=== PATIENT | female | born 1935 | race Caucasian/White ===

== ENCOUNTER 2016-10-18 17:33 | Inpatient (IN) | payer MEDICARE, BC ==
[~2016-10-18] VITALS: Ht 170.2 cm; Wt 80.5 kg
[~2016-10-18 17:33] MED LIST: ALEN70TA7 PO; AMLO5TAB2 PO; BUDE0.5A AEROSOL; CALC-747 PO; CARV25TA28 PO; DULO60CA25 PO; FURO40TA70 PO; GUAI-782 PO; IPRA3AMP AEROSOL; LEVO500T63 PO; LEVO75TA4 PO; LISI-126 PO; LORA-315 PO; MIRT30TA72 PO; OXYC5TAB84 PO; POTA20TA69 PO; TRAVATAN RIGHT EYE; WARF2TAB58 PO
--- OUTSIDE RECORDS SUMMARY | 2016-10-18 17:42 | XMS REPORT ---
Author Author Remigio Gautam Organization [employer] Address Unknown Phone Unavailable Care Team Providers Care Formulation Technician Name Role Phone Remigio Gautam CP Unavailable Allergies No Known Allergies Problems Problem Type Condition ICD-9 Code Onset Dates Condition Status Problem Hypothyroid 244.9 Active Problem Personal history of malignant neoplasm of skin V10.83 Active Problem Hypertension, essential 401.9 Active Problem Dyslipidemia 272.4 Active Problem Lumbar spondylosis 721.3 Active Problem Intertrigo 695.89 Active Problem Basal cell carcinoma of skin of nose 173.31 Active Problem Actinic keratosis 702.0 Active Problem Degenerative disc disease, lumbar 722.52 Active Problem Spondylolisthesis 756.12 Active Problem Long-term use of anticoagulants V58.61 Active Problem Osteoporosis 733.00 Active Assessment Chronic anticoagulation V58.61 Active Problem Osteoarthritis of right hip 715.95 Active Problem Heart valve replacement status V43.3 Active Problem Hip joint replacement status V43.64 Active Medications Medication Code System Code Instructions Start Date End Date Status Dosage Amlodipine Besylate [facility] [address]-96 5 MG Orally Once a day 1 tablet Lorazepam [facility] [address]-81 0.5 MG Orally Twice a day not defined Mirtazapine [facility] [address]-26 45 MG Orally Once a day 1 tablet Brovana [facility] [address]-85 15 MCG/2ML Inhalation Twice a day 2 ml Lasix [facility] [address]-92 40 MG Orally Twice a day 1 tablet Albuterol Sulfate [facility] [address]-75 (2.5 MG/3ML) 0.083% Inhalation as needed 3 ml Oxygen [facility] 0 3 LPM 07/03 Fosamax [facility] [address]-76 70 MG Orally Once a week 1 tablet Coumadin [facility] [address]-20 2 MG Orally Once a day 1 tablet Potassium Chloride ER [facility] [address]-67 10 MEQ Orally Twice a day 1 tablet Cymbalta [facility] 49593545724 60 MG Orally Once a day 1 capsule Coreg [facility] [address]-36 12.5 MG Orally Twice a day 1 tablet Lisinopril [facility] [address]-85 20 MG Orally twice a day 1 tablet Levothyroxine Sodium [facility] 04996614782 88 MCG Orally Once a day 1 tablet Procedures Procedure Coding System Code Date Prothrombin Time CPT-4 04661 February 03, 2015 Venipuncture CPT-4 44255 February 03, 2015 Results No Known Results Summary Purpose [employer]ClinicalWorks Submission
--- OUTSIDE RECORDS SUMMARY | 2016-10-18 17:42 | XMS REPORT ---
Author Author Mya Srinivasan Organization [employer] Address Unknown Phone Unavailable Care Team Providers Care School Plant Consultant Name Role Phone Mya Srinivasan CP Unavailable Allergies No Known Allergies Problems Problem Type Condition Code Onset Dates Condition Status Problem Hypertension, essential 401.9 Active Problem Actinic keratosis 702.0 Active Problem Personal history of malignant neoplasm of skin V10.83 Active Problem Intertrigo 695.89 Active Problem Dyslipidemia 272.4 Active Problem Epistaxis 784.7 Active Problem Spondylolisthesis 756.12 Active Problem Basal cell carcinoma of skin of nose 173.31 Active Problem Lumbar spondylosis 721.3 Active Problem Degenerative disc disease, lumbar 722.52 Active Problem Osteoporosis 733.00 Active Problem Osteoarthritis of right hip 715.95 Active Problem Heart valve replacement status V43.3 Active Problem Hip joint replacement status V43.64 Active Problem Long-term use of anticoagulants V58.61 Active Problem Hypothyroid 244.9 Active Medications No Known Medications Results No Known Results Summary Purpose [employer]ClinicalWorks Submission
--- OUTSIDE RECORDS SUMMARY | 2016-10-18 17:42 | XMS REPORT | Continuity of Care Document ---
Author Author [facility] Organization [facility] Address Unknown Phone Unavailable Support Name Relationship Address Phone ELVIADALIA ROLON Caregiver [address] [place] [address] OTHER Caregiver Unknown [phone] MANFRED LEON MD Caregiver [address] [place] [address] [address] Next Of Kin [address] [place] [address] Insurance Providers Payer Name Policy Number Subscriber Name Relationship Medicare [id number] Lulú Sterling 20 Self [facility] [id number] Lulú Sterling 20 Self Advance Directives Directive Response Recorded Date/Time Advanced Directives Type DPOA for Healthcare 11/23/14 11:29am Ordered Resuscitation Status Full Code 11/25/14 11:13am Resuscitation Documents on File No 11/23/14 12:48pm Chief Complaint and Reason for Visit Chief Complaint RT. PNEUMONIA Reason for Visit Pneumonia involving right lung Pneumonia involving right lung Pulmonary fibrosis Acute respiratory insufficiency Hypothyroidism CHF due to valvular disease Hyperosmolality and hypernatremia Anemia Problems Medical Problems Problem Onset Date Status Urinary tract infection Unknown Active Left flank pain Unknown Active Pneumonia involving right lung Unknown Active Pneumonia involving right lung Unknown Active Pulmonary fibrosis Unknown Active Acute respiratory insufficiency Unknown Active Hypothyroidism Unknown Active CHF due to valvular disease Unknown Active Hyperosmolality and hypernatremia Unknown Active Anemia Unknown Active Medications Medication Dose Route Sig Days/Qty Instructions Order Date Discontinued Date Status Carvedilol 1 Tab PO TWICE A DAY 06/01/13 Active Lisinopril 1 Tab PO TWICE A DAY 06/01/13 Active Alendronate Sodium 1 Tab PO WEEKLY 06/01/13 Active Levothyroxine Sodium 1 Tab PO DAILY 06/01/13 11/27/14 Discontinued Furosemide 1 Tab PO TWICE A DAY 06/01/13 Active Potassium Chloride 10 Meq PO TWICE A DAY 06/01/13 Active Warfarin Sodium 1 Tab PO DAILY DIRECTED BY PHYSICIAN 06/01/1311/27 Discontinued Duloxetine Hcl 1 Tab PO DAILY 06/01/13 Active Lorazepam 1 Tab PO TWICE A DAY 06/01/13 Active Mirtazapine 1 Tab PO BEDTIME 06/01/13 Active Amlodipine Besylate 1 Tab PO DAILY 11/18/14 Active Oxycodone HCl 5 Mg PO Every 6 Hours PRN PAIN 20 Qty 11/18/14 Active Ciprofloxacin HCl 500 Mg PO EVERY 12 HOURS 5 Days 11/18/14 11/27/14 Discontinued [Travatan] 1 Drop RIGHT EYE BEDTIME 11/23/14 Active Budesonide 0.5 Mg AEROSOL TWICE A DAY For pneumonia 14 Days 11/27/14 Active Guaifenesin/Dextromethorphan 1 Tab PO EVERY 12 HOURS For pneumonia 21 Days 11/27/14 Active Ipratropium/Albuterol Sulfate 3 Ml AEROSOL FOUR TIMES DAILY For pneumonia 14 Days 11/27/14 Active Warfarin Sodium 1.5 Mg PO GIVE AT NOON 30 Days 11/27/14 Active Levothyroxine Sodium 75 Mcg PO BEFORE BREAKFAST 30 Days 11/27/14 Active Levofloxacin 500 Mg PO DAILY For pneumonia 5 Days 11/27/14 Active Calcium Carbonate/Vitamin D3 1 Tab PO TWICE A DAY For osteoperosis 30 Days 11/27/14 Active Social History Social History Problem Response Recorded Date/Time Chewing Tobacco Status No 06/01/2013 1:02pm Hx Substance Use No 11/23/2014 10:38am Hx Alcohol Use No 11/23/2014 10:38am Has the pt used tobacco in the last 12 months No 11/23/2014 12:42pm Tobacco Usage none 11/23/2014 2:10pm Query Response Start Date Stop Date Smoking Status Former smoker Hospital Discharge Instructions Instructions: Care Instructions: Reason for Hospitalization: Pneumonia I was in the hospital because (patient own words): I think I have pneumonia Discharge Diet: No added salt Discharge Activity: Walker for assistance Follow Up Appointments: Dr Varner in 1 week Patient Instructions: Use Acapella 4-8 times a day Durable Medical Equipment: O2 at 2-3 L per NC Condition at time of discharge: Good 1. Call your surgeon if you are having problems relating to your surgery at [phone]. 2. Problems such as: Temp above 101.5 degrees You develop redness, excessive swelling of the incision, increasing pain or excessive foul smelling drainage. 3. If the office is closed, call [facility] at [phone] and have your Surgeon paged. Condition at time of discharge: Fair - You have pain and/or swelling in your feet, calves, or legs. - You have difficulty breathing, abnormal cough, or chest pain. During office hours, call [phone]. After hours, please call [facility] at [phone] and have the levers lace machine operator page Dr. Yang or the covering surgeon. *In the event of an emergency, seek medical care at the nearest emergency room.* Condition at time of discharge: Good Plan of Care Discharge Date 11/27/14 4:45pm Disposition 04 TO [facility] HOME/FACILITY Instructions/Education Provided NM Congestive Heart Failure DI for Pneumonia -- Adult Prescriptions See Medications Section Functional Status Query Response Date Recorded Physical Hygiene Assist November 27, 2014 1:28pm Disabilities None November 27, 2014 1:28pm Devices Used Glasses November 27, 2014 1:28pm Dressing Assist November 27, 2014 1:28pm Ambulation Assist November 27, 2014 1:28pm Diet Self November 27, 2014 1:28pm Mental Status Alert Oriented November 27, 2014 1:28pm Disabilities None November 27, 2014 1:28pm Devices Used Glasses November 27, 2014 1:28pm Physical Hygiene Assist November 27, 2014 1:28pm Dressing Assist November 27, 2014 1:28pm Ambulation Assist November 27, 2014 1:28pm Diet Self November 27, 2014 1:28pm Allergies, Adverse Reactions, Alerts Allergen Type Severity Reaction Status Last Updated Thiazides Allergy Unknown RASH Active 11/18/14 Nifedipine Allergy Unknown DROPPED BLOOD PRESSURE TOO FAST Active 11/18/14 Codeine Adverse Reaction Unknown NAUSEA Active 11/18/14 Tramadol Allergy Unknown Active 11/18/14 Amiodarone Allergy Unknown DYSPNEA, LUNG DAMAGE Active 11/18/14 Hydroxychloroquine Allergy Unknown Active 11/18/14 Immunizations Name Given Type Hx Influenza Vaccination Y 05/28 Historical Hx Pneumococcal Vaccination Y Fall 2009 Historical Hx Tetanus, Diptheria, Pertussis No Historical Hx Influenza Vaccination Y 05/28 Historical Hx Tetanus Diptheria No Historical Hx Tetanus, Diptheria, Pertussis No Historical Hx Tetanus Toxoid Vaccination No Historical Vital Signs Acute Vital Signs Vital Response Date/Time Temperature (Fahrenheit) 96.4 deg F (96.8 - 99.1) Temperature (Calculated Celsius) 35.24119 degrees C (36.0 - 37.3) Pulse Rate (adult) 62 bpm (60 - 100) Respiratory Rate 16 breaths/min (10 - 20) O2 Sat by Pulse Oximetry 94 % (90 - 100) Oxygen Delivery Method Nasal Cannula Oxygen Flow Rate 2.50 L/min Blood Pressure 152/71 mm Hg Blood Pressure Source Automatic Cuff Height 5 ft 7 in Weight 199 lb Body Mass Index 31.0 kg/m^2 Results Test Source Date Result Interp. Ref. Range Comments Activated Partial Thromboplast Time November 23, 2014 10:00am 49.5 SEC H 24 -36 Ordering r/o VTE Yes Alanine Aminotransferase (ALT/SGPT) November 23, 2014 10:00am 40 U/L N 9- 52 Albumin November 23, 2014 10:00am 3.7 G/DL N 3.5-5.0 Albumin/Globulin Ratio November 23, 2014 10:00am 1.2 RATIO N 1.1-2.2 Alkaline Phosphatase November 23, 2014 10:00am 66 U/L N 38-126 Anion Gap November 27, 2014 4:15am 11 MEQ/L N 5-15 Aspartate Amino Transf (AST/SGOT) November 23, 2014 10:00am 37 U/L H 14-36 BUN/Creatinine Ratio November 27, 2014 4:15am 26 RATIO N 6-26 Band Neutrophils # November 27, 2014 4:15am 0.1 T/MM3 - Band Neutrophils % November 27, 2014 4:15am 1.0 % N 0-6 Basophils # (Auto) November 23, 2014 10:00am 0.0 T/MM3 N 0-0.2 Basophils (%) (Auto) November 23, 2014 10:00am 0.5 % N 0-2 Blood Urea Nitrogen November 27, 2014 4:15am 28.0 MG/DL H 7-17 Calcium Level November 27, 2014 4:15am 8.6 MG/DL N 8.4-10.2 Calculated Osmolality November 27, 2014 4:15am 286 MOSM/KG H 261-280 Carbon Dioxide Level November 27, 2014 4:15am 30 MEQ/L N 22-30 Chemistry Specimen Hemolysis November 27, 2014 4:15am < 15 0-25 0-25: No Hemolysis.26-70: Slight Hemolysis - can falsely elevate K and Urine Protein. 71-285: Moderate Hemolysis - can falsely elevate K, Troponin I, CA 19-9, PTH, CSF GLucose, and Urine Protein, and can falsely decrease Phenytoin. 286-999: Gross Hemolysis - can falsely elevate K, Troponin I, CA 19-9, PTH, CSF Glucose, and Urine Protine, and can falsely decrease Phenytoin. Recommend specimen recollection. Chloride Level November 27, 2014 4:15am 103 MEQ/L N 98-107 Creatinine November 27, 2014 4:15am 1.1 MG/DL N 0.7-1.2 D-Dimer November 23, 2014 10:00am 218 NG/ML N 0-230 <230 NG/ML D-DU= PRESUMPTIVE NEGATIVE FOR PE OR DVT>230 NG/ML D-DU=ADDITIONAL EVAL FOR PE OR DVT RECOMMENDED Eosinophils # (Auto) November 23, 2014 10:00am 0.5 T/MM3 N 0-0.5 Eosinophils (%) (Auto) November 23, 2014 10:00am 7.0 % H 0-4 Globulin November 23, 2014 10:00am 3.2 G/DL N 2.4-3.6 Glomerular Filtration Rate Calc November 27, 2014 4:15am 48 - Glucose Level November 27, 2014 4:15am 157 MG/DL H 65-110 Hematocrit November 27, 2014 4:15am 35.0 % L 36-46 Hemoglobin November 27, 2014 4:15am 11.0 GM/DL L 12-16 Icterus Index November 27, 2014 4:15am < 2 0-7 Immature Granulocyte # (Auto) November 23, 2014 10:00am 0.02 T/MM3 N 0.00- 0.03 Immature Granulocyte % (Auto) November 23, 2014 10:00am 0.3 % N 0.0-0.5 Lab Scanned Report June 11, 2013 9:25am LAB TEST FORM REQUEST [id number] - Lipase November 18, 2014 9:03am 114 U/L N 23-300 Lymphocytes # (Auto) November 23, 2014 10:00am 0.8 T/MM3 L 1-4.8 Lymphocytes # (Manual) November 27, 2014 4:15am 0.8 T/MM3 L 1-4.8 Lymphocytes % (Manual) November 27, 2014 4:15am 10.0 % L 23-45 Lymphocytes (%) (Auto) November 23, 2014 10:00am 9.8 % L 23-45 MRSA Specimen Source May 15, 2013 2:28pm Nasal - Mean Corpuscular Hemoglobin November 27, 2014 4:15am 30.6 UUG N 26-34 Mean Corpuscular Hemoglobin Concent November 27, 2014 4:15am 31.4 GM/DL N 31-37 Mean Corpuscular Volume November 27, 2014 4:15am 97.2 UM3 N 80-100 Mean Platelet Volume November 27, 2014 4:15am 9.5 UM3 N 9.4-12.4 Methicillin-Resist S.aureus DNA PCR May 15, 2013 2:28pm Negative - Monocytes # (Auto) November 23, 2014 10:00am 0.5 T/MM3 N 0-0.8 Monocytes # (Manual) November 27, 2014 4:15am 0.1 T/MM3 N 0-0.8 Monocytes % (Manual) November 27, 2014 4:15am 1.0 % N 0-9.0 Monocytes (%) (Auto) November 23, 2014 10:00am 6.1 % N 0-9.0 LC-Rvf-Y-Type Natriuretic Peptide November 23, 2014 10:00am 2580 PG/ML H 0- 175 Rule in cut points: <50 years old=450; 50-75 years old=900; >75 years old=1800; When utilizing ProBNP rule-in cut points, adjustment for impaired renal function is typically not required. Neutrophils # (Auto) November 23, 2014 10:00am 5.9 T/MM3 N 1.8-7.7 Neutrophils # (Manual) November 27, 2014 4:15am 7.3 T/MM3 N 1.8-7.7 Neutrophils % (Manual) November 27, 2014 4:15am 88.0 % H 33-66 Neutrophils (%) (Auto) November 23, 2014 10:00am 76.3 % H 33-66 Platelet Count November 27, 2014 4:15am 267 T/MM3 N 130-400 Potassium Level November 27, 2014 4:15am 3.3 MEQ/L L 3.6-5 Prealbumin November 23, 2014 10:00am 15.7 MG/DL L 17.6-36.0 COMMENT mari Procalcitonin November 23, 2014 10:00am < 0.05 NG/ML - PCT </=0.5 ng/mL - sepsis not likely;PCT >0.5 and </=2 ng/mL - sepsis possible; PCT >2 ng/mL - sepsis likely; PCT >/=10 ng/mL - systemic inflammatory response - sepsis or septic shock highly indicated. Prothromb Time International Ratio November 27, 2014 4:15am 2.60 H 0.81- 1.09 THERAPUTIC RANGE=2.00-3.00 FOR ANTI-THROMBOSIS THERAPUTIC RANGE=2.50- 3.50 FOR IMPLANTED VALVE RDW Standard Deviation November 27, 2014 4:15am 46.5 FL N 36.9-50.2 Red Blood Count November 27, 2014 4:15am 3.60 M/MM3 L 4.00-5.20 Red Cell Morphology Comment November 27, 2014 4:15am Normal - Sodium Level November 27, 2014 4:15am 144 MEQ/L N 134-144 Thyroid Stimulating Hormone (TSH) November 23, 2014 10:00am 0.34 MIU/L L 0.47-4.68 COMMENT mari Total Bilirubin November 23, 2014 10:00am 0.90 MG/DL N 0.20-1.30 Total Protein November 23, 2014 10:00am 6.9 G/DL N 6.3-8.2 Troponin I November 23, 2014 10:00am < 0.012 ng/ml 0-0.12 Troponin values with a difference of 55% increase fromorginal troponin value represent a true biological DELTA value. (%increase Calc=Orginal Troponin value, divided by subsequent Troponin value, multiplied by 100) Turbidity November 27, 2014 4:15am < 20 0-20 Urine Bacteria November 18, 2014 9:35am 3+ H - Has specimen been collected /obtained? Y Urine Bilirubin November 18, 2014 9:35am Negative - Has specimen been collected/obtained? Y Urine Blood November 18, 2014 9:35am Trace-lysed H - Has specimen been collected/obtained? Y Urine Collection Type November 18, 2014 9:35am Voided-not cc-midstr - Has specimen been collected/obtained? Y Urine Color November 18, 2014 9:35am Yellow - Has specimen been collected/obtained? Y Urine Culture Indicated November 18, 2014 9:35am Cult reflexed &setup - Has specimen been collected/obtained? Y Urine Glucose (UA) November 18, 2014 9:35am Negative - Has specimen been collected/obtained? Y Urine Ketones November 18, 2014 9:35am Negative - Has specimen been collected/obtained? Y Urine Leukocyte Esterase November 18, 2014 9:35am Negative - Has specimen been collected/obtained? Y Urine Nitrite November 18, 2014 9:35am Positive H - Has specimen been collected/obtained? Y Urine Protein November 18, 2014 9:35am 1+ H - Has specimen been collected/ obtained? Y Urine RBC November 18, 2014 9:35am None seen /HPF - Has specimen been collected/obtained? Y Urine Specific Spencer November 18, 2014 9:35am 1.015 - Has specimen been collected/obtained? Y Urine Squamous Epithelial Cells November 18, 2014 9:35am 5-10 - Has specimen been collected/obtained? Y Urine Turbidity November 18, 2014 9:35am Clear - Has specimen been collected/obtained? Y Urine Urobilinogen November 18, 2014 9:35am 0.2 EU/DL - Has specimen been collected/obtained? Y Urine WBC November 18, 2014 9:35am 3-5 /HPF - Has specimen been collected/obtained? Y Urine WBC Clumps November 18, 2014 9:35am Few - Has specimen been collected/obtained? Y Urine pH November 18, 2014 9:35am 7.0 - Has specimen been collected/ obtained? Y White Blood Count November 27, 2014 4:15am 8.3 T/MM3 N 4.5-11.0 Blood Culture Peripheral Blood November 23, 2014 11:42am NO GROWTH AFTER 4 DAYS Urine Culture Urine, Voided-Not Cc-Midstream November 18, 2014 10:04am Kleb Pneumoniae Ssp Pneumoniae Name: LULÚ STERLING Unit #: [id number] : 1935 Sex: F Loc / Svc: MED DOS: 11/23/14 Signed Report #: [id number] DIAGNOSTIC IMAGING REPORT TYPE OF EXAM: CHEST, PA & LATERAL Dictated By: LEW VARNER MD INDICATION: ITS.REASON: f/u CHEST 2-VIEWS UPRIGHT (PA & LAT) COMPARISON: November 25, 2014 FINDINGS: Aeration of the lungs has improved with less dense consolidation of the right lung with diffuse patchy airspace disease remaining. Aeration of the left mid to lower lung field has also improved. No pneumothorax. No effusion. Heart size and mediastinal contours are stable. Support devices are unchanged. Impression: Improving aeration of the lungs probably which may represent improving pulmonary edema with or without improving pneumonia. . Procedures Procedure Status Date Provider(s) CT ABD & PELVIS W/O CONTRAST completed 11/18/14 COMPREHEN METABOLIC PANEL completed 11/18/14 URINALYSIS AUTO W/SCOPE completed 11/18/14 ASSAY OF LIPASE completed 11/18/14 ASSAY THYROID STIM HORMONE completed 11/18/14 ASSAY OF TROPONIN QUANT completed 11/18/14 COMPLETE CBC W/AUTO DIFF WBC completed 11/18/14 PROTHROMBIN TIME completed 11/18/14 THROMBOPLASTIN TIME PARTIAL completed 11/18/14 URINE CULTURE/COLONY COUNT completed 11/18/14 HYDRATE IV INFUSION ADD-ON completed 11/18/14 THER/PROPH/DIAG INJ IV PUSH completed 11/18/14 TX/PRO/DX INJ NEW DRUG ADDON completed 11/18/14 TX/PRO/DX INJ SAME DRUG SENIOR FINANCIAL completed 11/18/14 EMERGENCY DEPT VISIT completed 11/18/14 [id number]"INJECTION, ONDANSETRON HYDROCHLORIDE, PER 1 MG" completed 11/18/14 [id number]"INFUSION, NORMAL SALINE SOLUTION , 1000 CC" completed 11/18/14 Encounters Encounter Location Date/Time Admitted Inpatient [facility] 11/23/14 11:23am Departed Emergency Room [facility] 11/18/14 8:23am Recent Diagnosis Pneumonia involving right lung Pneumonia involving right lung Pulmonary fibrosis Acute respiratory insufficiency Hypothyroidism CHF due to valvular disease Hyperosmolality and hypernatremia Anemia
--- OUTSIDE RECORDS SUMMARY | 2016-10-18 17:42 | XMS REPORT ---
Author Author Remigio Gautam Organization [employer] Address Unknown Phone Unavailable Care Team Providers Care Shirt Finisher Name Role Phone Remigio Gautam CP Unavailable Allergies, Adverse Reactions, Alerts Substance Reaction Event Type Ultram Info Not Available Drug Allergy Procardia Info Not Available Drug Allergy Plaquenil Info Not Available Drug Allergy Pacerone Info Not Available Drug Allergy Dyazide Info Not Available Drug Allergy Codeine Sulfate Info Not Available Drug Allergy Problems Problem Type Condition ICD-9 Code Onset Dates Condition Status Problem Osteoporosis 733.00 Active Problem Hip joint replacement status V43.64 Active Problem Osteoarthritis of right hip 715.95 Active Problem Degenerative disc disease, lumbar 722.52 Active Assessment 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 Problem Spondylolisthesis 756.12 Active Assessment Depression 311 Active Assessment Osteoporosis 733.00 Active Problem Lumbar spondylosis 721.3 Active Problem Hypertension, essential 401.9 Active Problem Hypothyroid 244.9 Active Problem Personal history of malignant neoplasm of skin V10.83 Active Problem Actinic keratoses 702.0 Active Assessment Chronic anticoagulation V58.61 Active Assessment H/O aortic valve replacement V43.3 Active Assessment Status post right hip replacement V43.64 Active Assessment Hypothyroid 244.9 Active Assessment High blood pressure 401.9 Active Assessment Pedal edema 782.3 Active Assessment Sinoatrial node dysfunction 427.81 Active Problem Heart valve replacement status V43.3 Active Assessment Congestive heart disease 428.0 Active Problem Long-term use of anticoagulants V58.61 Active Medications Medication Code System Code Instructions Start Date End Date Status Dosage Zolpidem Tartrate [facility] [address]-60 5 MG Orally Once a day Active 1 tablet at bedtime Cymbalta [facility] [address]-36 60 MG Active TAKE ONE CAPSULE BY MOUTH EVERY DAY [facility] [address]-90 20 MG Orally bid Active 1 tablet Fosamax [facility] [address]-99 70 MG Orally Active 1 tablet Lorazepam [facility] [address]-89 0.5 MG Orally Twice a day Active Unknown Mirtazapine [facility] [address]-12 45 mg Active TAKE ONE TABLET BY MOUTH EVERY NIGHT BEFORE BEDTIME Coreg [facility] [address]-44 25 MG Orally Twice a day Active 1 tablet with food Coumadin [facility] [address]-30 Active Unknown Lasix [facility] [address]-99 40 MG Orally bid Active 1 tablet Potassium Chloride ER [facility] [address]-41 10 MEQ Orally Twice a day Active 1 tablet Amlodipine Besylate [facility] [address]-21 5 MG Orally Once a day Active 1 tablet Levothyroxine Sodium [facility] [address]-77 88 MCG Active TAKE ONE TABLET BY MOUTH EVERY DAY Procedures Procedure Coding System Code Date Est PT OVOP Service CPT-4 47804 Apr 17, 2014 Vital Signs Date/Time: Apr 17, 2014 Blood Pressure Diastolic 80 mm Hg Blood Pressure Systolic 124 mm Hg Cardiac Monitoring Heart Rate 72 /min Weight 188.7 lbs Height 65 in Results No Known Results Summary Purpose eClinicalWorks Submission
--- OUTSIDE RECORDS SUMMARY | 2016-10-18 17:42 | XMS REPORT ---
Author Author Stacy Khalil [facility] eClinicalWorks Address Unknown Phone Unavailable Care Team Providers Care Spa Experience Coordinator Name Role Phone Stacy Khalil CP Unavailable Allergies No Known Allergies Problems Problem Type Condition ICD-9 Code Onset Dates Condition Status Problem Osteoarthritis of right hip 715.95 Active Problem Hypothyroid 244.9 Active Problem Hip joint replacement status V43.64 Active Problem Degenerative disc disease, lumbar 722.52 Active Problem Spondylolisthesis 756.12 Active Problem Lumbar spondylosis 721.3 Active Problem Personal history of malignant neoplasm of skin V10.83 Active Problem Hypertension, essential 401.9 Active Problem Basal cell carcinoma of skin of nose 173.31 Active Problem Actinic keratosis 702.0 Active Assessment Shortness of breath 786.05 Active Problem Heart valve replacement status V43.3 Active Problem Long-term use of anticoagulants V58.61 Active Problem Osteoporosis 733.00 Active Medications Medication Code System Code Instructions Start Date End Date Status Dosage Potassium Chloride ER [facility] [address]-08 10 MEQ Orally Once a day Active 1 tablets Levothyroxine Sodium [facility] [address]-83 88 MCG Orally Once a day Active 1 tablet Lorazepam [facility] [address]-85 0.5 MG Orally Twice a day Active not defined Mirtazapine [facility] [address]-03 45 MG Orally Once a day Active 1 tablet before bedtime in the evening Coreg [facility] [address]-68 25 MG Orally Twice a day Active 1 tablet with food Amlodipine Besylate [facility] [address]-15 5 MG Orally Once a day Active 1 tablet Cymbalta [facility] 34736795520 60 MG Orally Once a day Active 1 capsule Coumadin [facility] [address]-35 Active not defined Fosamax [facility] [address]-70 70 MG Orally Active 1 tablet Lisinopril [facility] [address]-81 20 MG Orally bid Active 1 tablet Lasix [facility] [address]-95 40 MG Orally bid Active 1 tablet Procedures Procedure Coding System Code Date Diffusing Capacity CPT-4 03400 Jun 25, 2014 Plethysmography CPT-4 70101 Jun 25, 2014 Spirometry CPT-4 95930 Jun 25, 2014 Results No Known Results Summary Purpose eClinicalWorks Submission
--- OUTSIDE RECORDS SUMMARY | 2016-10-18 17:43 | XMS REPORT ---
Author Author Osmany Alba Organization e[employer]Works Address Unknown Phone Unavailable Care Team Providers Care Broadcast Traffic Coordinator Name Role Phone Osmany Alba CP Unavailable Allergies No Known Allergies Problems Problem Type Condition ICD-9 Code Onset Dates Condition Status Problem Hypertension, [...] Degenerative disc disease, lumbar 722.52 Active Assessment Degenerative disc disease, lumbar 722.52 Active Assessment Lumbar spondylosis 721.3 Active Problem Osteoporosis 733.00 Active Problem Osteoarthritis of right hip 715.95 Active Problem Heart valve replacement status V43.3 Active Problem Hip joint replacement status V43.64 Active Problem Long-term use of anticoagulants V58.61 Active Problem Hypothyroid 244.9 Active Medications Medication Code System Code Instructions Start Date End Date Status Dosage Levothyroxine Sodium [facility] 17404632679 88 MCG Orally Once a day 1 tablet Lisinopril [facility] [address]-09 20 MG Orally twice a day 1 tablet Coumadin [facility] [address]-22 2 MG Orally Once a day 1 tablet Lorazepam [facility] [address]-61 0.5 MG Orally Twice a day not defined Oxygen ND ____ 3 LPM 24/ Potassium Chloride ER [facility] [address]-59 10 MEQ Orally Twice a day 1 tablet Lasix [facility] [address]-83 40 MG Orally 2 tablets AM, 1 tablet PM Fosamax [facility] [address]-00 70 MG Orally Once a week 1 tablet Multivitamin NDC ____ not defined Cymbalta [facility] 05095114854 60 MG Orally Once a day 1 capsule Mirtazapine [facility] 41040746468 45 MG TAKE ONE TABLET BY MOUTH EVERY NIGHT AT BEDTIME Coreg [facility] [address]-69 25 MG Orally Twice a day 1 tablet Procedures Procedure Coding System Code Date Kenalog-40 per 10 mg (J3301) CPT-4 J330A Mar 26, 2015 CT Guidance Needle Placement CPT-4 84465 Mar 26, 2015 Facet joint lumbar CPT-4 85144 Mar 26, 2015 Results No Known Results Summary Purpose eClinicalWorks Submission
--- OUTSIDE RECORDS SUMMARY | 2016-10-18 17:43 | XMS REPORT ---
Author Author Remigio Gautam Organization eClinicalWorks Address Unknown Phone Unavailable Care Team Providers Care Manager Case Management Name Role Phone Remigio Gautam CP Unavailable Allergies, Adverse Reactions, Alerts Substance Reaction Event Type Ultram Info Not Available Drug Allergy Procardia Info Not Available Drug Allergy Plaquenil Info Not Available Drug Allergy Pacerone Info Not Available Drug Allergy Dyazide Info Not Available Drug Allergy Codeine Sulfate Info Not Available Drug Allergy Amlodipine Besylate leg swelling Drug Allergy Problems Problem Type Condition ICD-9 Code Onset Dates Condition Status Assessment Osteoporosis 733.00 Active Problem Osteoarthritis of right hip 715.95 Active Assessment Osteoarthritis 715.90 Active Problem Hip joint replacement status V43.64 Active Assessment Depression 311 Active Problem Hypothyroid 244.9 Active Problem Personal history of malignant neoplasm of skin V10.83 Active Problem Hypertension, essential 401.9 Active Problem Dyslipidemia 272.4 Active Problem Lumbar spondylosis 721.3 Active Assessment Chronic anticoagulation V58.61 Active Assessment 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 Problem Intertrigo 695.89 Active Assessment Dependence on supplemental oxygen V46.2 Active Problem Basal cell carcinoma of skin of nose 173.31 Active Problem Actinic keratosis 702.0 Active Problem Degenerative disc disease, lumbar 722.52 Active Problem Spondylolisthesis 756.12 Active Assessment Congestive heart failure 428.0 Active Assessment Hypertension 401.9 Active Assessment History of aortic valve replacement V43.3 Active Assessment Sinoatrial node dysfunction 427.81 Active Problem Long-term use of anticoagulants V58.61 Active Problem Osteoporosis 733.00 Active Assessment Pedal edema 782.3 Active Problem Heart valve replacement status V43.3 Active Medications Medication Code System Code Instructions Start Date End Date Status Dosage Coreg [facility] [address]-06 25 MG Orally Twice a day 1 tablet Fosamax [facility] [address]-30 70 MG Orally Once a week 1 tablet Levothyroxine Sodium [facility] 48285670910 88 MCG Orally Once a day 1 tablet Lorazepam [facility] [address]-72 0.5 MG Orally Twice a day not defined Lisinopril [facility] [address]-77 20 MG Orally twice a day 1 tablet Oxygen NDC 0 3 LPM 07/03 Coumadin [facility] [address]-93 2 MG Orally Once a day 1 tablet Mirtazapine [facility] [address]-22 45 MG Orally Once a day 1 tablet Cymbalta [facility] 24524499296 60 MG Orally Once a day 1 capsule Potassium Chloride ER [facility] [address]-22 10 MEQ Orally Twice a day 1 tablet Multivitamin [facility] 66552-43042 not defined Amlodipine Besylate [facility] [address]-49 5 MG Orally Once a day 1 tablet Lasix [facility] [address]-24 40 MG Orally Twice a day 1 tablet Procedures Procedure Coding System Code Date Est PT OVOP Service CPT-4 80880 February 13, 2015 Vital Signs Date/Time: February 13, 2015 Blood Pressure Diastolic 62 mm Hg Blood Pressure Systolic 125 mm Hg Cardiac Monitoring Heart Rate 81 /min Oximetry 89 % BMI 32.45 Index Weight 195 lbs Height 65 in Results No Known Results Summary Purpose eClinicalWorks Submission
--- OUTSIDE RECORDS SUMMARY | 2016-10-18 17:43 | XMS REPORT ---
Author Author Remigio Gautam Organization eClinicalWorks Address Unknown Phone Unavailable Care Team Providers Care River Transportation Worker Name Role Phone Remigio Gautam CP Unavailable [...] anticoagulants V58.61 Active Problem Osteoporosis 733.00 Active Problem Osteoarthritis of right hip 715.95 Active Problem Heart valve replacement status V43.3 Active Problem Hip joint replacement status V43.64 Active Medications No Known Medications Results No Known Results Summary Purpose eClinicalWorks Submission
--- OUTSIDE RECORDS SUMMARY | 2016-10-18 17:43 | XMS REPORT ---
Author Author Remigio Gautam Organization eClinicalWorks Address Unknown Phone Unavailable Care Team Providers Care Fire Controlman Name Role Phone Remigio Gautam CP Unavailable Allergies No Known Allergies Problems Problem Type Condition Code Onset Dates Condition Status Problem Osteoarthritis M19.90 Active Problem Oxygen dependent Z99.81 Active Problem Depression F32.9 Active Problem History of aortic valve replacement Z95.2 Active Problem Age related osteoporosis M81.0 Active Problem Congestive heart failure I50.9 Active Problem Sinoatrial node dysfunction I49.5 Active Problem Essential (primary) hypertension I10 Active Problem Hypothyroid E03.9 Active Problem 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 Problem [facility] current use of anticoagulant Z79.01 Active Problem Pedal edema R60.0 Active Medications No Known Medications Results No Known Results Summary Purpose eClinicalWorks Submission
--- OUTSIDE RECORDS SUMMARY | 2016-10-18 17:43 | XMS REPORT ---
Author Author [facility] Organization eClinicalWorks Address Unknown Phone Unavailable Care Team Providers Care Plumbing Technician Name Role Phone [facility] CP Unavailable Allergies No Known Allergies Problems Problem Type Condition Code Onset Dates Condition Status Problem Hypothyroid [...] V58.61 Active Problem Osteoporosis 733.00 Active Assessment Anticoagulant long-term use V58.61 Active Problem Osteoarthritis of right hip 715.95 Active Problem Heart valve replacement status V43.3 Active Problem Hip joint replacement status V43.64 Active Medications No Known Medications Procedures Procedure Coding System Code Date Prothrombin Time CPT-4 36301 December 24, 2014 Results No Known Results Summary Purpose eClinicalWorks Submission
--- OUTSIDE RECORDS SUMMARY | 2016-10-18 17:43 | XMS REPORT ---
Author Author Remigio Gautam Organization eClinicalWorks Address Unknown Phone Unavailable Care Team Providers Care Pressure Tester Operator Name Role Phone Remigio Gautam CP Unavailable [...]
--- OUTSIDE RECORDS SUMMARY | 2016-10-18 17:43 | XMS REPORT | Referral Summary ---
Author Author [facility] Organization [facility] Address Unknown Phone Unavailable Care Team Providers Care Campaign Specialist Name Role Phone Remigio Gautam Primary Care Physician [phone] Encounter VC Date(s): 07/14/15 - 07/14/15 [facility] [address] [place], [place] [address] Discharge Disposition: 01-Home or Self Care Attending Physician: Chapin Chaidez MD Admitting Physician: Chapin Chaidez MD Vital Signs Most recent to 1 oldest [Reference Range]: Peripheral Pulse 64 bpm Rate [60-100 bpm] (07/14/15 3:53 PM) Respiratory Rate 16 br/min [14-20 br/min] (07/14/15 3:53 PM) Blood Pressure 142/78 mmHg [90-140/60-90 mmHg] *HI* (07/14/15 3:53 PM) SpO2 96 % (07/14/15 3:53 PM) Problem List Condition Effective Dates Status Health Status Informant Allergic Active rhinitis/Hay fever(Confirmed) Depression(Confirmed Active ) Blood clots Active Lungs/Legs(Confirmed ) High Active cholesterol(Confirme d) Hypertension(Confirm Active ed) Irregular heart Active rhythm(Confirmed) Irritable bowel Active syndrome(Confirmed) Obesity(Confirmed) Active patient Tobacco Active patient user(Confirmed) Chicken Active pox(Confirmed) Allergies, Adverse Reactions, Alerts Substance Reaction Severity Status codeine Active NIFEdipine Active Medications carvedilol 6.25 mg oral tablet 6.25 mg 1 tabs, Oral, BID, 0 Refill(s) Start Date: 07/14/15 Status: Ordered cloNIDine Oral, BID, 0 Refill(s) Start Date: 07/14/15 Status: Ordered Coumadin 2 mg oral tablet 1 tabs, Oral, Daily, # 30 tabs, 0 Refill(s) Start Date: 10/14/14 Status: Ordered Cymbalta 60 mg oral delayed release capsule 1 caps, Oral, Daily, do not crush or chew, # 30 caps, 0 Refill(s) Start Date: 10/14/14 Status: Ordered Fosamax 70 mg oral tablet 70 mg 1 tabs, Oral, qWeek, 0 Refill(s) Start Date: 10/14/14 Status: Ordered Home Oxygen (DME) DME Item 3 LPM daily (apria), See Instructions, # 1 Each, 0 Refill(s), Supply Start Date: 07/14/15 Status: Ordered Klor-Con 10 See Instructions, (10 meq) 4 tabs a day, 0 Refill(s) Start Date: 07/14/15 Status: Ordered Lasix 40 mg oral tablet 40 mg 1 tabs, Oral, BID, # 30 tabs, 0 Refill(s) Start Date: 10/14/14 Status: Ordered levothyroxine 88 mcg (0.088 mg) oral tablet 1 tabs, Oral, Daily, # 30 tabs, 0 Refill(s) Start Date: 10/14/14 Status: Ordered lisinopril 20 mg oral tablet 20 mg 1 tabs, Oral, BID, # 30 tabs, 0 Refill(s) Start Date: 10/14/14 Status: Ordered LORazepam 0.5 mg oral tablet 1 tabs, Oral, BID, 0 Refill(s) Start Date: 10/14/14 Status: Ordered mirtazapine 45 mg oral tablet 1 tabs, Oral, Bedtime (once a day), # 30 tabs, 0 Refill(s) Start Date: 10/14/14 Status: Ordered Miscellaneous DME DME Item Overnight oximetry on room air. Fax full graphics to [phone] Dx: [phone], [phone] MIRACLE:[id number], See Instructions, # 1 Each, 0 Refill(s), Supply Start Date: 10/14/14 Status: Ordered [place] 5 mg-325 mg oral tablet 1 tabs, Oral, As Indicated, 0 Refill(s) Start Date: 07/14/15 Status: Ordered Tylenol Extra Strength 500 mg, Oral, As Indicated, 0 Refill(s) Start Date: 07/14/15 Status: Ordered Results No data available for this section Immunizations No data available for this section Procedures Procedure Date Related Diagnosis Body Site Appendectomy CABG - Coronary artery bypass graft Cholecystectomy Hysterectomy Left Knee replacement Right Knee replacement Social History Social History Type Response Smoking Status Former smoker1 1stopped 39 years ago. Assessment and Plan No data available for this section
--- OUTSIDE RECORDS SUMMARY | 2016-10-18 17:43 | XMS REPORT ---
Author Author Osmany Alba Organization eClinicalWorks Address Unknown Phone Unavailable Care Team Providers Care Check Pilot Name Role Phone Osmany Alba CP Unavailable Allergies, Adverse Reactions, Alerts Substance [...] 722.52 Active Problem Spondylolisthesis 756.12 Active Assessment Spondylolisthesis 756.12 Active Assessment Degenerative disc disease, lumbar 722.52 Active Assessment [facility] current use of anticoagulant therapy V58.61 Active Problem Long-term use of anticoagulants V58.61 Active Problem Osteoporosis 733.00 Active Assessment Lumbar spondylosis 721.3 Active Problem Osteoarthritis of right hip 715.95 Active Problem Heart valve replacement status V43.3 Active Problem Hip joint replacement status V43.64 Active Medications Medication Code System Code Instructions Start Date End Date Status Dosage Lisinopril [facility] [address]-22 20 MG Orally twice a day 1 tablet Albuterol Sulfate [facility] [address]-14 (2.5 MG/3ML) 0.083% Inhalation as needed 3 ml Coumadin [facility] [address]-96 2 MG Orally Once a day 1 tablet Cymbalta [facility] 74582069429 60 MG Orally Once a day 1 capsule Coreg [facility] [address]-07 12.5 MG Orally Twice a day 1 tablet Lorazepam [facility] [address]-88 0.5 MG Orally Twice a day not defined Oxygen NDC 0 3 LPM 24/7 Fosamax [facility] [address]-63 70 MG Orally Once a week 1 tablet Potassium Chloride ER [facility] [address]-38 10 MEQ Orally Twice a day 1 tablet Levothyroxine Sodium [facility] 66879100826 88 MCG Orally Once a day 1 tablet Brovana [facility] [address]-43 15 MCG/2ML Inhalation Twice a day 2 ml Lasix [facility] [address]-19 40 MG Orally Twice a day 1 tablet Amlodipine Besylate [facility] [address]-82 5 MG Orally Once a day 1 tablet Mirtazapine [facility] [address]-54 45 MG Orally Once a day 1 tablet Procedures Procedure Coding System Code Date Est PT OVOP Service CPT-4 35208 January 31, 2015 Vital Signs Date/Time: January 31, 2015 Weight 188 lbs Height 65 in Cardiac Monitoring Heart Rate 82 /min BMI 31.28 Index Results No Known Results Summary Purpose eClinicalWorks Submission
--- OUTSIDE RECORDS SUMMARY | 2016-10-18 17:43 | XMS REPORT ---
Author Author Remigio Gautam Organization eClinicalWorks Address Unknown Phone Unavailable Care Team Providers Care Rx Specialist Name Role Phone Remigio Gautam CP Unavailable [...] Active Problem Actinic keratosis 702.0 Active Problem Heart valve replacement status V43.3 Active Problem Long-term use of anticoagulants V58.61 Active Problem Osteoporosis 733.00 Active Medications No Known Medications Results No Known Results Summary Purpose eClinicalWorks Submission
--- OUTSIDE RECORDS SUMMARY | 2016-10-18 17:43 | XMS REPORT ---
Author Author Remigio Gautam Organization eClinicalWorks Address Unknown Phone Unavailable Care Team Providers Care Ground Water Technician Name Role Phone Remigio Gautam CP Unavailable Allergies, Adverse Reactions, Alerts Substance Reaction Event Type Ultram Info Not Available Drug Allergy Procardia Info Not Available Drug Allergy Plaquenil Info Not Available Drug Allergy Pacerone Info Not Available Drug Allergy Dyazide Info Not Available Drug Allergy Codeine Sulfate Info Not Available Drug Allergy Amlodipine Besylate leg swelling Drug Allergy Problems Problem Type Condition Code Onset Dates Condition Status Assessment Osteoporosis 733.00 Active Assessment Osteoarthritis 715.90 Active Assessment Depression 311 Active Assessment Dependence on supplemental oxygen V46.2 Active Problem Hip joint replacement status V43.64 Active Assessment 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 Problem Hypothyroid 244.9 Active Assessment Hypothyroid 244.9 Active Problem Hypertension, essential 401.9 Active Problem Actinic keratosis 702.0 Active Problem Personal history of malignant neoplasm of skin V10.83 Active Problem Intertrigo 695.89 Active Problem Dyslipidemia 272.4 Active Assessment History of aortic valve replacement V43.3 Active Assessment snf current use of 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.61 Active Problem Epistaxis 784.7 Active Assessment Pedal edema 782.3 Active Problem Spondylolisthesis 756.12 Active Problem Basal cell carcinoma of skin of nose 173.31 Active Problem Lumbar spondylosis 721.3 Active Problem Degenerative disc disease, lumbar 722.52 Active Assessment Hypertension 401.9 Active Assessment Toe pain, right M79.674 Active Assessment Sinoatrial node dysfunction 427.81 Active Assessment Congestive heart failure 428.0 Active Problem Osteoporosis 733.00 Active Problem Osteoarthritis of right hip 715.95 Active Problem Heart valve replacement status V43.3 Active Problem Long-term use of anticoagulants V58.61 Active Medications Medication Code System Code Instructions Start Date End Date Status Dosage Lasix [facility] [address]-97 40 MG Orally twice a day 1 tablet Lisinopril [facility] [address]-82 20 MG Orally twice a day 1 tablet Lorazepam [facility] [address]-71 0.5 MG Orally Twice a day not defined Indomethacin [facility] [address]-93 25 MG Orally Three times a day Jun 17, 2015 Jun 24, 2015 1 capsule with food Potassium Chloride ER [facility] [address]-49 10 MEQ Orally once a day 2 tablets Multivitamin [facility] [address] not defined Coreg [facility] [address]-88 25 MG Orally Twice a day 1 tablet Mirtazapine [facility] [address]-89 45 MG Orally Once a day 1 tablet before bedtime in the evening Coumadin [facility] [address]-23 2 MG Orally and 5 MG alternating Fosamax [facility] [address]-85 70 MG Orally Once a week 1 tablet Oxygen [facility] 0 3 LPM 24/7 Levothyroxine Sodium [facility] 06396531966 88 MCG Orally Once a day 1 tablet Cymbalta [facility] [address]-64 60 MG Orally Once a day 1 capsule Hydrocodone-Acetaminophen [facility] [address]-41 5-325 MG Orally Three times a day as needed 1 tablet Procedures Procedure Coding System Code Date Est PT OVOP Service CPT-4 60425 Jun 17, 2015 Xray Foot Complete CPT-4 55046 Jun 17, 2015 Vital Signs Date/Time: Jun 17, 2015 Blood Pressure Diastolic 79 mm Hg Blood Pressure Systolic 150 mm Hg Cardiac Monitoring Heart Rate 72 /min BMI 31.88 Index Weight 191.6 lbs Height 65 in Results Name Result Date Reference Range Unit Abnormality Flag X-Ray FOOT RIGHT 3 VIEW (11326) Summary Purpose eClinicalWorks Submission
--- OUTSIDE RECORDS SUMMARY | 2016-10-18 17:44 | XMS REPORT ---
Author Author Santos Rizzo [employer] Address Unknown Phone Unavailable Care Team Providers Care Industrial Engineer Name Role Phone Santos Rizzo CP Unavailable Allergies, Adverse Reactions, Alerts Substance [...] Active Problem Actinic keratosis 702.0 Active Assessment Basal cell carcinoma of skin of nose 173.31 Active Problem Heart valve replacement status V43.3 Active Problem Long-term use of anticoagulants V58.61 Active Problem Osteoporosis 733.00 Active Medications Medication Code System Code Instructions Start Date End Date Status Dosage Lasix [facility] [address]-59 40 MG Orally bid Active 1 tablet Potassium Chloride ER [facility] [address]-48 10 MEQ Orally Once a day Active 1 tablets Fosamax [facility] [address]-90 70 MG Orally Active 1 tablet Lorazepam [facility] [address]-98 0.5 MG Orally Twice a day Active not defined Coreg [facility] [address]-30 25 MG Orally Twice a day Active 1 tablet with food Amlodipine Besylate [facility] [address]-29 5 MG Orally Once a day Active 1 tablet Cymbalta [facility] 36535953774 60 MG Orally Once a day Active 1 capsule Mirtazapine [facility] [address]-39 45 MG Orally Once a day Active 1 tablet before bedtime in the evening Coumadin [facility] ____ Active not defined Lisinopril [facility] [address]-61 20 MG Orally bid Active 1 tablet Levothyroxine Sodium [facility] [address]-47 88 MCG Orally Once a day Active 1 tablet Procedures Procedure Coding System Code Date Excision Malignant Lesion CPT-4 67804 Jun 27, 2014 Vital Signs Date/Time: Jun 27, 2014 Blood Pressure Diastolic 58 mm Hg Blood Pressure Systolic 126 mm Hg Cardiac Monitoring Heart Rate 86 /min BMI 31.45 Index Weight 189 lbs Height 65 in Results No Known Results Summary Purpose eClinicalWorks Submission
--- OUTSIDE RECORDS SUMMARY | 2016-10-18 17:44 | XMS REPORT ---
Author Author Remigio Gautam Organization [employer] Address Unknown Phone Unavailable Care Team Providers Care Mine Laborer Name Role Phone Remigio Gautam CP Unavailable [...] Osteoporosis 733.00 Active Assessment Osteoarthritis 715.90 Active Problem Osteoporosis 733.00 Active Assessment Depression 311 Active Problem Osteoarthritis of right hip 715.95 Active Assessment Dependence on supplemental oxygen V46.2 Active Problem Hip joint replacement status V43.64 Active Problem Hypertension, essential 401.9 Active Problem Hypothyroid 244.9 Active Problem Lumbar spondylosis 721.3 Active Problem Degenerative disc disease, lumbar 722.52 Active Assessment Dyslipidemia 272.4 Active Assessment Pedal edema 782.3 Active Problem Intertrigo 695.89 Active Assessment 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 Problem Actinic keratosis 702.0 Active Problem Personal history of malignant neoplasm of skin V10.83 Active Problem Spondylolisthesis 756.12 Active Problem Basal cell carcinoma of skin of nose 173.31 Active Assessment Sinoatrial node dysfunction 427.81 Active Assessment Congestive heart failure 428.0 Active Assessment Chronic anticoagulation V58.61 Active Assessment History of aortic valve replacement V43.3 Active Problem Heart valve replacement status V43.3 Active Problem Long-term use of anticoagulants V58.61 Active Assessment Hypertension 401.9 Active Assessment Dysuria 788.1 Active Medications Medication Code System Code Instructions Start Date End Date Status Dosage Amlodipine Besylate [facility] [address]-96 5 MG Orally Once a day [address] [facility] ____ 3 LPM 24/ Fosamax [facility] [address]-52 70 MG Orally Once a week [address] [facility] [address]-41 (2.5 MG/3ML) 0.083% Inhalation as needed [address] [facility] [address]-26 40 MG Orally Twice a day [address] [facility] [address]-27 15 MCG/2ML Inhalation Twice a day [address] [facility] [address]-02 0.5 MG Orally Twice a day not defined Levothyroxine Sodium [facility] 05709596816 88 MCG Orally Once a day [address] [facility] [address]-47 10 MEQ Orally Twice a day [address] [facility] [address]-40 45 MG Orally Once a day [address] [facility] [address]-26 2 MG Orally Once a day [address] [facility] [address]-88 20 MG Orally twice a day [address] [facility] [address]-41 12.5 MG Orally Twice a day [address] [facility] 41761336545 60 MG Orally Once a day 1 capsule Procedures Procedure Coding System Code Date Lipid Profile CPT-4 39288 December 24, 2014 Basic Metabolic Panel CPT-4 61237 December 24, 2014 Venipuncture CPT-4 37514 December 24, 2014 Est PT OVOP Service CPT-4 86694 December 24, 2014 UA Automated W Microscopy CPT-4 81905 December 24, 2014 Vital Signs Date/Time: December 24, 2014 Blood Pressure Diastolic 75 mm Hg Blood Pressure Systolic 146 mm Hg Cardiac Monitoring Heart Rate 78 /min BMI 31.28 Index Weight 188 lbs Height 65 in Results No Known Results Summary Purpose eClinicalWorks Submission
--- OUTSIDE RECORDS SUMMARY | 2016-10-18 17:44 | XMS REPORT ---
Author Author [facility] Services Organization [employer] Address Unknown Phone Unavailable Care Team Providers Care Marketing Support Specialist Name Role Phone Laboratory, Services CP Unavailable [...] V58.61 Active Problem Osteoporosis 733.00 Active Assessment Heart valve replacement status V43.3 Active Problem Osteoarthritis of right hip 715.95 Active Problem Heart valve replacement status V43.3 Active Problem Hip joint replacement status V43.64 Active Medications No Known Medications Procedures Procedure Coding System Code Date Prothrombin Time CPT-4 12853 January 31, 2015 Venipuncture CPT-4 24096 January 31, 2015 Results Name Result Date Reference Range Unit Abnormality Flag Protime w/ INR Summary Purpose [employer]ClinicalWorks Submission
--- OUTSIDE RECORDS SUMMARY | 2016-10-18 17:44 | XMS REPORT ---
Author Author Remigio Gautam Organization [employer] Address Unknown Phone Unavailable Care Team Providers Care Crab Backer Name Role Phone Remigio Gautam CP Unavailable Allergies No Known Allergies Problems Problem Type Condition Code Onset Dates Condition Status Problem Osteoarthritis M19.90 Active Problem Oxygen dependent Z99.81 Active Problem Depression F32.9 Active Problem Congestive heart failure I50.9 Active Problem Sinoatrial node dysfunction I49.5 Active Problem Essential (primary) hypertension I10 Active Problem Hypothyroid E03.9 Active Problem 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 Problem half-way current use of anticoagulant Z79.01 Active Problem Pedal edema R60.0 Active Assessment Osteoporosis M81.0 Active Problem History of aortic valve replacement Z95.2 Active Problem Age related osteoporosis M81.0 Active Medications Medication Code System Code Instructions Start Date End Date Status Dosage Mirtazapine [facility] 47014336023 45 MG TAKE ONE TABLET BY MOUTH EVERY NIGHT AT BEDTIME Oxygen ND ____ 3 LPM 24/7 Potassium Chloride ER [facility] [address]-86 10 MEQ Orally Twice a day 2 tablets Lorazepam [facility] 59656745581 0.5 MG TAKE ONE TABLET BY MOUTH TWO TIMES A DAY NEEDED Levothyroxine Sodium [facility] 17698508380 88 MCG Orally Once a day 1 tablet Hydrocodone-Acetaminophen [facility] [address]-48 7.5-325 MG Orally Three times a day as needed 2 tablets Multivitamin NDC ____ not defined Lisinopril [facility] [address]-25 20 MG Orally twice a day 1 tablet Coreg [facility] [address]-86 25 MG Orally Twice a day 1 tablet Lasix [facility] [address]-86 40 MG Orally twice a day 1 tablet Fosamax [facility] [address]-99 70 MG Orally Once a week 1 tablet Cymbalta [facility] 75679427264 60 MG 1 capsule Once a day Orally 90 days Coumadin [facility] [address]-76 2 MG Orally Once a day 1 tablet Procedures Procedure Coding System Code Date Dexa Bone Density Study CPT-4 33150 Jun 02, 2016 Results Name Result Date Reference Range Unit Abnormality Flag Bone Density (79584) Summary Purpose eClinicalWorks Submission
--- OUTSIDE RECORDS SUMMARY | 2016-10-18 17:44 | XMS REPORT ---
Author Author Remigio Gautam Organization [employer] Address Unknown Phone Unavailable Care Team Providers Care Rough Carpenter Name Role Phone Remigio Gautam CP Unavailable Allergies No Known Allergies Problems Problem Type Condition ICD-9 Code Onset Dates Condition Status Problem Hip joint replacement status V43.64 Active Problem Hypertension, essential 401.9 Active Problem Hypothyroid 244.9 Active Problem Lumbar spondylosis 721.3 Active Problem Degenerative disc disease, lumbar 722.52 Active Problem Dyslipidemia 272.4 Active Problem Actinic keratosis 702.0 Active Problem Personal history of malignant neoplasm of skin V10.83 Active Problem Spondylolisthesis 756.12 Active Problem Basal cell carcinoma of skin of nose 173.31 Active Problem Heart valve replacement status V43.3 Active Problem Long-term use of anticoagulants V58.61 Active Problem Osteoporosis 733.00 Active Problem Osteoarthritis of right hip 715.95 Active Medications No Known Medications Results No Known Results Summary Purpose eClinicalWorks Submission
--- OUTSIDE RECORDS SUMMARY | 2016-10-18 17:44 | XMS REPORT ---
Author Author Remigio Gautam Organization [employer] Address Unknown Phone Unavailable Care Team Providers Care Naturopathic Doctor Name Role Phone Remigio Gautam CP Unavailable [...] Condition Code Onset Dates Condition Status Problem History of aortic valve replacement Z95.2 Active Assessment Age related osteoporosis M81.0 Active Problem Age related osteoporosis M81.0 Active Assessment Osteoarthritis M19.90 Active Problem Osteoarthritis M19.90 Active Problem Oxygen dependent Z99.81 Active Problem Depression F32.9 Active Problem Congestive heart failure I50.9 Active Problem Sinoatrial node dysfunction I49.5 Active Assessment 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 Assessment Oxygen dependent Z99.81 Active Problem Essential (primary) hypertension I10 Active Assessment Depression F32.9 Active Problem Hypothyroid E03.9 Active Problem 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 Problem care home current use of anticoagulant Z79.01 Active Problem Pedal edema R60.0 Active Assessment manager intermediate current use of anticoagulant Z79.01 Active Assessment History of aortic valve replacement Z95.2 Active Assessment Hypothyroid E03.9 Active Assessment Pedal edema R60.0 Active Assessment Essential (primary) hypertension I10 Active Assessment Low back pain M54.5 Active Assessment Sinoatrial node dysfunction I49.5 Active Assessment Congestive heart failure I50.9 Active Medications Medication Code System Code Instructions Start Date End Date Status Dosage Lisinopril [facility] [address]-40 20 MG Orally twice a day 1 tablet Oxygen NDC 0 3 LPM 07/[address] [facility] [address]-99 70 MG Orally Once a week [address] [facility] 19217798955 60 MG 1 capsule Once a day Orally [address] [facility] [address]-31 40 MG Orally twice a day [address] [facility] [address] not defined Mirtazapine [facility] 17476297694 45 MG TAKE ONE TABLET BY MOUTH EVERY NIGHT AT BEDTIME Potassium Chloride ER [facility] [address]-50 10 MEQ Orally Twice a day 2 tablets Hydrocodone-Acetaminophen [facility] [address]-53 7.5-325 MG Orally Three times a day as needed [address] [facility] [address]-36 2 MG Orally Once a day [address] [facility] 70800737675 88 MCG Orally Once a day [address] [facility] [address]-42 25 MG Orally Twice a day [address] [facility] [address]-99 0.5 MG Orally Two times a day as needed 1 tablet Procedures Procedure Coding System Code Date Est PT OVOP Service CPT-4 68935 March 08, 2016 Vital Signs Date/Time: March 08, 2016 Blood Pressure Diastolic 84 mm Hg Blood Pressure Systolic 133 mm Hg Cardiac Monitoring Heart Rate 85 /min BMI 31.08 Index Weight 186.8 lbs Height 65 in Results No Known Results Summary Purpose eClinicalWorks Submission
--- OUTSIDE RECORDS SUMMARY | 2016-10-18 17:44 | XMS REPORT ---
Author Author Remigio Gautam Organization [employer] Address Unknown Phone Unavailable Care Team Providers Care Blood Tester Name Role Phone Remigio Gautam CP Unavailable [...] Problem 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 Problem [facility] current use of anticoagulant Z79.01 Active Problem Pedal edema R60.0 Active Medications No Known Medications Results No Known Results Summary Purpose [employer]ClinicalWorks Submission
--- OUTSIDE RECORDS SUMMARY | 2016-10-18 17:44 | XMS REPORT ---
Author Author Remigio Gautam Organization [employer] Address Unknown Phone Unavailable Care Team Providers Care Director Export Name Role Phone Remigio Gautam CP Unavailable [...] Instructions Start Date End Date Status Dosage Cymbalta [facility] [address]-27 60 MG Orally Once a day Active 1 capsule Results No Known Results Summary Purpose eClinicalWorks Submission
--- OUTSIDE RECORDS SUMMARY | 2016-10-18 17:44 | XMS REPORT ---
Author Author Osmany Alba Organization [employer] Address Unknown Phone Unavailable Care Team Providers Care Field Service Engineer Name Role Phone Osmany Alba CP Unavailable [...] Start Date End Date Status Dosage Lasix [facility] [address]-23 40 MG Orally 2 tablets AM, 1 tablet PM Coumadin [facility] [address]-99 2 MG Orally Once a day 1 tablet Multivitamin ND ____ not defined Oxygen ND ____ 3 LPM 07/03 Lisinopril [facility] [address]-58 20 MG Orally twice a day 1 tablet Fosamax [facility] [address]-34 70 MG Orally Once a week 1 tablet Potassium Chloride ER [facility] [address]-09 10 MEQ Orally Twice a day 1 tablet Mirtazapine [facility] 68401908979 45 MG TAKE ONE TABLET BY MOUTH EVERY NIGHT AT BEDTIME Cymbalta [facility] 62403287559 60 MG Orally Once a day 1 capsule Coreg [facility] [address]-25 25 MG Orally Twice a day 1 tablet Levothyroxine Sodium [facility] 32201988592 88 MCG Orally Once a day 1 tablet Lorazepam [facility] [address]-09 0.5 MG Orally Twice a day not defined Results No Known Results Summary Purpose eClinicalWorks Submission
[2016-10-18 17:45] VITALS: BP 179/70; PULSE 67; RESP 20; TEMP 97.9; O2SAT 94
--- OUTSIDE RECORDS SUMMARY | 2016-10-18 17:45 | XMS REPORT | Continuity of Care Document ---
Author Author [facility] Organization [facility] Address Unknown Phone Unavailable Allergies Active Description Code Type Severity Reaction Onset Reported/Identified Relationship to Patient Clinical Status Yes Dyazide 6846 Unknown N/A 01/15/2009 Yes hydrochlorothiazide hydrochlorothiazide Drug Allergy Mild RED BUMPS ALL OVER 07/23 Yes hydroxychloroquine sulfate hydroxychloroquine sulfate Drug Allergy Mild RED BUMPS ALL OVER 07/23/2010 Yes triamterene triamterene Drug Allergy Mild RED BUMPS ALL OVER 07/23/2010 Yes codeine codeine Drug Allergy Unknown "SICK TO STOMACH" 07/23/2010 Yes nifedipine nifedipine Drug Allergy Unknown BLOOD PRESSURE GO DOWN TOO FAST 07/23/2010 Yes No Known Intolerances No Known Intolerances Drug Allergy Unknown N/A 07/23/2010 Yes Amiodarone 4484 Unknown N/A 08/21/2010 Yes Codeine 1550 Unknown N/A 08/21/2010 Yes Nifedipine 710 Unknown N/A 11/30/2010 Medications Problems Date Dx Coded Attending Type Code Diagnosis Diagnosed By 01/04/2013 Morteza Cueva MD 244.9 HYPOTHYROIDISM NOS 01/04/2013 Morteza Cueva MD 311 DEPRESSIVE DISORDER NEC 01/04/2013 Morteza Cueva MD 349.82 TOXIC ENCEPHALOPATHY 01/04/2013 Morteza Cueva MD 386.00 MENIERE'S DISEASE, UNSPECIFIED 01/04/2013 Morteza Cueva MD 401.9 HYPERTENSION NOS 01/04/2013 Morteza Cueva MD 416.8 CHR PULMON HEART DIS NEC 01/04/2013 Morteza Cueva MD 428.32 CHRONIC DIASTOLIC HRT FAILURE 01/04/2013 Morteza Cueva MD 443.9 PERIPH VASCULAR DIS NOS 01/04/2013 Morteza Cueva MD 496 CHR AIRWAY OBSTRUCT NEC 01/04/2013 Morteza Cueva MD 530.81 ESOPHAGEAL REFLUX 01/04/2013 Morteza Cueva MD 593.9 RENAL URETERAL DIS NOS 01/04/2013 Morteza Cueva MD 715.31 LOC OSTEOARTH NOS-SHLDER 01/04/2013 Morteza Cueva MD 726.10 BURSAE TENDONS DIS SHLDER NOS 01/04/2013 Morteza Cueva MD 733.00 OSTEOPOROSIS NOS 01/04/2013 Morteza Cueva MD V12.51 HX-VENOUS THROMBOSIS EMBOLISM 01/04/2013 Morteza Cueva MD V43.3 HEART VALVE REPLAC NEC 01/04/2013 Morteza Cueva MD V45.01 CARDIAC PACEMAKER IN SITU 01/19/2013 KELL MYERS MD V58.61 ANTICOAGULANT USE LONG T 03/03/2015 Brandon Hernandes W 784.7 EPISTAXIS 08/10/2016 ALICIA SPICER P Z79.01 EDUCATIONAL GUIDANCE COUNSELOR (CURRENT) USE OF ANTICOAGULANTS ALICIA SPICER Procedures Code Description Performed By Performed On 81.88 REVERSE TOTAL SHOULDER REPLACEMENT Morteza Cueva MD 01/04/2013 43172 PROTHROMBIN TIME KELL MYERS MD 01/19/2013 21.00 CONTROL OF EPISTAXIS NOS 03/03/2015 Encounters ACCT No. Visit Date/Time Discharge Status Pt. Type Provider Facility Loc./Unit Complaint [id number] 01/04/2013 05:11:00 2012 14:30:00 DIS Inpatient Hammad VELAZCO, Morteza Peterson [facility] W.9TS [id number] 10/11/2016 15:45:00 Document Registration
--- OUTSIDE RECORDS SUMMARY | 2016-10-18 17:45 | XMS REPORT ---
Author Author Remigio Gautam Organization [employer] Address Unknown Phone Unavailable Care Team Providers Care Gold Reclaimer Name Role Phone Remigio Gautam CP Unavailable [...] Degenerative disc disease, lumbar 722.52 Active Assessment Burning with urination R30.0 Active Problem Osteoporosis 733.00 Active Problem Osteoarthritis of right hip 715.95 Active Problem Heart valve replacement status V43.3 Active Problem Hip joint replacement status V43.64 Active Problem Long-term use of anticoagulants V58.61 Active Problem Hypothyroid 244.9 Active Medications Medication Code System Code Instructions Start Date End Date Status Dosage Mirtazapine [facility] [address]-92 45 MG Orally Once a day 1 tablet before bedtime in the evening Levothyroxine Sodium [facility] 58590900494 88 MCG Orally Once a day 1 tablet Hydrocodone-Acetaminophen [facility] [address]-26 5-325 MG Orally Three times a day as needed 1 tablet Potassium Chloride ER [facility] [address]-94 10 MEQ Orally once a day 2 tablets Lorazepam [facility] [address]-51 0.5 MG Orally Twice a day not defined Lasix [facility] [address]-97 40 MG Orally twice a day 1 tablet Coreg [facility] [address]-95 25 MG Orally Twice a day 1 tablet Fosamax [facility] [address]-74 70 MG Orally Once a week 1 tablet Bactrim DS [facility] [address]-39 800-160 MG Orally Twice a day Jul 07, 2015 Jul 12, 2015 1 tablet Oxygen ND 0 3 LPM 07/03 Lisinopril [facility] [address]-28 20 MG Orally twice a day 1 tablet Cymbalta [facility] [address]-81 60 MG Orally Once a day 1 capsule Coumadin [facility] [address]-03 2 MG Orally and 5 MG alternating Multivitamin [facility] [address]698-[address]189 not defined Procedures Procedure Coding System Code Date UA Automated W Microscopy CPT-4 55271 Jul 07, 2015 Results Name Result Date Reference Range Unit Abnormality Flag UA w/ Microscopic, Reflex Culture if Indicated Urine Culture, Reflex Testing when Indicated ----FINAL Microbiology results [id number] Summary Purpose eClinicalWorks Submission
--- OUTSIDE RECORDS SUMMARY | 2016-10-18 17:45 | XMS REPORT ---
Author Author Remigio Gautam Organization [employer] Address Unknown Phone Unavailable Care Team Providers Care Train Driver Name Role Phone Remigio Gautam CP Unavailable [...] Active Problem Actinic keratosis 702.0 Active Assessment Hypertension, essential 401.9 Active Problem Heart valve replacement status V43.3 Active Problem Long-term use of anticoagulants V58.61 Active Assessment Hypothyroid 244.9 Active Problem Osteoporosis 733.00 Active Medications Medication Code System Code Instructions Start Date End Date Status Dosage Fosamax [facility] [address]-12 70 MG Orally Active 1 tablet Levothyroxine Sodium [facility] 55154028319 88 MCG Active TAKE ONE TABLET BY MOUTH EVERY DAY Lorazepam [facility] [address]-32 0.5 MG Orally Twice a day Active not defined Potassium Chloride ER [facility] [address]-68 10 MEQ Orally Twice a day Active 1 tablet Amlodipine Besylate [facility] [address]-23 5 MG Orally Once a day Active 1 tablet Cymbalta [facility] 72767262461 60 MG Orally Once a day Active 1 capsule Coreg [facility] [address]-90 25 MG Orally Twice a day Active 1 tablet with food Coumadin [facility] [address]-64 Active not defined Lisinopril [facility] [address]-52 20 MG Orally bid Active 1 tablet Lasix [facility] [address]-71 40 MG Orally bid Active 1 tablet Zolpidem Tartrate [facility] [address]-88 5 MG Orally Once a day Active 1 tablet at bedtime Mirtazapine [facility] [address]-23 45 mg Active TAKE ONE TABLET BY MOUTH EVERY NIGHT BEFORE BEDTIME Procedures Procedure Coding System Code Date CBC Automated w Differential CPT-4 24305 Jun 24, 2014 Comp Metabolic Panel CPT-4 10767 Jun 24, 2014 Venipuncture CPT-4 03480 Jun 24, 2014 Thyroid Stimulating Horm CPT-4 88063 Jun 24, 2014 Results Name Result Date Reference Range Unit CMP Summary Purpose eClinicalWorks Submission
--- OUTSIDE RECORDS SUMMARY | 2016-10-18 17:45 | XMS REPORT ---
Author Author Remigio Gautam Organization [employer] Address Unknown Phone Unavailable Care Team Providers Care Cob Sawyer Name Role Phone Remigio Gautam CP Unavailable [...] Start Date End Date Status Dosage Mirtazapine [facility] [address]-10 45 MG Orally Once a day 1 tablet before bedtime in the evening Results No Known Results Summary Purpose eClinicalWorks Submission
--- OUTSIDE RECORDS SUMMARY | 2016-10-18 17:45 | XMS REPORT ---
Author Author Remigio Gautam Organization [employer] Address Unknown Phone Unavailable Care Team Providers Care Design Checker Name Role Phone Remigio Gautam CP Unavailable [...] Problem 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 Problem snf current use of anticoagulant Z79.01 Active Problem Pedal edema R60.0 Active Medications No Known Medications Results No Known Results Summary Purpose eClinicalWorks Submission
--- OUTSIDE RECORDS SUMMARY | 2016-10-18 17:45 | XMS REPORT ---
Author Author Osmany Alba Organization [employer] Address Unknown Phone Unavailable Care Team Providers Care Multimedia Production Assistant Name Role Phone Osmany Alba CP Unavailable [...] Start Date End Date Status Dosage Lasix [facility] [address]-03 40 MG Orally 2 tablets AM, 1 tablet PM Potassium Chloride ER [facility] [address]-66 10 MEQ Orally Twice a day 1 tablet Coumadin [facility] [address]-08 2 MG Orally Once a day 1 tablet Lorazepam [facility] [address]-61 0.5 MG Orally Twice a day not defined Mirtazapine [facility] 10054441586 45 MG TAKE ONE TABLET BY MOUTH EVERY NIGHT AT BEDTIME Lisinopril [facility] [address]-25 20 MG Orally twice a day 1 tablet Coreg [facility] [address]-08 25 MG Orally Twice a day 1 tablet Fosamax [facility] [address]-89 70 MG Orally Once a week 1 tablet Multivitamin ND ____ not defined Cymbalta [facility] 40326232185 60 MG Orally Once a day 1 capsule Oxygen ND ____ 3 LPM 07/03 Levothyroxine Sodium [facility] 10743925162 88 MCG Orally Once a day 1 tablet Procedures Procedure Coding System Code Date Kenalog-40 per 10 mg (J3301) CPT-4 J330A March 12, 2015 Facet joint lumbar CPT-4 55106 March 12, 2015 Results No Known Results Summary Purpose eClinicalWorks Submission
--- OUTSIDE RECORDS SUMMARY | 2016-10-18 17:45 | XMS REPORT ---
Author Author Remigio Gautam Organization [employer] Address Unknown Phone Unavailable Care Team Providers Care Rn Renal Name Role Phone Remigio Gautam CP Unavailable [...] Active Problem Actinic keratoses 702.0 Active Assessment Need for influenza vaccination V04.81 Active Problem Heart valve replacement status V43.3 Active Problem Long-term use of anticoagulants V58.61 Active Medications Medication Code System Code Instructions Start Date End Date Status Dosage Potassium Chloride ER [facility] [address]-37 10 MEQ Orally Twice a day Active 1 tablet Lasix [facility] [address]-49 40 MG Orally bid Active 1 tablet Cymbalta [facility] [address]-56 60 MG Active TAKE ONE CAPSULE BY MOUTH EVERY DAY Zolpidem Tartrate [facility] [address]-75 5 MG Orally Once a day Active 1 tablet at bedtime Coreg [facility] [address]-55 25 MG Orally Twice a day Active 1 tablet with food Lisinopril [facility] [address]-58 20 MG Orally bid Active 1 tablet Lorazepam [facility] [address]-47 0.5 MG Orally Twice a day Active not defined Levothyroxine Sodium [facility] 37927637747 88 MCG Active TAKE ONE TABLET BY MOUTH EVERY DAY Mirtazapine [facility] [address]-47 45 mg Active TAKE ONE TABLET BY MOUTH EVERY NIGHT BEFORE BEDTIME Amlodipine Besylate [facility] [address]-27 5 MG Orally Once a day Active 1 tablet Fosamax [facility] [address]-85 70 MG Orally Active 1 tablet Coumadin [facility] [address]-74 Active not defined Procedures Procedure Coding System Code Date Influenza virus vaccine, split virus, preservative free, enhanced immunogenicity via increased antigen content, for intramuscular use CPT-4 11583 Jun 06, 2014 Administration of influenza virus vaccine CPT-4 G0008 Jun 06, 2014 Results No Known Results Immunizations Vaccine Administration Date Influenza Administration MEDICARE Virus Vaccine Jun 06, 2014 Influenza high dose Jun 06, 2014 Summary Purpose [employer]ClinicalWorks Submission
--- OUTSIDE RECORDS SUMMARY | 2016-10-18 17:46 | XMS REPORT ---
Author Author Santos Rizzo [employer] Address Unknown Phone Unavailable Care Team Providers Care Mat Cutter Name Role Phone Santos Rizzo CP Unavailable [...] Long-term use of anticoagulants V58.61 Active Assessment Impetigo 684 Active Problem Osteoporosis 733.00 Active Assessment Basal cell carcinoma of skin of nose 173.31 Active Problem Osteoarthritis of right hip 715.95 Active Medications Medication Code System Code Instructions Start Date End Date Status Dosage Lorazepam [facility] [address]-49 0.5 MG Orally Twice a day Active not defined Mirtazapine [facility] NAMED [facility] [address]-60 45 MG Orally Once a day Active 1 tablet before bedtime in the evening Lasix [facility] [address]-74 40 MG Orally bid Active 1 tablet Potassium Chloride ER [facility] [address]-65 10 MEQ Orally Once a day Active 1 tablets Cymbalta [facility] [address]-91 60 MG Orally Once a day Active 1 capsule Fosamax [facility] [address]-93 70 MG Orally Active 1 tablet Coreg [facility] [address]-82 25 MG Orally Twice a day Active 1 tablet with food Coumadin [facility] ____ Active not defined Amlodipine Besylate [facility] [address]-51 5 MG Orally Once a day Active 1 tablet Mupirocin [facility] [address]-21 2 % Externally Three times a day Aug 01, 2014 Aug 29, 2014 Active 1 application to affected area Lisinopril [facility] [address]-32 20 MG Orally bid Active 1 tablet Levothyroxine Sodium [facility] [address]-56 88 MCG Orally Once a day Active 1 tablet Procedures Procedure Coding System Code Date Destruction Malignant Lesions CPT-4 40984 Aug 01, 2014 Est PT OVOP Service CPT-4 64208 Aug 01, 2014 Vital Signs Date/Time: Aug 01, 2014 Weight 196 lbs Height 65 in Cardiac Monitoring Heart Rate 69 /min BMIPercentile 0.00 % BMI 32.61 Index Results No Known Results Summary Purpose [employer]ClinicalWorks Submission
--- OUTSIDE RECORDS SUMMARY | 2016-10-18 17:46 | XMS REPORT ---
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
--- OUTSIDE RECORDS SUMMARY | 2016-10-18 17:46 | XMS REPORT ---
Author Author Remigio Gautam Organization [employer] Address Unknown Phone Unavailable Care Team Providers Care Resident Care Assistant Name Role Phone Remigio Gautam CP Unavailable [...] Assessment Dependence on supplemental oxygen V46.2 Active Assessment 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 Problem Hip joint replacement status V43.64 Active Assessment Hypothyroid 244.9 Active Problem Hypothyroid 244.9 Active Assessment Pedal edema 782.3 Active Problem Hypertension, essential 401.9 Active Problem Actinic keratosis 702.0 Active Problem Personal history of malignant neoplasm of skin V10.83 Active Problem Intertrigo 695.89 Active Problem Dyslipidemia 272.4 Active Assessment Sinoatrial node dysfunction 427.81 Active Assessment History of aortic valve replacement V43.3 Active Problem Epistaxis 784.7 Active Assessment 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 customer 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 advisor 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 of 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.61 Active Problem Spondylolisthesis 756.12 Active Problem Basal cell carcinoma of skin of nose 173.31 Active Problem Lumbar spondylosis 721.3 Active Problem Degenerative disc disease, lumbar 722.52 Active Assessment Pneumonia 486 Active Assessment SOB (shortness of breath) 786.05 Active Assessment Congestive heart failure 428.0 Active Assessment Hypertension 401.9 Active Problem Osteoporosis 733.00 Active Problem Osteoarthritis of right hip 715.95 Active Problem Heart valve replacement status V43.3 Active Problem Long-term use of anticoagulants V58.61 Active Medications Medication Code System Code Instructions Start Date End Date Status Dosage Potassium Chloride ER [facility] [address]-08 10 MEQ Orally once a day 2 tablets Oxygen NDC 0 3 LPM 24/ Lorazepam [facility] [address]-05 0.5 MG Orally Twice a day not defined Lasix [facility] [address]-89 40 MG Orally 1 tablet AM, 1 tablet PM Levofloxacin [facility] [address]-75 500 MG Orally Once a day Apr 08, 2015 Apr 15, 2015 1 tablet Multivitamin [facility] 27780-66620 not defined Levothyroxine Sodium [facility] 93360659953 88 MCG Orally Once a day 1 tablet Mirtazapine [facility] [address]-56 45 MG Orally Once a day 1 tablet before bedtime in the evening Cymbalta [facility] 11406124337 60 MG Orally Once a day 1 capsule Lovenox [facility] [address]-14 80 MG/0.8ML Subcutaneous twice a day not defined Lisinopril [facility] [address]-56 20 MG Orally twice a day 1 tablet Coreg [facility] [address]-40 25 MG Orally Twice a day 1 tablet Fosamax [facility] [address]-83 70 MG Orally Once a week 1 tablet Procedures Procedure Coding System Code Date Est PT OVOP Service CPT-4 30447 Apr 08, 2015 Xray Chest Frontal & Lateral CPT-4 39344 Apr 08, 2015 Vital Signs Date/Time: Apr 08, 2015 Blood Pressure Systolic 135 mm Hg Cardiac Monitoring Heart Rate 72 /min Temperature 97.5 F BMI 31.25 Index Weight 187.8 lbs Height 65 in Blood Pressure Diastolic 75 mm Hg Results No Known Results Summary Purpose [employer]ClinicalWorks Submission
--- NOTE | 2016-10-18 17:47 | NUR ---
Admit Pt was admitted to room [address] [facility] transported by her grand-daughter. She pivot transferred with the assist of 2 to the bed from the wheelchair. She is alert and oriented to person, place, and time. Denies any pain. Has a Fentanyl patch to her Rt upper back and a lidoderm patch to her lower back. She was oriented to the unit. Family was present at the time of admit. She has a scabbed area to the Lt forearm. Reports being continent and incontinent at times. Had her flu shot 05/2016 and her pneumonia 13 05/2016. Bed alarm is in use when in bed.
--- OUTSIDE RECORDS SUMMARY | 2016-10-18 17:47 | XMS REPORT ---
Author Author Remigio Gautam Organization [employer] Address Unknown Phone Unavailable Care Team Providers Care Sys Dir Name Role Phone Remigio Gautam CP Unavailable Allergies No Known Allergies Problems Problem Type Condition ICD-9 Code Onset Dates Condition Status Problem Osteoporosis 733.00 Active Problem Hip joint replacement status V43.64 Active Problem Osteoarthritis of right hip 715.95 Active Problem Heart valve replacement status V43.3 Active Problem Long-term use of anticoagulants V58.61 Active Problem Degenerative disc disease, lumbar 722.52 Active Problem Spondylolisthesis 756.12 Active Problem Lumbar spondylosis 721.3 Active Problem Hypertension, essential 401.9 Active Problem Hypothyroid 244.9 Active Problem Personal history of malignant neoplasm of skin V10.83 Active Problem Actinic keratoses 702.0 Active Medications No Known Medications Results No Known Results Summary Purpose [employer]ClinicalWorks Submission
--- OUTSIDE RECORDS SUMMARY | 2016-10-18 17:47 | XMS REPORT ---
Author Author Remigio Gautam Organization [employer] Address Unknown Phone Unavailable Care Team Providers Care Automated Process Operator Name Role Phone Remigio Gautam CP [...]
--- OUTSIDE RECORDS SUMMARY | 2016-10-18 17:47 | XMS REPORT ---
Author Author Remigio Gautam Organization [employer] Address Unknown Phone Unavailable Care Team Providers Care Clerical Coordinator Name Role Phone Remigio Gautam CP Unavailable [...] Date End Date Status Dosage Lisinopril [facility] [address]-32 20 MG Orally twice a day 1 tablet Cymbalta [facility] 68071807816 60 MG Orally Once a day 1 capsule Fosamax [facility] [address]-98 70 MG Orally Once a week 1 tablet Levofloxacin [facility] [address]-76 500 MG Orally Once a day Apr 17, 2015 Apr 27, 2015 1 tablet Coreg [facility] [address]-06 25 MG Orally Twice a day 1 tablet Oxygen ND ____ 3 LPM / Mirtazapine [facility] 83024062564 45 MG TAKE ONE TABLET BY MOUTH EVERY NIGHT AT BEDTIME Coumadin [facility] [address]-93 2 MG Orally Once a day 1 tablet Lorazepam [facility] [address]-51 0.5 MG Orally Twice a day not defined Lasix [facility] [address]-41 40 MG Orally 2 tablets AM, 1 tablet PM Multivitamin [place] ____ not defined Levothyroxine Sodium [facility] 59902197083 88 MCG Orally Once a day 1 tablet Potassium Chloride ER [facility] [address]-89 10 MEQ Orally Twice a day 1 tablet Results No Known Results Summary Purpose [employer]ClinicalWorks Submission
--- OUTSIDE RECORDS SUMMARY | 2016-10-18 17:47 | XMS REPORT ---
Author Author Osmany Alba Organization [employer] Address Unknown Phone Unavailable Care Team Providers Care Assistant Research Scientist Name Role Phone Osmany Alba CP Unavailable [...] Degenerative disc disease, lumbar 722.52 Active Assessment Long-term use of anticoagulants V58.61 Active Assessment Encounter for therapeutic drug monitoring V58.83 Active Problem Osteoporosis 733.00 Active Problem Osteoarthritis of right hip 715.95 Active Problem Heart valve replacement status V43.3 Active Problem Hip joint replacement status V43.64 Active Problem Long-term use of anticoagulants V58.61 Active Problem Hypothyroid 244.9 Active Medications Medication Code System Code Instructions Start Date End Date Status Dosage Potassium Chloride ER [facility] [address]-73 10 MEQ Orally Twice a day 1 tablet Cymbalta [facility] 73849745557 60 MG Orally Once a day 1 capsule Multivitamin [place] ____ not defined Oxygen [facility] ____ 3 LPM 07/03 Lisinopril [facility] [address]-64 20 MG Orally twice a day 1 tablet Coreg [facility] [address]-95 25 MG Orally Twice a day 1 tablet Lasix [facility] [address]-67 40 MG Orally 2 tablets AM, 1 tablet PM Fosamax [facility] [address]-11 70 MG Orally Once a week 1 tablet Coumadin [facility] [address]-09 2 MG Orally Once a day 1 tablet Mirtazapine [facility] 37587847612 45 MG TAKE ONE TABLET BY MOUTH EVERY NIGHT AT BEDTIME Levothyroxine Sodium [facility] 43816634076 88 MCG Orally Once a day 1 tablet Lorazepam [facility] [address]-91 0.5 MG Orally Twice a day not defined Procedures Procedure Coding System Code Date Prothrombin Time CPT-4 05766 Mar 25, 2015 Venipuncture CPT-4 37860 Mar 25, 2015 Results No Known Results Summary Purpose [employer]ClinicalWorks Submission
--- OUTSIDE RECORDS SUMMARY | 2016-10-18 17:47 | XMS REPORT ---
Author Author Remigio Gautam Organization [employer] Address Unknown Phone Unavailable Care Team Providers Care Assistant Professor Of Mathematics Name Role Phone Remigio Gautam CP Unavailable [...] Condition Code Onset Dates Condition Status Assessment Diabetes mellitus screening Z13.1 Active Assessment Age related osteoporosis M81.0 Active Problem History of aortic valve replacement Z95.2 Active Assessment Osteoarthritis M19.90 Active Problem Age related osteoporosis M81.0 Active Assessment Encounter for immunization Z23 Active Problem Osteoarthritis M19.90 Active Problem Oxygen dependent Z99.81 Active Problem Depression F32.9 Active Problem Congestive heart failure I50.9 Active Problem Sinoatrial node dysfunction I49.5 Active Assessment 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 Assessment Oxygen dependent Z99.81 Active Problem Essential (primary) hypertension I10 Active Assessment Depression F32.9 Active Problem Hypothyroid E03.9 Active Problem 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 Problem long-term current use of anticoagulant Z79.01 Active Problem Pedal edema R60.0 Active Assessment long-term current use of anticoagulant Z79.01 Active Assessment History of aortic valve replacement Z95.2 Active Assessment Hypothyroid E03.9 Active Assessment Pedal edema R60.0 Active Assessment Painful urination R30.9 Active Assessment Essential (primary) hypertension I10 Active Assessment Sinoatrial node dysfunction I49.5 Active Assessment Congestive heart failure I50.9 Active Medications Medication Code System Code Instructions Start Date End Date Status Dosage Multivitamin [facility] 516[address]-02733 not defined Levothyroxine Sodium [facility] 81847259105 88 MCG Orally Once a day 1 tablet Oxygen NDC 0 3 LPM 24/ Coumadin [facility] [address]-89 2 MG Orally Once a day 1 tablet Hydrocodone-Acetaminophen [facility] [address]-47 7.5-325 MG Orally Three times a day as needed 2 tablets Cymbalta [facility] 82842656012 60 MG 1 capsule Once a day Orally 90 days Lorazepam [facility] 72251589720 0.5 MG TAKE ONE TABLET BY MOUTH TWO TIMES A DAY NEEDED Potassium Chloride ER [facility] [address]-04 10 MEQ Orally Twice a day 2 tablets Lisinopril [facility] [address]-56 20 MG Orally twice a day 1 tablet Lasix [facility] [address]-59 40 MG Orally twice a day 1 tablet Mirtazapine [facility] 15837062290 45 MG TAKE ONE TABLET BY MOUTH EVERY NIGHT AT BEDTIME Fosamax [facility] [address]-80 70 MG Orally Once a week 1 tablet Coreg [facility] [address]-37 25 MG Orally Twice a day 1 tablet Procedures Procedure Coding System Code Date Venipuncture CPT-4 84515 May 31, 2016 CBC Automated w Differential CPT-4 58296 May 31, 2016 Est PT OVOP Service CPT-4 10536 May 31, 2016 Administration of pneumococcal vaccine CPT-4 G0009 May 31, 2016 Lipid Profile CPT-4 36835 May 31, 2016 Comp Metabolic Panel CPT-4 61892 May 31, 2016 Pneumococcal conjugate vaccine (13-valent) CPT-4 28877 May 31, 2016 UA Automated W Microscopy CPT-4 60836 May 31, 2016 Vital Signs Date/Time: May 31, 2016 Blood Pressure Diastolic 56 mm Hg Blood Pressure Systolic 122 mm Hg Cardiac Monitoring Heart Rate 80 /min BMI 30.45 Index Weight 183 lbs Height 65 in Results Name Result Date Reference Range Unit Abnormality Flag UA without Microscopic ----Blood 2+ [id number] Negative A ----Nitrite NEGATIVE 42925028 Negative ----Spec Grav >=1.030 41531472 1.001-1.035 ----pH 5.0 87676003 5.0-8.0 ----Glucose NEGATIVE 33388596 Negative ----Bilirubin 1+ 36332366 Negative A ----Ketones TRACE 75835932 Negative A ----Protein 1+ 73197586 Negative A ----Urobili 0.2 69282246 0.2-1.0 ----Color YELLOW 20160531 ----Leucocytes NEGATIVE 04871874 Negative ----Appearance CLEAR 29348809 Lipid Profile (91955) ----TRIG 272 43517069 <150 MG/DL H ----CHOL 200 78495789 <200 MG/DL H ----LDL-CHOL (Calc) 107.6 17569359 <130.0 MG/DL ----HDL-CHOL 38.0 89442566 40.0-60.0 MG/DL L CMP (62501) ----GLOBULIN 4.5 66149882 1.3-4.2 GM/DL H ----GLUCOSE 131 65724305 74-106 MG/DL H ----BUN/Creat 16.8 41524761 8.0-22.0 RATIO ----A/G RATIO 0.8 49780414 0.9-2.0 RATIO L ----CALCIUM 9.2 61907312 8.4-10.4 MG/DL ----T. BILI 0.50 47159714 0.20-1.00 MG/DL ----eGFR 56.2 71995437 >60.0 ml/min/1.73sq.m L ----ALK PHOS 83 51643559 46-116 U/L ----SGPT/ALTI 27 68385907 12-78 U/L ----SGOT/AST 32 94187137 12-37 U/L ----ALBUMIN 3.8 22491583 3.4-5.0 GM/DL ----T.PROTEIN 8.3 13367418 6.2-8.2 GM/DL H ----CREAT 1.0 09162297 0.6-1.0 MG/DL ----BUN 17.0 51870067 7.0-18.0 MG/DL ----SODIUM 142 28757280 135-145 MEQ/L ----POTASSIUM 4.4 20350715 3.5-5.1 MEQ/L ----CHLORIDE 102 85041096 97-107 MEQ/L ----CO2 29.6 38656089 21.0-32.0 mmol/L CBC w/ Auto Differential (41664) ----MCHC 31.1 10251782 32.0-36.0 g/dL L ----MCH 29.5 58833777 28.0-33.0 pg ----PLT 294 84783659 130-450 x10^3/uL ----RDW 14.2 18748291 11.0-15.0 % ----BASO# 0.06 22761291 0.00-0.20 x10^3/ul ----NEUT% 66.7 24630806 42.2-75.2 % ----LYMPHS% 19.3 16667051 20.5-51.1 % L ----MPV 9.4 43712542 8.0-12.0 fL ----BASO% 0.6 11373349 0.0-2.0 % ----HCT 48.5 06854153 36.0-48.0 % H ----NEUT# 6.23 42329367 1.40-6.50 x10^3/uL ----MCV 94.7 95195867 80.0-100.0 fL ----RBC 5.12 63003840 3.50-5.40 x10^6/uL ----MONOS% 6.3 88944951 0.0-10.0 % ----EOS% 7.1 60238402 0.0-5.0 % H ----HGB 15.1 03030377 12.0-16.0 g/dL ----EOS# 0.66 34959074 0.00-0.40 x10^3/ul H ----WBC 9.3 74555541 4.8-10.8 x10^3/uL ----LYMPHS# 1.80 22406423 1.20-3.40 x10^3/uL ----MONOS# 0.59 [id number] 0.00-1.00 x10^3/uL UA w/ Microscopic, Reflex Culture if Indicated (45138) Immunizations Vaccine Administration Date Pneumococcal conjugate vaccine (13-valent) May 31, 2016 Summary Purpose eClinicalWorks Submission
--- OUTSIDE RECORDS SUMMARY | 2016-10-18 17:47 | XMS REPORT ---
Author Author Justine Jara Organization [employer] Address Unknown Phone Unavailable Care Team Providers Care Solution Advisor Name Role Phone Justine Jara CP Unavailable Allergies No Known Allergies Problems Problem Type Condition Code Onset Dates Condition Status Problem Lung disease, interstitial J84.9 Active Problem Hypothyroidism E03.9 Active Problem Congestive heart failure I50.9 Active Problem Osteoporosis M81.0 Active Problem Gait instability R26.81 Active Problem Sick sinus syndrome I49.5 Active Problem History of artificial heart valve Z95.2 Active Medications No Known Medications Results No Known Results Summary Purpose eClinicalWorks Submission
--- OUTSIDE RECORDS SUMMARY | 2016-10-18 17:47 | XMS REPORT ---
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
--- OUTSIDE RECORDS SUMMARY | 2016-10-18 17:47 | XMS REPORT ---
Author Author Remigio Gautam Organization [employer] Address Unknown Phone Unavailable Care Team Providers Care [employer] Name Role Phone Remigio Gautam CP Unavailable Allergies, Adverse Reactions, Alerts Substance Reaction Event Type Ultram Info Not Available Drug Allergy Procardia Info Not Available Drug Allergy Plaquenil Info Not Available Drug Allergy Pacerone Info Not Available Drug Allergy Dyazide Info Not Available Drug Allergy Codeine Sulfate Info Not Available Drug Allergy Problems Problem Type Condition ICD-9 Code Onset Dates Condition Status Problem Long-term use of anticoagulants V58.61 Active Assessment Osteoporosis 733.00 Active Problem Osteoporosis 733.00 Active Assessment Osteoarthritis 715.90 Active Problem Osteoarthritis of right hip 715.95 Active Problem Hypothyroid 244.9 Active Problem Hip joint replacement status V43.64 Active Problem Degenerative disc disease, lumbar 722.52 Active Problem Spondylolisthesis 756.12 Active Assessment Hypothyroid 244.9 Active Assessment 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 Problem Lumbar spondylosis 721.3 Active Assessment Depression 311 Active Problem Personal history of malignant neoplasm of skin V10.83 Active Problem Hypertension, essential 401.9 Active Problem Basal cell carcinoma of skin of nose 173.31 Active Problem Actinic keratosis 702.0 Active Assessment H/O aortic valve replacement V43.3 Active Assessment Sinoatrial node dysfunction 427.81 Active Assessment Pedal edema 782.3 Active Assessment Chronic anticoagulation V58.61 Active Assessment High blood pressure 401.9 Active Problem Heart valve replacement status V43.3 Active Assessment Congestive heart disease 428.0 Active Assessment SOB (shortness of breath) 786.05 Active Medications Medication Code System Code Instructions Start Date End Date Status Dosage Potassium Chloride ER [facility] [address]-03 10 MEQ Orally Once a day Active 1 tablets Levothyroxine Sodium [facility] [address]-25 88 MCG Orally Once a day Active 1 tablet Cymbalta [facility] 64418396276 60 MG Orally Once a day Active 1 capsule Mirtazapine [facility] [address]-39 45 MG Orally Once a day Active 1 tablet before bedtime in the evening Amlodipine Besylate [facility] [address]-87 5 MG Orally Once a day Active 1 tablet Lasix [facility] [address]-09 40 MG Orally bid Active 1 tablet Lorazepam [facility] [address]-25 0.5 MG Orally Twice a day Active not defined Fosamax [facility] [address]-22 70 MG Orally Active 1 tablet Coumadin [facility] [address]-11 Active not defined Lisinopril [facility] [address]-87 20 MG Orally bid Active 1 tablet Coreg [facility] [address]-95 25 MG Orally Twice a day Active 1 tablet with food Procedures Procedure Coding System Code Date CHEST X-RAY CPT-4 08812 Jun 25, 2014 Est PT OVOP Service CPT-4 48093 Jun 25, 2014 Vital Signs Date/Time: Jun 25, 2014 Blood Pressure Diastolic 78 mm Hg Blood Pressure Systolic 130 mm Hg Cardiac Monitoring Heart Rate 81 /min Oximetry 87 room air at rest % BMI 31.45 Index Weight 189 lbs Height 65 in BMIPercentile 0.00 % Results Name Result Date Reference Range Unit X-Ray CHEST PA LATERAL (12336) Summary Purpose eClinicalWorks Submission
--- OUTSIDE RECORDS SUMMARY | 2016-10-18 17:48 | XMS REPORT ---
Author Author Remigio Gautam Organization [employer] Address Unknown Phone Unavailable Care Team Providers Care Bag Bundler Name Role Phone Remigio Gauatm CP Unavailable Allergies No Known Allergies Problems [...]
--- OUTSIDE RECORDS SUMMARY | 2016-10-18 17:48 | XMS REPORT ---
Author Author Santos Rizzo Organization [employer] Address Unknown Phone Unavailable Care Team Providers Care Dyer Assistant Name Role Phone Santos Rizzo CP Unavailable Allergies No Known Allergies Problems [...]
--- OUTSIDE RECORDS SUMMARY | 2016-10-18 17:48 | XMS REPORT ---
Author Author Nacho Harry Organization [employer] Address Unknown Phone Unavailable Care Team Providers Care Kelly Machine Operator Name Role Phone Nacho Harry CP Unavailable Allergies, Adverse Reactions, Alerts Substance [...] Degenerative disc disease, lumbar 722.52 Active Assessment Epistaxis 784.7 Active Problem Osteoporosis 733.00 Active Problem Osteoarthritis of right hip 715.95 Active Problem Heart valve replacement status V43.3 Active Problem Hip joint replacement status V43.64 Active Problem Long-term use of anticoagulants V58.61 Active Problem Hypothyroid 244.9 Active Medications Medication Code System Code Instructions Start Date End Date Status Dosage Amlodipine Besylate [facility] [address]-49 5 MG Orally Once a day 1 tablet Fosamax [facility] [address]-49 70 MG Orally Once a week 1 tablet Cymbalta [facility] 48468361446 60 MG Orally Once a day 1 capsule Oxygen [place] ____ 3 LPM 07/03 Lasix [facility] [address]-16 40 MG Orally Twice a day 1 tablet Lisinopril [facility] [address]-18 20 MG Orally twice a day 1 tablet Multivitamin [place] ____ not defined Levothyroxine Sodium [facility] 24524096566 88 MCG Orally Once a day 1 tablet Mirtazapine [facility] [address]-63 45 MG Orally Once a day 1 tablet Potassium Chloride ER [facility] [address]-02 10 MEQ Orally Twice a day 1 tablet Coumadin [facility] [address]-98 2 MG Orally Once a day 1 tablet Coreg [facility] [address]-97 25 MG Orally Twice a day 1 tablet Lorazepam [facility] [address]-27 0.5 MG Orally Twice a day not defined Procedures Procedure Coding System Code Date NasalSinus Endoscopy CPT-4 77256 February 20, 2015 New PT OVOP Service CPT-4 38816 February 20, 2015 Results No Known Results Summary Purpose eClinicalWorks Submission
--- OUTSIDE RECORDS SUMMARY | 2016-10-18 17:48 | XMS REPORT ---
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 Z79.01 Active Assessment History of aortic valve replacement Z95.2 Active Assessment Hypothyroid E03.9 Active Assessment Pedal edema R60.0 Active Assessment Hypertension I10 Active Assessment Bronchitis J40 Active Assessment Sinoatrial node dysfunction I49.5 Active Assessment Congestive heart failure I50.9 Active Medications Medication Code System Code Instructions Start Date End Date Status Dosage Multivitamin [facility] [address] not defined Lorazepam [facility] [address]-13 0.5 MG Orally Twice a day not defined Potassium Chloride ER [facility] [address]-54 10 MEQ Orally Twice a day 2 tablets Mirtazapine [facility] [address]-95 45 MG Orally Once a day 1 tablet before bedtime in the evening Oxygen NDC 0 3 LPM 24/7 Fosamax [facility] [address]-92 70 MG Orally Once a week 1 tablet Coumadin [facility] [address]-74 1.5 mg Orally Once a day not defined Lasix [facility] [address]-60 40 MG Orally twice a day 1 tablet Coreg [facility] [address]-04 25 MG Orally Twice a day 1 tablet Cymbalta [facility] [address]-85 60 MG Orally Once a day 1 capsule Hydrocodone-Acetaminophen [facility] [address]-30 5-325 MG Orally Three times a day as needed 1 tablet Azithromycin [facility] [address]-46 250 MG Orally Once a day December 01, 2015 December 06, 2015 2 tablets on the first day, then 1 tablet daily for 4 days Levothyroxine Sodium [facility] 50488570025 88 MCG Orally Once a day 1 tablet Lisinopril [facility] [address]-57 20 MG Orally twice a day 1 tablet Procedures Procedure Coding System Code Date Est PT OVOP Service CPT-4 94449 December 01, 2015 Vital Signs Date/Time: December 01, 2015 Blood Pressure Systolic 136 mm Hg Cardiac Monitoring Heart Rate 76 /min Temperature 99.1 F BMI 32.06 Index Weight 192.7 lbs Height 65 in Blood Pressure Diastolic 74 mm Hg Oximetry 94 % Results No Known Results Summary Purpose eClinicalWorks Submission
--- OUTSIDE RECORDS SUMMARY | 2016-10-18 17:48 | XMS REPORT | Referral Summary ---
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, severe Discharge Disposition: Home or Self Care Attending Physician: Chapin Chaidez MD Admitting Physician: Chapin Chaidez MD Referring Physician: Chapin Chaidez MD Vital Signs Most recent to 1 oldest [Reference Range]: Temperature Tympanic 36.0 degC [36.6-38.1 degC] *LOW* (10/14/14 9:01 AM) Peripheral Pulse 76 bpm Rate [60-100 bpm] (10/14/14 9:01 AM) Respiratory Rate 20 br/min [14-20 br/min] (10/14/14 9:01 AM) Blood Pressure 130/82 mmHg [90-140/60-90 mmHg] (10/14/14 9:01 AM) Most recent to 1 oldest [Reference Range]: SpO2 93 % (10/14/14 9:01 AM) Problem List Condition Effective Dates Status Health Status Informant Obesity(Confirmed) Active patient Tobacco Active patient user(Confirmed) Allergies, Adverse Reactions, Alerts Substance Reaction Severity Status codeine Active NIFEdipine Active Medications albuterol 2.5 mg/3 mL (0.083%) inhalation solution 3 mL, Inhalation, Daily, Dx:496, # 30 Each, 0 Refill(s) Special Instructions: Dx:496 Start Date: 10/14/14 Status: Ordered amLODIPine 5 mg oral tablet 1 tabs, Oral, Daily, # 30 tabs, 0 Refill(s) Start Date: 10/14/14 Status: Ordered Brovana 15 mcg/2 mL inhalation solution 2 mL, NEB, BID, dx: 496, # 120 mL, 0 Refill(s) Special Instructions: dx: 496 Start Date: 10/14/14 Status: Ordered Coreg 25 mg oral tablet 1 tabs, Oral, BID, # 180 tabs, 0 Refill(s) Start Date: 10/14/14 Status: Ordered Coumadin 2 mg oral tablet 1 tabs, Oral, Daily, # 30 tabs, 0 Refill(s) Start Date: 10/14/14 Status: Ordered Cymbalta 60 mg oral delayed release capsule 1 caps, Oral, Daily, do not crush or chew, # 30 caps, 0 Refill(s) Special Instructions: do not crush or chew Start Date: 10/14/14 Status: Ordered Fosamax 70 mg oral tablet 1 tabs, Oral, 0 Refill(s) Start Date: 10/14/14 Status: Ordered Lasix 40 mg oral tablet 1 tabs, Oral, Daily, # 30 tabs, 0 Refill(s) Start Date: 10/14/14 Status: Ordered levothyroxine 88 mcg (0.088 mg) oral tablet 1 tabs, Oral, Daily, # 30 tabs, 0 Refill(s) Start Date: 10/14/14 Status: Ordered lisinopril 20 mg oral tablet 1 tabs, Oral, Daily, [...] on room air. Fax full graphics to [phone] Dx: 790.02, 496 [place]IRACLE:99, See Instructions, # 1 Each, 0 Refill(s), Supply Special Instructions: Overnight oximetry on room air. Fax full graphics to [phone] Dx:793.02, 498 [place]:99 Start Date: 10/14/14 Status: Ordered potassium citrate Oral, 0 Refill(s) Start Date: 10/14/14 Status: Ordered zolpidem 5 mg oral tablet 1 tabs, Oral, Bedtime (once a day), as needed for sleep, 0 Refill(s) Start Date: 10/14/14 Status: Ordered Results No data available for this section Immunizations No data available for this section Procedures No data available for this section Social History Social History Type Response Smoking Status Former smoker1 1stopped 39 years ago. Assessment and Plan No data available for this section
--- OUTSIDE RECORDS SUMMARY | 2016-10-18 17:48 | XMS REPORT ---
Author Author Remigio Gautam Organization [employer] Address Unknown Phone Unavailable Care Team Providers Care Cell Attendant Name Role Phone Remigio Gautam CP Unavailable [...]
--- OUTSIDE RECORDS SUMMARY | 2016-10-18 17:48 | XMS REPORT | Continuity of Care Document ---
Author Author [facility] Organization [facility] Address Unknown Phone Unavailable Support Name Relationship Address Phone OTHER Caregiver Unknown [phone] MANFRED LEON MD Caregiver [address] [place] [address] [place] [address] [employer] Next Of Kin [address] [place] [address] Insurance Providers Payer Name Policy Number Subscriber Name Relationship Medicare [id number] Lulú Sterling 20 Self [facility] [id number] Lulú Sterling 20 Self Advance Directives Directive Response Recorded Date/Time Advanced Directives Type None 11/18/14 8:26am Problems Medical Problems Problem Onset Date Status Urinary tract infection Unknown Active Left flank pain Unknown Active Medications Medication Dose Route Sig Days/Qty Instructions Order Date Discontinued Date Status Carvedilol 25 Mg PO TWICE A DAY 06/01/13 Active Lisinopril 20 Mg PO TWICE A DAY 06/01/13 Active Alendronate Sodium 70 Mg PO WEEKLY 06/01/13 Active Levothyroxine Sodium 88 Mcg PO DAILY 06/01/13 Active Furosemide 40 Mg PO TWICE A DAY 06/01/13 Active Potassium Chloride 10 Meq PO TWICE A DAY 06/01/13 Active Warfarin Sodium 2-4 Mg PO DAILY DIRECTED BY PHYSICIAN 06/01/13 Active Duloxetine Hcl 60 Mg PO DAILY 06/01/13 Active Lorazepam 0.5 Mg PO TWICE A DAY 06/01/13 Active Mirtazapine 30 Mg PO BEDTIME 06/01/13 Active Amlodipine Besylate 5 Mg PO DAILY 11/18/14 Active Oxycodone HCl 5 Mg PO Every 6 Hours PRN PAIN 20 Qty 11/18/14 Active Ciprofloxacin HCl 500 Mg PO EVERY 12 HOURS 5 Days 11/18/14 Active Social History Social History Problem Response Recorded Date/Time Chewing Tobacco Status No 06/01/2013 1:02pm Hx Substance Use No 11/18/2014 8:26am Hx Alcohol Use No 11/18/2014 8:26am Has the pt used tobacco in the last 12 months No 06/01/2013 2:14pm Tobacco Usage none 11/18/2014 9:05am Query Response Start Date Stop Date Smoking Status Former smoker Hospital Discharge Instructions No hospital discharge instructions. Plan of Care No plan of care. Functional Status Query Response Date Recorded Physical Hygiene Self November 18, 2014 8:26am Disabilities Visual November 18, 2014 8:26am Devices Used Dentures Glasses November 18, 2014 8:26am Dressing Self November 18, 2014 8:26am Ambulation Self November 18, 2014 8:26am Diet Self November 18, 2014 8:26am Mental Status Alert Oriented November 18, 2014 8:26am Disabilities Visual November 18, 2014 8:26am Devices Used Dentures Glasses November 18, 2014 8:26am Physical Hygiene Self November 18, 2014 8:26am Dressing Self November 18, 2014 8:26am Ambulation Self November 18, 2014 8:26am Diet Self November 18, 2014 8:26am Allergies, Adverse Reactions, Alerts Allergen Type Severity [...] Y 05/28 Historical Hx Pneumococcal Vaccination Y 5-6 YRS AGO Historical Hx Influenza Vaccination Y 05/28 Historical Vital Signs Acute Vital Signs Vital Response Date/Time Temperature (Fahrenheit) 98.5 deg F (96.8 - 99.1) Temperature (Calculated Celsius) 36.37902 degrees C (36.0 - 37.3) Pulse Rate (adult) 64 bpm (60 - 100) Respiratory Rate 16 breaths/min (10 - 20) O2 Sat by Pulse Oximetry 60 % (90 - 100) Oxygen Flow Rate 3 L/min Blood Pressure 184/79 mm Hg Height 5 ft 6 in Weight 192 lb Body Mass Index 31.0 kg/m^2 Results Test Source Date Result Interp. Ref. Range Comments Activated Partial Thromboplast Time November 18, 2014 9:03am 46.6 SEC H 24- 36 Alanine Aminotransferase (ALT/SGPT) November 18, 2014 9:03am 28 U/L N 9-52 Albumin November 18, 2014 9:03am 3.8 G/DL N 3.5-5.0 Albumin/Globulin Ratio November 18, 2014 9:03am 1.2 RATIO N 1.1-2.2 Alkaline Phosphatase November 18, 2014 9:03am 67 U/L N 38-126 Anion Gap November 18, 2014 9:03am 12 MEQ/L N 5-15 Aspartate Amino Transf (AST/SGOT) November 18, 2014 9:03am 28 U/L N 14-36 BUN/Creatinine Ratio November 18, 2014 9:03am 19 RATIO N 6-26 Basophils # (Auto) November 18, 2014 9:03am 0-0.2 Basophils (%) (Auto) November 18, 2014 9:03am 0-2 Blood Urea Nitrogen November 18, 2014 9:03am 15.0 MG/DL N 7-17 Calcium Level November 18, 2014 9:03am 8.8 MG/DL N 8.4-10.2 Calculated Osmolality November 18, 2014 9:03am 285 MOSM/KG H 261-280 Carbon Dioxide Level November 18, 2014 9:03am 28 MEQ/L N 22-30 Chemistry Specimen Hemolysis November 18, 2014 9:03am < 15 0-25 0-25: No Hemolysis.26-70: Slight [...] Phenytoin. Recommend specimen recollection. Chloride Level November 18, 2014 9:03am 108 MEQ/L H 98-107 Creatinine November 18, 2014 9:03am 0.8 MG/DL N 0.7-1.2 Eosinophils # (Auto) November 18, 2014 9:03am 0-0.5 Eosinophils (%) (Auto) November 18, 2014 9:03am 0-4 Globulin November 18, 2014 9:03am 3.2 G/DL N 2.4-3.6 Glomerular Filtration Rate Calc November 18, 2014 9:03am 70 - Glucose Level November 18, 2014 9:03am 101 MG/DL N 65-110 Hematocrit November 18, 2014 9:03am 38.9 % N 36-46 Hemoglobin November 18, 2014 9:03am 12.6 GM/DL N 12-16 Icterus Index November 18, 2014 9:03am < 2 0-7 Immature Granulocyte # (Auto) November 18, 2014 9:03am 0.00-0.03 Immature Granulocyte % (Auto) November 18, 2014 9:03am 0.0-0.5 Lab Scanned Report June 11, 2013 9:25am LAB TEST FORM REQUEST [id number] - Lipase November 18, 2014 9:03am 114 U/L N 23-300 Lymphocytes # (Auto) November 18, 2014 9:03am 1.2 T/MM3 N 1-4.8 Lymphocytes (%) (Auto) November 18, 2014 9:03am 18.3 % L 23-45 MRSA Specimen Source May 15, 2013 2:28pm Nasal - Mean Corpuscular Hemoglobin November 18, 2014 9:03am 31.1 UUG N 26-34 Mean Corpuscular Hemoglobin Concent November 18, 2014 9:03am 32.4 GM/DL N 31-37 Mean Corpuscular Volume November 18, 2014 9:03am 96.0 UM3 N 80-100 Mean Platelet Volume November 18, 2014 9:03am 8.2 UM3 L 9.4-12.4 Methicillin-Resist S.aureus DNA PCR May 15, 2013 2:28pm Negative - Monocytes # (Auto) November 18, 2014 9:03am 0.4 T/MM3 N 0-0.8 Monocytes (%) (Auto) November 18, 2014 9:03am 6.6 % N 0-9.0 Neutrophils # (Auto) November 18, 2014 9:03am 5.1 T/MM3 N 1.8-7.7 Neutrophils (%) (Auto) November 18, 2014 9:03am 75.1 % H 33-66 Platelet Count November 18, 2014 9:03am 196 T/MM3 N 130-400 Potassium Level November 18, 2014 9:03am 4.0 MEQ/L N 3.6-5 Prothromb Time International Ratio November 18, 2014 9:03am 3.72 H 0.81- 1.09 THERAPUTIC RANGE=2.00-3.00 FOR ANTI-THROMBOSIS THERAPUTIC RANGE=2.50- 3.50 FOR IMPLANTED VALVE RDW Standard Deviation November 18, 2014 9:03am 49.1 FL N 36.9-50.2 Red Blood Count November 18, 2014 9:03am 4.05 M/MM3 N 4.00-5.20 Sodium Level November 18, 2014 9:03am 148 MEQ/L H 134-144 Thyroid Stimulating Hormone (TSH) November 18, 2014 9:03am 0.60 MIU/L N 0.47-4.68 Total Bilirubin November 18, 2014 9:03am 0.60 MG/DL N 0.20-1.30 Total Protein November 18, 2014 9:03am 7.0 G/DL N 6.3-8.2 Troponin I November 18, 2014 9:03am 0.016 ng/ml N 0-0.12 Turbidity November 18, 2014 9:03am < 20 0-20 Urine Bacteria November 18, [...] Has specimen been collected/obtained? Y Urine Specific [place] November 18, 2014 9:35am 1.015 - Has [...] collected/ obtained? Y White Blood Count November 18, 2014 9:03am 6.7 T/MM3 N 4.5-11.0 Name: LULÚ STERLING Unit #: [id number] : 1935 Sex: F Loc / Svc: ED DOS: 11/18/14 Signed Report #: [id number] DIAGNOSTIC IMAGING REPORT TYPE OF EXAM: CT RENAL W/O CONTRAST Dictated By: LEW VARNER MD Indication: ITS.REASON: right flank pain, no tenderness, labs normal CT RENAL W/O CONTRAST: Comparison: None Technique: Axial CT images were performed through the abdomen and pelvis without intravenous contrast. Coronal and sagittal two-dimensional reformats. Findings: Postoperative changes of prior CABG. Cardiac pacemaker. Right total hip prosthesis. Respiratory motion artifact. Scattered groundglass opacities in both lower lobes, could represent atelectasis or air trapping. The unenhanced liver is grossly normal. Gallbladder is absent. The spleen, pancreas and adrenal glands are normal. Left kidney appears normal without evidence of stone disease or hydronephrosis. Atherosclerotic plaque in the abdominal aorta and its major branches. Streak artifact in the pelvis from the hip replacement. Bladder is decompressed. Uterus is absent. Mild sigmoid diverticulosis without evidence of acute diverticulitis. No gross bowel obstruction. No free air. Probable ingested pill fragment in the right colon. The right kidney shows no stone disease or hydronephrosis. No right ureteral stone identified. Portions of the distal right ureter are obscured by streak artifact. Degenerative changes and scoliosis in the spine. Unilateral left L5 spondylolysis. Impression: No acute disease process seen in the abdomen or pelvis. No urolithiasis. . Procedures No known history of procedures. Encounters Encounter Location Date/Time Departed Emergency Room [facility] 11/18/14 8:23am Recent Diagnosis
--- OUTSIDE RECORDS SUMMARY | 2016-10-18 17:48 | XMS REPORT ---
Author Author Remigio Gautam Organization [employer] Address Unknown Phone Unavailable Care Team Providers Care Community Resource Officer Name Role Phone Remigio Gautam CP Unavailable [...] Date End Date Status Dosage Levothyroxine Sodium [facility] [address]-45 88 MCG Orally Once a day Active 1 tablet Results No Known Results Summary Purpose eClinicalWorks Submission
--- OUTSIDE RECORDS SUMMARY | 2016-10-18 17:49 | XMS REPORT ---
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
--- OUTSIDE RECORDS SUMMARY | 2016-10-18 17:49 | XMS REPORT ---
Author Author Nacho Harry Organization [employer] Address Unknown Phone Unavailable Care Team Providers Care City Planning Aide Name Role Phone Nacho Harry CP Unavailable [...] Start Date End Date Status Dosage Mirtazapine [facility] 18577886764 45 MG TAKE ONE TABLET BY MOUTH EVERY NIGHT AT BEDTIME Coumadin [facility] [address]-12 2 MG Orally Once a day 1 tablet Cymbalta [facility] 26585081785 60 MG Orally Once a day 1 capsule Oxygen [facility] ____ 3 LPM 07/03 Levothyroxine Sodium [facility] 93832701090 88 MCG Orally Once a day 1 tablet Lisinopril [facility] [address]-79 20 MG Orally twice a day 1 tablet Potassium Chloride ER [facility] [address]-53 10 MEQ Orally Twice a day 1 tablet Lasix [facility] [address]-60 40 MG Orally 2 tablets AM, 1 tablet PM Lorazepam [facility] [address]-40 0.5 MG Orally Twice a day not defined Multivitamin [facility] ____ not defined Fosamax [facility] [address]-75 70 MG Orally Once a week 1 tablet Coreg [facility] [address]-02 25 MG Orally Twice a day 1 tablet Procedures Procedure Coding System Code Date Nasal Endoscopy CPT-4 51334 March 05, 2015 Est PT OVOP Service CPT-4 25767 March 05, 2015 Results No Known Results Summary Purpose eClinicalWorks Submission
--- OUTSIDE RECORDS SUMMARY | 2016-10-18 17:49 | XMS REPORT ---
Author Author Santos Rizzo eClinicalWorks Address Unknown Phone Unavailable Care Team Providers Care Supervisor Looping Name Role Phone Santos Rizzo CP Unavailable [...] Heart valve replacement status V43.3 Active Assessment Actinic keratosis 702.0 Active Problem Long-term use of anticoagulants V58.61 Active Assessment Personal history of malignant neoplasm of skin V10.83 Active Problem Osteoporosis 733.00 Active Medications Medication Code System Code Instructions Start Date End Date Status Dosage Lisinopril [facility] [address]-93 20 MG Orally bid Active 1 tablet Potassium Chloride ER [facility] [address]-53 10 MEQ Orally Twice a day Active 1 tablet Levothyroxine Sodium [facility] 07128688634 88 MCG Active TAKE ONE TABLET BY MOUTH EVERY DAY Lorazepam [facility] [address]-45 0.5 MG Orally Twice a day Active not defined Coreg [facility] [address]-16 25 MG Orally Twice a day Active 1 tablet with food Fosamax [facility] [address]-94 70 MG Orally Active 1 tablet Lasix [facility] [address]-56 40 MG Orally bid Active 1 tablet Zolpidem Tartrate [facility] [address]-83 5 MG Orally Once a day Active 1 tablet at bedtime Mirtazapine [facility] ____ 45 mg Active TAKE ONE TABLET BY MOUTH EVERY NIGHT BEFORE BEDTIME Amlodipine Besylate [facility] [address]-43 5 MG Orally Once a day Active 1 tablet Cymbalta [facility] 34575105753 60 MG Orally Once a day Active 1 capsule Coumadin [facility] ____ Active not defined Procedures Procedure Coding System Code Date Destruction Premalignant Lesio CPT-4 53354 Jun 24, 2014 Destruction Premalignant Lesio CPT-4 90385 Jun 24, 2014 Est PT OVOP Service CPT-4 80266 Jun 24, 2014 Vital Signs Date/Time: Jun 24, 2014 Height 65 in Blood Pressure Diastolic 86 mm Hg Blood Pressure Systolic 152 mm Hg Weight 188.6 lbs Results No Known Results Summary Purpose eClinicalWorks Submission
--- OUTSIDE RECORDS SUMMARY | 2016-10-18 17:49 | XMS REPORT ---
Author Author Santos Rizzo e[employer] Address Unknown Phone Unavailable Care Team Providers Care Partnership Manager Name Role Phone Santos Rizzo CP Unavailable Allergies, Adverse Reactions, Alerts Substance Reaction Event Type Ultram Info Not Available Drug Allergy Procardia Info Not Available Drug Allergy Plaquenil Info Not Available Drug Allergy Pacerone Info Not Available Drug Allergy Dyazide Info Not Available Drug Allergy Codeine Sulfate Info Not Available Drug Allergy Problems Problem Type Condition Code [...] V58.61 Active Problem Osteoporosis 733.00 Active Assessment Intertrigo 695.89 Active Problem Osteoarthritis of right hip 715.95 Active Problem Heart valve replacement status V43.3 Active Problem Hip joint replacement status V43.64 Active Medications Medication Code System Code Instructions Start Date End Date Status Dosage Coumadin [facility] [address]-46 2 MG Orally Once a day 1 tablet Mirtazapine [facility] [address]-05 45 MG Orally Once a day 1 tablet Potassium Chloride ER [facility] [address]-70 10 MEQ Orally Once a day 2 tablets Econazole Nitrate [facility] [address]-67 1 % Externally Once a day in the morning November 13, 2014 January 12, 2015 1 application to affected area Lisinopril [facility] [address]-71 20 MG Orally twice a day 1 tablet Cymbalta [facility] 78047740083 60 MG Orally Once a day 1 capsule Amlodipine Besylate [facility] [address]-26 5 MG Orally Once a day 1 tablet Lasix [facility] [address]-39 40 MG Orally Twice a day 1 tablet Brovana [facility] [address]-30 15 MCG/2ML Inhalation Twice a day 2 ml Triamcinolone Acetonide [facility] [address]-75 0.025 % Externally Twice a day November 11, 2014 1 application to affected area Levothyroxine Sodium [facility] 59427981414 88 MCG Orally Once a day 1 tablet Fluticasone Propionate [facility] [address]-54 0.05 % Externally Once a day in the evening November 13, 2014 1 application to affected area Coreg [facility] [address]-39 25 MG Orally Twice a day 1 tablet with food Fosamax [facility] [address]-32 70 MG Orally Once a week 1 tablet Lorazepam [facility] [address]-49 0.5 MG Orally Twice a day not defined Albuterol Sulfate [facility] [address]-46 (2.5 MG/3ML) 0.083% Inhalation as needed 3 ml Procedures Procedure Coding System Code Date Est PT OVOP Service CPT-4 39480 November 13, 2014 Vital Signs Date/Time: November 13, 2014 BMI 32.11 Index Weight 193 lbs Height 65 in Results No Known Results Summary Purpose eClinicalWorks Submission
--- OUTSIDE RECORDS SUMMARY | 2016-10-18 17:49 | XMS REPORT | Referral Summary ---
Author Author [facility] Organization [facility] Address Unknown Phone Unavailable Care Team Providers Care Refinery Operator Helper Name Role Phone Remigio Gautam Primary Care Physician [phone] Encounter [facility] [id number] Date(s): 07/14/15 - 07/14/15 [facility] [address] [place], [place] [address] Discharge Diagnosis: SOB (shortness of breath) Discharge Disposition: 01-Home or Self Care Attending Physician: Chapin Chaidez MD Admitting Physician: Chapin Chaidez MD Vital Signs No data available for this section Problem List Condition Effective Dates Status Health [...] on room air. Fax full graphics to [phone] Dx: [phone], 496 MIRACLE:99, See Instructions, # 1 Each, 0 Refill(s), Supply Start Date: 10/14/14 Status: Ordered [place] 5 mg-325 mg oral tablet 1 tabs, [...]
--- OUTSIDE RECORDS SUMMARY | 2016-10-18 17:49 | XMS REPORT ---
Author Author Remigio Gautam Organization [employer]ClinicalWorks Address Unknown Phone Unavailable Care Team Providers Care Ring Making Machine Operator Name Role Phone Remigio Gautam CP [...] Degenerative disc disease, lumbar 722.52 Active Assessment Abnormal mammogram of left breast 793.80 Active Problem Osteoporosis 733.00 Active Problem Osteoarthritis of right hip 715.95 Active Problem Heart valve replacement status V43.3 Active Problem Hip joint replacement status V43.64 Active Problem Long-term use of anticoagulants V58.61 Active Problem Hypothyroid 244.9 Active Medications Medication Code System Code Instructions Start Date End Date Status Dosage Potassium Chloride ER [facility] [address]-79 10 MEQ Orally once a day 2 tablets Lasix [facility] [address]-84 40 MG Orally twice a day 1 tablet Coumadin [facility] [address]-26 2 MG Orally and 5 MG alternating Oxygen ND 0 3 LPM 07/03 Coreg [facility] [address]-84 25 MG Orally Twice a day 1 tablet Lorazepam [facility] [address]-38 0.5 MG Orally Twice a day not defined Mirtazapine [facility] [address]-07 45 MG Orally Once a day 1 tablet before bedtime in the evening Fosamax [facility] [address]-25 70 MG Orally Once a week 1 tablet Cymbalta [facility] [address]-94 60 MG Orally Once a day 1 capsule Multivitamin [facility] 00938-69522 not defined Lisinopril [facility] [address]-22 20 MG Orally twice a day 1 tablet Levothyroxine Sodium [facility] 04470725867 88 MCG Orally Once a day 1 tablet Procedures Procedure Coding System Code Date Computer aided detection...diagnostic mammography CPT-4 36086 May 07, 2015 US breast unilateral limited (75572) CPT-4 41119 May 07, 2015 Diagnostic mammography producing direct 2D digital image, UNI all views CPT-4 G0206 May 07, 2015 Results Name Result Date Reference Range Unit Abnormality Flag US BREAST LEFT LIMITED (50000) MAMMO, ADDS LT CAD (X1367, 53937) Summary Purpose eClinicalWorks Submission
--- OUTSIDE RECORDS SUMMARY | 2016-10-18 17:49 | XMS REPORT ---
Author Author Remigio Gautam Organization eClinicalWorks Address Unknown Phone Unavailable Care Team Providers Care Speech Therapy Teacher Name Role Phone Remigio Gautam CP Unavailable [...] Condition Status Assessment Osteoporosis 733.00 Active Problem Osteoporosis 733.00 Active Assessment Osteoarthritis 715.90 Active Problem Osteoarthritis of right hip 715.95 Active Assessment Depression 311 Active Problem Hip joint replacement status V43.64 Active Problem Hypertension, essential 401.9 Active Problem Hypothyroid 244.9 Active Problem Lumbar spondylosis 721.3 Active Problem Degenerative disc disease, lumbar 722.52 Active Assessment Pedal edema 782.3 Active Assessment 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 Problem Dyslipidemia 272.4 Active Assessment Dependence on supplemental oxygen V46.2 Active Problem Actinic keratosis 702.0 Active Problem [...] V58.61 Active Assessment Hypertension 401.9 Active Assessment Rash 782.1 Active Medications Medication Code System Code Instructions Start Date End Date Status Dosage Potassium Chloride ER [facility] [address]-32 10 MEQ Orally Once a day 2 tablets Brovana [facility] [address]-72 15 MCG/2ML Inhalation Twice a day 2 ml Coumadin [facility] [address]-45 2 MG Orally Once a day 1 tablet Coreg [facility] [address]-21 25 MG Orally Twice a day 1 tablet with food Lasix [facility] [address]-74 40 MG Orally Twice a day 1 tablet Lisinopril [facility] [address]-02 20 MG Orally twice a day 1 tablet Albuterol Sulfate [facility] [address]-68 (2.5 MG/3ML) 0.083% Inhalation as needed 3 ml Lorazepam [facility] [address]-63 0.5 MG Orally Twice a day not defined Triamcinolone Acetonide [facility] [address]-68 0.025 % Externally Twice a day November 11, 2014 1 application to affected area Fosamax [facility] [address]-58 70 MG Orally Once a week 1 tablet Amlodipine Besylate [facility] [address]-88 5 MG Orally Once a day 1 tablet Cymbalta [facility] 62406540121 60 MG Orally Once a day 1 capsule Levothyroxine Sodium [facility] 90375816230 88 MCG Orally Once a day 1 tablet Mirtazapine [facility] [address]-95 45 MG Orally Once a day 1 tablet Procedures Procedure Coding System Code Date Est PT OVOP Service CPT-4 95026 November 11, 2014 Vital Signs Date/Time: November 11, 2014 Blood Pressure Diastolic 81 mm Hg Blood Pressure Systolic 130 mm Hg Cardiac Monitoring Heart Rate 93 /min BMI 32.11 Index Weight 193 lbs Height 65 in Results No Known Results Summary Purpose eClinicalWorks Submission
--- OUTSIDE RECORDS SUMMARY | 2016-10-18 17:49 | XMS REPORT ---
Author Author Santos Rizzo eClinicalWorks Address Unknown Phone Unavailable Care Team Providers Care Decorating Machine Operator Name Role Phone Santos Rizzo CP Unavailable [...] Long-term use of anticoagulants V58.61 Active Assessment Actinic keratosis 702.0 Active Problem Osteoporosis 733.00 Active Assessment Personal history of malignant neoplasm of skin V10.83 Active Problem Osteoarthritis of right hip 715.95 Active Medications Medication Code System Code Instructions Start Date End Date Status Dosage Mirtazapine [facility] [address]-58 45 MG Orally Once a day 1 tablet before bedtime in the evening Coreg [facility] [address]-66 25 MG Orally Twice a day 1 tablet with food Coumadin [facility] ____ not defined Potassium Chloride ER [facility] [address]-61 10 MEQ Orally Once a day 1 tablets Levothyroxine Sodium [facility] 53423610261 88 MCG Orally Once a day 1 tablet Lorazepam [facility] [address]-55 0.5 MG Orally Twice a day not defined Fosamax [facility] [address]-66 70 MG Orally 1 tablet Amlodipine Besylate [facility] [address]-82 5 MG Orally Once a day 1 tablet albuterol [facility] ____ not defined Lasix [facility] [address]-45 40 MG Orally bid 1 tablet Cymbalta [facility] 14905677070 60 MG Orally Once a day 1 capsule Lisinopril [facility] [address]-12 20 MG Orally bid 1 tablet Procedures Procedure Coding System Code Date Destruction Premalignant Lesio CPT-4 85550 November 05, 2014 Est PT OVOP Service CPT-4 84107 November 05, 2014 Vital Signs Date/Time: November 05, 2014 Height 65 in Blood Pressure Diastolic 80 mm Hg Blood Pressure Systolic 140 mm Hg Weight 193 lbs Results No Known Results Summary Purpose eClinicalWorks Submission
--- OUTSIDE RECORDS SUMMARY | 2016-10-18 17:49 | XMS REPORT ---
Author Author Santos Rizzo Organization eClinicalWorks Address Unknown Phone Unavailable Care Team Providers Care Blood Bank Credit Clerk Name Role Phone Santos Rizzo CP Unavailable [...]
--- OUTSIDE RECORDS SUMMARY | 2016-10-18 17:50 | XMS REPORT ---
Author Author Remigio Gautam Organization eClinicalWorks Address Unknown Phone Unavailable Care Team Providers Care Agriculture Technician Name Role Phone Remigio Gautam CP [...] Problem 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 Problem [facility] current use of anticoagulant Z79.01 Active Problem Pedal edema R60.0 Active Medications No Known Medications Results No Known Results Summary Purpose eClinicalWorks Submission
--- OUTSIDE RECORDS SUMMARY | 2016-10-18 17:50 | XMS REPORT ---
Author Author Justine Jara Organization eClinicalWorks Address Unknown Phone Unavailable Care Team Providers Care Senior Power Plant Operator Name Role Phone Justine Jara CP Unavailable [...]
--- OUTSIDE RECORDS SUMMARY | 2016-10-18 17:50 | XMS REPORT | Referral Summary ---
Author Author [facility] Organization [facility] Address Unknown Phone Unavailable Care Team Providers Care Cardiology Associate Name Role Phone Remigio Gautam Primary Care Physician [phone] Encounter [facility] Date(s): 04/06/16 - 04/06/16 [facility] [address] [place], [place] [address] Discharge Diagnosis: Chronic hypoxemic respiratory failure Discharge Diagnosis: Amiodarone pulmonary toxicity Discharge Diagnosis: Valvular heart disease Discharge Diagnosis: Abnormal PFT Discharge Disposition: 01-Home or Self Care Attending Physician: Chapin Chaidez MD Admitting Physician: Chapin Chaidez MD Vital Signs Most recent to 1 oldest [Reference Range]: Peripheral Pulse 84 bpm Rate [60-100 bpm] (04/06/16 10:52 AM) Respiratory Rate 20 br/min [14-20 br/min] (04/06/16 10:52 AM) Blood Pressure 126/62 mmHg [90-140/60-90 mmHg] (04/06/16 10:52 AM) SpO2 92 % (04/06/16 10:52 AM) Problem List Condition Effective Dates Status [...] on room air. Fax full graphics to [phone] Dx: [phone], 496 MIRACLE:99, See Instructions, # 1 Each, 0 Refill(s), Supply Start Date: 10/14/14 Status: Ordered [place] 7.5 mg-325 mg oral tablet See Instructions, take 2 tabs bid, 0 Refill(s) Start Date: 04/06/16 Status: Ordered Tylenol Extra Strength 500 mg, [...] 1stopped 39 years ago. Assessment and Plan Extracted from: Title: Ambulatory Patient Education Author: Chapin Chaidez MD Date: 04/06/16 Allergy Pulmonary Function Tests Pulmonary function tests (PFTs) measure how well your lungs are working. The tests can help to identify the causes of lung problems. They can also help your health care provider select the best treatment for you. Your health care provider may order pulmonary function for any of the following reasons: When an illness involving the lungs is suspected. To follow changes in your lung function over time if you are known to have a chronic lung disease. For industrial plant workers to examine the effects of being exposed to chemicals over a long period of time. To assess lung function prior to surgery or other procedures. For people who are smokers. Your measured lung function will be compared to the expected lung function of someone with healthy lungs who is similar to you in age, gender, size, and other factors. This is used to determine your "percent predicted" lung function, which is how your health care provider knows if your lung function is normal or abnormal. If you have had prior pulmonary function testing performed, your health care provider will also compare your current results with past tests to see if your lung function is better, worse, or staying the same. This can sometimes be useful to see if treatments are working. LET YOUR HEALTH CARE PROVIDER KNOW ABOUT: Any allergies you have. All medicines you are taking, including inhaler or nebulizer medicines, vitamins, herbs, eye drops, creams, and hkjy-oxw-iqqvbzp medicines. Any blood disorders you have. Previous surgeries you have had, especially recent eye surgery, abdominal surgery, or chest surgery. These can make performing pulmonary function tests difficult or unsafe. Medical conditions you have. Chest pain or heart problems. Tuberculosis or respiratory infections, such as pneumonia, a cold, or the flu. If you think you will have difficulty performing any of the breathing maneuvers , ask your health care provider if you should reschedule the test. RISKS AND COMPLICATIONS: Generally, pulmonary function testing is a safe procedure. However, as with any procedure, complications can occur. Possible complications include: Lightheadedness due to overbreathing (hyperventilation). An asthmatic attack from deep breathing. BEFORE THE PROCEDURE Take medicine as directed by your health care provider. If you take inhaler or nebulizer medicines, ask your health care provider which medicines you should take on the day of your test. Some inhaler medicines may interfere with pulmonary function tests, such as bronchodilator testing, if taken shortly before the test. Avoid eating a large meal before your test. Do not smoke before your test. Wear comfortable clothing which will not interfere with breathing. PROCEDURE You will be given a soft nose clip to wear during the procedure. This is done so that all of your breaths will go through your mouth instead of your nose. You will be given a germ-free (sterile) mouthpiece. It will be attached to a spirometer. The spirometer is the machine that measures your breathing. You will be instructed to perform various breathing maneuvers. The maneuvers will be done by breathing in (inhaling) and breathing out (exhaling). Depending on what measurements are ordered, you may be asked to repeat the maneuvers several times before the test is completed. It is important to follow the instructions exactly to obtain accurate results. Make sure to blow as hard and as fast as you can when you are instructed to do so. You may be given a bronchodilator after testing has been performed. A bronchodilator is a medicine which makes the small air passages in your lungs larger. These medicines usually make it easier to breathe. The tests are then repeated several minutes later after the bronchodilator has taken effect. You will be monitored carefully during the procedure for faintness, dizziness, difficulty breathing, or any other problems. AFTER THE PROCEDURE You may resume your usual diet, medicines, and activities as directed by your health care provider. Your health care provider will go over your test results with you and determine what treatments may be helpful. This information is not intended to replace advice given to you by your health care provider. Make sure you discuss any questions you have with your health care provider. Document Released: 03/24/2005 Document Revised: 05/22/2014 Document Reviewed: [facility] Patient Information 2016 [employer] [facility]. No follow up information was provided. Extracted from: Title: Office Visit Note Author: Chapin Chaidez MD Date: 04/06/16 Assessment/Plan 1.Chronic hypoxemic respiratory failure 2.Amiodarone pulmonary toxicity 3.Abnormal PFT 4.Valvular heart disease PLAN: 1. Patient is up-to-date on her vaccinations. Flu vaccination was encouraged in the fall. 2. Continue with the oxygen. Have discussed with her the the utilization of oxygen and the need to keep her saturations in the 90 percent range. 3. Have wished her well with her cardiac appointment which is upcoming. This is with Dr. Rivas. 4. We'll see her back in 2 years with a spirometry and diffusion capacity. Be happy to see her when necessary should the need arise.
--- OUTSIDE RECORDS SUMMARY | 2016-10-18 17:50 | XMS REPORT ---
Author Author Remigio Gautam Organization eClinicalWorks Address Unknown Phone Unavailable Care Team Providers Care Early Childhood Education Specialist Name Role Phone Remigio Gautam CP [...]
--- OUTSIDE RECORDS SUMMARY | 2016-10-18 17:50 | XMS REPORT ---
Author Author Remigio Gautam Organization [employer]ClinicalWorks Address Unknown Phone Unavailable Care Team Providers Care Hard Hat Diver Name Role Phone Remigio Gautam CP Unavailable [...] Problem 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 Problem [facility] current use of anticoagulant Z79.01 Active Problem Pedal edema R60.0 Active Medications No Known Medications Results No Known Results Summary Purpose eClinicalWorks Submission
--- OUTSIDE RECORDS SUMMARY | 2016-10-18 17:50 | XMS REPORT ---
Author Author Osmany Alba Organization eClinicalWorks Address Unknown Phone Unavailable Care Team Providers Care Hand Sample Maker Name Role Phone Osmany Alba CP Unavailable [...] Start Date End Date Status Dosage Lorazepam [facility] [address]-51 0.5 MG Orally Twice a day not defined Fosamax [facility] [address]-27 70 MG Orally Once a week 1 tablet Cymbalta [facility] 14587940760 60 MG Orally Once a day 1 capsule Lasix [facility] [address]-71 40 MG Orally 2 tablets AM, 1 tablet PM Coumadin [facility] [address]-21 2 MG Orally Once a day 1 tablet Oxygen [facility] ____ 3 LPM 07/03 Lisinopril [facility] [address]-45 20 MG Orally twice a day 1 tablet Levothyroxine Sodium [facility] 36223706597 88 MCG Orally Once a day 1 tablet Mirtazapine [facility] 89546855198 45 MG TAKE ONE TABLET BY MOUTH EVERY NIGHT AT BEDTIME Potassium Chloride ER [facility] [address]-79 10 MEQ Orally Twice a day 1 tablet Coreg [facility] [address]-20 25 MG Orally Twice a day 1 tablet Multivitamin [facility] ____ not defined Procedures Procedure Coding System Code Date Prothrombin Time CPT-4 66807 Apr 08, 2015 Venipuncture CPT-4 82514 Apr 08, 2015 Results No Known Results Summary Purpose eClinicalWorks Submission
--- OUTSIDE RECORDS SUMMARY | 2016-10-18 17:50 | XMS REPORT ---
Author Author Osmany Alba Organization e[employer] Address Unknown Phone Unavailable Care Team Providers Care Custom Miller Name Role Phone Osmany Alba CP Unavailable [...] Start Date End Date Status Dosage Lasix [facility] [address]-48 40 MG Orally 2 tablets AM, 1 tablet PM Lorazepam [facility] [address]-52 0.5 MG Orally Twice a day not defined Potassium Chloride ER [facility] [address]-50 10 MEQ Orally Twice a day 1 tablet Oxygen [facility] ____ 3 LPM 07/03 Lisinopril [facility] [address]-52 20 MG Orally twice a day 1 tablet Coreg [facility] [address]-76 25 MG Orally Twice a day 1 tablet Cymbalta [facility] 19824819535 60 MG Orally Once a day 1 capsule Fosamax [facility] [address]-44 70 MG Orally Once a week 1 tablet Coumadin [facility] [address]-80 2 MG Orally Once a day 1 tablet Mirtazapine [facility] 12486595990 45 MG TAKE ONE TABLET BY MOUTH EVERY NIGHT AT BEDTIME Multivitamin [facility] ____ not defined Levothyroxine Sodium [facility] 92830245135 88 MCG Orally Once a day 1 tablet Procedures Procedure Coding System Code Date Prothrombin Time CPT-4 44225 March 11, 2015 Venipuncture CPT-4 18946 March 11, 2015 Results No Known Results Summary Purpose [employer]ClinicalWorks Submission
--- OUTSIDE RECORDS SUMMARY | 2016-10-18 17:50 | XMS REPORT ---
Author Author Remigio Gautam Organization [employer] Address Unknown Phone Unavailable Care Team Providers Care Trash Collector Name Role Phone Remigio Gautam CP Unavailable [...] Condition Code Onset Dates Condition Status Assessment Encounter for mammogram to establish baseline mammogram V76.12 Active Assessment Osteoporosis 733.00 Active Assessment Osteoarthritis 715.90 [...] of aortic valve replacement V43.3 Active Assessment adjunct faculty for medical terminology current use of 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.61 Active Problem Epistaxis 784.7 Active Assessment Pedal edema 782.3 Active Problem Spondylolisthesis 756.12 Active Problem Basal cell carcinoma of skin of nose 173.31 Active Problem Lumbar spondylosis 721.3 Active Problem Degenerative disc disease, lumbar 722.52 Active Assessment Hypertension 401.9 Active Assessment Pneumonia 486 Active Assessment Sinoatrial node dysfunction 427.81 Active Assessment Congestive heart failure 428.0 Active Problem Osteoporosis 733.00 Active Problem Osteoarthritis of right hip 715.95 Active Problem Heart valve replacement status V43.3 Active Problem Long-term use of anticoagulants V58.61 Active Medications Medication Code System Code Instructions Start Date End Date Status Dosage Lasix [facility] [address]-33 40 MG Orally twice a day 1 tablet Potassium Chloride ER [facility] [address]-45 10 MEQ Orally once a day 2 tablets Coumadin [facility] [address]-08 2 MG Orally and 5 MG alternating Cymbalta [facility] [address]-31 60 MG Orally Once a day 1 capsule Multivitamin [facility] [address]77[address] not defined Levothyroxine Sodium [facility] 83622840753 88 MCG Orally Once a day 1 tablet Lisinopril [facility] [address]-07 20 MG Orally twice a day 1 tablet Lorazepam [facility] [address]-46 0.5 MG Orally Twice a day not defined Mirtazapine [facility] [address]-19 45 MG Orally Once a day 1 tablet before bedtime in the evening Fosamax [facility] [address]-10 70 MG Orally Once a week 1 tablet Oxygen ND 0 3 LPM 24/7 Coreg [facility] [address]-07 25 MG Orally Twice a day 1 tablet Procedures Procedure Coding System Code Date Est PT OVOP Service CPT-4 04367 May 01, 2015 Vital Signs Date/Time: May 01, 2015 Blood Pressure Diastolic 77 mm Hg Blood Pressure Systolic 110 mm Hg Cardiac Monitoring Heart Rate 76 /min BMI 30.95 Index Weight 186 lbs Height 65 in Results Name Result Date Reference Range Unit Abnormality Flag MAMMO, SCR RDAHA W/CAD (G0266, 96515) Summary Purpose eClinicalWorks Submission
--- OUTSIDE RECORDS SUMMARY | 2016-10-18 17:50 | XMS REPORT ---
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 Problem Hypertension, essential 401.9 Active Problem Actinic keratosis 702.0 Active Problem Personal history of malignant neoplasm of skin V10.83 Active Problem Intertrigo 695.89 Active Problem Dyslipidemia 272.4 Active Assessment History of aortic valve replacement V43.3 Active Assessment Chronic anticoagulation V58.61 Active Problem Epistaxis 784.7 Active Assessment Hypothyroid 244.9 Active Problem Spondylolisthesis 756.12 Active Problem Basal cell carcinoma of skin of nose 173.31 Active Problem Lumbar spondylosis 721.3 Active Problem Degenerative disc disease, lumbar 722.52 Active Assessment Hypertension 401.9 Active Assessment Pedal edema 782.3 Active Assessment Sinoatrial node dysfunction 427.81 Active Assessment Congestive heart failure 428.0 Active Problem Osteoporosis 733.00 Active Problem Osteoarthritis of right hip 715.95 Active Problem Heart valve replacement status V43.3 Active Problem Long-term use of anticoagulants V58.61 Active Medications Medication Code System Code Instructions Start Date End Date Status Dosage Oxygen NDC 0 3 LPM 07/03 [place] [address]-08 70 MG Orally Once a week 1 [place] [address]-03 40 MG Orally 2 tablets AM, 1 tablet PM Levothyroxine Sodium ND 34647356964 88 MCG Orally Once a day 1 tablet Multivitamin [facility] 260[address]84 not defined Lorazepam [facility] [address]-50 0.5 MG Orally Twice a day not defined Coreg [facility] [address]-17 25 MG Orally Twice a day 1 tablet Lisinopril [facility] [address]-10 20 MG Orally twice a day 1 tablet Potassium Chloride ER [facility] [address]-31 10 MEQ Orally Twice a day 1 tablet Cymbalta [facility] 57327227373 60 MG Orally Once a day 1 capsule Mirtazapine [facility] [address]-48 45 MG Orally Once a day 1 tablet Coumadin [facility] [address]-47 2 MG Orally Once a day 1 tablet Procedures Procedure Coding System Code Date Est PT OVOP Service CPT-4 83481 February 27, 2015 Vital Signs Date/Time: February 27, 2015 Blood Pressure Diastolic 54 mm Hg Blood Pressure Systolic 124 mm Hg Cardiac Monitoring Heart Rate 76 /min BMI 32.11 Index Weight 193 lbs Height 65 in Results No Known Results Summary Purpose eClinicalWorks Submission
--- OUTSIDE RECORDS SUMMARY | 2016-10-18 17:51 | XMS REPORT ---
Author Author Santos Rizzo e[employer] Address Unknown Phone Unavailable Care Team Providers Care Automatic Trimming Sewer Name Role Phone Santos Rizzo CP Unavailable [...] Start Date End Date Status Dosage Coreg [facility] [address]-42 25 MG Orally Twice a day 1 tablet with food Mirtazapine [facility] [address]-03 45 MG Orally Once a day 1 tablet before bedtime in the evening Amlodipine Besylate [facility] [address]-88 5 MG Orally Once a day 1 tablet Lasix [facility] [address]-02 40 MG Orally bid 1 tablet Lisinopril [facility] [address]-03 20 MG Orally bid 1 tablet Fosamax [facility] [address]-07 70 MG Orally 1 tablet Coumadin [facility] ____ not defined Lorazepam [facility] [address]-49 0.5 MG Orally Twice a day not defined Potassium Chloride ER [facility] [address]-15 10 MEQ Orally Once a day 1 tablets Levothyroxine Sodium [facility] [address]-25 88 MCG Orally Once a day 1 tablet Cymbalta [facility] [address]-62 60 MG Orally Once a day 1 capsule Procedures Procedure Coding System Code Date Destruction Premalignant Lesio CPT-4 92637 Sep 18, 2014 Destruction Premalignant Lesio CPT-4 38231 Sep 18, 2014 Est PT OVOP Service CPT-4 90554 Sep 18, 2014 Vital Signs Date/Time: Sep 18, 2014 BMI 32.11 Index Weight 193 lbs Height 65 in Results No Known Results Summary Purpose eClinicalWorks Submission
--- OUTSIDE RECORDS SUMMARY | 2016-10-18 17:51 | XMS REPORT ---
Author Author Santos Rizzo Organization [employer] Address Unknown Phone Unavailable Care Team Providers Care Talk Show Host Name Role Phone Santos Rizzo CP Unavailable [...]
--- OUTSIDE RECORDS SUMMARY | 2016-10-18 17:52 | XMS REPORT ---
Author Author Remigio Gautam Organization [employer] Address Unknown Phone Unavailable Care Team Providers Care Drop Wire Aligner Name Role Phone Remigio Gautam CP Unavailable [...]
--- OUTSIDE RECORDS SUMMARY | 2016-10-18 17:52 | XMS REPORT | Referral Summary ---
Author Organization Unknown Address Unknown Phone Unavailable Care Team Providers Care Carry Out Clerk And Shelf Stocker Name Role Phone Remigio Gautam Primary Care Physician [phone] Encounter [facility] [id number] Date(s): 10/14/14 - 10/14/14 [address], [address], Pulmonary [address] [place], [place] [address] Discharge Diagnosis: SHORTNESS OF BREATH Discharge Disposition: Home or Self Care Attending [...] on room air. Fax full graphics to [phone] Dx: [phone], [phone] MIRACLE:99, See Instructions, # 1 Each, 0 Refill(s), Supply Special Instructions: Overnight oximetry on room air. Fax full graphics to [phone] Dx:[phone], [phone] MIRACLE:99 Start Date: 10/14/14 Status: Ordered potassium citrate Oral, 0 Refill(s) Start Date: 10/14/14 Status: Ordered zolpidem 5 mg oral tablet 1 tabs, Oral, Bedtime (once a day), as needed for sleep, 0 Refill(s) Start Date: 10/14/14 Status: Ordered Results Blood Gases Most recent to 1 oldest [Reference Range]: PCO2 Arterial POC 44 mmHg [31-42 mmHg] *HI* (10/14/14 9:50 AM) CO2 Totl Art [21-30 24 mmol/L mmol/L] (10/14/14 9:50 AM) Bicarbonate Arterial 27 mmol/L POC [20-29 mmol/L] (10/14/14 9:50 AM) Base Excess Arterial 2.0 mmol/L POC [-3.3-1.2 *HI* mmol/L] (10/14/14 9:50 AM) O2 Saturation 92 % Arterial POC [94-100 *LOW* %] (10/14/14 9:50 AM) pH Arterial POC 7.40 1 [7.37-7.44] (10/14/14 9:50 AM) PO2 Arterial POC 60 mmHg [78-85 mmHg] *LOW* (10/14/14 9:50 AM) 1Result Comment: Drawn by RT. Ambrose's test=positive. Patient on room air. Immunizations No data available for this section Procedures No data available for this section Social History Social History Type Response Smoking Status Former smoker1 1stopped 39 years ago. Assessment and Plan No data available for this section
[2016-10-18 18:00] VITALS: PULSE 67; RESP 20
[2016-10-18 18:26] VITALS: BP 153/76; PULSE 66
[2016-10-18] MEDS ORDERED: norco PO (18:27)
[2016-10-18] MEDS ORDERED: CLON0.1T13 PO (18:27)
[2016-10-18] MEDS ORDERED: CARV12.52 PO (18:27)
[2016-10-18] MEDS ORDERED: BUME1TAB17 PO (18:27)
[2016-10-18] MEDS ORDERED: MIRT45TA5 PO (18:27)
[2016-10-18] MEDS ORDERED: LEVO88TA7 PO (18:27)
[2016-10-18] MEDS ORDERED: FENT1PAT TOP (18:27)
[2016-10-18] MEDS ORDERED: WARF1TAB6 PO (18:27)
[2016-10-18] MEDS ORDERED: WARF2TAB6 PO (18:27)
[2016-10-18 18:32] VITALS: Ht 170.2 cm; Wt 80.5 kg
[2016-10-18] MEDS ORDERED: ALENDRONATE 70 MG TABLET PO SCH (18:45)
[2016-10-18] MEDS ORDERED: PRN ORDERS MC (18:45)
[2016-10-18] MEDS ORDERED: WARFARIN 2 MG TABLET PO SCH (20:00)
[2016-10-18] MEDS ORDERED: WARFARIN 1 MG TABLET PO SCH (20:00)
[2016-10-18] MEDS: LISINOPRIL 20 MG TABLET PO SCH (21:16)
[2016-10-18] MEDS: DOCUSATE SODIUM 100 MG CAPSULE PO SCH (21:16)
[2016-10-18] MEDS: CLONIDINE 0.1 MG TABLET PO SCH (21:16)
[2016-10-18] MEDS: MIRTAZAPINE 45 MG PO SCH (21:16)
[2016-10-18] MEDS: LORAZEPAM 0.5 MG TABLET PO SCH (21:28)
[2016-10-18 22:01] VITALS: PULSE 82; RESP 18; O2SAT 94
[2016-10-18] MEDS: ACETAMINOPHEN 325 MG TABLET PO PRN (23:06)
[2016-10-18 23:39] VITALS: RESP 16
[2016-10-18 23:45] VITALS: BP 144/79; PULSE 80; RESP 16; TEMP 98.8; O2SAT 93
[2016-10-19 05:10] LABS: BASOPHILS % (AUTO) 0.6 % (0-2); EOSINOPHILS # (AUTO) 0.4 T/MM3 (0-0.5); EOSINOPHILS % (AUTO) 5.9 % (0-4); HCT - HEMATOCRIT 38.6 % (36-46); HGB - HEMOGLOBIN 11.8 GM/DL (12-16); IMMATURE GRANULOCYTE # (AUTO) 0.01 T/MM3 (0.00-0.03); IMMATURE GRANULOCYTE % (AUTO) 0.1 % (0.0-0.5); LYMPHOCYTES # (AUTO) 2.3 T/MM3 (1-4.8); LYMPHOCYTES % (AUTO) 33.3 % (23-45); MEAN CORPUSCULAR HGB 29.9 UUG (26-34); MEAN CORPUSCULAR HGB CONC(MCHC 30.6 GM/DL (31-37); MEAN PLATELET VOLUME 9.7 UM3 (9.4-12.4); MONOCYTES # (AUTO) 0.6 T/MM3 (0-0.8); MONOCYTES % (AUTO) 8.8 % (0-9.0); NEUTROPHILS #(AUTO)-ABSOLUTE 3.6 T/MM3 (1.8-7.7); NEUTROPHILS % (AUTO) 51.3 % (33-66); RED BLOOD COUNT 3.94 M/MM3 (4.00-5.20); WBC - WHITE BLOOD COUNT 6.9 T/MM3 (4.5-11.0)
[2016-10-19 05:15] LABS: ANION GAP 8 MEQ/L (5-15); BUN/CREATININE RATIO 24 RATIO (6-26); CALCIUM 8.7 MG/DL (8.4-10.2); CHLORIDE 105 MEQ/L (98-107); CO2 - CARBON DIOXIDE 34 MEQ/L (22-30); CREATININE 0.7 MG/DL (0.7-1.2); GLOMERULAR FILTRATION RATE 81; GLUCOSE 101 MG/DL (65-110); SODIUM 147 MEQ/L (134-144)
[2016-10-19] MEDS: LEVOTHYROXINE 88 MCG TABLET PO SCH (06:28)
--- NOTE | 2016-10-19 06:39 | NUR ---
Summary Pt has been oriented to the unit, and demonstrated proper use of the call light. Pt has set off the bed alarm twice trying to get up out of bed without assistance. Safety education provided. Pt rates pain 8/10 to her lower back. Pt states pain 8-9/10 is her normal range. Pt complaint of headache rated 5/10 controlled with PRN Tylenol. Pt managed her own clothing with setup assistance. Ambulated with steady gait with fww and gb. Pt has scabbed over scratch on her L cheek from "scratching myself while asleep" Fentanyl and Lidoderm patches removed. O2 on through the night at 3L. Pt states she slept well. resting in bed at this time alarm on water in reach
[2016-10-19 08:00] VITALS: BP 160/86; PULSE 81; RESP 18; TEMP 98.3; O2SAT 95
[2016-10-19] MEDS: LORAZEPAM 0.5 MG TABLET PO SCH ×2 (08:43→21:09)
[2016-10-19] MEDS: CARVEDILOL 12.5 MG TABLET PO SCH ×2 (08:43→17:34)
[2016-10-19] MEDS: BUMETANIDE 1 MG TABLET PO SCH (08:43)
[2016-10-19] MEDS: LISINOPRIL 20 MG TABLET PO SCH ×2 (08:44→21:11)
[2016-10-19] MEDS: DOCUSATE SODIUM 100 MG CAPSULE PO SCH ×2 (08:44→21:10)
[2016-10-19] MEDS: DULOXETINE 60 MG CAPSULE PO SCH (08:44)
--- NOTE | 2016-10-19 09:34 | CONSPD ---
JESSE MONTES APRN 10/19/16 0759: Consultation Info Date DATE: 10/19/16 TIME: 07:55 Date of Consultation: Oct 19, 2016 Attending Physician: Dr. Chanel Reason for Consultation: CHF HPI - Adult Date DATE: 10/19/16 TIME: 07:55 General Chief Complaint: back pain, weakness History of Present Illness Lulú May is a 81 y/o woman seen in consultation from Dr. Chanel for management of CHF with severe valvular disease. She was admitted to [facility] for CHF exacerbation and excruciating back pain on 10/11/16, discharged on 10/18/16. She also has a hx of COPD and is oxygen dependent. She received gentle IV diuresis d/t hx of right heart failure and pain control. She had severe generalized weakness. She is waiting on a nerve stimulator as an outpatient, and underwent psychiatric consultation which is a requirement for nerve stimulator. Dr. Lemus saw her at [place], and dx her with early, mild vascular dementia but no contraindication to placing a nerve stimulator. Prior to this admission she lived at home in [place] and used a walker but has frequent falls. During hospitalization, she had some problems with confusion and word finding as well as following some verbal instructions, and received PT/OT services. Labs were reviewed - no abonrmalities were noted ( Cr 0.9, WBC 7.9, hgb 12.4, plt 263, INR 2.0). Pat was A&O and conversed well, NAD. ROS positive for severe back pain, weakness , constipation. Dyspnea has markedly improved. Back pain can be debilitating and she's looking forward to nerve stimulator. Past Medical History Past Medical History Patient's Medical History: (1) Atrial fibrillation (2) Complete heart block (3) HTN (hypertension) (4) Dyslipidemia (5) Lupus (6) CHF due to valvular disease Permanent Comment: possibly rheumatic heart disease Last Edited By: Jesse Montes on Oct 19, 2016 08:07 (7) COPD (chronic obstructive pulmonary disease) (8) Oxygen dependent (9) Amiodarone pulmonary toxicity (10) Overweight (BMI 25.0-29.9) (11) Arthritis (12) Chronic low back pain (13) Vascular dementia Surgical History Patient's Surgical History: Appendectomy Cholecystectomy Colonoscopy pacemaker initially underwent 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) cardiac cath hysterectomy kypphoplasty multiple back surgeries RCR hip (rt) knee shoulder Current Medications Home Meds Reported Medications Levothyroxine Sodium (Levothyroxine Sodium) 88 Mcg Tablet, 88 MCG PO ACB, TAB Once daily before breakfast. 10/18/16 Bumetanide (Bumetanide) 1 Mg Tablet, 1 TAB PO DAILY, TAB 10/18/16 Fentanyl (Fentanyl 12 mcg/hr) 1 Each Patch.td72, 1 PATCH TOP Q72H, PATCH 10/18/16 Mirtazapine (Mirtazapine) 45 Mg Tab.rapdis, 45 MG PO HS, TAB Take 1 tablet, by mouth, one time a day (at bedtime). 10/18/16 [norco] No Conflict Check, 7.5 MG PO Q4HPRN 10/18/16 Carvedilol (Carvedilol) 12.5 Mg Tablet, 1 TAB PO BIDWM, TAB BEST WITH FOOD. 10/18/16 Clonidine HCl (Catapres) 0.1 Mg Tablet, 1 TAB PO HS, TAB 10/18/16 Warfarin Sodium (Warfarin Sodium) 2 Mg Tablet, 1.5 MG PO PM, TAB Take 1 tablet, by mouth, 1 time a day (at NOON). 10/18/16 Warfarin Sodium (Warfarin Sodium) 1 Mg Tablet, 0.5 MG PO PM, TAB Take 1 tablet, by mouth, 1 time a day (at NOON). 10/18/16 Lorazepam (Lorazepam) 0.5 Mg Tablet, 1 TAB PO BID 06/01/13 Duloxetine Hcl (Cymbalta) 60 Mg Capsule.dr, 1 TAB PO DAILY 06/01/13 Alendronate Sodium (Fosamax) 70 Mg Tablet, 1 TAB PO WEEKLY 06/01/13 Lisinopril (Lisinopril) 20 Mg Tablet, 1 TAB PO BID 06/01/13 Allergies: Coded Allergies: Thiazides (Verified Allergy, Unknown, RASH, 11/18/14) amiodarone (Verified Allergy, Unknown, DYSPNEA, LUNG DAMAGE, 11/18/14) hydroxychloroquine (Verified Allergy, Unknown, 11/18/14) nifedipine (Verified Allergy, Unknown, DROPPED BLOOD PRESSURE TOO FAST, 11/18/14) tramadol (Verified Allergy, Unknown, 11/18/14) codeine (Verified Adverse Reaction, Unknown, NAUSEA, 11/18/14) Family History Family History: Both parents of [place]. Heart disease on both sides of the family. 1 son had diabetes () 1 son with HTN Social History Smoking Status: Former smoker (quit over 10 years ago) Substance Use Type: does not use Alcohol Intake: none Marital Status: Advance Directives: No DPOA for Healthcare Only Review of Systems Constitutional: REPORTS: weakness, DENIES: appetite decrease, chills, fever Eyes Vision: DENIES: vision changes ENMT Sinuses: NOT FOUND: congestion, rhinorrhea Mouth/Throat: DENIES: sore throat Cardiovascular dyspnea on exertion (resolved), DENIES: chest pain Vascular: DENIES: unilateral swelling Pulmonary Respiratory: dyspnea (improved; though wears chronic oxygen), DENIES: cough GI Upper Abdomen: DENIES: nausea, pain, vomiting Lower Abdomen: constipation General: DENIES: dysuria Musculoskeletal Lumbar: pain (severe; radiates down both legs) Integumentary Skin: DENIES: rash Neurological General: numbness (both feet - chronic), weakness, DENIES: syncope Psychiatric Psychiatric: depression (on an antidepressant) Allergic/Immunological DENIES: frequent infections All Other Systems All Other Systems: Reviewed (remainder of 10-point ROS Neg.) Physical Exam General General Nourishment: well nourished, well developed General Body Habitus: well groomed Vital Signs Vital Signs Date Time Temp Pulse Resp B/P Pulse Ox O2 Delivery O2 Flow Rate FiO2 10/18/16 23:45 98.8 80 16 144/79 93 Nasal Cannula 3.00 Height (Feet): 5 Height (Inches): 7.00 Eyes Brief: FOUND: PERRL, other (glasses), NOT FOUND: scleral icterus ENMT Brief: FOUND: mucosa moist, NOT FOUND: pharnyx erythema Neck Brief: NOT FOUND: adenopathy, nuchal rigidity Respiratory Auscultation: FOUND: decreased, rales (b/l), NOT FOUND: rhonchi, wheezes Cardiovascular Auscultation: FOUND: S1, S2, other (loud metallic click), regular Peripheral Pulses: 2+: Dorasalis Pedis (L), Dorsalis Pedis (R), Posterior Tibial (L), Posterior Tibial (R), Radial (L), Radial (R) Edema: 0: Anasarca, Arm (L), Arm (R), Face, Leg (L), Leg (R) Abdomen Inspection: NOT FOUND: distention Palpation: FOUND: soft, NOT FOUND: McBurney's point tender, Lemus's sign, involuntary guarding, rebound, tender, voluntary guarding Auscultation: FOUND: normo active Lymphatic (brief) Lymphatic Brief: NOT FOUND: adenopathy Musculoskeletal (brief) Musculoskeletal Brief: FOUND: deformity (b/l 1st MCP joints), NOT FOUND: tenderness (calves soft nttp) Integumentary (brief) Integumentary Brief: FOUND: dry, pink, warm Integumentary General: FOUND: dry, warm Color: FOUND: pink Neurologic (brief) Neurological Brief: FOUND: cranial 2-12 intact (grossly) Neurologic GCS Eye Opening: (4)Spontaneous GCS Verbal: (5)Oriented GCS Motor: (6)Obeys Commands RN Documented GCS Total: 15 Psychiatric (brief) FOUND: alert, attentive, normal affect, oriented Laboratory Laboratory Tests Test 10/19/16 04:33 White Blood Count 6.9T/MM3 Red Blood Count 3.94M/MM3 Hemoglobin 11.8GM/DL Hematocrit 38.6% Mean Corpuscular Volume 98.0UM3 Mean Corpuscular Hemoglobin 29.9UUG Mean Corpuscular Hemoglobin Concent 30.6GM/DL RDW Standard Deviation 47.2FL Platelet Count 213T/MM3 Mean Platelet Volume 9.7UM3 Immature Granulocyte % (Auto) 0.1% Neutrophils (%) (Auto) 51.3% Lymphocytes (%) (Auto) 33.3% Monocytes (%) (Auto) 8.8% Eosinophils (%) (Auto) 5.9% Basophils (%) (Auto) 0.6% Absolute Immature Granulocyte (auto 0.01T/MM3 Absolute Neutrophils (auto) 3.6T/MM3 Absolute Lymphocytes (auto) 2.3T/MM3 Absolute Monocytes (auto) 0.6T/MM3 Absolute Eosinophils (auto) 0.4T/MM3 Absolute Basophils (auto) 0.0T/MM3 Turbidity < 20 Sodium Level 147MEQ/L Potassium Level 4.0MEQ/L Chloride Level 105MEQ/L Carbon Dioxide Level 34MEQ/L Anion Gap 8MEQ/L Blood Urea Nitrogen 17.0MG/DL Creatinine 0.7MG/DL Glomerular Filtration Rate Calc 81 BUN/Creatinine Ratio 24RATIO Glucose Level 101MG/DL Calculated Osmolality 284MOSM/KG Calcium Level 8.7MG/DL Icterus Index < 2 Chemistry Specimen Hemolysis < 15 Impression/Recommendation Problems: (1) Weakness Status: Acute (2) Chronic low back pain Status: Chronic (3) Atrial fibrillation Status: Chronic (4) HTN (hypertension) Status: Chronic (5) CHF due to valvular disease Status: Chronic (6) Amiodarone pulmonary toxicity Status: Chronic (7) COPD (chronic obstructive pulmonary disease) Status: Chronic (8) Oxygen dependent Status: Chronic (9) Lupus Status: Chronic (10) Dyslipidemia Status: Chronic (11) Complete heart block Status: Chronic Assessment & Plan: pacemaker (12) Hypothyroidism Status: Chronic (13) Vascular dementia Status: Chronic (14) Overweight (BMI 25.0-29.9) Status: Chronic Recommendation A-fib/mechanical valves - cont Coumadin per pharm protocol CHF & HTN - Coreg, Clonidine. Monitor for fluid overload. COPD, pulm toxicity (amiodarone) - chronic oxygen Hypernatremia - recheck in am; not clinically dehydrated but does take Bumex Chronic severe back pain - PT/OT per attending; fentanyl patch; [place] PRN. She was evaluated by psychiatry (Dr. Lemus) at [facility] who stated there were no contraindications to placement of nerve stimulator in outpatient setting. She has mild vascular dementia. Thank you for this consultation - we will follow Shahla May along with you during her stay in IRU. TE MAHER MD 10/20/161919: Past Medical History Current Medications Home Meds Reported Medications Levothyroxine Sodium (Levothyroxine Sodium) 88 Mcg Tablet, 88 MCG PO ACB, TAB Once daily before breakfast. 10/18/16 Bumetanide (Bumetanide) 1 Mg Tablet, 1 TAB PO DAILY, TAB 10/18/16 Fentanyl (Fentanyl 12 mcg/hr) 1 Each Patch.td72, 1 PATCH TOP Q72H, PATCH 10/18/16 Mirtazapine (Mirtazapine) 45 Mg Tab.rapdis, 45 MG PO HS, TAB Take 1 tablet, by mouth, one time a day (at bedtime). 10/18/16 [norco] No Conflict Check, 7.5 MG PO Q4HPRN 10/18/16 Carvedilol (Carvedilol) 12.5 Mg Tablet, 1 TAB PO BIDWM, TAB BEST WITH FOOD. 10/18/16 Clonidine HCl (Catapres) 0.1 Mg Tablet, 1 TAB PO HS, TAB 10/18/16 Warfarin Sodium (Warfarin Sodium) 2 Mg Tablet, 1.5 MG PO PM, TAB Take 1 tablet, by mouth, 1 time a day (at NOON). 10/18/16 Warfarin Sodium (Warfarin Sodium) 1 Mg Tablet, 0.5 MG PO PM, TAB Take 1 tablet, by mouth, 1 time a day (at NOON). 10/18/16 Lorazepam (Lorazepam) 0.5 Mg Tablet, 1 TAB PO BID 06/01/13 Duloxetine Hcl (Cymbalta) 60 Mg Capsule.dr, 1 TAB PO DAILY 06/01/13 Alendronate Sodium (Fosamax) 70 Mg Tablet, 1 TAB PO WEEKLY 06/01/13 Lisinopril (Lisinopril) 20 Mg Tablet, 1 TAB PO BID 06/01/13 Allergies: Coded Allergies: Thiazides (Verified Allergy, Unknown, RASH, 11/18/14) amiodarone (Verified Allergy, Unknown, DYSPNEA, LUNG DAMAGE, 11/18/14) hydroxychloroquine (Verified Allergy, Unknown, 11/18/14) nifedipine (Verified Allergy, Unknown, DROPPED BLOOD PRESSURE TOO FAST, 11/18/14) tramadol (Verified Allergy, Unknown, 11/18/14) codeine (Verified Adverse Reaction, Unknown, NAUSEA, 11/18/14) Impression/Recommendation Impression 10/20/2016-I reviewed this chart, the patient history, and the LASER BEAM CUTTER's/PA's documented findings as above. We discussed and formulated the assessment and plan as above with the additions below.-Dr. Maher The patient states she's feeling pretty good. She sitting up in a chair curling her hair with a curling iron. She denies any shortness of breath. She denies any pain except chronic pain in her back. She is eating and drinking well. She is doing okay with physical therapy although it is painful for her back. She denies any swelling in her legs. On exam she is alert and oriented 3. HEENT reveals sclerae to be anicteric and oropharynx is moist. Neck is supple. No JVD. Chest is clear to auscultation bilaterally. Cardiovascular reveals a regular rate and rhythm with a prosthetic click. Abdomen is soft and nontender. Extremities reveal no edema. She does have RAMBO hose on up to the knees. Overall, the patient appears to be doing well. Continue with current treatment plan. Add bubbler to her oxygen today. Weights on Wednesdays and Fridays. JESSE MONTES APRN Oct 19, 2016 07:59 TE MAHER MD Oct 20, 2016 19:20
[2016-10-19 09:52] LABS: INR 2.17 (0.76-1.04); PROTHROMBIN TIME 23.7 SEC (9.31-12.49)
--- NOTE | 2016-10-19 10:31 | NUR ---
JONATHAN HAMM SCORE IS 10 Addendum: 10/19/16 at 1031 by CLARIBEL HERNANDEZ Amended: Links added.
--- NOTE | 2016-10-19 10:33 | NUR ---
COUMADIN CONSULT (Initial): Dx: AFIB, MECHANICAL AORTIC VALVE Baseline INR = 2.17. Will give Warfarin 1mg today. Will continue to monitor and make adjustments accordingly. Thank you.
--- NOTE | 2016-10-19 11:20 | NUR ---
CM SPOKE WITH PT, INTRODUCED SELF, EXPLAINED ROLE, PROVIDED CONTACT INFO. PT SAID SHE LIVES IN [place], BUT HER IMMEDIATE DC PLAN IS TO DC HOME WITH HER DAUGHTER (ROX) HERE IN [place]. SHE SAID SHE IS WANTING TO RELOCATE HERE IN [place], TO [facility]OBAB[facility] THE [facility] APARTMENTS. SHE SAID SHE HAS HER 4 WHEELED WALKER AT [facility], AND A CANE. SHE HAS HOME OXYGEN, DOES NOT REMEMBER THE O2 COMPANY. SHE GAVE PERMISSION TO CONTACT HER DAUGHTER FOR FURTHER DC PLANNING. REVIEWED CHF EDUCATION FORM WITH PT, AND PROVIDED THIS FORM TO HER. EXPLAINED SHE IS AT RISK FOR READMISSION AND ENCOURAGED HER TO FOLLOW THE CHART. SHE SAID OK, HAD NO QUESTIONS ABOUT IT. PT HAD NO QUESTIONS/NEEDS FOR THIS WORKER. CALLED DAUGHTER ROX. CONFIRMED THAT DC PLAN IS FOR PT TO DC WITH HER, AND SHE SAID PT WILL PROBABLY RELOCATE HERE. SHE SAID SHE IS DOING THE PAPERWORK FOR THAT. SHE SAID SHE IS GOING TO BE OUT OF TOWN FROM [facility]. DISCUSSED OXYGEN; SHE SAID [employer] IS THE COMPANY THAT SERVICED PT IN [place]. DISCUSSED THAT THIS WORKER WILL FOLLOW UP WITH ARRANGING HOME O2 FOR THIS AREA. PROVIDED HER WITH THIS WORKER'S CONTACT NUMBER, SHE HAD NO CURRENT QUESTIONS/NEEDS. Addendum: 10/19/16 at 1124 by CLARIBEL HERNANDEZ Amended: Links added.
--- NOTE | 2016-10-19 11:49 | NUR ---
CM CALLED EPIFANIO AT [facility], DISCUSSED HOW TO ARRANGE HOME OXYGEN HERE IN [place]. SHE SAID TO FAX THE ORDERS, CLINICAL INFO, DEMOGRAPHICS, ETC, TO FAX #[phone], ID#[id number] AST [id number].
[2016-10-19] MEDS ORDERED: WARFARIN 1 MG TABLET PO SCH (12:00)
--- NOTE | 2016-10-19 14:18 | HPPDOC ---
HPI Date DATE: 10/19/16 TIME: 13:57 General Chief Complaint: back pain, weakness History of Present Illness 81 yo female admitted 10/11 for CHF exacerbation and pain management for chronic low back pain. She has difficulty managing adl's due to both the pain from lumbar spinal compression as well as fatigue and soa with CHF exacerbation. Pt unable to go home and provide self care and is interested in working with PT and OT to increase strength and independence. Past Medical History Past Medical History Patient's Medical History: (1) Atrial fibrillation (2) Complete heart block (3) HTN (hypertension) (4) Dyslipidemia (5) Lupus (6) CHF due to valvular disease Permanent Comment: possibly rheumatic heart disease Last Edited By: Viv Hilton on Oct 19, 2016 08:07 (7) COPD (chronic obstructive pulmonary disease) (8) Oxygen dependent (9) Amiodarone pulmonary toxicity (10) Overweight (BMI 25.0-29.9) (11) Arthritis (12) Chronic low back pain (13) Vascular dementia Surgical History Patient's Surgical History: Appendectomy Cholecystectomy Colonoscopy pacemaker initially underwent 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) cardiac cath hysterectomy kypphoplasty multiple back surgeries RCR hip (rt) knee shoulder Current Medications Home Meds Reported Medications Levothyroxine Sodium (Levothyroxine Sodium) 88 Mcg Tablet, 88 MCG PO ACB, TAB Once daily before breakfast. 10/18/16 Bumetanide (Bumetanide) 1 Mg Tablet, 1 TAB PO DAILY, TAB 10/18/16 Fentanyl (Fentanyl 12 mcg/hr) 1 Each Patch.td72, 1 PATCH TOP Q72H, PATCH 10/18/16 Mirtazapine (Mirtazapine) 45 Mg Tab.rapdis, 45 MG PO HS, TAB Take 1 tablet, by mouth, one time a day (at bedtime). 10/18/16 [norco] No Conflict Check, 7.5 MG PO Q4HPRN 10/18/16 Carvedilol (Carvedilol) 12.5 Mg Tablet, 1 TAB PO BIDWM, TAB BEST WITH FOOD. 10/18/16 Clonidine HCl (Catapres) 0.1 Mg Tablet, 1 TAB PO HS, TAB 10/18/16 Warfarin Sodium (Warfarin Sodium) 2 Mg Tablet, 1.5 MG PO PM, TAB Take 1 tablet, by mouth, 1 time a day (at NOON). 10/18/16 Warfarin Sodium (Warfarin Sodium) 1 Mg Tablet, 0.5 MG PO PM, TAB Take 1 tablet, by mouth, 1 time a day (at NOON). 10/18/16 Lorazepam (Lorazepam) 0.5 Mg Tablet, 1 TAB PO BID 06/01/13 Duloxetine Hcl (Cymbalta) 60 Mg Capsule.dr, 1 TAB PO DAILY 06/01/13 Alendronate Sodium (Fosamax) 70 Mg Tablet, 1 TAB PO WEEKLY 06/01/13 Lisinopril (Lisinopril) 20 Mg Tablet, 1 TAB PO BID 06/01/13 Allergies: Coded Allergies: Thiazides (Verified Allergy, Unknown, RASH, 11/18/14) amiodarone (Verified Allergy, Unknown, DYSPNEA, LUNG DAMAGE, 11/18/14) hydroxychloroquine (Verified Allergy, Unknown, 11/18/14) nifedipine (Verified Allergy, Unknown, DROPPED BLOOD PRESSURE TOO FAST, 11/18/14) tramadol (Verified Allergy, Unknown, 11/18/14) codeine (Verified Adverse Reaction, Unknown, NAUSEA, 11/18/14) Family History Family History: Both parents of [place]. Heart disease on both sides of the family. 1 son had diabetes () 1 son with HTN Social History Smoking Status: Former smoker (quit over 10 years ago) Substance Use Type: does not use Alcohol Intake: none Marital Status: Advance Directives: No DPOA for Healthcare Only Review of Systems Pulmonary Respiratory: see HPI Musculoskeletal General: see HPI All Other Systems All Other Systems: Reviewed Physical Exam General General Nourishment: well nourished, well developed, adult General Body Habitus: well groomed Vital Signs Vital Signs Date Time Temp Pulse Resp B/P Pulse Ox O2 Delivery O2 Flow Rate FiO2 10/19/16 08:00 98.3 81 18 160/86 95 Nasal Cannula 3.00 Height (Feet): 5 Height (Inches): 7.00 Telemetry Rhythm: Sinus Rhythm Eyes Brief: FOUND: EOMI, PERRL Comments mild rales bilat Cardiovascular (brief) Cardiac Brief: FOUND: pedal edema (1+ bilat), regular rate, regular rhythm Abdomen (brief) Abdominal Brief: FOUND: BS normo active x4, soft, tender Neurologic (brief) Neurological Brief: FOUND: cranial 2-12 intact, motor, sensory Neurologic RN Documented GCS Eye Opening: (4)Spontaneous Verbal: (5)Oriented Motor: (6)Obeys Commands Total: Laboratory Laboratory Tests Test 10/19/16 04:33 White Blood Count 6.9T/MM3 Red Blood Count 3.94M/MM3 Hemoglobin 11.8GM/DL Hematocrit 38.6% Mean Corpuscular Volume 98.0UM3 Mean Corpuscular Hemoglobin 29.9UUG Mean Corpuscular Hemoglobin Concent 30.6GM/DL RDW Standard Deviation 47.2FL Platelet Count 213T/MM3 Mean Platelet Volume 9.7UM3 Immature Granulocyte % (Auto) 0.1% Neutrophils (%) (Auto) 51.3% Lymphocytes (%) (Auto) 33.3% Monocytes (%) (Auto) 8.8% Eosinophils (%) (Auto) 5.9% Basophils (%) (Auto) 0.6% Absolute Immature Granulocyte (auto 0.01T/MM3 Absolute Neutrophils (auto) 3.6T/MM3 Absolute Lymphocytes (auto) 2.3T/MM3 Absolute Monocytes (auto) 0.6T/MM3 Absolute Eosinophils (auto) 0.4T/MM3 Absolute Basophils (auto) 0.0T/MM3 Prothromb Time International Ratio 2.17 Turbidity < 20 Sodium Level 147MEQ/L Potassium Level 4.0MEQ/L Chloride Level 105MEQ/L Carbon Dioxide Level 34MEQ/L Anion Gap 8MEQ/L Blood Urea Nitrogen 17.0MG/DL Creatinine 0.7MG/DL Glomerular Filtration Rate Calc 81 BUN/Creatinine Ratio 24RATIO Glucose Level 101MG/DL Calculated Osmolality 284MOSM/KG Calcium Level 8.7MG/DL Icterus Index < 2 Chemistry Specimen Hemolysis < 15 Concerns For Adverse Events CHF and weakness require pt to be medically supervised during initial PT and OT . Assessment & Plan Problems: (1) CHF due to valvular disease Status: Chronic Assessment & Plan: medical management (2) Weakness Status: Acute Assessment & Plan: Consult PT and OT to create plan of care. 3 hours daily of combined therapy. Code Status Full Code Interventions to Obtain Goals PT Treatment Plan: Therapeutic Exercise, Gait Training, Functional Activities , Patient/Family Education OT Treatment Plan: ADL's (basic care), Ther. Exercise for ADL's, UE Functional Training, Balance Training, Pt./Family Education, IADL's Hospital Course Summary Disclaimer The hospital course summary below is not to be considered part of the above Progress Note. MEG SETH MD Oct 19, 2016 14:06
--- NOTE | 2016-10-19 14:20 | IRU24PDOC ---
24 Hour Post Admission Eval Relevant Changes Relevant Changes: No I have reviewed the patient's information and concur with the finding and results of the pre-admission screen. Certification I certify the patient for rehabilitation. Patient Condition Prior Medical Conditions: (1) CHF due to valvular disease Status: Chronic Additional Information: medical management (2) Weakness Status: Acute Additional Information: Consult PT and OT to create plan of care. 3 hours daily of combined therapy. Current Medical Conditions: (1) CHF due to valvular disease Status: Chronic Additional Information: medical management (2) Weakness Status: Acute Additional Information: Consult PT and OT to create plan of care. 3 hours daily of combined therapy. Prior Functional Condition Lives With: Alone Residence Type: Private home/apartment Assistive Devices: Front Wheeled Walker, 4-Wheeled Walker Prior Functional Status: Indep. at home or school Current Functional Status Failed Alternative Therapy Tri: No Patient Requirements * Patient has been determined to have significant functional limitations requiring at least two therapy disciplines. * Rehabilitation medical practitioner will provide admission approval, assessment and oversight and program coordination at least daily. * Intensive rehabilitative nursing services on site and available 24 hours a day. * The treatment plan will be developed within 24 hours of admission. * Interdisciplinary and goal oriented treatment by professional nursing, school social worker, and rehabilitation therapist. * Interdisciplinary team meeting weekly inclusive of ongoing comprehensive discharge planning. First team meeting by day seven. Weekly meetings to follow. * Rehab Physician is the team meeting leader. * Pharmacy and diagnostic services will be available. * Ongoing comprehensive rehab program with at least 2 disciplines and greater than or equal to 3 hours a day, 5 days a week. Limitations require: limited mobility, ADL impairment Physical Therapy Minutes: 90 Occupational Therapy Minutes: 90 Therapy The patient is to receive therapy at least 5 days a week. Current Functional Status: Using assistive device PT Treatment Plan: Therapeutic Exercise, Gait Training, Functional Activities , Patient/Family Education Treatment Plan Frequency: five times per week Treatment Plan Duration: three weeks Plan of Care Comment: 6x/wk for 1st wk; 5x/wk for 2nd and 3rd wks. OT Treatment Plan: ADL's (basic care), Ther. Exercise for ADL's, UE Functional Training, Balance Training, Pt./Family Education, IADL's OT Treatment Plan Frequency: five times per week OT Treatment Plan Duration: three weeks ROM Comment: R shoulder decrease range.See OT LE WFL Muscle Weakness Location: Left Lower Extremity, Right Lower Extremity Complication/Comorbidities Patient Complication Risk: (1) CHF due to valvular disease Status: Chronic Comments: medical management (2) Weakness Status: Acute Comments: Consult PT and OT to create plan of care. 3 hours daily of combined therapy. Impact on Functional Outcomes Decreased stamina and weakness. Barriers to Discharge: weakness, endurance, medical stability Plan to Avoid Complications Plan to Avoid Complications The patient cannot receive this care in a lesser intensive setting such as Long-Term or Outpatient Therapy due to the patient requiring the following Medical supervision of CHF exacerbation. The patient requires oversight by a rehabilitation physician to manage their rehabilitation treatment plan and the multidisciplinary approach to care that can only be provided in an IRF and requires a multidisciplinary approach to care , provided by professional PTs, OTs, STs, dieticians, RTs, rehabilitation nurses and is not available in lesser levels of care. The frequency and duration for therapy, as recommended by the professional Rehabilitation therapists, meet the patient's initial rehabilitation treatment plan needs and will be further evaluated on a weekly basis for progress and/or changes needed. MEG SETH MD Oct 19, 2016 14:19
[2016-10-19 16:33] VITALS: BP 122/53; PULSE 62; RESP 18; TEMP 98.3; O2SAT 97
--- NOTE | 2016-10-19 19:27 | NUR ---
Shift Summary Patient ambulating with FWW, gait belt, 3 liters O2, min to stand by assist to and from meals. Transfers with gait belt, stand by assist fo bed. Feeds self diet, takes medications whole. Wears glasses. Worked well with PT and OT today. Gave NOrco this evening after supper for 8/10 pain to lumbar back. Daughter visiting.
[2016-10-19 20:50] VITALS: BP 117/54; PULSE 80; RESP 16; TEMP 98.5; O2SAT 96
[2016-10-19 20:55] VITALS: BP 117/54; PULSE 80; RESP 16; TEMP 98.5; O2SAT 96
[2016-10-19] MEDS: MIRTAZAPINE 45 MG PO SCH (21:10)
[2016-10-19] MEDS: CLONIDINE 0.1 MG TABLET PO SCH (21:11)
--- NOTE | 2016-10-20 01:13 | NUR ---
Chart Check 24 hour chart check completed
[2016-10-20 05:34] LABS: ANION GAP 9 MEQ/L (5-15); BUN/CREATININE RATIO 19 RATIO (6-26); CALCIUM 8.6 MG/DL (8.4-10.2); CHLORIDE 103 MEQ/L (98-107); CO2 - CARBON DIOXIDE 34 MEQ/L (22-30); CREATININE 0.8 MG/DL (0.7-1.2); GLOMERULAR FILTRATION RATE 69; GLUCOSE 94 MG/DL (65-110); INR 1.87 (0.76-1.04); POTASSIUM 3.9 MEQ/L (3.6-5); PROTHROMBIN TIME 20.4 SEC (9.31-12.49); SODIUM 146 MEQ/L (134-144)
[2016-10-20] MEDS: LEVOTHYROXINE 88 MCG TABLET PO SCH (06:27)
--- NOTE | 2016-10-20 07:22 | NUR ---
Summary Pt states she didn't sleep well last night due to back pain. When asked why she didn't call the nurse, pt said she didn't want to bother. Pt rated pain 10/10. [place] given at 0630. Pt educated to pain medications and pain management. Pt in bed resting. lights low, call light and water in reach.
[2016-10-20 08:00] VITALS: BP 151/71; PULSE 82; RESP 16; TEMP 98; O2SAT 92
[2016-10-20] MEDS ORDERED: FENTANYL 12MCG/HR PATCH TD SCH (08:30)
[2016-10-20] MEDS: DOCUSATE SODIUM 100 MG CAPSULE PO SCH ×2 (08:59→20:20)
[2016-10-20] MEDS: LISINOPRIL 20 MG TABLET PO SCH ×2 (08:59→20:20)
[2016-10-20] MEDS: BUMETANIDE 1 MG TABLET PO SCH (08:59)
[2016-10-20] MEDS: CARVEDILOL 12.5 MG TABLET PO SCH ×2 (08:59→17:39)
[2016-10-20] MEDS: DULOXETINE 60 MG CAPSULE PO SCH (08:59)
[2016-10-20] MEDS: FENTANYL 12MCG/HR PATCH TD SCH (08:59)
[2016-10-20] MEDS: LORAZEPAM 0.5 MG TABLET PO SCH ×2 (09:03→20:19)
[2016-10-20 09:43] VITALS: PULSE 82; RESP 16
[2016-10-20] MEDS ORDERED: ENOXAPARIN 40 MG/0.4 ML INJECTION SQ ONE (09:45)
--- NOTE | 2016-10-20 09:52 | NUR ---
COUMADIN CONSULT (Recurring): Today's INR = 1.87. Patient is receiving a one-time enoxaparin dose today) Will give Warfarin 1.5mg today. Will continue to monitor & make adjustments accordingly. Thank you.
[2016-10-20] MEDS ORDERED: WARFARIN 1 MG TABLET PO SCH (12:00)
--- NOTE | 2016-10-20 13:02 | PDIRUTEAM ---
Multidisciplinary Team Meeting Nursing Hx Incontinence: Yes Bladder Goal: 6 Modified [place] Jaramillo Y/N: No Bladder Continent or Incontine: Continent Incontinent Product Used: Pull-up, Pads Number of Times Incontinent of: 0 Cleaning Ability-Bladder: 7+ Complete [place] Bladder Incontinence Managemen: 7+ Complete [place] Bowel Goal: 7+ Complete [place] Colostomy Y/N: No Bowel Incontinent/Continent: Continent Bowel Number of Accidents: 0 Number of times Incontinent of: 0 Toileting Ability: 5 Supervision/Setup Vital Signs Vital Signs Date Time Temp Pulse Resp B/P Pulse Ox O2 Delivery O2 Flow Rate FiO2 10/20/16 09:43 82 16 10/20/16 08:00 98.0 151/71 92 Nasal Cannula 3.00 Current Medications Current Medications Medications (Trade) Dose Ordered Sig/Stephanie Route PRN Reason Start Time Stop Time Status Last Admin Dose Admin Docusate Sodium (Colace) 100 mg BID PO 10/18/16 21:00 10/20/16 08:59 Bumetanide (BUMEX 1 mg TAB) 1 mg DAILY PO 10/19/16 09:00 10/20/16 08:59 Carvedilol (Coreg) 12.5 mg BIDWM PO 10/19/16 08:00 10/20/16 08:59 Clonidine HCl (Catapres) 0.1 mg HS PO 10/18/16 22:00 10/19/16 21:11 Duloxetine HCl (Cymbalta) 60 mg DAILY PO 10/19/16 09:00 10/20/16 08:59 Levothyroxine Sodium (Synthroid) 88 mcg ACB PO 10/19/16 06:30 10/20/16 06:27 Lisinopril (Prinivil) 20 mg BID PO 10/18/16 21:00 10/20/16 08:59 Lorazepam (Ativan) 0.5 mg BID PO 10/18/16 21:00 10/20/16 09:03 Mirtazapine (Remeron Solu-Tab) 45 mg HS PO 10/18/16 22:00 10/19/16 21:10 Fentanyl (Duragesic 12 Mcg) 1 patch Q72H TD 10/20/16 09:00 10/20/16 08:59 Acetaminophen/ Hydrocodone Bitart ([place] 7.5/325) 1 tab Q4H PRN PO PAIN 10/18/16 18:45 10/20/16 10:47 Acetaminophen (Tylenol Regular Strength) 650 mg Q4HR PRN PO DISCOMFORT 10/18/16 21:15 10/18/16 23:06 Warfarin Sodium (COUMADIN 1 mg) 1 mg NOON PO 10/19/16 12:00 10/19/16 12:30 DC 10/19/16 12:31 Warfarin Sodium (COUMADIN 1 mg) 1.5 mg NOON PO 10/20/16 12:00 10/20/16 12:30 DC 10/20/16 12:12 Comments CHF myopathy. chronic oxygen 3 liter. From [place], but in process of planning move here. Coumadin protocol for mechanical valve. Fentanyl 12.5 mcg patch and norco for breakthrough pain. Physical Therapy Bed Transfer Ability: 5 Supervision/Setup Bed Transfer Assistance Needed: 1 Person Chair Transfer Ability: 4 Minimal Assistance Chair Transfer Assistance Need: 1 Person Overall Toilet / Commode Trans: 5 Supervision/Setup Ambulation Ability: 5 Supervision/Setup Ambulation Assistance Needed: 1 Person Ambulation Distance: 160 Comments Improving endurance, still needs safety reminders. Has 4 wheel walker , but may need switch to 2 wheeled. Occupational Therapy Grooming Ability: 5 Supervision/Setup Bathing Ability: 5 Supervision/Setup Upper Body Dressing Ability: 5 Supervision/Setup Lower Body Dressing Ability: 4 Minimal Assistance Lower Body Dressing Assistance: 1 Person Toileting Assistance Needed: 1 Person Comments FIMS mainly 6's. Improved balance. Planning nerve stimulator insertion on next week. Care Plan Condition at time of discharge: Fair Interventions/Goals On day 2. Will need oxygen orders on d/c due to move from [place]. Reeval next Tuesday. MEG SETH MD Oct 20, 2016 12:57
--- NOTE | 2016-10-20 14:22 | NUR ---
CM ANTICIPATED DC DATE IS 10-15-12. UPDATED PT ABOUT THIS. SHE WAS AGREEABLE TO THIS, AND SHE TRIED TO CALL HER DAUGHTER ABOUT THIS, BUT THERE WAS NO ANSWER. SHE SAID SHE WILL KEEP TRYING. SHE SAID EITHER HER DAUGHTER OR GRANDDAUGHTERS WILL PICK HER UP.
[2016-10-20 16:00] VITALS: BP 136/63; PULSE 62; RESP 16; TEMP 98.2; O2SAT 91
--- NOTE | 2016-10-20 17:50 | NUR ---
SHIFT SUMMARY PT HAS BEEN PLEASANT AND COOPERATIVE. HAS BEEN OUT TO DINING ROOM FOR ALL MEALS. PT AMBULATES WITH FOUR WHEEL WALKER AND GAIT BELT. PT REPORTED HAVING AN INCONTINENT BLADDER ACCIDENT WHILE WITH THERAPY THIS MORNING. RESULTING IN A CHANGE OF PANTS. PT HAS WORKED WITH THERAPY. CURRENTLY IN DINING ROOM.
[2016-10-20] MEDS: CLONIDINE 0.1 MG TABLET PO SCH (20:20)
[2016-10-20] MEDS: MIRTAZAPINE 45 MG PO SCH (20:20)
[2016-10-20 21:12] VITALS: BP 123/60; PULSE 65; RESP 18; TEMP 98.7; O2SAT 93
[2016-10-20 22:06] VITALS: PULSE 65; RESP 18
--- NOTE | 2016-10-20 22:17 | NUR ---
STATUS. PT IS PLEASANT, ALERT AND OX3. HAS FAMILY VISITORS THIS EVENING. TAKES MEDS WHOLE WITH SIPS WATER. GIVEN NORCO 7.5 1 TAB FOR C/O LOW BACK PAIN 02/21. PT REFUSED COLACE AT HS. REPORTS HAD LOOSE BM TODAY. TEDS OFF AT HS.
--- NOTE | 2016-10-20 22:19 | NUR ---
Chart Check 24 hour chart check completed
[2016-10-21] MEDS: LEVOTHYROXINE 88 MCG TABLET PO SCH ×3 (01:52→04:46)
[2016-10-21 05:42] LABS: INR 1.86 (0.76-1.04); PROTHROMBIN TIME 20.3 SEC (9.31-12.49)
--- NOTE | 2016-10-21 05:58 | NUR ---
SUMMARY. PT HAS BEEN ALERT AND OX3. CALLS FOR BR ASSIST. USING 4WW AND GAITBLET WITH 1 MIN ASSIST. PT HAS BEEN CONT B AND B. WEIGHT TONIGHT 80.3 KG.
[2016-10-21 07:47] VITALS: BP 151/65; PULSE 62; RESP 16; TEMP 98.3; O2SAT 94
[2016-10-21 08:20] VITALS: PULSE 62; RESP 16
[2016-10-21] MEDS: DULOXETINE 60 MG CAPSULE PO SCH (08:26)
[2016-10-21] MEDS: LISINOPRIL 20 MG TABLET PO SCH ×2 (08:26→20:40)
[2016-10-21] MEDS: DOCUSATE SODIUM 100 MG CAPSULE PO SCH ×2 (08:26→20:44)
[2016-10-21] MEDS: LORAZEPAM 0.5 MG TABLET PO SCH ×2 (08:26→20:39)
[2016-10-21] MEDS: BUMETANIDE 1 MG TABLET PO SCH (08:26)
[2016-10-21] MEDS: CARVEDILOL 12.5 MG TABLET PO SCH ×2 (08:26→17:05)
[2016-10-21] MEDS ORDERED: WARF2.5T73 PO (09:56)
[2016-10-21] MEDS ORDERED: HYDR-4072 PO (09:57)
--- NOTE | 2016-10-21 10:18 | PNPDOC ---
SABA STEVEN V CONSUMER RECRUITER 10/21/16 1001: Subjective Date DATE: 10/21/16 TIME: 09:51 Subjective Lulú is seen this morning while eating breakfast. She is feeling "horrible" this morning as she is having generalized back pain and has not yet received her pain pill. She continues on chronic oxygen by nasal cannula. She otherwise has no complaints, and denies feeling short of breath. Blood pressure this morning 151/65. Urinating without difficulty. Bowels have not yet moved since admission. Objective Vital Signs Vital signs Vital Signs Date Time Temp Pulse Resp B/P Pulse Ox O2 Delivery O2 Flow Rate FiO2 10/21/16 07:47 98.3 62 16 151/65 94 Nasal Cannula 3.00 Telemetry Rhythm: Sinus Rhythm Height (Feet): 5 Height (Inches): 7.00 Weight (Kilograms): 80.300 General General Appearance: Alert, Orientated x 3, Cooperative, No Acute Distress Eyes (Brief) Eyes: FOUND: EOMI ENMT (Brief) ENMT: FOUND: mucosa moist, normal dentition, NOT FOUND: pharnyx erythema Neck (Brief) Neck: FOUND: midline, NOT FOUND: adenopathy, carotid bruits, tracheal deviation Respiratory (Brief) Respiratory: FOUND: clear all neely (upper), equal bilaterally, NOT FOUND: wheezes Comments Diminished bases Cardiovascular (Brief) Cardiac: FOUND: regular rate, regular rhythm, NOT FOUND: murmur, pedal edema Capillary Refill: <2 sec Abdomen (Brief) Abdominal: FOUND: BS normo active x4, soft, NOT FOUND: distended, tender Lymphatic (Brief) Lymphatic: NOT FOUND: adenopathy Musculoskeletal (Brief) Musculoskeletal: FOUND: tenderness (Back pain) Integumentary (Brief) Integumentary: FOUND: dry, pink, warm Neurologic (Brief) Neurological: FOUND: cranial 2-12 intact Psychiatric (Brief) Psychiatric: FOUND: alert, attentive, normal affect, oriented Laboratory Laboratory Laboratory Tests 10/20/16 04:47 Assessment & Plan Problems: (1) Weakness Status: Acute (2) Chronic low back pain Status: Chronic (3) Atrial fibrillation Status: Chronic (4) HTN (hypertension) Status: Chronic (5) CHF due to valvular disease Status: Chronic (6) Amiodarone pulmonary toxicity Status: Chronic (7) COPD (chronic obstructive pulmonary disease) Status: Chronic (8) Oxygen dependent Status: Chronic (9) Lupus Status: Chronic (10) Dyslipidemia Status: Chronic (11) Complete heart block Status: Chronic Assessment & Plan: pacemaker (12) Hypothyroidism Status: Chronic (13) Vascular dementia Status: Chronic (14) Overweight (BMI 25.0-29.9) Status: Chronic Plan/Intensity of Service 10/21/16 Continue with Coumadin per pharmacy protocol with goal INR 2/3. Given mechanical valve will given Lovenox 40 mg SQ daily until her INR is therapeutic Continue to work on pain control with Fentanyl patch as well as PO [place]. Continue with oxygen therapy baseline 3 liters Coreg, clonidine for HTN and CHF. Bumex daily for fluid motivation, monitor for dehydration Encourage PT/OT for ongoing strengthening and improved strength Recheck CBC and BMP tomorrow morning Code Status Full Code Hospital Course Summary Disclaimer The hospital course summary below is not to be considered part of the above Progress Note. Hospital Course Summary 10/21/16 Continue with Coumadin per pharmacy protocol with goal INR 2/3. Given mechanical valve will given Lovenox 40 mg SQ daily until her INR is therapeutic Continue to work on pain control with Fentanyl patch as well as PO [place]. Continue with oxygen therapy baseline 3 liters Coreg, clonidine for HTN and CHF. Bumex daily for fluid motivation, monitor for dehydration Encourage PT/OT for ongoing strengthening and improved strength Recheck CBC and BMP tomorrow morning TE CLARK MD 10/21/16 1925: SABA STEVEN APRN Oct 21, 2016 10:01 TE CLARK MD Oct 21, 2016 19:25
--- NOTE | 2016-10-21 10:23 | NUR ---
WARFARIN CONSULT S: 81 y/o F on warfarin d/t a mechanical aortic valve replacement. Per 2012 CHEST Antithrombotic and Thrombolytic Therapy for Valvular Disease Guidelines, a target INR of 2.5 is recommended for aortic valve replacement (recommendation 9.3). Goal INR 2-3. Warfarin dose at [place], prior to admission here, was 1.75 mg PO daily in the evening. O: Date INR Warfarin Dose 10/19 2.17 1 mg 10/20 1.87 1.5 mg 10/21 1.86 PLAN: 2 mg A/P: INR subtherapeutic; on enoxaparin 40 mg subQ daily until INR is >/=2. No significant drug-drug interactions with warfarin. Will continue to monitor & make adjustments accordingly. Thank you for the consult. Giovana Hernandes, PharmD, BCPS
[2016-10-21] MEDS: ENOXAPARIN 40 MG/0.4 ML INJECTION SQ SCH (11:07)
[2016-10-21] MEDS ORDERED: WARFARIN 2 MG TABLET PO ONE (12:00)
--- NOTE | 2016-10-21 15:19 | NUR ---
SHIFT SUMMARY PT HAS BEEN PLEASANT AND COOPERATIVE. HAS BEEN OUT TO DINING ROOM FOR MEALS. HAS WORKED WITH THERAPY. PT AMBULATES WITH FOUR WHEEL WALKER, ASSIST X1. PT HAS COMPLAINED OF BACK PAIN AND SOME TOE PAIN AT AN 8/10. PRN PAIN MEDS HAVE BEEN GIVEN. PT CURRENTLY RESTING IN ROOM.
--- NOTE | 2016-10-21 15:20 | NUR ---
report taken pt alert and oriented x3 resting in bed without any discomfort.
[2016-10-21 16:00] VITALS: BP 132/77; PULSE 64; RESP 16; TEMP 98.2; O2SAT 95
[2016-10-21] MEDS: ACETAMINOPHEN 325 MG TABLET PO PRN (17:06)
--- NOTE | 2016-10-21 18:03 | NUR ---
summary patient back in the room watching television in pleasant mood and voices no concern up for all meals in the dining room took part in therapy and tolerated well no distress at this time pt states shes tired and ready to rest. bed alarm activated will continue to monitor.
[2016-10-21 19:55] VITALS: BP 137/67; PULSE 66; RESP 18; TEMP 97.7; O2SAT 94
[2016-10-21] MEDS: CLONIDINE 0.1 MG TABLET PO SCH (20:39)
[2016-10-21] MEDS: MIRTAZAPINE 45 MG PO SCH (20:40)
[2016-10-21 21:18] VITALS: PULSE 65; RESP 18
--- NOTE | 2016-10-21 22:27 | NUR ---
Chart Check 24 hour chart check completed
--- NOTE | 2016-10-21 22:28 | NUR ---
STATUS. PT HAS BEEN PLEASANT, ALERT AND OX3. CALLS APPROPRIATELY AND MAKES NEEDS KNOWN. C/O RT FOOT PAIN. TOP OF RT FOOT WITH EDEMA AND WARM TO TOUCH. PT REPORTS HAS HAD GOUT IN THE PAST. LAB: URIC ACID SCHEDULED IN THE AM. NORCO 7.5 1 TAB GIVEN AT HS. RAMBO HOSE OFF AT HS.
[2016-10-22 05:22] LABS: INR 1.86 (0.76-1.04); PROTHROMBIN TIME 20.3 SEC (9.31-12.49)
[2016-10-22 05:34] LABS: ANION GAP 9 MEQ/L (5-15); BUN/CREATININE RATIO 21 RATIO (6-26); CALCIUM 8.7 MG/DL (8.4-10.2); CHLORIDE 102 MEQ/L (98-107); CO2 - CARBON DIOXIDE 33 MEQ/L (22-30); CREATININE 0.8 MG/DL (0.7-1.2); GLOMERULAR FILTRATION RATE 69; GLUCOSE 99 MG/DL (65-110); POTASSIUM 3.8 MEQ/L (3.6-5); SODIUM 144 MEQ/L (134-144); URIC ACID 9.2 MG/DL (2.5-7.5)
--- NOTE | 2016-10-22 05:49 | NUR ---
SUMMARY. PT HAS BEEN PLEASANT, ALERT AND OX3. MAKES NEEDS KNOWN. TAKES MEDS WHOLE WITH SIPS OF WATER. NORCO 7.5 1 TAB GIVEN AT HS AND AT 0600 FOR BACK PAIN AND RT TOP OF FOOT PAIN 03/24. PT HAS HAD STRESS INCONT X2 TONIGHT.
[2016-10-22] MEDS: LEVOTHYROXINE 88 MCG TABLET PO SCH (05:56)
[2016-10-22 08:18] VITALS: BP 155/69; PULSE 67; RESP 18; TEMP 98.8; O2SAT 91
[2016-10-22] MEDS: ALLOPURINOL 100 MG TABLET PO SCH (08:52)
[2016-10-22] MEDS: LISINOPRIL 20 MG TABLET PO SCH ×2 (08:53→22:07)
[2016-10-22] MEDS: LORAZEPAM 0.5 MG TABLET PO SCH ×2 (08:53→21:00)
[2016-10-22] MEDS: DULOXETINE 60 MG CAPSULE PO SCH (08:53)
[2016-10-22] MEDS: DOCUSATE SODIUM 100 MG CAPSULE PO SCH ×2 (08:53→22:06)
[2016-10-22] MEDS: BUMETANIDE 1 MG TABLET PO SCH (08:53)
[2016-10-22] MEDS: CARVEDILOL 12.5 MG TABLET PO SCH ×2 (08:53→17:35)
[2016-10-22] MEDS: ENOXAPARIN 40 MG/0.4 ML INJECTION SQ SCH (09:42)
--- NOTE | 2016-10-22 09:52 | NUR ---
WARFARIN CONSULT S: 81 y/o F on warfarin d/t a mechanical aortic valve replacement. Per 2012 CHEST Antithrombotic and Thrombolytic Therapy for Valvular Disease Guidelines, a target INR of 2.5 is recommended for aortic valve replacement (recommendation 9.3). Goal INR 2-3. Warfarin dose at [place], prior to admission here, was 1.75 mg PO daily in the evening. O: Date INR Warfarin Dose 10/19 2.17 1 mg 10/20 1.87 1.5 mg 10/21 1.86 2 mg 10/22 1.85 PLAN 3MG A/P: INR subtherapeutic; on enoxaparin 40 mg subQ daily until INR is >/=2. No significant drug-drug interactions with warfarin. Will continue to monitor & make adjustments accordingly. Thank you for the consult.
--- NOTE | 2016-10-22 09:56 | PNPDOC ---
Subjective Date DATE: 10/22/16 TIME: 09:40 Teresa Chino is seen today in follow up while eating breakfast. She is currently on her baseline oxygen of 3 liters. She states that overall she is feeling well, however, complains of pain to the right 1st metatarsophalangeal joint. Reports it started hurting last evening. It is red, swollen and painful on examination. Objective Vital Signs Vital signs Vital Signs Date Time Temp Pulse Resp B/P Pulse Ox O2 Delivery O2 Flow Rate FiO2 10/22/16 08:18 98.8 67 18 155/69 91 Nasal Cannula 3.00 Telemetry Rhythm: Sinus Rhythm Height (Feet): 5 Height (Inches): 7.00 Weight (Kilograms): 80.500 General General Appearance: Alert, Orientated x 3, Cooperative, No Acute Distress Eyes (Brief) Eyes: FOUND: EOMI ENMT (Brief) ENMT: FOUND: mucosa moist, normal dentition, NOT FOUND: pharnyx erythema Neck (Brief) Neck: FOUND: midline, NOT FOUND: adenopathy, carotid bruits, tracheal deviation Respiratory (Brief) Respiratory: FOUND: clear all neely, equal bilaterally, NOT FOUND: wheezes Cardiovascular (Brief) Cardiac: FOUND: regular rate, regular rhythm, NOT FOUND: murmur, pedal edema Capillary Refill: <2 sec Abdomen (Brief) Abdominal: FOUND: BS normo active x4, soft, NOT FOUND: distended, tender Lymphatic (Brief) Lymphatic: NOT FOUND: adenopathy Musculoskeletal (Brief) Musculoskeletal: FOUND: tenderness (Right 1st metatarsophalengeal joint pain, redness) Integumentary (Brief) Integumentary: FOUND: dry, pink, warm Neurologic (Brief) Neurological: FOUND: cranial 2-12 intact Psychiatric (Brief) Psychiatric: FOUND: alert, attentive, normal affect, oriented Laboratory Laboratory Laboratory Tests 10/22/16 04:04 Assessment & Plan Problems: (1) Weakness Status: Acute (2) Chronic low back pain Status: Chronic (3) Atrial fibrillation Status: Chronic (4) HTN (hypertension) Status: Chronic (5) CHF due to valvular disease Status: Chronic (6) Amiodarone pulmonary toxicity Status: Chronic (7) COPD (chronic obstructive pulmonary disease) Status: Chronic (8) Oxygen dependent Status: Chronic (9) Lupus Status: Chronic (10) Dyslipidemia Status: Chronic (11) Complete heart block Status: Chronic Assessment & Plan: pacemaker (12) Hypothyroidism Status: Chronic (13) Vascular dementia Status: Chronic (14) Overweight (BMI 25.0-29.9) Status: Chronic (15) Acute gout involving toe of right foot Plan/Intensity of Service 10/22/16 Obtain uric acid level this morning that was elevated at 9.2. Given patient's clinical examination of pain, erythema and swelling of the right 1st metatarsal phalangeal joint appears to nielson acute gout attack. Will start patient on allopurinol 100 milligrams daily. Can increase, titrate up next week on 10/29- 200 milligrams daily. Did review this with pharmacist. Continue with Coumadin per pharmacy protocol with goal INR 2-3. Given mechanical valve will given Lovenox 40 mg SQ daily until her INR is therapeutic Pain control with fentanyl and [place]. Continue to work on pain control with Fentanyl patch as well as PO [place]. Continue with oxygen therapy baseline 3 liters Coreg, clonidine for HTN and CHF. Bumex daily for fluid motivation, monitor for dehydration Encourage PT/OT for ongoing strengthening and improved strength Code Status Full Code Hospital Course Summary Disclaimer The hospital course summary below is not to be considered part of the above Progress Note. Hospital Course Summary 10/21/16 Continue with Coumadin per pharmacy protocol with goal INR 2/3. Given mechanical valve will given Lovenox 40 mg SQ daily until her INR is therapeutic Continue to work on pain control with Fentanyl patch as well as PO [place]. Continue with oxygen therapy baseline 3 liters Coreg, clonidine for HTN and CHF. Bumex daily for fluid motivation, monitor for dehydration Encourage PT/OT for ongoing strengthening and improved strength Recheck CBC and BMP tomorrow morning 10/22/16 Obtain uric acid level this morning that was elevated at 9.2. Given patient's clinical examination of pain, erythema and swelling of the right 1st metatarsal phalangeal joint appears to nielson acute gout attack. Will start patient on allopurinol 100 milligrams daily. Can increase, titrate up next week on 10/29- 200 milligrams daily. Did review this with pharmacist. Continue with Coumadin per pharmacy protocol with goal INR 2-3. Given mechanical valve will given Lovenox 40 mg SQ daily until her INR is therapeutic Pain control with fentanyl and [place]. Continue to work on pain control with Fentanyl patch as well as PO [place]. Continue with oxygen therapy baseline 3 liters Coreg, clonidine for HTN and CHF. Bumex daily for fluid motivation, monitor for dehydration Encourage PT/OT for ongoing strengthening and improved strength SABA STEVEN APRN Oct 22, 2016 09:51
[2016-10-22] MEDS ORDERED: WARFARIN 3 MG TABLET PO SCH (12:00)
[2016-10-22 16:07] VITALS: BP 137/61; PULSE 64; RESP 18; TEMP 98.3; O2SAT 95
--- NOTE | 2016-10-22 18:41 | NUR ---
SHIFT SUMMARY PATIENT ALERT AND ORIENTED AND COOPERATIVE TODAY. C/O PAIN IN BACK AND R FOOT. R FOOT REDNESS AND SWELLING NOTED. NEW MED FOR GOUT STARTED TODAY, SEE MAR. PATIENT GIVEN PRN PAIN MEDS, WILL CONTINUE TO MONITOR PAIN,CONTINENT OF URINE, NO BM TODAY. UP WITH 1 WITH WALKER AND GAIT BELT.
[2016-10-22] MEDS: CLONIDINE 0.1 MG TABLET PO SCH (22:06)
[2016-10-22] MEDS: MIRTAZAPINE 45 MG PO SCH (22:07)
[2016-10-22 22:12] VITALS: BP 115/53
[2016-10-22 22:28] VITALS: PULSE 67; RESP 18; TEMP 98.1; O2SAT 94
[2016-10-23] MEDS: LEVOTHYROXINE 88 MCG TABLET PO SCH (04:39)
[2016-10-23 05:31] LABS: INR 2.02 (0.76-1.04)
--- NOTE | 2016-10-23 06:04 | NUR ---
Summary Pt has had complaint of pain in low back and R foot. Pt states it was the foot bothering her most. Prescribed [place] given twice which the pt states has helped. Pt states she has slept well off and on through the night. Pt in bed sleeping call light and water in reach.
--- NOTE | 2016-10-23 07:36 | NUR ---
WARFARIN CONSULT S: 81 y/o F on warfarin d/t a mechanical aortic valve replacement. Per 2012 CHEST Antithrombotic and Thrombolytic Therapy for Valvular Disease Guidelines, a target INR of 2.5 is recommended for aortic valve replacement (recommendation 9.3). Goal INR 2-3. Warfarin dose at [place], prior to admission here, was 1.75 mg PO daily in the evening. O: Date INR Warfarin Dose 10/19 2.17 1 mg 10/20 1.87 1.5 mg 10/21 1.86 2 mg 10/22 1.86 3 mg 10/23 2.02 PLAN: 2.5 mg A/P: INR therapeutic; on enoxaparin 40 mg subQ daily (if INR stays >/=2 tomorrow, will DC enoxaparin). No significant drug-drug interactions with warfarin. Will order warfarin 2.5 mg PO today. Will continue to monitor & make adjustments accordingly. Thank you for the consult. Giovana Hernandes, PharmD, BCPS
[2016-10-23] MEDS: CARVEDILOL 12.5 MG TABLET PO SCH ×2 (08:44→17:30)
[2016-10-23 08:49] VITALS: BP 128/63; PULSE 64; RESP 20; TEMP 98.3; O2SAT 95
[2016-10-23] MEDS ORDERED: FENTANYL PATCH REMOVAL TD SCH (09:00)
[2016-10-23] MEDS: LORAZEPAM 0.5 MG TABLET PO SCH ×2 (09:27→21:19)
[2016-10-23] MEDS: DOCUSATE SODIUM 100 MG CAPSULE PO SCH ×2 (09:28→21:16)
[2016-10-23] MEDS: LISINOPRIL 20 MG TABLET PO SCH ×2 (09:28→21:16)
[2016-10-23] MEDS: BUMETANIDE 1 MG TABLET PO SCH (09:28)
[2016-10-23] MEDS: ENOXAPARIN 40 MG/0.4 ML INJECTION SQ SCH (09:29)
[2016-10-23] MEDS: DULOXETINE 60 MG CAPSULE PO SCH (09:29)
[2016-10-23] MEDS: ALLOPURINOL 100 MG TABLET PO SCH (09:29)
[2016-10-23] MEDS: FENTANYL 12MCG/HR PATCH TD SCH (09:30)
[2016-10-23] MEDS ORDERED: WARFARIN 2.5 MG TABLET PO ONE (12:00)
--- NOTE | 2016-10-23 12:20 | PDIRUOPC ---
Overall Plan of Care Date DATE: 10/22/16 TIME: 20:40 Evaluation performed 10/22 after 8pm, but note not entered until this am. Relevant Changes Relevant Changes: No I have reviewed the patient's information and concur with the finding and results of the pre-admission screen. Certification I certify the patient for rehabilitation. Patient Impairments Prior Medical Conditions: (1) CHF due to valvular disease Status: Chronic Additional Information: medical management (2) Weakness Status: Acute Additional Information: Consult PT and OT to create plan of care. 3 hours daily of combined therapy. Current Medical Conditions: (1) CHF due to valvular disease Status: Chronic Additional Information: medical management (2) Weakness Status: Acute Additional Information: Consult PT and OT to create plan of care. 3 hours daily of combined therapy. Medical Prognosis Fair IRF Tx That Should Address Dx: Dx Requiring Medical FU: Vital Signs Vital Signs Date Time Temp Pulse Resp B/P Pulse Ox O2 Delivery O2 Flow Rate FiO2 10/23/16 08:49 98.3 64 20 128/63 95 Room Air 10/22/16 22:28 3.00 Laboratory Laboratory Tests Test 10/22/16 04:04 10/23/16 04:37 Prothromb Time International Ratio 1.86 2.02 Turbidity < 20 Sodium Level 144MEQ/L Potassium Level 3.8MEQ/L Chloride Level 102MEQ/L Carbon Dioxide Level 33MEQ/L Anion Gap 9MEQ/L Blood Urea Nitrogen 17.0MG/DL Creatinine 0.8MG/DL Glomerular Filtration Rate Calc 69 BUN/Creatinine Ratio 21RATIO Glucose Level 99MG/DL Calculated Osmolality 279MOSM/KG Uric Acid 9.2MG/DL Calcium Level 8.7MG/DL Icterus Index < 2 Chemistry Specimen Hemolysis < 15 Anticipated Interventions The patient requires inpatient IRF care for PT, OT, and/or ST for residuals remaining from [] resulting in muscular weakness and strength deficits. Strength Deficits: Left Lower Extremity, Right Lower Extremity FIM Scores Ambulation Distance: 300 Ambulation Ability: 5 Supervision/Setup Ambulation Assistance Needed: 1 Person Stair Assistance Needed: 1 Person Number of Stairs: 12 Eating Ability-FIM: 6 Modified [place] Grooming Ability: 6 Modified [place] Bathing Ability: 6 Modified [place] Upper Body Dressing Ability: 6 Modified [place] Lower Body Dressing Ability: 6 Modified [place] Lower Body Dressing Assistance: 1 Person Toileting Ability: 6 Modified [place] Toileting Assistance Needed: 1 Person Bed Transfer Ability: 6 Modified [place] Bed Transfer Assistance Needed: 1 Person Bed FIM Score Reason: poor safety Chair Transfer Ability: 6 Modified [place] Chair Transfer Assistance Need: 1 Person Chair FIM Score Reason: poor safety Overall Toilet / Commode Trans: 6 Modified [place] Toilet / Commode Transfer Assi: 1 Person Toilet FIM Score Reason: poor safety Tub / Shower Transfer Ability: 6 Modified [place] Tub / Shower Transfer [place]: 1 Person Comprehension Ability: 6 Modified [place] Comprehension FIM Score Reason: glasses Social Interaction: 6 Modified [place] Social Interaction FIM Score R: anti deppressant Problem Solvin Modified [place] Expression Ability: 7+ Complete [place] Memory: 5 Supervision/Setup Current Functional Status Failed Alternative Therapy: No Patient Requires * Patient has been determined to have significant functional limitations requiring at least two therapy disciplines. * Rehabilitation medical practitioner will provide admission approval, assessment and oversight and program coordination at least daily. * Intensive rehabilitative nursing services on site and available 24 hours a day. * The treatment plan will be developed within 24 hours of admission. * Interdisciplinary and goal oriented treatment by professional nursing, social services, and rehabilitation therapist. * Interdisciplinary team meeting weekly inclusive of ongoing comprehensive discharge planning. First team meeting by seven. Weekly meetings to follow. * Rehab Physician is the team meeting leader. * Pharmacy and diagnostic services will be available. * Ongoing comprehensive rehab program with at least 2 disciplines and greater than or equal to 3 hours a day, 5 days a week. Limitations require: limited mobility, ADL impairment Physical Therapy Minutes: 90 Occupational Therapy Minutes: 90 Therapy The patient is to receive therapy at least 5 days a week. PT Treatment Plan: Therapeutic Exercise, Gait Training, Functional Activities , Patient/Family Education Treatment Plan Frequency: five times per week Treatment Plan Duration: three weeks Plan of Care Comment: 6x/wk for 1st wk; 5x/wk for 2nd and 3rd wks. OT Treatment Plan: ADL's (basic care), Ther. Exercise for ADL's, UE Functional Training, Balance Training, Pt./Family Education, IADL's OT Treatment Plan Frequency: five times per week OT Treatment Plan Duration: three weeks Anticapted LOS/Outcomes Anticipated Functional Outcome Improvement in strength and stamina Anticipated DC Destination: Home Health Service Home Safety Plan The patient will be provided with the development of a Home Safety Plan for return to a home or home-like environment and to ensure safety post discharge. Complicating Conditions Complications since IRF admit: (1) CHF due to valvular disease Status: Chronic Comments: medical management (2) Weakness Status: Acute Comments: Consult PT and OT to create plan of care. 3 hours daily of combined therapy. Other Contributing Factors: Plan to Avoid Complications Barriers to Attaining Goals: weakness, balance, pain control Plan to Avoid Complications The patient cannot receive this care in a lesser intensive setting such as Nursing Home or Outpatient Therapy due to the patient requiring the following CHF myopathy. The patient requires oversight by a rehabilitation physician to manage their rehabilitation treatment plan and the multidisciplinary approach to care that can only be provided in an IRF and requires a multidisciplinary approach to care , provided by professional PTs, OTs, STs, dieticians, RTs, rehabilitation nurses and is not available in lesser levels of care. The frequency and duration for therapy, as recommended by the professional Rehabilitation therapists, meet the patient's initial rehabilitation treatment plan needs and will be further evaluated on a weekly basis for progress and/or changes needed. MEG SETH MD Oct 23, 2016 12:20
[2016-10-23 16:02] VITALS: BP 134/67; PULSE 84; RESP 20; TEMP 98.2; O2SAT 92
--- NOTE | 2016-10-23 19:00 | NUR ---
SHIFT SUMMARY PATIENT ALERT AND ORIENTED X 3. PATIENT C/O BACK AND R FOOT PAIN. PRN PAIN MEDICATION GIVEN, WILL CONTINUE TO MONITOR. PATIENT UP WITH 1 FWW. WORKED WITH PT AND OT. PATIENT FEED SELF MEALS ATE 75-100%. ON 2 L O2 NC. WILL CONTINUE TO MONITOR.
[2016-10-23] MEDS: CLONIDINE 0.1 MG TABLET PO SCH (21:16)
[2016-10-23] MEDS: MIRTAZAPINE 45 MG PO SCH (21:16)
--- NOTE | 2016-10-24 04:26 | NUR ---
Chart Check 24 hour chart check completed
[2016-10-24 05:40] LABS: INR 2.39 (0.76-1.04); PROTHROMBIN TIME 26.1 SEC (9.31-12.49)
--- NOTE | 2016-10-24 05:58 | NUR ---
Summary Pt has been pleasant and cooperative. Complaint of pain managed with [place]. Pt in bed sleeping at this time, water and call light in reach
[2016-10-24] MEDS: LEVOTHYROXINE 88 MCG TABLET PO SCH (06:18)
--- NOTE | 2016-10-24 07:05 | NUR ---
WARFARIN CONSULT S: 81 y/o F on warfarin d/t a mechanical aortic valve replacement. Per 2012 CHEST Antithrombotic and Thrombolytic Therapy for Valvular Disease Guidelines, a target INR of 2.5 is recommended for aortic valve replacement (recommendation 9.3). Goal INR 2-3. Warfarin dose at [place], prior to admission here, was 1.75 mg PO daily in the evening. O: Date INR Warfarin Dose 10/19 2.17 1 mg 10/20 1.87 1.5 mg 10/21 1.86 2 mg 10/22 1.86 3 mg 10/23 2.02 2.5 mg 10/24 2.39 PLAN: 2 mg A/P: INR therapeutic. No significant drug-drug interactions with warfarin. Will order warfarin 2 mg PO today. Will continue to monitor & make adjustments accordingly. Thank you for the consult. Giovana Hernandes, PharmD, BCPS
[2016-10-24] MEDS: DULOXETINE 60 MG CAPSULE PO SCH (08:42)
[2016-10-24] MEDS: LISINOPRIL 20 MG TABLET PO SCH ×2 (08:42→22:01)
[2016-10-24] MEDS: ALLOPURINOL 100 MG TABLET PO SCH (08:42)
[2016-10-24] MEDS: BUMETANIDE 1 MG TABLET PO SCH (08:42)
[2016-10-24] MEDS: LORAZEPAM 0.5 MG TABLET PO SCH ×2 (08:42→22:10)
[2016-10-24] MEDS: DOCUSATE SODIUM 100 MG CAPSULE PO SCH (08:42)
[2016-10-24] MEDS: CARVEDILOL 12.5 MG TABLET PO SCH ×2 (08:42→17:47)
[2016-10-24 08:51] VITALS: BP 136/61; PULSE 61; O2SAT 95
[2016-10-24 09:04] LABS: BLOOD, URINE NEGATIVE (NEGATIVE); COLOR,URINE YELLOW (YELLOW); LEUKOCYTE ESTERASE ,URINE NEGATIVE (NEGATIVE); NITRITE,URINE NEGATIVE (NEGATIVE); UROBILINOGEN,URINE 0.2 EU/DL (NORMAL)
[2016-10-24] MEDS ORDERED: WARFARIN 2 MG TABLET PO ONE (12:00)
[2016-10-24 16:53] VITALS: BP 153/71; PULSE 84; RESP 18; TEMP 98.3; O2SAT 96
[2016-10-24] MEDS ORDERED: COLCHICINE 0.6 MG TABLET PO ONE (18:00)
--- NOTE | 2016-10-24 18:05 | PNPDOC ---
Subjective Date DATE: 10/24/16 TIME: 17:55 Subjective Mrs. England was seen for follow-up of recent gout attack. She reports that she continues to have pain in her right great toe with minimal improvement although erythema has decreased somewhat. She denied dyspnea, fever, nausea, or lightheadedness. Constipation is an ongoing problem in conjunction with chronic narcotic use. Objective Vital Signs Vital signs Vital Signs Date Time Temp Pulse Resp B/P Pulse Ox O2 Delivery O2 Flow Rate FiO2 10/24/16 16:53 98.3 84 18 153/71 96 Nasal Cannula 3.00 EXAM General-NAD, alert, fluent speech HEENT-conjugate gaze, conjunctiva clear Lungs-respirations nonlabored, decreased airflow throughout. Breath sounds clear Cardiac-regular rhythm, S1 S2 with click Abdomen-soft, nontender, bowel sounds present Extremities-without edema Musculoskeletal-mild erythema over right third toe hammertoe; right great toe with moderate tenderness and mild erythema medially a 1stt MTP Psych-calm, cooperative, pleasant Telemetry Rhythm: Sinus Rhythm Height (Feet): 5 Height (Inches): 7.00 Weight (Kilograms): 80.500 Laboratory Laboratory INR 2.39 Assessment & Plan Problems: (1) Weakness Status: Acute (2) Acute gout involving toe of right foot (3) Constipation due to opioid therapy (4) Chronic low back pain Status: Chronic (5) Atrial fibrillation Status: Chronic (6) HTN (hypertension) Status: Chronic (7) CHF due to valvular disease Status: Chronic (8) Amiodarone pulmonary toxicity Status: Chronic (9) COPD (chronic obstructive pulmonary disease) Status: Chronic (10) Oxygen dependent Status: Chronic (11) Lupus Status: Chronic (12) Dyslipidemia Status: Chronic (13) Complete heart block Status: Chronic Assessment & Plan: pacemaker (14) Hypothyroidism Status: Chronic (15) Vascular dementia Status: Chronic (16) Overweight (BMI 25.0-29.9) Status: Chronic Assessment Persistent symptoms at the right great toe although slightly improved. Colchicine will be added with initial dose tonight. Senokot S twice daily and MiraLAX once daily initiated for chronic constipation. Therapeutic INR for atrial fibrillation, borderline for mechanical aortic valve. Warfarin at 2 mg today. Respiratory status stable. Patient advises me that discharge is anticipated tomorrow. Plan/Intensity of Service Laboratory data reviewed, recent records reviewed; high-risk medications in use. Code Status Full Code Hospital Course Summary Disclaimer The hospital course summary below is not to be considered part of the above Progress Note. Hospital Course Summary 10/21/16 Continue with Coumadin per pharmacy protocol with goal INR 2/3. Given mechanical valve will given Lovenox 40 mg SQ daily until her INR is therapeutic Continue to work on pain control with Fentanyl patch as well as PO [place]. Continue with oxygen therapy baseline 3 liters Coreg, clonidine for HTN and CHF. Bumex daily for fluid motivation, monitor for dehydration Encourage PT/OT for ongoing strengthening and improved strength Recheck CBC and BMP tomorrow morning 10/22/16 Obtain uric acid level this morning that was elevated at 9.2. Given patient's clinical examination of pain, erythema and swelling of the right 1st metatarsal phalangeal joint appears to nielson acute gout attack. Will start patient on allopurinol 100 milligrams daily. Can increase, titrate up next week on 10/29- 200 milligrams daily. Did review this with pharmacist. Continue with Coumadin per pharmacy protocol with goal INR 2-3. Given mechanical valve will given Lovenox 40 mg SQ daily until her INR is therapeutic Pain control with fentanyl and [place]. Continue to work on pain control with Fentanyl patch as well as PO [place]. Continue with oxygen therapy baseline 3 liters Coreg, clonidine for HTN and CHF. Bumex daily for fluid motivation, monitor for dehydration Encourage PT/OT for ongoing strengthening and improved strength 10/24- Persistent symptoms at the right great toe although slightly improved. Colchicine will be added with initial dose tonight. Senokot S twice daily and MiraLAX once daily initiated for chronic constipation. Therapeutic INR for atrial fibrillation, borderline for mechanical aortic valve. Warfarin at 2 mg today. Respiratory status stable. Patient advises me that discharge is anticipated tomorrow. ENRIQUETA NICOLE MD Oct 24, 2016 18:00
--- NOTE | 2016-10-24 18:42 | NUR ---
SHIFT SUMMARY PT HAS BEEN PLEASANT AND COOPERATIVE. PT AMBULATES WITH A FOUR WHEEL WALKER. PT HAS BEEN OUT TO DINING ROOM FOR ALL MEALS. PT HAS BEEN CONTINENT OF OF BOTH BOWEL AND BLADDER. PAIN REMAINS AT AN 8/10 WITH PRN PAIN MEDS. PT DID NOT WANT TO GET DRESSED TODAY. PT CURRENTLY RESTING IN BED.
[2016-10-24 20:15] VITALS: PULSE 82; RESP 14
[2016-10-24] MEDS: MIRTAZAPINE 45 MG PO SCH (22:02)
[2016-10-24] MEDS: CLONIDINE 0.1 MG TABLET PO SCH (22:02)
[2016-10-24] MEDS: SENNA + DOCUSATE TAB PO SCH (22:48)
--- NOTE | 2016-10-24 22:48 | PNPDOC ---
IRU Subjective Date DATE: 10/24/16 TIME: 22:44 Subjective Continued fatigue and SOA. ALso now being treated for gout in right foot. She is having pain with ambulation, rested most of today. IRU Objective Vital Signs Vital signs Vital Signs Date Time Temp Pulse Resp B/P Pulse Ox O2 Delivery O2 Flow Rate FiO2 10/24/16 20:15 Nasal Cannula 3.00 10/24/16 16:53 98.3 84 18 153/71 96 Telemetry Rhythm: Sinus Rhythm Height (Feet): 5 Height (Inches): 7.00 Weight (Kilograms): 80.500 General General Appearance: Alert, Orientated x 3 Respiratory (Brief) Comments Very mild crackles bilat. Cardiovascular (Brief) Cardiac: FOUND: pedal edema, regular rate, regular rhythm Capillary Refill: <2 sec Laboratory Laboratory Laboratory Tests Test 10/23/16 04:37 10/24/16 04:35 10/24/16 08:57 Prothromb Time International Ratio 2.02 2.39 Urine Collection Type Voided-not cc-midstr Urine Color Yellow Urine Turbidity Clear Urine pH 5.0 Urine Specific [place] 1.025 Urine Protein Negative Urine Glucose (UA) Negative Urine Ketones Negative Urine Blood Negative Urine Nitrite Negative Urine Bilirubin Negative Urine Urobilinogen 0.2EU/DL Urine Leukocyte Esterase Negative Urinalysis Comment Microscopic not ind. Assessment & Plan Problems: (1) CHF due to valvular disease Status: Chronic Assessment & Plan: Medical management. (2) Weakness Status: Acute Assessment & Plan: PT and OT to continue working with pt to increase strength and mobility.Re-eval in am. Assessment Persistent symptoms at the right great toe although slightly improved. Colchicine will be added with initial dose tonight. Senokot S twice daily and MiraLAX once daily initiated for chronic constipation. Therapeutic INR for atrial fibrillation, borderline for mechanical aortic valve. Warfarin at 2 mg today. Respiratory status stable. Patient advises me that discharge is anticipated tomorrow. Code Status Full Code Interventions to Obtain Goals PT Treatment Plan: Therapeutic Exercise, Gait Training, Functional Activities , Patient/Family Education OT Treatment Plan: ADL's (basic care), Ther. Exercise for ADL's, UE Functional Training, Balance Training, Pt./Family Education, IADL's Hospital Course Summary Disclaimer The hospital course summary below is not to be considered part of the above Progress Note. Hospital Course Summary 10/21/16 Continue with Coumadin per pharmacy protocol with goal INR 2/3. Given mechanical valve will given Lovenox 40 mg SQ daily until her INR is therapeutic Continue to work on pain control with Fentanyl patch as well as PO [place]. Continue with oxygen therapy baseline 3 liters Coreg, clonidine for HTN and CHF. Bumex daily for fluid motivation, monitor for dehydration Encourage PT/OT for ongoing strengthening and improved strength Recheck CBC and BMP tomorrow morning 10/22/16 Obtain uric acid level this morning that was elevated at 9.2. Given patient's clinical examination of pain, erythema and swelling of the right 1st metatarsal phalangeal joint appears to nielson acute gout attack. Will start patient on allopurinol 100 milligrams daily. Can increase, titrate up next week on 10/29- 200 milligrams daily. Did review this with pharmacist. Continue with Coumadin per pharmacy protocol with goal INR 2-3. Given mechanical valve will given Lovenox 40 mg SQ daily until her INR is therapeutic Pain control with fentanyl and [place]. Continue to work on pain control with Fentanyl patch as well as PO [place]. Continue with oxygen therapy baseline 3 liters Coreg, clonidine for HTN and CHF. Bumex daily for fluid motivation, monitor for dehydration Encourage PT/OT for ongoing strengthening and improved strength 10/24-Veness[place] Persistent symptoms at the right great toe although slightly improved. Colchicine will be added with initial dose tonight. Senokot S twice daily and MiraLAX once daily initiated for chronic constipation. Therapeutic INR for atrial fibrillation, borderline for mechanical aortic valve. Warfarin at 2 mg today. Respiratory status stable. Patient advises me that discharge is anticipated tomorrow. MEG SETH MD Oct 24, 2016 22:48
[2016-10-24 23:17] VITALS: BP 122/62; PULSE 82; RESP 14; TEMP 97.4; O2SAT 92
--- NOTE | 2016-10-25 01:35 | NUR ---
Chart Check 24 hour chart check completed
[2016-10-25] MEDS: LEVOTHYROXINE 88 MCG TABLET PO SCH (05:14)
[2016-10-25 05:44] LABS: INR 2.61 (0.76-1.04); PROTHROMBIN TIME 28.5 SEC (9.31-12.49)
[2016-10-25 05:58] LABS: ANION GAP 9 MEQ/L (5-15); BUN/CREATININE RATIO 29 RATIO (6-26); CALCIUM 8.8 MG/DL (8.4-10.2); CHLORIDE 101 MEQ/L (98-107); CO2 - CARBON DIOXIDE 34 MEQ/L (22-30); CREATININE 0.8 MG/DL (0.7-1.2); GLOMERULAR FILTRATION RATE 69; GLUCOSE 100 MG/DL (65-110); POTASSIUM 4.2 MEQ/L (3.6-5); SODIUM 144 MEQ/L (134-144)
--- NOTE | 2016-10-25 06:32 | NUR ---
Shift Summary: Alert and orientedx4, rested well throughout noc. PRN pain meds given per order, see MAR. Continuous O2 on at 3L/NC, VSS. Side rails x2, bed alarm and scd's while in bed. Up with 1 assist, gait belt and walker, tolerates activity well. Continent of b&b, Uses call system appropriately for assistance and needs.
[2016-10-25 07:34] VITALS: BP_SYST 124; BP_SYST 51; BP_DIAS 51; PULSE 62; RESP 16; TEMP 98.3; O2SAT 93
[2016-10-25] MEDS ORDERED: POLYETHYL.GLYCOL 3350 PACKET 17gm PO SCH (09:00)
[2016-10-25] MEDS ORDERED: PredniSONE 20 MG TABLET PO SCH (09:00)
[2016-10-25] MEDS ORDERED: COLCHICINE 0.6 MG TABLET PO SCH (09:00)
[2016-10-25] MEDS ORDERED: PRED20TA PO (09:07)
[2016-10-25] MEDS ORDERED: COLC0.6T69 PO (09:07)
[2016-10-25] MEDS ORDERED: FENT1PAT65 TD (09:07)
[2016-10-25] MEDS ORDERED: POLY17PO18 PO (09:07)
[2016-10-25] MEDS ORDERED: HYDR-4072 PO (09:07)
[2016-10-25] MEDS ORDERED: WARF1TAB47 PO (09:07)
[2016-10-25] MEDS: CARVEDILOL 12.5 MG TABLET PO SCH (09:20)
[2016-10-25] MEDS: BUMETANIDE 1 MG TABLET PO SCH (09:20)
[2016-10-25] MEDS: DULOXETINE 60 MG CAPSULE PO SCH (09:20)
[2016-10-25] MEDS: LISINOPRIL 20 MG TABLET PO SCH (09:22)
[2016-10-25] MEDS: SENNA + DOCUSATE TAB PO SCH (09:22)
[2016-10-25] MEDS: LORAZEPAM 0.5 MG TABLET PO SCH (09:36)
--- NOTE | 2016-10-25 10:11 | NUR ---
COUMADIN CONSULT (Recurring): Today's INR = 2.61. Will give Warfarin 2 mg today. Will continue to monitor & make adjustments accordingly. Thank you.
--- NOTE | 2016-10-25 10:43 | PNPDOC ---
Subjective Date DATE: 10/25/16 TIME: 10:22 Subjective Lulú is seen today in follow up this morning. She is excited that she is going to be discharged today. She is planning to stay with her daughters until follow up. She continues on her baseline oxygen at 3 liters. She continues to pain in the right great toe. She has some mild improvement however is unable to wear a shoe due to the discomfort. INR 2.61. Objective Vital Signs Vital signs Vital Signs Date Time Temp Pulse Resp B/P Pulse Ox O2 Delivery O2 Flow Rate FiO2 10/25/16 07:34 98.3 62 16 51/ 93 Nasal Cannula 3.00 Telemetry Rhythm: Sinus Rhythm Height (Feet): 5 Height (Inches): 7.00 Weight (Kilograms): 80.500 General General Appearance: Alert, Orientated x 3, Cooperative, No Acute Distress Eyes (Brief) Eyes: FOUND: EOMI ENMT (Brief) ENMT: FOUND: mucosa moist, normal dentition, NOT FOUND: pharnyx erythema Neck (Brief) Neck: FOUND: midline, NOT FOUND: adenopathy, carotid bruits, tracheal deviation Respiratory (Brief) Respiratory: FOUND: clear all neely, equal bilaterally, NOT FOUND: wheezes Cardiovascular (Brief) Cardiac: FOUND: regular rate, regular rhythm, NOT FOUND: murmur, pedal edema Capillary Refill: <2 sec Abdomen (Brief) Abdominal: FOUND: BS normo active x4, soft, NOT FOUND: distended, tender Lymphatic (Brief) Lymphatic: NOT FOUND: adenopathy Musculoskeletal (Brief) Musculoskeletal: FOUND: tenderness (right great toe) Integumentary (Brief) Integumentary: FOUND: dry, pink, warm Neurologic (Brief) Neurological: FOUND: cranial 2-12 intact Psychiatric (Brief) Psychiatric: FOUND: alert, attentive, normal affect, oriented Laboratory Laboratory Laboratory Tests 10/25/16 05:07 Assessment & Plan Problems: (1) Weakness Status: Acute (2) Acute gout involving toe of right foot Status: Acute (3) Constipation due to opioid therapy Status: Acute (4) Chronic low back pain Status: Chronic (5) Atrial fibrillation Status: Chronic (6) HTN (hypertension) Status: Chronic (7) CHF due to valvular disease Status: Chronic (8) Amiodarone pulmonary toxicity Status: Chronic (9) COPD (chronic obstructive pulmonary disease) Status: Chronic (10) Oxygen dependent Status: Chronic (11) Lupus Status: Chronic (12) Dyslipidemia Status: Chronic (13) Complete heart block Status: Chronic Assessment & Plan: pacemaker (14) Hypothyroidism Status: Chronic (15) Vascular dementia Status: Chronic (16) Overweight (BMI 25.0-29.9) Status: Chronic Plan/Intensity of Service 10/25/16 Planning for discharge today with daughter Will add Prednisone 40 mg daily for 5 days for additional treatment of gouty pain of right great toe Continue with colchicine daily Spoke with pharmacy regarding Coumadin dosing. They recommend 2 mg daily and recheck INR sunday 10/29 Given that follow up apt is pending with Dr Vásquez, INR will will be called to Dr Chanel for further Coumadin dosing. Code Status Full Code Hospital Course Summary Disclaimer The hospital course summary below is not to be considered part of the above Progress Note. Hospital Course Summary 10/21/16 Continue with Coumadin per pharmacy protocol with goal INR 2/3. Given mechanical valve will given Lovenox 40 mg SQ daily until her INR is therapeutic Continue to work on pain control with Fentanyl patch as well as PO [place]. Continue with oxygen therapy baseline 3 liters Coreg, clonidine for HTN and CHF. Bumex daily for fluid motivation, monitor for dehydration Encourage PT/OT for ongoing strengthening and improved strength Recheck CBC and BMP tomorrow morning 10/22/16 Obtain uric acid level this morning that was elevated at 9.2. Given patient's clinical examination of pain, erythema and swelling of the right 1st metatarsal phalangeal joint appears to nielson acute gout attack. Will start patient on allopurinol 100 milligrams daily. Can increase, titrate up next week on 10/29- 200 milligrams daily. Did review this with pharmacist. Continue with Coumadin per pharmacy protocol with goal INR 2-3. Given mechanical valve will given Lovenox 40 mg SQ daily until her INR is therapeutic Pain control with fentanyl and [place]. Continue to work on pain control with Fentanyl patch as well as PO [place]. Continue with oxygen therapy baseline 3 liters Coreg, clonidine for HTN and CHF. Bumex daily for fluid motivation, monitor for dehydration Encourage PT/OT for ongoing strengthening and improved strength 10/24-Venessa Persistent symptoms at the right great toe although slightly improved. Colchicine will be added with initial dose tonight. Senokot S twice daily and MiraLAX once daily initiated for chronic constipation. Therapeutic INR for atrial fibrillation, borderline for mechanical aortic valve. Warfarin at 2 mg today. Respiratory status stable. Patient advises me that discharge is anticipated tomorrow. SABA STEVEN APRN Oct 25, 2016 10:36
[2016-10-25 11:43] VITALS: PULSE 100
[2016-10-25] MEDS ORDERED: WARFARIN 2 MG TABLET PO SCH (12:00)
--- NOTE | 2016-10-25 12:05 | NUR ---
CM ANTICIPATED DC HOME TODAY. SPOKE WITH PT ABOUT THIS. REVIEWED IM LETTER WITH PT, SHE SIGNED THIS, HAD NO QUESTIONS ABOUT THIS. SHE SAID SHE FEELS READY TO GO HOME. REVIEWED HOME HEALTH: SHE HAD NO PREFERENCE. EXPLAINED [facility] AND THE FINANCIAL RELATIONSHIP; SHE STILL WANTED TO USE [facility]. [facility] WILL ALSO DO THE INR DRAW ON 10-29-16. EXPLAINED THE PORTABLE O2 NEEDS TO BE DELIVERED HERE BEFORE SHE LEAVES, AND SHE WAS AGREEABLE TO THIS. SHE CALLED DAUGHTER WHILE THIS WORKER WAS IN THE ROOM; DAUGHTER WILL BE PICKING PT UP THIS AFTERNOON. PHYS THERAPY RECOMMENDS A 4 WHEELED WALKER; PT HAS THIS AT HOME. NO NEEDS/CONCERNS ABOUT DC AT THIS TIME. Addendum: 10/25/16 at 1208 by CLARIBEL HERNANDEZ Amended: Links added.
[2016-10-25] MEDS ORDERED: FENT1PAT TOP (15:27)
--- NOTE | 2016-10-25 16:30 | NUR ---
SHIFT SUMMARY PATIENT ALERT AND ORIENTED X 3. PATIENT UP WITH ONE ASSIST WITH WALKER, PATIENT C/O PAIN IN R FOOT AND BACK, PRN NORCO GIVEN AND FENTANYL IN PLACE. PATIENT ATE 100% OF MEALS PER SELF. ON CONT O2 3L. PATIENT VITALS STABLE.
--- NOTE | 2016-10-25 16:37 | NUR ---
DISCHARGE NOTE PATIENT DISCHARGE MEDICATIONS, ACTIVITY, O2 USE, FOLLOW-UP APPT, INR FOLLOW UP LAB AT [facility] 10/29/16 REVIEWED WITH PATIENT AND DAUGHTER. CALLED IN SCRIPTS FOR COUMADIN, COLCRYS, AND PREDNISONE TO [facility] ON . SCRIPTS FOR FENTANYL PATCH AND NORCO GIVEN TO PATIENT AND DAUGHTER IN PACKET. D/C INFORMATION ABOUT CHF AND GOUT DIET GIVEN TO PATIENT AND DAUGHTER.PATIENT AND DAUGHTER VERBALIZED UNDERSTANDING. PATIENT ESCORTED WITH RN TO FRONT DOOR. PATIENT BELONGINGS WITH PATIENT.
--- NOTE | 2016-10-25 17:23 | NUR ---
JONATHAN FAXED ORDERS TO [facility]. CALLED AND SPOKE WITH STEPHEN WITH [facility]. REVIEWED THE INR DRAW AND REQUESTED THAT THIS BE DONE IN THE MORNING PRIOR TO PT'S OTHER DOCTOR APPOINTMENT. SPOKE WITH PT AND DAUGHTER, WHO WAS PRESENT IN THE ROOM. REVIEWED HOME HEALTH THROUGH [facility]. PT'S DAUGHTER SAID SHE HAS THE PORTABLE OXYGEN WITH HER, HERE IN THE ROOM, AND THE CONCENTRATOR IS AT HOME. PT AND DAUGHTER HAD NO QUESTIONS/NEEDS ABOUT DC. Addendum: 10/25/16 at 1726 by CLARIBEL HERNANDEZ ADDITION: SPOKE WITH PT AND DAUGHTER ABOUT THE INR DRAW. 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
--- NOTE | 2016-11-01 12:10 | DSPDOC ---
General Date Date DATE: 11/01/16 TIME: 12:07 Attending Physician Meg Seth MD Admitting Physician Meg Seth MD Consulting Physician Poli Moulton MD Admitting Diagnosis chf, CHF exacerbation, chronic back pain, myopathy. Discharge Diagnosis chf, CHF exacerbation, chronic back pain, myopathy. Acute gout History of Present Illness 81 yo female admitted 10/11 for CHF exacerbation and pain management for chronic low back pain. She has difficulty managing adl's due to both the pain from lumbar spinal compression as well as fatigue and soa with CHF exacerbation. Pt unable to go home and provide self care and is interested in working with PT and OT to increase strength and independence. Hospital Course 10/21/16 Continue with Coumadin per pharmacy protocol with goal INR 2/3. Given mechanical valve will given Lovenox 40 mg SQ daily until her INR is therapeutic Continue to work on pain control with Fentanyl patch as well as PO [place]. Continue with oxygen therapy baseline 3 liters Coreg, clonidine for HTN and CHF. Bumex daily for fluid motivation, monitor for dehydration Encourage PT/OT for ongoing strengthening and improved strength Recheck CBC and BMP tomorrow morning 10/22/16 Obtain uric acid level this morning that was elevated at 9.2. Given patient's clinical examination of pain, erythema and swelling of the right 1st metatarsal phalangeal joint appears to nielson acute gout attack. Will start patient on allopurinol 100 milligrams daily. Can increase, titrate up next week on 10/29- 200 milligrams daily. Did review this with pharmacist. Continue with Coumadin per pharmacy protocol with goal INR 2-3. Given mechanical valve will given Lovenox 40 mg SQ daily until her INR is therapeutic Pain control with fentanyl and [place]. Continue to work on pain control with Fentanyl patch as well as PO [place]. Continue with oxygen therapy baseline 3 liters Coreg, clonidine for HTN and CHF. Bumex daily for fluid motivation, monitor for dehydration Encourage PT/OT for ongoing strengthening and improved strength 10/24-Venessa Persistent symptoms at the right great toe although slightly improved. Colchicine will be added with initial dose tonight. Senokot S twice daily and MiraLAX once daily initiated for chronic constipation. Therapeutic INR for atrial fibrillation, borderline for mechanical aortic valve. Warfarin at 2 mg today. Respiratory status stable. Patient advises me that discharge is anticipated tomorrow. Problems: (1) Pulmonary fibrosis Status: Acute Assessment & Plan: Managed by medical, patient had severe CHF exacerbation with pneumonia during admission. Stable and improved on discharge (2) Pneumonia involving right lung Status: Acute Assessment & Plan: Stable and improved on discharge (3) CHF due to valvular disease Status: Chronic Assessment & Plan: Stable and improved on discharge (4) Acute gout involving toe of right foot Status: Acute Assessment & Plan: Treated by hospitalist. (5) Weakness Status: Acute Assessment & Plan: Patient had significant improvement with use of PT and OT assistance. FIM scores increased, please see FIM scores. Patient will be discharged home with family to help. DVT Prophylaxis: SCD'S Code Status Full Code Home Meds Active Scripts Fentanyl (Fentanyl 12 mcg/hr) 1 Each Patch.td72, 1 PATCH TOP Q72H for 30 Days, PATCH Prov:SABA STEVEN APRN 10/25/16 Colchicine (Colcrys) 0.6 Mg Tablet, 0.6 MG PO DAILY for 30 Days, #30 TAB Prov:SABA STEVEN APRN 10/25/16 Prednisone (Prednisone) 20 Mg Tablet, 40 MG PO WB for 5 Days, #10 TAB Prov:SABA STEVEN APRN 10/25/16 Polyethylene Glycol 3350 (Healthylax) 17 Gm Powd.pack, 17 G PO DAILY for 30 Days Prov:SABA STEVEN APRN 10/25/16 Warfarin Sodium (Coumadin) 1 Mg Tablet, 2 TAB PO DAILY, #30 TAB 5 Refills Prov:SABA STEVEN APRN 10/25/16 Hydrocodone/Acetaminophen (Hydrocodon-Acetaminoph 7.5-325) 7.5-325 Tablet, 1 TAB PO Q4HR Y for PAIN for 30 Days Prov:SABA STEVEN APRN 10/25/16 Reported Medications Levothyroxine Sodium (Levothyroxine Sodium) 88 Mcg Tablet, 88 MCG PO ACB, TAB Once daily before breakfast. 10/18/16 Bumetanide (Bumetanide) 1 Mg Tablet, 1 TAB PO DAILY, TAB 10/18/16 Fentanyl (Fentanyl 12 mcg/hr) 1 Each Patch.td72, 1 PATCH TOP Q72H, PATCH 10/18/16 Mirtazapine (Mirtazapine) 45 Mg Tab.rapdis, 45 MG PO HS, TAB Take 1 tablet, by mouth, one time a day (at bedtime). 10/18/16 Carvedilol (Carvedilol) 12.5 Mg Tablet, 1 TAB PO BIDWM, TAB BEST WITH FOOD. 10/18/16 Clonidine HCl (Catapres) 0.1 Mg Tablet, 1 TAB PO HS, TAB 10/18/16 Lorazepam (Lorazepam) 0.5 Mg Tablet, 1 TAB PO BID 06/01/13 Duloxetine Hcl (Cymbalta) 60 Mg Capsule.dr, 1 TAB PO DAILY 06/01/13 Alendronate Sodium (Fosamax) 70 Mg Tablet, 1 TAB PO WEEKLY 06/01/13 Lisinopril (Lisinopril) 20 Mg Tablet, 1 TAB PO BID 06/01/13 Discontinued Reported Medications Warfarin Sodium (Warfarin Sodium) 2.5 Mg Tablet, 1.25 MG PO PM TOTAL DOSE=1.75 MG 10/21/16 Warfarin Sodium (Warfarin Sodium) 1 Mg Tablet, 0.5 MG PO PM TOTAL DOSE=1.75 MG 10/18/16 Face to Face Encounter I met with patient on the day of dismissal and discussed follow up appointments , medications, and safety plan. Discharge Disposition Discharged to home with family help MEG SETH MD Nov 01, 2016 12:10
== END 2016-10-25 16:37 | disposition home health service (06) | DRG 945 ==
PROVIDERS: ADMIT Family Medicine; ATTEND Family Medicine
PROC: F07Z9FZ Gait Training/Functional Ambulation Treatment using Assistive, Adaptive, Supportive or Protective Equipment (ICD-10-PCS; principal; 2016-10-18)
PROC: F07M6ZZ Therapeutic Exercise Treatment of Musculoskeletal System - Whole Body (ICD-10-PCS; 2016-10-18)
PROC: F08Z4ZZ Home Management Treatment (ICD-10-PCS; 2016-10-18)
DX: R53.1 Weakness (principal); I44.2 Atrioventricular block, complete; M54.5 Low back pain; G89.29 Other chronic pain; G72.9 Myopathy, unspecified; Z91.81 History of falling; I48.91 Unspecified atrial fibrillation; I11.0 Hypertensive heart disease with heart failure; I50.9 Heart failure, unspecified; T46.2X5D Adverse effect of other antidysrhythmic drugs, subsequent encounter; J44.9 Chronic obstructive pulmonary disease, unspecified; M32.9 Systemic lupus erythematosus, unspecified; E78.5 Hyperlipidemia, unspecified; E03.9 Hypothyroidism, unspecified; F01.50 Vascular dementia, unspecified severity, without behavioral disturbance, psychotic disturbance, mood disturbance, and anxiety; E66.3 Overweight; M10.9 Gout, unspecified; K59.03 Drug induced constipation; T40.2X5A Adverse effect of other opioids, initial encounter; Z79.01 Long term (current) use of anticoagulants; Z99.81 Dependence on supplemental oxygen; Z95.0 Presence of cardiac pacemaker; Z68.27 Body mass index [BMI] 27.0-27.9, adult
CPT/HCPCS: 36415; 80048; 81003; 84550; 85025; 85610; 94761

== ENCOUNTER 2016-11-24 01:47 | Observation (INO) | payer MEDICARE, BC ==
[~2016-11-24] VITALS: Ht 167.6 cm; Wt 77.3 kg
[~2016-11-24 01:47] MED LIST changes: -AMLO5TAB2 PO; -BUDE0.5A AEROSOL; +BUME1TAB17 PO; -CALC-747 PO; +CARV12.52 PO; -CARV25TA28 PO; +CLON0.1T13 PO; +COLC0.6T69 PO; +FENT1PAT TOP; -FURO40TA70 PO; -GUAI-782 PO; +HYDR-4072 PO; -IPRA3AMP AEROSOL; -LEVO500T63 PO; -LEVO75TA4 PO; +LEVO88TA7 PO; -MIRT30TA72 PO; +MIRT45TA5 PO; -OXYC5TAB84 PO; +POLY17PO18 PO; -POTA20TA69 PO; +PRED20TA PO; -TRAVATAN RIGHT EYE; +WARF1TAB47 PO; -WARF2TAB58 PO
--- OUTSIDE RECORDS SUMMARY | 2016-11-24 01:52 | XMS REPORT | Continuity of Care Document ---
Author Author [facility] Organization [facility] Address Unknown Phone Unavailable Support Name Relationship Address Phone ELVIADALIA ROLON Caregiver [address] [place] [address] OTHER Caregiver Unknown [phone] MANFRED LEON MD Caregiver [address] [place] [address] [place] Next Of Kin [address] [place] [address] Insurance Providers Payer Name Policy Number Subscriber Name Relationship Medicare [id number] Lulú Sterling 20 Self [facility] [id number] Lulú Sterling 20 Self Advance Directives Directive [...] having problems relating to your surgery at [phone]. 2. Problems such as: Temp above 101.5 degrees You develop redness, excessive swelling of the incision, increasing pain or excessive foul smelling drainage. 3. If the office is closed, call [facility] at [phone] and have your Surgeon paged. Condition at time of discharge: Fair - You have pain and/or swelling in your feet, calves, or legs. - You have difficulty breathing, abnormal cough, or chest pain. During office hours, call [phone]. After hours, please call [facility] at [phone] and have the booth operator page Dr. Yang or the covering surgeon. *In the event of an emergency, seek medical care at the nearest emergency room.* Condition at time of discharge: Good Plan of Care Discharge Date 11/27/14 4:45pm Disposition 04 TO [facility] HOME/FACILITY Instructions/Education Provided NM Congestive Heart [...] F (96.8 - 99.1) Temperature (Calculated Celsius) 35.86631 degrees C (36.0 - 37.3) Pulse Rate [...] 11, 2013 9:25am LAB TEST FORM REQUEST [id number] - Lipase November 18, 2014 9:03am 114 [...] 23, 2014 10:00am 6.1 % N 0-9.0 LJ-Dxq-X-Type Natriuretic Peptide November 23, 2014 10:00am 2580 [...] Has specimen been collected/obtained? Y Urine Specific [place] November 18, 2014 9:35am 1.015 - Has [...] Ssp Pneumoniae Name: LULÚ STERLING Unit #: [id number] : 1935 Sex: F Loc / Svc: MED DOS: 11/23/14 Signed Report #: [id number] DIAGNOSTIC IMAGING REPORT TYPE OF EXAM: CHEST, [...] ADDON completed 11/18/14 TX/PRO/DX INJ SAME DRUG CASH CONTROL SPECIALIST completed 11/18/14 EMERGENCY DEPT VISIT completed 11/18/14 343135"INJECTION, ONDANSETRON HYDROCHLORIDE, PER 1 MG" completed 11/18/14 371222"INFUSION, NORMAL SALINE SOLUTION , 1000 CC" completed 11/18/14 Encounters Encounter Location Date/Time Admitted Inpatient [facility] 11/23/14 11:23am Departed Emergency Room [facility] 11/18/14 8:23am Recent Diagnosis Pneumonia involving right lung Pneumonia involving right lung Pulmonary fibrosis Acute respiratory insufficiency Hypothyroidism CHF due to valvular disease Hyperosmolality and hypernatremia Anemia
--- OUTSIDE RECORDS SUMMARY | 2016-11-24 01:53 | XMS REPORT ---
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0 Active 09894318 Problem DDD (degenerative disc disease), thoracolumbar M51.35 Active 57432667 Problem Osteoarthritis M19.90 Active 937284950 Problem Spondylosis without myelopathy or radiculopathy, thoracolumbar region M47.815 Active 715808232 Problem Depression F32.9 Active 936220584 ALLERGIES Substance Reaction Event Type Date Status Ultram Unknown Drug Allergy Jun, Active Procardia Unknown Drug Allergy Jun, Active Plaquenil Unknown Drug Allergy Jun, Active Pacerone Unknown Drug Allergy Jun, Active Dyazide Unknown Drug Allergy Jun, Active Codeine Sulfate Unknown Drug Allergy Jun, Active Amlodipine Besylate leg swelling Drug Allergy Jun, Active SOCIAL HISTORY No smoking Hx information available PLAN OF CARE Activity Details Pending Test CT LUMBAR SPINE W/0 CONTRAST (21142) Pending Test X-Ray LUMBAR SPINE 2 VIEW (05834) following CT,Reason: VITAL SIGNS Heart Rate 83 /min 2016-07-14 Height 65 in 2016-07-14 Weight 178 lbs 2016-07-14 BMI 29.62 kg/m2 2016-07-14 Blood pressure systolic 153 mm Hg 2016-07-14 Blood pressure diastolic 91 mm Hg 2016-07-14 MEDICATIONS Medication Instructions Dosage Frequency Start Date End Date Duration Status Lorazepam 0.5 MG TAKE ONE TABLET BY MOUTH TWO TIMES A DAY NEEDED 30 Active Mirtazapine 45 MG TAKE ONE TABLET BY MOUTH EVERY NIGHT AT BEDTIME 90 Active Multivitamin Active Oxygen 3 LPM 07/03 Active Lisinopril 20 MG Orally twice a day 1 tablet 12h Active Potassium Chloride ER 10 MEQ Orally Twice a day 2 tablets 12h Active Lasix 40 MG Orally twice a day 1 tablet 12h Active Alendronate Sodium 70 MG TAKE ONE TABLET WEEKLY WITH 6-8OZ. OF WATER ON AN EMPTY STOMACH. DO NOT LIE DOWN, TAKE OTHER MEDICAITONS, EAT OR DRINK FOR 30 MINUTES. 28 Active Cymbalta 60 MG 1 capsule Once a day Orally 90 days 90 Active Levothyroxine Sodium 88 MCG Orally Once a day 1 tablet 24h 30 Active Fosamax 70 MG Orally Once a week 1 tablet Active Hydrocodone-Acetaminophen 7.5-325 MG Orally Three times a day as needed 2 tablets Active Coumadin 2 MG Orally Once a day 1 tablet 24h Active Coreg 25 MG Orally Twice a day 1 tablet 12h Active RESULTS Name Result Date Reference Range CT LUMBAR SPINE W/0 CONTRAST (08032) 2016-07-19 X-Ray LUMBAR SPINE 2 VIEW (44258) 2016-07-28 PROCEDURES Procedure Date Ordered Related Diagnosis Body Site Est PT OVOP Service Jul 14, 2016 Xray lumbosacral Jul 14, 2016 CT Lumbar Spine WO Contrast Jul 14, 2016 IMMUNIZATIONS No Known Immunizations
--- OUTSIDE RECORDS SUMMARY | 2016-11-24 01:54 | XMS REPORT | Continuity of Care Document ---
Author Author [facility]. Organization [facility] Address Unknown Phone Unavailable Allergies Active Description [...] 08/21/2010 Yes Nifedipine 710 Unknown N/A 11/30/2010 Yes amiodarone amiodarone Drug Allergy Severe LUNGS 01/04/2013 Yes hydrochlorothiazide hydrochlorothiazide Drug Allergy Moderate RASH 01/04/2013 Yes nifedipine nifedipine Drug Allergy Moderate HYPOTENSION 01/04/2013 Yes triamterene triamterene Drug Allergy Moderate RASH 01/04/2013 Yes codeine codeine Drug Allergy Mild NAUSEA 01/04/2013 Medications Problems Date Dx Coded Attending Type [...] MD V45.01 CARDIAC PACEMAKER IN SITU 01/19/2013 LOUIS VELAZCO, KELL Oliver V58.61 ANTICOAGULANT USE LONG T 03/03/2015 Brandon Hernandes W 784.7 EPISTAXIS 08/10/2016 ALICIA SPICER P Z79.01 USP (CURRENT) USE OF ANTICOAGULANTS ALICIA SPICER 10/11/2016 Cosmo VELAZCO, Je K F E03.9 HYPOTHYROIDISM, UNSPECIFIED 10/11/2016 Je Wilburn MD K F E78.5 HYPERLIPIDEMIA, UNSPECIFIED 10/11/2016 Je Wilburn MD K F G89.29 OTHER CHRONIC PAIN 10/11/2016 Je Wilburn MD K F I11.0 HYPERTENSIVE HEART DISEASE WITH HEART FAILURE 10/11/2016 Cosmo VELAZCO, Abid K F I24.8 OTHER FORMS OF ACUTE ISCHEMIC HEART DISEASE 10/11/2016 Je Wilburn MD K F 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) 10/11/2016 Je Wilburn MD K F I48.2 CHRONIC ATRIAL FIBRILLATION 10/11/2016 Je Wilburn MD K F I50.33 ACUTE ON CHRONIC DIASTOLIC (CONGESTIVE) HEART FAIL 10/11/2016 Je Wilburn MD K F J44.9 CHRONIC OBSTRUCTIVE PULMONARY DISEASE, UNSPECIFIED 10/11/2016 Cosmo VELAZCO Abishannan K F M19.90 UNSPECIFIED OSTEOARTHRITIS, UNSPECIFIED SITE 10/11/2016 Je Wilburn MD Z79.01 USP (CURRENT) USE OF ANTICOAGULANTS 10/11/2016 Je Wilburn MD Z87.891 PERSONAL HISTORY OF NICOTINE DEPENDENCE 10/11/2016 Je Wilburn MD Z90.710 ACQUIRED ABSENCE OF BOTH CERVIX AND UTERUS 10/11/2016 Je Wilburn MD Z95.2 PRESENCE OF PROSTHETIC HEART VALVE 10/11/2016 Je Wilburn MD Z96.89 PRESENCE OF OTHER SPECIFIED FUNCTIONAL IMPLANTS Procedures Code Description Performed By Performed On 81.88 REVERSE TOTAL SHOULDER REPLACEMENT Morteza Cueva MD 01/04/2013 86233 PROTHROMBIN TIME KELL MYERS MD 01/19/2013 21.00 CONTROL OF EPISTAXIS NOS 03/03/2015 Encounters ACCT No. Visit Date/Time Discharge Status Pt. Type Provider Facility Loc./Unit Complaint [id number] 01/19/2013 14:46:00 01/19/2013 14:46:00 DIS Outpatient KELL MYERS MD [facility]
--- OUTSIDE RECORDS SUMMARY | 2016-11-24 01:55 | XMS REPORT | Continuity of Care Document ---
Author Author [facility] Organization [facility] Address Unknown Phone Unavailable Support Name Relationship Address Phone OTHER Caregiver Unknown [phone] MANFRED LEON MD Caregiver [address] [place] [address] [place] [address] [employer] Next Of Kin [address] [place] [address] Insurance Providers Payer Name Policy Number Subscriber Name Relationship Medicare [id number] Lulú Sterling 20 Self [facility] [id number] Lulú Sterling 20 Self Advance Directives Directive [...] F (96.8 - 99.1) Temperature (Calculated Celsius) 36.15868 degrees C (36.0 - 37.3) Pulse Rate [...] 11, 2013 9:25am LAB TEST FORM REQUEST [id number] - Lipase November 18, 2014 9:03am 114 [...] Has specimen been collected/obtained? Y Urine Specific [place] November 18, 2014 9:35am 1.015 - Has [...] N 4.5-11.0 Name: LULÚ STERLING Unit #: [id number] : 1935 Sex: F Loc / Svc: ED DOS: 11/18/14 Signed Report #: [id number] DIAGNOSTIC IMAGING REPORT TYPE OF EXAM: CT [...] Encounters Encounter Location Date/Time Departed Emergency Room [facility] 11/18/14 8:23am Recent Diagnosis
--- OUTSIDE RECORDS SUMMARY | 2016-11-24 01:56 | XMS REPORT | Continuity of Care Document ---
Author Author [facility] Address Unknown Phone Unavailable Support Name Relationship Address Phone PAUL RIOS Caregiver [address] [place] [address] Unavailable MEG SETH MD Caregiver [address] [place] [address] Unavailable MEG SETH MD Caregiver [address] [place] [address] Unavailable ROX MOROCHO Next Of Kin [address] [place], [place] [id number] Insurance Providers Guarantor Lulú Sterling Address [address] [address] C Email DENIED 16 Payer Medicare Policy Number [id number] Subscriber's Name JessicaLulú hayes E Relationship 18 Self Effective Date 02 Payer [facility] Policy Number [id number] Subscriber's Name Lulú Sterling E Relationship 18 Self Group Number [id number] Advance Directives Directive Response Recorded Date/Time Ordered Resuscitation Status Full Code 10/18/16 6:39pm Resuscitation Documents on File No 10/18/16 6:33pm DPOA for Healthcare Only No 10/19/16 2:17pm Living Will No 10/18/16 6:33pm Problems Active Problems Medical Problem Onset Date Status Acute gout involving toe of right foot Unknown Acute Acute respiratory insufficiency Unknown Acute Amiodarone pulmonary toxicity Unknown Chronic Anemia Unknown Acute Arthritis Unknown Chronic Atrial fibrillation Unknown Chronic CHF due to valvular disease Unknown Chronic COPD (chronic obstructive pulmonary disease) Unknown Chronic Chronic low back pain Unknown Chronic Complete heart block Unknown Chronic Constipation due to opioid therapy Unknown Acute Dyslipidemia Unknown Chronic HTN (hypertension) Unknown Chronic Hyperosmolality and hypernatremia Unknown Acute Hypothyroidism Unknown Chronic Left flank pain Unknown Acute Lupus Unknown Chronic Overweight (BMI 25.0-29.9) Unknown Chronic Oxygen dependent Unknown Chronic Pneumonia involving right lung Unknown Acute Pneumonia involving right lung Unknown Acute Pulmonary fibrosis Unknown Acute Urinary tract infection Unknown Acute Vascular dementia Unknown Chronic Weakness Unknown Acute Medications Current Home Medications Medication Dose Units Route Directions Days Qty Instructions Start Date Alendronate Sodium (Fosamax) 70 Mg Tablet 1 Tab Oral Weekly 06/01 Bumetanide 1 Mg Tablet 1 Tab Oral Daily 10/18/16 Carvedilol 12.5 Mg Tablet 1 Tab Oral Twice Daily With Meals BEST WITH FOOD. 10/18/16 Clonidine Hcl (Catapres) 0.1 Mg Tablet 1 Tab Oral Bedtime Colchicine (Colcrys) 0.6 Mg Tablet 0.6 Mg Oral Daily 30 Days 30 Tablet 10/25/16 Duloxetine Hcl (Cymbalta) 60 Mg Capsule.dr 1 Tab Oral Daily 06/01 Fentanyl (Fentanyl 12 Mcg/Hr) 1 Each Patch.td72 1 Patch Topically Every 72 Hours 10/18/16 Fentanyl (Fentanyl 12 Mcg/Hr) 1 Each Patch.td72 1 Patch Topically Every 72 Hours 30 Days 10/25/16 Hydrocodone/Acetaminophen (Hydrocodon-Acetaminoph 7.5-325) 7.5-325 Tablet 1 Tab Oral Every 4 Hours as needed for Pain 30 Days 10/25/16 Levothyroxine Sodium 88 Mcg Tablet 88 Mcg Oral Before Breakfast Once daily before breakfast. 10/18/16 Lisinopril 20 Mg Tablet 1 Tab Oral Twice A Day 06/01/13 Lorazepam 0.5 Mg Tablet 1 Tab Oral Twice A Day 06/01/13 Mirtazapine 45 Mg Tab.rapdis 45 Mg Oral Bedtime Take 1 tablet, by mouth, one time a day (at bedtime). 10/18/16 Polyethylene Glycol 3350 (Healthylax) 17 Gm Powd.pack 17 G Oral Daily 30 Days 10/25/16 Prednisone 20 Mg Tablet 40 Mg Oral Give With Breakfast 5 Days 10 Tablet 10/25/16 Warfarin Sodium (Coumadin) 1 Mg Tablet 2 Tab Oral Daily 30 Tablet 10/25/16 Past Home Medications Medication Directions Ordered Status Ciprofloxacin Hcl (Cipro) 500 Mg Tablet, 500 Mg Oral Every 12 Hours 11/18/14 Discontinued Hydrocodone/Acetaminophen (Hydrocodon-Acetaminoph 7.5-325) 7.5-325 Tablet, 1 Tab Oral Every 4 Hours as needed for Pain 10/21/16 Discontinued Levothyroxine Sodium 88 Mcg Tablet, 1 Tab Oral Daily 06/01/13 Discontinued Warfarin Sodium 1 Mg Tablet, 0.5 Mg Oral Every Evening 10/18/16 Discontinued Warfarin Sodium 2.5 Mg Tablet, 1.25 Mg Oral Every Evening 10/21/16 Discontinued Warfarin Sodium (Coumadin) 2 Mg Tablet, 1 Tab Oral Daily 06/01/13 Discontinued Social History Social History Problem Response Recorded Date/Time Onset Date Status Reason for Hospitalization CHF Myopathy 10/25/2016 3:29pm Not Applicable Not Applicable Chewing Tobacco Status No 06/01/2013 1:02pm Not Applicable Not Applicable Hx Substance Use No 11/23/2014 10:38am Not Applicable Not Applicable Hx Alcohol Use No 11/23/2014 10:38am Not Applicable Not Applicable Has the pt used tobacco in the last 12 months No 10/18/2016 6:36pm Not Applicable Not Applicable Tobacco Usage none 11/23/2014 2:10pm Not Applicable Not Applicable Query Response Start Date Stop Date Smoking Status Former smoker Hospital Discharge Instructions Instructions: Care Instructions: Reason for Hospitalization: CHF Myopathy I was in the hospital because (patient own words): pain management Discharge Diet: Reg Discharge Activity: Home oxygen, needs overnight pulseox. Follow Up Appointments: Dr. Alethea Vásquez is reviewing patient's information in order to establish care. 's office will notify patient about the date and time of her appointment, if accepted. [address] [place] [address]. . Pending Lab / Results: No Pending Lab Patient Instructions: [place] [facility] [place] Coumadin 2 mg daily until INR check Prednisone 40 mg daily for 5 days Continue with Colcrys daily Wound/Incision Care: na Durable Medical Equipment: Walker, oxygen Pain Management/Treatment: Fentanyl pathch,change q 3 days. Expected Signs/Symptoms: weakness, fatigue Notify Physician If: fever, worsening pain During Business Hours:: Please call the physician's office at Number listed above. After Business Hours:: Please call [phone] and have the specialties operator page the physician. Condition at time of discharge: Fair Plan of Care Discharge Date 10/25/16 4:37pm Disposition 01 DISCHARGED HOME, SELF-CARE Instructions/Education Provided [facility] [place] Congestive Heart Failure Prescriptions See Medication Section Additional Instructions/Education Follow up with Dr Vásquez Care Plan and Goals See Discharge Instructions Section Functional Status Query Response Date Recorded Mobility Status Transfer w/assist October 25, 2016 3:29pm Assistive Devices Front Wheeled Walker October 25, 2016 3:29pm Activity Limitations Weakness October 25, 2016 3:29pm Feeding Ability Independent October 25, 2016 3:29pm Toileting Ability Independent October 25, 2016 3:29pm Grooming Ability Independent October 25, 2016 3:29pm Dressing Ability Independent October 25, 2016 3:29pm Driving Ability Dependent October 25, 2016 3:29pm Housework Ability Dependent October 25, 2016 3:29pm Meal Preparation Ability Dependent October 25, 2016 3:29pm Stair Climbing Ability Dependent October 25, 2016 3:29pm Ability to complete ADL's impeded by Impaired Mobility October 25, 2016 3:29pm Cognitive/Perceptual Impairments Impaired vision October 25, 2016 3:29pm Visual Assistive Devices Glasses October 24, 2016 6:27pm Allergies, Adverse Reactions, Alerts Allergen Type Severity Reaction Status Last Updated Thiazides Allergy Unknown RASH Active 11/18/14 Nifedipine Allergy Unknown DROPPED BLOOD PRESSURE TOO FAST Active 11/18/14 Codeine Adverse Reaction Unknown NAUSEA Active 11/18/14 Tramadol Allergy Unknown Active 11/18/14 Amiodarone Allergy Unknown DYSPNEA, LUNG DAMAGE Active 11/18/14 Hydroxychloroquine Allergy Unknown Active 11/18/14 Immunizations Query Response on File Recorded Date/Time Hx Influenza Vaccination Y 05/3010/18/16 6:36pm Hx Pneumococcal Vaccination Y May 2016 10/18/16 6:36pm Hx Tetanus, Diptheria, Pertussis No 11/23/14 12:52pm Hx Influenza Vaccination Y 05/3010/18/16 6:36pm Hx Tetanus Diptheria No 11/23/14 12:52pm Hx Tetanus, Diptheria, Pertussis No 11/23/14 12:52pm Hx Tetanus Toxoid Vaccination No 11/23/14 12:52pm Influenza Vaccine Hx May 2016 10/18/16 6:36pm Vital Signs Acute Vital Signs Vital Response Date/Time Temperature (Fahrenheit) 98.3 deg F (96.8 - 99.1) 10/25/2016 7:34am Temperature (Calculated Celsius) 36.72706 degrees C (36.0 - 37.3) 10/25/2016 7:34am Pulse Rate (adult) 100 bpm (60 - 100) 10/25/2016 11:43am Respiratory Rate 16 breaths/min (10 - 20) 10/25/2016 7:34am O2 Sat by Pulse Oximetry 93 % (90 - 100) 10/25/2016 7:34am Oxygen Delivery Method Nasal Cannula 10/24/2016 8:15pm Oxygen Delivery Method Nasal Cannula 10/25/2016 7:34am Oxygen Flow Rate 3.00 L/min 10/25/2016 11:43am Blood Pressure 124/51 mm Hg 10/25/2016 7:34am Blood Pressure Source Automatic Cuff 10/25/2016 7:34am Height (Feet) 5 feet 10/25/2016 10:43am Height (Inches) 7.00 inches 10/25/2016 10:43am Weight (Kilograms) 80.500 kg 10/22/2016 6:08am Body Mass Index (BMI) 28.0 10/18/2016 6:32pm Results Laboratory Results Test Name Result Units Flags Reference Collection Date/Time Result Date/ Time Comments White Blood Count 6.9 T/MM3 4.5-11.0 10/19/2016 4:33am 10/19/2016 5: 10am Red Blood Count 3.94 M/MM3 L 4.00-5.20 10/19/2016 4:33am 10/19/2016 5: 10am Hemoglobin 11.8 GM/DL L 12-16 10/19/2016 4:33am 10/19/2016 5:10am Hematocrit 38.6 % 36-46 10/19/2016 4:33am 10/19/2016 5:10am Mean Corpuscular Volume 98.0 UM3 80-100 10/19/2016 4:33am 10/19/2016 5: 10am Mean Corpuscular Hemoglobin 29.9 UUG 26-34 10/19/2016 4:33am 2016 5:10am Mean Corpuscular Hemoglobin Concent 30.6 GM/DL L 31-37 10/19/2016 4:33am 10/19/2016 5:10am RDW Standard Deviation 47.2 FL 36.9-50.2 10/19/2016 4:33am 10/19/2016 5 :10am Platelet Count 213 T/MM3 130-400 10/19/2016 4:33am 10/19/2016 5:10am Mean Platelet Volume 9.7 UM3 9.4-12.4 10/19/2016 4:10/19/2016 5: 10am Neutrophils (%) (Auto) 51.3 % 33-66 10/19/2016 4:10/19/2016 5: 10am Lymphocytes (%) (Auto) 33.3 % 23-45 10/19/2016 4:10/19/2016 5: 10am Monocytes (%) (Auto) 8.8 % 0-9.0 10/19/2016 4:10/19/2016 5:10am Eosinophils (%) (Auto) 5.9 % H 0-4 10/19/2016 4:10/19/2016 5:10am Basophils (%) (Auto) 0.6 % 0-2 10/19/2016 4:10/19/2016 5:10am Immature Granulocyte % (Auto) 0.1 % 0.0-0.5 10/19/2016 4:2016 5:10am Absolute Neutrophils (auto) 3.6 T/MM3 1.8-7.7 10/19/2016 4:2016 5:10am Absolute Lymphocytes (auto) 2.3 T/MM3 1-4.8 10/19/2016 4:2016 5:10am Absolute Monocytes (auto) 0.6 T/MM3 0-0.8 10/19/2016 4:10/19/2016 5:10am Absolute Eosinophils (auto) 0.4 T/MM3 0-0.5 10/19/2016 4:2016 5:10am Absolute Basophils (auto) 0.0 T/MM3 0-0.2 10/19/2016 4:10/19/2016 5:10am Absolute Immature Granulocyte (auto 0.01 T/MM3 0.00-0.03 10/19/2016 4: 10/19/2016 5:10am Prothromb Time International Ratio 2.61 H 0.76-1.04 10/25/2016 5:10/25/2016 5:44am THERAPUTIC RANGE=2.00-3.00 FOR ANTI-THROMBOSIS THERAPUTIC RANGE=2.50-3.50 FOR IMPLANTED VALVE Icterus Index < 2 0-7 10/25/2016 5:07am 10/25/2016 5:58am Chemistry Specimen Hemolysis < 15 0-25 10/25/2016 5:07am 10/25/2016 5 :58am 0-25: Specimen Exhibited No Hemolysis. Turbidity < 20 0-20 10/25/2016 5:07am 10/25/2016 5:58am Sodium Level 144 MEQ/L 134-144 10/25/2016 5:07am 10/25/2016 5:58am Potassium Level 4.2 MEQ/L 3.6-5 10/25/2016 5:07am 10/25/2016 5:58am Chloride Level 101 MEQ/L 98-107 10/25/2016 5:07am 10/25/2016 5:58am Carbon Dioxide Level 34 MEQ/L H 22-30 10/25/2016 5:07am 10/25/2016 5: 58am Anion Gap 9 MEQ/L 5-15 10/25/2016 5:07am 10/25/2016 5:58am Blood Urea Nitrogen 23.0 MG/DL H 7-17 10/25/2016 5:07am 10/25/2016 5: 58am Creatinine 0.8 MG/DL 0.7-1.2 10/25/2016 5:07am 10/25/2016 5:58am BUN/Creatinine Ratio 29 RATIO H 6-26 10/25/2016 5:07am 10/25/2016 5: 58am Glomerular Filtration Rate Calc 69 10/25/2016 5:07am 10/25/2016 5: 58am Glucose Level 100 MG/DL 65-110 10/25/2016 5:07am 10/25/2016 5:58am Calculated Osmolality 281 MOSM/KG H 261-280 10/25/2016 5:07am 2016 5:58am Calcium Level 8.8 MG/DL 8.4-10.2 10/25/2016 5:07am 10/25/2016 5:58am Uric Acid 9.2 MG/DL H 2.5-7.5 10/22/2016 4:04am 10/22/2016 5:34am Urine Collection Type VOIDED-NOT CC-MIDSTR 10/24/2016 8:57am 2016 9:04am Urine Color YELLOW YELLOW 10/24/2016 8:57am 10/24/2016 9:04am Urine Turbidity CLEAR CLEAR 10/24/2016 8:57am 10/24/2016 9:04am Urine Specific [place] 1.025 1.015-1.025 10/24/2016 8:57am 2016 9:04am Urine pH 5.0 5.0-8.0 10/24/2016 8:57am 10/24/2016 9:04am Urine Leukocyte Esterase NEGATIVE NEGATIVE 10/24/2016 8:57am 2016 9:04am Urine Nitrite NEGATIVE NEGATIVE 10/24/2016 8:57am 10/24/2016 9:04am Urine Protein NEGATIVE NEGATIVE 10/24/2016 8:57am 10/24/2016 9:04am Urine Glucose (UA) NEGATIVE NEGATIVE 10/24/2016 8:57am 10/24/2016 9: 04am Urine Ketones NEGATIVE NEGATIVE 10/24/2016 8:57am 10/24/2016 9:04am Urine Urobilinogen 0.2 EU/DL NORMAL 10/24/2016 8:57am 10/24/2016 9: 04am Urine Bilirubin NEGATIVE NEGATIVE 10/24/2016 8:57am 10/24/2016 9: 04am Urine Blood NEGATIVE NEGATIVE 10/24/2016 8:57am 10/24/2016 9:04am Urinalysis Comment MICROSCOPIC NOT IND. 10/24/2016 8:57am 2016 9:04am Procedures No known history of procedures. Encounters Encounter Location Arrival/Admit Date Discharge/Depart Date Attending Provider Discharged Inpatient [facility] 10/18/16 5:33pm 10/25/16 4:37pm MEG SETH MD
--- OUTSIDE RECORDS SUMMARY | 2016-11-24 01:57 | XMS REPORT | Continuity of Care Document ---
Author Author [facility] Organization [facility] Address Unknown Phone Unavailable Support Name Relationship Address Phone ELVIADALIA ROLON Caregiver [address] [place] [address] OTHER Caregiver Unknown [phone] MANFRED LEON MD Caregiver [address] [place] [address] ROX MOROCHO Next Of Kin [address] [place] [address] Insurance Providers Payer Name Policy Number Subscriber Name Relationship Medicare [id number] Lulú Sterling 18 Self [facility] [id number] Lulú Sterling 18 Self Advance Directives Directive [...] having problems relating to your surgery at [phone]. 2. Problems such as: Temp above 101.5 degrees You develop redness, excessive swelling of the incision, increasing pain or excessive foul smelling drainage. 3. If the office is closed, call [facility] at [phone] and have your Surgeon paged. Condition at time of discharge: Fair - You have pain and/or swelling in your feet, calves, or legs. - You have difficulty breathing, abnormal cough, or chest pain. During office hours, call [phone]. After hours, please call [facility] at [phone] and have the automatic die cutting machine operator page Dr. Yang or the covering surgeon. *In the event of an emergency, seek medical care at the nearest emergency room.* Condition at time of discharge: Good Plan of Care Discharge Date 11/27/14 4:45pm Disposition 04 TO [facility]AC[facility] Instructions/Education Provided [place] Congestive Heart Failure [...] F (96.8 - 99.1) Temperature (Calculated Celsius) 35.59639 degrees C (36.0 - 37.3) Pulse Rate [...] 11, 2013 9:25am LAB TEST FORM REQUEST [id number] - Lipase November 18, 2014 9:03am 114 [...] 23, 2014 10:00am 6.1 % N 0-9.0 GU-Dms-Z-Type Natriuretic Peptide November 23, 2014 10:00am 2580 [...] Has specimen been collected/obtained? Y Urine Specific [place] November 18, 2014 9:35am 1.015 - Has [...] Ssp Pneumoniae Name: LULÚ STERLING Unit #: [id number] : 1935 Sex: F Loc / Svc: MED DOS: 11/23/14 Signed Report #: [id number] DIAGNOSTIC IMAGING REPORT TYPE OF EXAM: CHEST, [...] ADDON completed 11/18/14 TX/PRO/DX INJ SAME DRUG FIELD SUPERVISOR completed 11/18/14 EMERGENCY DEPT VISIT completed 11/18/14 794684"INJECTION, ONDANSETRON HYDROCHLORIDE, PER 1 MG" completed 11/18/14 478717"INFUSION, NORMAL SALINE SOLUTION , 1000 CC" completed 11/18/14 Encounters Encounter Location Date/Time Admitted Inpatient [facility] 11/23/14 11:23am Departed Emergency Room [facility] 11/18/14 8:23am Recent Diagnosis Pneumonia involving right lung Pneumonia involving right lung Pulmonary fibrosis Acute respiratory insufficiency Hypothyroidism CHF due to valvular disease Hyperosmolality and hypernatremia Anemia
--- OUTSIDE RECORDS SUMMARY | 2016-11-24 01:59 | XMS REPORT | Continuity of Care Document ---
Author Author [facility] [employer]. Organization [facility] Address Unknown Phone Unavailable Allergies [...] 784.7 EPISTAXIS 08/10/2016 ALICIA SPICER P Z79.01 PENITENTIARY (CURRENT) USE OF ANTICOAGULANTS ALICIA SPICER 10/11/2016 [...] UNSPECIFIED SITE 10/11/2016 Je Wilburn MD Z79.01 PENITENTIARY (CURRENT) USE OF ANTICOAGULANTS 10/11/2016 Je Wilburn MD Z87.891 PERSONAL HISTORY OF NICOTINE DEPENDENCE 10/11/2016 Je Wilburn MD Z90.710 ACQUIRED ABSENCE OF BOTH CERVIX AND UTERUS 10/11/2016 Je Wilburn MD Z95.2 PRESENCE OF PROSTHETIC HEART VALVE 10/11/2016 Je Wilburn MD Z96.89 PRESENCE OF OTHER SPECIFIED FUNCTIONAL IMPLANTS Procedures Code Description Performed By Performed On 81.88 REVERSE TOTAL SHOULDER REPLACEMENT Morteza Cueva MD 01/04/2013 38552 PROTHROMBIN TIME KELL MYERS MD 01/19/2013 21.00 CONTROL OF EPISTAXIS NOS 03/03/2015 Encounters ACCT No. Visit Date/Time Discharge Status Pt. Type Provider Facility Loc./Unit Complaint [id number] 01/19/2013 14:46:00 01/19/2013 14:46:00 DIS Outpatient KELL MYERS MD [facility]
--- OUTSIDE RECORDS SUMMARY | 2016-11-24 02:00 | XMS REPORT | Continuity of Care Document ---
Author Author [facility] Organization [facility] Address Unknown Phone Unavailable Support Name Relationship Address Phone OTHER Caregiver Unknown [phone] MANFRED LEON MD Caregiver [address] [place] [address] [place] [address] ROX MOROCHO Next Of Kin [address] [place] [address] Insurance Providers Payer Name Policy Number Subscriber Name Relationship Medicare [id number] Lulú Sterling 18 Self [facility] [id number] Lulú Sterling 20 Self Advance Directives Directive [...] F (96.8 - 99.1) Temperature (Calculated Celsius) 36.36645 degrees C (36.0 - 37.3) Pulse Rate [...] 11, 2013 9:25am LAB TEST FORM REQUEST [id number] - Lipase November 18, 2014 9:03am 114 [...] Has specimen been collected/obtained? Y Urine Specific [place] November 18, 2014 9:35am 1.015 - Has [...] N 4.5-11.0 Name: LULÚ STERLING Unit #: [id number] : 1935 Sex: F Loc / Svc: ED DOS: 11/18/14 Signed Report #: [id number] DIAGNOSTIC IMAGING REPORT TYPE OF EXAM: CT [...] Encounters Encounter Location Date/Time Departed Emergency Room [facility] 11/18/14 8:23am Recent Diagnosis
--- NOTE | 2016-11-24 02:02 | ERPDOC ---
Departure Disposition Decision Date: Nov 24, 2016 Disposition Decision Time: 04:01 Disposition: 01 DISCHARGED HOME, SELF-CARE Impression Impression Impression: Primary Impression: Viral gastroenteritis Additional Impression: Exacerbation of chronic back pain Severity: Severe Condition: Improved Seen By: Physician only Referrals: (Family) Patient Instructions: Back Pain (ED), Gastroenteritis (ED) Problems/Meds/Labs Reviewed?: Yes Medications reviewed and manag: Yes Additional Instructions: Replace your fentanyl patch this morning Zofran 4 mg up to 4 times daily as needed for nausea or vomiting Call your physician later today if back pain is not controlled Follow up care ordered?: Yes Mental Status: Alert Scripts Ondansetron (Zofran Odt) 4 Mg Tab.rapdis 4 MG PO Q6HR, #10 TAB Oral disintegrating tablet Prov: JEAN CARLOS MEDINA MD 11/24/16 HPI - Abdominal Pain General Stated Complaint: ABD PAIN,BACK PAIN Time Seen by Provider: 01:48 Source: patient History/Exam Limitations: no limitations, clinical condition HPI - Abdominal Pain Initial Comments At 0030 this morning patient awakened with severe crampy sharp abdominal pain radiating from the bilateral flank up under the ribs into the epigastric region. At that time the patient had severe exacerbation of her chronic back pain as well. Patient multiple episodes of vomiting, and EMS was notified. EMS found the patient diaphoretic, actively vomiting, and administered one oral dose of Zofran, then giving fentanyl and Zofran IV to help settle the patient's symptoms. Patient has severe chronic back pain, and was recently switched from hydrocodone to fentanyl patches, as well as having an electrical stimulator placed only on the back with post subdermal placement later. Occurred At: home Onset: Rapid Duration: 1-3 hrs Quality: aching, cramping, sharpness Location: RUQ, LUQ, epigastric Radiation: back Associated Symptoms: nausea/vomiting, DENIES: back pain, chest pain, diaphoresis, fatigue, fever/chills, headache, heartburn, rash, shortness of breath, swelling/mass in abdomen, syncope, weakness Hx of Similar Symptoms: No Allergies: Coded Allergies: Thiazides (Verified Allergy, Unknown, RASH, 11/24/16) amiodarone (Verified Allergy, Unknown, DYSPNEA, LUNG DAMAGE, 11/24/16) hydroxychloroquine (Verified Allergy, Unknown, 11/24/16) nifedipine (Verified Allergy, Unknown, DROPPED BLOOD PRESSURE TOO FAST, 07/31) tramadol (Verified Allergy, Unknown, 11/24/16) codeine (Verified Adverse Reaction, Unknown, NAUSEA, 11/24/16) Past History Patient Surgical History Appendectomy Cholecystectomy Colonoscopy pacemaker initially underwent 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) cardiac cath hysterectomy kypphoplasty multiple back surgeries RCR hip (rt) knee shoulder Past Medical History Metabolic: hypercholesterolemia, hypertension, hypothyroidism Cardiac: A-fib, CHF, MT Respiratory: COPD, other Musculoskeletal: back pain, lupus, osteoarthritis Psychological: dementia, depression Surgical History General: appendix, colonoscopy, gallbladder Cardiac: cardiac cath, pacemaker, valve replacement Reproductive/: hysterectomy Joint: hip, knee, shoulder Vaccines Hx Influenza Vaccination: Yes (05/30) Hx Pneumococcal Vaccination: Yes (May 2016) Hx Tetanus Diptheria: No Hx Tetanus, Diptheria, Pertuss: No Social History Smoking Status: Never smoker Does patient use chewing tobac: No Second Hand Exposure: No Substance Use Type: does not use Alcohol Intake: none Marital Status: Review of Systems Constitutional Constitutional: DENIES: appetite decrease, appetite increase, chills, dizziness , fever, weakness ENMT Ears: DENIES: pain Hearing: DENIES: hearing loss, tinnitus Balance: DENIES: vertigo Mouth/Throat: DENIES: change in swallowing, change in voice, hoarsness, painful swallowing, sore throat Cardiovascular Cardiac: DENIES: chest pain, dyspnea on exertion Rhythm/Rate: DENIES: irregular beat, palpitations, tachycardia Vascular: DENIES: pedal edema Pulmonary Respiratory: DENIES: cough, dyspnea, pleuritic chest pain GI Upper Abdomen: nausea, pain, vomiting, DENIES: dysphagia, food intolerances, heartburn/indigestion, hematemesis Lower Abdomen: DENIES: blood in stool, brendon-colored stools, constipation, diarrhea, melena, pain, painful BM General: DENIES: burning, dysuria, frequency, pain, urgency Musculoskeletal General: DENIES: cramps, joint pain, joint swelling, pain, weakness Integumentary Skin: DENIES: rash, sores Neurological General: DENIES: headache, numbness, tingling, vertigo, weakness Psychiatric Psychiatric: DENIES: anxiety, depression, nervousness Physical Exam General General Nourishment: well nourished, well developed, appears stated age General Body Habitus: disheveled Vitals and Pain First Documented Vital Signs Date Time Temp Pulse Resp B/P Pulse Ox O2 Delivery O2 Flow Rate FiO2 11/24/16 01:47 98.2 73 20 193/88 92 Nasal Cannula 3.00 Weight: Kilograms: Height (feet): 5 Height (inches): 7.00 Triage Pain Scale: RN VS reviewed by Provider: Yes Normal Exams: Head: Normocephalic w/o trauma Eyes: Pupils are PERRLA w/ EOMI, No scleral icterus, irritation, or foreign bodies noted ENMT: No facial trauma, nasal exudates, pharyngeal erythema, or exudates are noted Neck: Full range of motion, without adenopathy, JVD, bruits or thyromegaly Chest/Resp: Clear all neely, with good airflow, and symmetry bilaterally CV: Regular rate and rhythm, without murmur or gallop, Pulses 2+ all extremities, capillary refill, <2 seconds all ext., no pedal edema noted Lymphatic: No lymphadenopathy, or lymphedema noted Musculoskeletal: No tenderness, or deformity noted, good range of motion, all extremities Integumentary: No rashes, hives, or bruising noted, hair and nails, without abnormality Neurologic: Patient is alert, and oriented, cranial nerves, motor/sensory/ cerebellar, exams w/o gross deficits, to observation Psychiatric: Patient exhibits, appropriate attention, emotion and affect Abdomen (brief) Abdominal Brief: FOUND: soft, tender (moderate diffuse upper abdominal tenderness, epigastric primarily with radiation into the right upper and left l upper quadrants), NOT FOUND: bowel normo active x4 (severely diminished), distended, hepatosplenomegaly, pulsatile mass Progress Results/Orders Orders Procedure Category Date Status Time Hydromorphone PHA 11/24/16 Complete (Dilaudid) 02:15 Prochlorperazine PHA 11/24/16 Complete (Compazine) 02:45 Cbc W/Auto LAB 11/24/16 Complete Diff-Reflex Manual Cmp - Comprehensive LAB 11/24/16 Complete Metabolic Lipase LAB 11/24/[address] Abd/Pelvis CT 11/24/16 Logged W/Contrast Only Iohexol (Omnipaque) PHA 11/24/16 Complete 03:15 Normal Saline (Ns) PHA 11/24/16 Complete 03:15 Saline Flush (Iv PHA 11/24/16 Complete Flush) 03:15 Lab Results Laboratory Tests Test 11/24/16 02:51 White Blood Count 9.2T/MM3 Red Blood Count 4.43M/MM3 Hemoglobin 12.8GM/DL Hematocrit 41.4% Mean Corpuscular Volume 93.5UM3 Mean Corpuscular Hemoglobin 28.9UUG Mean Corpuscular Hemoglobin Concent 30.9GM/DL RDW Standard Deviation 46.1FL Platelet Count 479T/MM3 Mean Platelet Volume 8.6UM3 Immature Granulocyte % (Auto) 0.3% Neutrophils (%) (Auto) 72.6% Lymphocytes (%) (Auto) 16.3% Monocytes (%) (Auto) 4.5% Eosinophils (%) (Auto) 5.6% Basophils (%) (Auto) 0.7% Absolute Immature Granulocyte (auto 0.03T/MM3 Absolute Neutrophils (auto) 6.7T/MM3 Absolute Lymphocytes (auto) 1.5T/MM3 Absolute Monocytes (auto) 0.4T/MM3 Absolute Eosinophils (auto) 0.5T/MM3 Absolute Basophils (auto) 0.1T/MM3 Turbidity < 20 Sodium Level 149MEQ/L Potassium Level 3.6MEQ/L Chloride Level 105MEQ/L Carbon Dioxide Level 28MEQ/L Anion Gap 16MEQ/L Blood Urea Nitrogen 12.0MG/DL Creatinine 0.9MG/DL Glomerular Filtration Rate Calc 60 BUN/Creatinine Ratio 13RATIO Glucose Level 173MG/DL Calculated Osmolality 290MOSM/KG Calcium Level 9.7MG/DL Total Bilirubin 0.60MG/DL Icterus Index < 2 Aspartate Amino Transf (AST/SGOT) 37U/L Alanine Aminotransferase (ALT/SGPT) 32U/L Alkaline Phosphatase 97U/L Total Protein 8.2G/DL Albumin 4.1G/DL Globulin 4.1G/DL Albumin/Globulin Ratio 1.0RATIO Lipase 255U/L Chemistry Specimen Hemolysis < 15 Medications Current ED Medications Hydromorphone HCl (Dilaudid) 1 mg O ONCE IV Last administered on 11/24/16t 02: 46; Start 11/24/16 at 02:15; Stop 11/24/16 at 02:16; Status DC Prochlorperazine Edisylate (Compazine) 10 mg O ONCE IV Last administered on t 02:46; Start 11/24/16 at 02:45; Stop 11/24/16 at 02:46; Status DC Iohexol 1 bottle 1 bottle STK-MED ONCE .ROUTE ; Start 11/24/16 at 03:15; Stop at 03:16; Status DC Sodium Chloride (NS) 100 ml @ As Directed STK-MED ONCE .ROUTE ; Start 11/24/16 at 03:15; Stop 11/24/16 at 03:16; Status DC Sodium Chloride (Iv Flush) 10 ml STK-MED ONCE .ROUTE ; Start 11/24/16 at 03:15; Stop 11/24/16 at 03:16; Status DC Progress Progress Patient given Dilaudid 1 mg IV for pain CBC - n CMP/L -n CT abdomen - normal, mild diverticulosis without diverticulitis. Nausea resolved, pain still present. Patient given additional 1 mg Dilaudid IV, and dismissed with Zofran pack and prescription as needed for nausea, and patient is to follow-up with her outpatient physician for ongoing back issues JEAN CARLOS MEDINA MD Nov 24, 2016 02:02
[2016-11-24] MEDS ORDERED: HYDROMORPHONE 2mg/ml INJECTION IV ONE ×2 (02:15→04:00)
[2016-11-24] MEDS ORDERED: PROCHLORPERAZINE 10mg/2ml INJECTION IV ONE (02:45)
[2016-11-24 02:59] LABS: BASOPHILS # (AUTO) 0.1 T/MM3 (0-0.2); BASOPHILS % (AUTO) 0.7 % (0-2); EOSINOPHILS # (AUTO) 0.5 T/MM3 (0-0.5); EOSINOPHILS % (AUTO) 5.6 % (0-4); HCT - HEMATOCRIT 41.4 % (36-46); HGB - HEMOGLOBIN 12.8 GM/DL (12-16); IMMATURE GRANULOCYTE # (AUTO) 0.03 T/MM3 (0.00-0.03); IMMATURE GRANULOCYTE % (AUTO) 0.3 % (0.0-0.5); LYMPHOCYTES # (AUTO) 1.5 T/MM3 (1-4.8); LYMPHOCYTES % (AUTO) 16.3 % (23-45); MEAN CORPUSCULAR HGB 28.9 UUG (26-34); MEAN CORPUSCULAR HGB CONC(MCHC 30.9 GM/DL (31-37); MEAN CORPUSCULAR VOLUME 93.5 UM3 (80-100); MEAN PLATELET VOLUME 8.6 UM3 (9.4-12.4); MONOCYTES # (AUTO) 0.4 T/MM3 (0-0.8); MONOCYTES % (AUTO) 4.5 % (0-9.0); NEUTROPHILS #(AUTO)-ABSOLUTE 6.7 T/MM3 (1.8-7.7); NEUTROPHILS % (AUTO) 72.6 % (33-66); RED BLOOD COUNT 4.43 M/MM3 (4.00-5.20); WBC - WHITE BLOOD COUNT 9.2 T/MM3 (4.5-11.0)
[2016-11-24 03:07] LABS: ALBUMIN 4.1 G/DL (3.5-5.0); ALKALINE PHOSPHATASE 97 U/L (38-126); ALT (SGPT) 32 U/L (9-52); ANION GAP 16 MEQ/L (5-15); AST (SGOT) 37 U/L (14-36); BUN/CREATININE RATIO 13 RATIO (6-26); CALCIUM 9.7 MG/DL (8.4-10.2); CHLORIDE 105 MEQ/L (98-107); CO2 - CARBON DIOXIDE 28 MEQ/L (22-30); CREATININE 0.9 MG/DL (0.7-1.2); GLOMERULAR FILTRATION RATE 60; GLUCOSE 173 MG/DL (65-110); LIPASE 255 U/L (23-300); POTASSIUM 3.6 MEQ/L (3.6-5); SODIUM 149 MEQ/L (134-144); TOTAL PROTEIN 8.2 G/DL (6.3-8.2)
[2016-11-24] MEDS ORDERED: DRON400T2 PO (03:09)
[2016-11-24] MEDS ORDERED: MIRT30TA PO (03:09)
[2016-11-24] MEDS ORDERED: PRED5TAB PO (03:09)
[2016-11-24] MEDS ORDERED: ESOM40CA PO (03:09)
[2016-11-24] MEDS ORDERED: FURO-153 PO (03:09)
[2016-11-24] MEDS ORDERED: DILT240C95 PO (03:09)
[2016-11-24] MEDS ORDERED: POTA-81 PO (03:09)
[2016-11-24] MEDS ORDERED: SALINE FLUSH 10ml SYRINGE ONE (03:15)
[2016-11-24] MEDS ORDERED: NORMAL SALINE 100 ML ONE (03:15)
[2016-11-24] MEDS ORDERED: IOHEXOL 300 MG/ML 100ml INJECTION ONE (03:15)
--- NOTE | 2016-11-24 03:17 | NUR ---
CT PT LEAVES VIA CART WITH IMAGING STAFF AT THIS TIME.
--- NOTE | 2016-11-24 03:39 | NUR ---
RETURN PT RETURNS TO ROOM.
[2016-11-24] MEDS ORDERED: ONDA4TAB7 PO (04:03)
[2016-11-24] MEDS ORDERED: ORPHENADRINE 60mg/2ml INJECTION IV ONE (04:30)
--- NOTE | 2016-11-24 04:45 | NUR ---
O2 FOLLOWING ADMINISTRATION OF DIALUDID AND NORFLEX IV, PT O2 SATS DROP TO 55%, PT REMAINS RESPONSIVE AND IS PLACED ON 15L NRB MASK AT THIS TIME.
--- NOTE | 2016-11-24 04:50 | NUR ---
PROVIDER DR MEDINA AT BEDSIDE TO ASSESS PT AT THIS TIME.
--- NOTE | 2016-11-24 04:55 | NUR ---
RT IN ROOM TO ADMINISTER NEBULIZER TREATMENTS AT THIS TIME.
[2016-11-24] MEDS ORDERED: ALBUTEROL/IPRATROPIUM INHAL. 2.5mg-0.5mg/3ml Neb. AEROSOL ONE (05:00)
--- OUTSIDE RECORDS SUMMARY | 2016-11-24 05:07 | XMS REPORT | Continuity of Care Document ---
Author Author [facility] Organization [facility] Address Unknown Phone Unavailable Support Name Relationship Address Phone ELVIADALIA ROLON Caregiver [address] [place] [address] OTHER Caregiver Unknown [phone] MANFRED LEON MD Caregiver [address] [address] [address] [place] Next Of Kin [address] [place] [address] Insurance Providers Payer Name Policy Number Subscriber Name Relationship Medicare [id number] Lulú Sterling 20 Self [facility] [id number] Lulú Sterling 18 Self Advance Directives Directive [...] having problems relating to your surgery at [phone]. 2. Problems such as: Temp above 101.5 degrees You develop redness, excessive swelling of the incision, increasing pain or excessive foul smelling drainage. 3. If the office is closed, call [facility] at [phone] and have your Surgeon paged. Condition at time of discharge: Fair - You have pain and/or swelling in your feet, calves, or legs. - You have difficulty breathing, abnormal cough, or chest pain. During office hours, call [phone]. After hours, please call [facility] at [phone] and have the continuous miner operator page Dr. Yang or the covering surgeon. *In the event of an emergency, seek medical care at the nearest emergency room.* Condition at time of discharge: Good Plan of Care Discharge Date 11/27/14 4:45pm Disposition 04 TO [facility] HOME/FACILITY Instructions/Education Provided NM Congestive Heart Failure [...] F (96.8 - 99.1) Temperature (Calculated Celsius) 35.48061 degrees C (36.0 - 37.3) Pulse Rate [...] 11, 2013 9:25am LAB TEST FORM REQUEST [id number] - Lipase November 18, 2014 9:03am 114 [...] 23, 2014 10:00am 6.1 % N 0-9.0 [id number] Natriuretic Peptide November 23, 2014 10:00am 2580 [...] Has specimen been collected/obtained? Y Urine Specific [place] November 18, 2014 9:35am 1.015 - Has [...] Ssp Pneumoniae Name: LULÚ STERLING Unit #: [id number] : 1935 Sex: F Loc / Svc: MED DOS: 11/23/14 Signed Report #: [id number] DIAGNOSTIC IMAGING REPORT TYPE OF EXAM: CHEST, [...] ADDON completed 11/18/14 TX/PRO/DX INJ SAME DRUG WATER SANDER completed 11/18/14 EMERGENCY DEPT VISIT completed 11/18/14 430078"INJECTION, ONDANSETRON HYDROCHLORIDE, PER 1 MG" completed 11/18/14 457015"INFUSION, NORMAL SALINE SOLUTION , 1000 CC" completed 11/18/14 Encounters Encounter Location Date/Time Admitted Inpatient [facility] 11/23/14 11:23am Departed Emergency Room [facility] 11/18/14 8:23am Recent Diagnosis Pneumonia involving right lung Pneumonia involving right lung Pulmonary fibrosis Acute respiratory insufficiency Hypothyroidism CHF due to valvular disease Hyperosmolality and hypernatremia Anemia
--- OUTSIDE RECORDS SUMMARY | 2016-11-24 05:09 | XMS REPORT | Continuity of Care Document ---
Author Author [facility] [employer] Organization [facility] Address Unknown Phone Unavailable Allergies Active Description [...] TOTAL SHOULDER REPLACEMENT Morteza Cueva MD 01/04/2013 [id number] PROTHROMBIN TIME KELL MYERS MD 01/19/2013 21.00 CONTROL OF EPISTAXIS NOS 03/03/2015 Encounters ACCT No. Visit Date/Time Discharge Status Pt. Type Provider Facility Loc./Unit Complaint [id number] 01/19/2013 14:46:00 01/19/2013 14:46:00 DIS Outpatient KELL MYERS MD [facility]
--- OUTSIDE RECORDS SUMMARY | 2016-11-24 05:10 | XMS REPORT | Continuity of Care Document ---
Author Author [facility] Organization [facility] Address Unknown Phone Unavailable Support Name Relationship Address Phone OTHER Caregiver Unknown [phone] MANFRED LEON MD Caregiver [address] [place] [address] [place] [address] [address] [place] Next Of Kin [address] [place] [address] Insurance Providers Payer Name Policy Number Subscriber Name Relationship Medicare [id number] Lulú Sterling 20 Self [facility] [id number] Lulú Sterling 20 Self Advance Directives Directive [...] F (96.8 - 99.1) Temperature (Calculated Celsius) 36.36210 degrees C (36.0 - 37.3) Pulse Rate [...] 11, 2013 9:25am LAB TEST FORM REQUEST [id number] - Lipase November 18, 2014 9:03am 114 [...] Has specimen been collected/obtained? Y Urine Specific [place] November 18, 2014 9:35am 1.015 - Has [...] N 4.5-11.0 Name: LULÚ STERLING Unit #: [id number] : 1935 Sex: F Loc / Svc: ED DOS: 11/18/14 Signed Report #: [id number] DIAGNOSTIC IMAGING REPORT TYPE OF EXAM: CT [...] Encounters Encounter Location Date/Time Departed Emergency Room [facility] 11/18/14 8:23am Recent Diagnosis
--- NOTE | 2016-11-24 05:13 | NUR ---
REPORT GIVEN TO RODRÍGUEZ KOLB AT THIS TIME.
--- NOTE | 2016-11-24 05:27 | HPPDOC ---
PANCHO GARCIA MD 11/24/16 0526: HPI - Adult Date DATE: 11/24/16 TIME: 05:21 General Chief Complaint: back pain History of Present Illness 81 yo F with PMH of COPD, CHF and chronic back pain presented to the ED with severe crampy sharp abdominal pain radiating from the bilateral flank up under the ribs into the epigastric region that awoke her from sleep at 12:30. At that time the patient had severe exacerbation of her chronic back pain as well. Patient multiple episodes of vomiting, and EMS was notified. EMS found the patient diaphoretic, actively vomiting, and administered one oral dose of Zofran , then giving fentanyl and Zofran IV to help settle the patient's symptoms. Patient has severe chronic back pain, and was recently switched from hydrocodone to fentanyl patches, as well as having an electrical stimulator placed on her lower back on Tuesday by Dr. Salgado in [place]. Patient tolerated the procedure well, and reports she felt the stimulator was working. She describes her pain now as a severe stabbing pain in the middle of her upper back , in between her shoulder blades. She has never had pain like this before. Lipase was [address] abd was negative for acute findings. She reports that nothing has really helped her pain. She was admitted for pain relief and further evaluation and treatment. Past Medical History Past Medical History CAD Chronic back pain oxygen dependent COPD CHF Surgical History Patient's Surgical History: Appendectomy Cholecystectomy Colonoscopy pacemaker initially underwent 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 11/24/16 Potassium Chloride (Potassium Chloride) 20 Meq Tablet.er, 20 MEQ PO BIDWM, TAB Take 1 tablet, by mouth, two times a day with meals. 11/24/16 Furosemide (Lasix) 40 Mg Tablet, 1 TAB PO BID, TAB 11/24/16 Diltiazem HCl (Cardizem Cd) 240 Mg Cap.er.24h, 1 CAP PO DAILY, #30 CAP 5 Refills 11/24/16 Levothyroxine Sodium (Levothyroxine Sodium) 88 Mcg Tablet, 88 MCG PO ACB, TAB Once daily before breakfast. 10/18/16 Carvedilol (Carvedilol) 12.5 Mg Tablet, 1 TAB PO BIDWM, TAB BEST WITH FOOD. 10/18/16 Lorazepam (Lorazepam) 0.5 Mg Tablet, 1 TAB PO BID Y for ANXIETY 06/01/13 Duloxetine Hcl (Cymbalta) 60 Mg Capsule.dr, 1 TAB PO DAILY 06/01/13 Discontinued Reported Medications Esomeprazole Magnesium (Nexium) 40 Mg Capsule.dr, 1 CAP PO DAILY, CAP 11/24/16 Prednisone (Prednisone) 5 Mg Tablet, 5 MG PO WB, TAB Take 1 tablet, by mouth, once a day with breakfast. 11/24/16 Dronedarone HCl (Multaq) 400 Mg Tablet, 1 TAB PO DAILY, #180 TAB 1 Refill 11/24/16 Alendronate Sodium (Fosamax) 70 Mg Tablet, 1 TAB PO WEEKLY 06/01/13 Discontinued Scripts Ondansetron (Zofran Odt) 4 Mg Tab.rapdis, 4 MG PO Q6HR, #10 TAB Oral disintegrating tablet Prov:JEAN CARLOS MEDINA MD 11/24/16 Hydrocodone/Acetaminophen (Hydrocodon-Acetaminoph 7.5-325) 7.5-325 Tablet, 1 TAB PO Q4HR Y for PAIN for 30 Days Prov:SABA STEVEN APRN 10/25/16 Allergies: Coded Allergies: Thiazides (Verified Allergy, Unknown, RASH, 11/24/16) amiodarone (Verified Allergy, Unknown, DYSPNEA, LUNG DAMAGE, 11/24/16) hydroxychloroquine (Verified Allergy, Unknown, 11/24/16) nifedipine (Verified Allergy, Unknown, DROPPED BLOOD PRESSURE TOO FAST, 07/31) tramadol (Verified Allergy, Unknown, 11/24/16) codeine (Verified Adverse Reaction, Unknown, NAUSEA, 11/24/16) Family History Family History: Both parents of [place]. Heart disease on both sides of the family. 1 son had diabetes () 1 son with HTN Social History Smoking Status: Never smoker Does patient use chewing tobac: No Second Hand Exposure: No Substance Use Type: does not use Alcohol Intake: none Marital Status: Review of Systems Constitutional: REPORTS: see HPI Eyes General: DENIES: burning, dryness, erythema, exudate, foreign body sensation, itching, other, pain, photophobia, see HPI, subconjunctival bleed, watering ENMT Ears: DENIES: drainage, erythema, foreign body, other, pain, see HPI Balance: DENIES: ataxia, falling to one side, other, see HPI, vertigo Cardiovascular DENIES: chest pain, dyspnea on exertion, hx of rheumatic fever, murmur, orthopnea, other, paroxysmal nocturnal dysp, see HPI Rhythm/Rate: DENIES: bradycardia, irregular beat, other, palpitations, see HPI , tachycardia Pulmonary Respiratory: DENIES: cough, dyspnea, exposure to TB, hyperventilation, other, pleuritic chest pain, pneumonia hx, see HPI, sputum, tachypnea GI Upper Abdomen: see HPI Lower Abdomen: see HPI Musculoskeletal General: see HPI Lumbar: see HPI Integumentary Skin: DENIES: color change, infections, itching, lesion, mole, other, rash, see HPI, sores, tumor, ulcers Neurological General: DENIES: aphasia, ataxia, blackouts, blindness, change in strength, dysarthria, dysesthesia, fainting, headache, memory disturbances, numbness, other, paralysis/paresis, poor coordination, see HPI, seizures, syncope, tics, tingling, tremor, vertigo, weakness Psychiatric Psychiatric: anxiety, DENIES: depression, emotional instability, hallucinations , irritability, memory impairment, nervousness, other, see HPI, suicidal ideation/attempt Endocrine DENIES: heat/cold intolerance, other, polydipsia, polyphagia, see HPI Hematologic/Lymphatic DENIES: anemia, bleeding gums, easy bruising, frequent nosebleeds, lymphadenopathy, other, see HPI Physical Exam General General Nourishment: well nourished, well developed Vital Signs Vital Signs Date Time Temp Pulse Resp B/P Pulse Ox O2 Delivery O2 Flow Rate FiO2 11/24/16 05:01 12 11/24/16 04:52 62 160/69 92 Non-Rebreather 15.00 11/24/16 01:47 98.2 Height (Feet): 5 Height (Inches): 6.00 Respiratory Brief: FOUND: clear all neely, equal bilaterally Cardiovascular (brief) Cardiac Brief: FOUND: regular rate, regular rhythm Abdomen (brief) Abdominal Brief: FOUND: BS normo active x4, soft Musculoskeletal (brief) Musculoskeletal Brief: FOUND: spasm Neurologic (brief) Neurological Brief: FOUND: cranial 2-12 intact Neurologic RN Documented GCS Eye Opening: Verbal: Motor: Total: Psychiatric (brief) FOUND: alert, oriented Laboratory Laboratory Tests Test 11/24/16 02:51 White Blood Count 9.2T/MM3 Red Blood Count 4.43M/MM3 Hemoglobin 12.8GM/DL Hematocrit 41.4% Mean Corpuscular Volume 93.5UM3 Mean Corpuscular Hemoglobin 28.9UUG Mean Corpuscular Hemoglobin Concent 30.9GM/DL RDW Standard Deviation 46.1FL Platelet Count 479T/MM3 Mean Platelet Volume 8.6UM3 Immature Granulocyte % (Auto) 0.3% Neutrophils (%) (Auto) 72.6% Lymphocytes (%) (Auto) 16.3% Monocytes (%) (Auto) 4.5% Eosinophils (%) (Auto) 5.6% Basophils (%) (Auto) 0.7% Absolute Immature Granulocyte (auto 0.03T/MM3 Absolute Neutrophils (auto) 6.7T/MM3 Absolute Lymphocytes (auto) 1.5T/MM3 Absolute Monocytes (auto) 0.4T/MM3 Absolute Eosinophils (auto) 0.5T/MM3 Absolute Basophils (auto) 0.1T/MM3 Turbidity < 20 Sodium Level 149MEQ/L Potassium Level 3.6MEQ/L Chloride Level 105MEQ/L Carbon Dioxide Level 28MEQ/L Anion Gap 16MEQ/L Blood Urea Nitrogen 12.0MG/DL Creatinine 0.9MG/DL Glomerular Filtration Rate Calc 60 BUN/Creatinine Ratio 13RATIO Glucose Level 173MG/DL Calculated Osmolality 290MOSM/KG Calcium Level 9.7MG/DL Total Bilirubin 0.60MG/DL Icterus Index < 2 Aspartate Amino Transf (AST/SGOT) 37U/L Alanine Aminotransferase (ALT/SGPT) 32U/L Alkaline Phosphatase 97U/L Total Protein 8.2G/DL Albumin 4.1G/DL Globulin 4.1G/DL Albumin/Globulin Ratio 1.0RATIO Lipase 255U/L Chemistry Specimen Hemolysis < 15 Assessment & Plan Problems: (1) Exacerbation of chronic back pain Status: Acute Assessment & Plan: patient given diluadid and norflex in the ED. She still appears to be in distress due to pain. Patient admitted, given supportive care with dilaudid, norco and baclofen. PT/OT eval and treat in AM. Consider calling Dr. Salgado in [place] regarding her back stimulator as she may need to have this adjusted. (2) Viral gastroenteritis Status: Acute Assessment & Plan: labs WNL. Symptoms improved with zofran, continue zofran PRN and supportive care. (3) Weakness Status: Acute Assessment & Plan: PT/OT eval and treat. DVT Prophylaxis: SCD'S Code Status Full Code Hospital Course Summary Disclaimer The hospital course summary below is not to be considered part of the above Progress Note. TE MAHER MD 11/24/16 0813: Past Medical History Current Medications Home Meds Active Scripts Fentanyl (Fentanyl 12 mcg/hr) 1 Each Patch.td72, 1 PATCH TOP Q72H for 30 Days, PATCH Prov:SABA STEVEN APRN 10/25/16 Warfarin Sodium (Coumadin) 1 Mg Tablet, 2 TAB PO DAILY, #30 TAB 5 Refills Prov:SABA STEVEN APRN 10/25/16 Reported Medications Mirtazapine (Remeron) 30 Mg Tablet, 30 MG PO HS, TAB Take 1 tablet, by mouth, one time a day (at bedtime). 11/24/16 Potassium Chloride (Potassium Chloride) 20 Meq Tablet.er, 20 MEQ PO BIDWM, TAB Take 1 tablet, by mouth, two times a day with meals. 11/24/16 Furosemide (Lasix) 40 Mg Tablet, 1 TAB PO BID, TAB 11/24/16 Diltiazem HCl (Cardizem Cd) 240 Mg Cap.er.24h, 1 CAP PO DAILY, #30 CAP 5 Refills 11/24/16 Levothyroxine Sodium (Levothyroxine Sodium) 88 Mcg Tablet, 88 MCG PO ACB, TAB Once daily before breakfast. 10/18/16 Carvedilol (Carvedilol) 12.5 Mg Tablet, 1 TAB PO BIDWM, TAB BEST WITH FOOD. 10/18/16 Lorazepam (Lorazepam) 0.5 Mg Tablet, 1 TAB PO BID Y for ANXIETY 06/01/13 Duloxetine Hcl (Cymbalta) 60 Mg Capsule.dr, 1 TAB PO DAILY 06/01/13 Discontinued Reported Medications Esomeprazole Magnesium (Nexium) 40 Mg Capsule.dr, 1 CAP PO DAILY, CAP 11/24/16 Prednisone (Prednisone) 5 Mg Tablet, 5 MG PO WB, TAB Take 1 tablet, by mouth, once a day with breakfast. 11/24/16 Dronedarone HCl (Multaq) 400 Mg Tablet, 1 TAB PO DAILY, #180 TAB 1 Refill 11/24/16 Alendronate Sodium (Fosamax) 70 Mg Tablet, 1 TAB PO WEEKLY 06/01/13 Discontinued Scripts Ondansetron (Zofran Odt) 4 Mg Tab.rapdis, 4 MG PO Q6HR, #10 TAB Oral disintegrating tablet Prov:JEAN CARLOS MEDINA MD 11/24/16 Hydrocodone/Acetaminophen (Hydrocodon-Acetaminoph 7.5-325) 7.5-325 Tablet, 1 TAB PO Q4HR Y for PAIN for 30 Days Prov:SABA STEVEN APRN 10/25/16 Allergies: Coded Allergies: Thiazides (Verified Allergy, Unknown, RASH, 11/24/16) amiodarone (Verified Allergy, Unknown, DYSPNEA, LUNG DAMAGE, 11/24/16) hydroxychloroquine (Verified Allergy, Unknown, 11/24/16) nifedipine (Verified Allergy, Unknown, DROPPED BLOOD PRESSURE TOO FAST, 07/31) tramadol (Verified Allergy, Unknown, 11/24/16) codeine (Verified Adverse Reaction, Unknown, NAUSEA, 11/24/16) Assessment & Plan Assessment 11/24/2016-Dr. Maher I have reviewed the H&P above by Dr. Garcia. I've examined the patient independently. I agree with H&P above. Please see my additions below. Chief complaint: Mid back and epigastric pain with mild difficulty walking and nausea and vomiting was her initial complaint, now she is not able to move her legs History of present illness: Patient is very pleasant 81-year-old female who has history of a mechanical aortic valve for which she is chronically anti-coagulated. She sees Dr. Segal for cardiology care. She had a nerve stimulator placed in her back by Dr. Salgado in [place] on November 22. It sounds like she was bridged with Lovenox before the procedure and start his Lovenox again last night along with Coumadin. After her Lovenox last night she went to sleep and then woke up with severe back pain radiating to the epigastrium with associated nausea and vomiting. She presented to the emergency room and had some mild difficulty walking. She is chronically on oxygen for COPD and was given Dilaudid, Norflex and Compazine in the emergency room. CT abdomen and pelvis did not show any acute abdominal findings. She was transferred to the floor. She was later needing 15 L of oxygen per nonrebreather mask. When I arrived this morning I came to see her immediately because of her high oxygen needs. When I went into her room she was alert and talking and down to 10 L per high flow nasal cannula. Her nurse stated that for the last 30 minutes or so she was not able to move her legs and could only minimally move her left toes. She had numbness in both legs. These symptoms were all new overnight. Past medical history, family history, social history, review of systems reviewed. Physical exam Temp is 97.4. Pulse 63. Respirations 24. Blood pressure 158/68. O2 sat 94% on 10 L high flow nasal cannula Gen. this is a well-developed well-nourished very pleasant female who is actually in no distress. She complains of some pain in her mid back. She is alert and oriented 3 HEENT-sclera anicteric, oropharynx is moist NECK-supple CV-regular rate and rhythm with a prosthetic click CHEST-clear to auscultation bilaterally ABD-soft, nontender, nondistended with positive bowel sounds -no Jaramillo EXT-no edema NEURO-alert and oriented 3, very minimal movement of left foot otherwise no movement of the left leg. No movement at all of the right lower extremity. Sensation is markedly decreased in both legs. SKIN-warm and dry and without rashes CBC is essentially normal Comprehensive metabolic is essentially normal other than sodium of 149 and glucose of 173 INR is 1.[address] abdomen and pelvis showed diverticulosis without diverticulitis. Right lung base infiltrate possibly atelectasis. Impression Sudden onset of paralysis in the legs in a patient with a recent nerve stimulator in her back who restarted anticoagulation with Lovenox last evening. I'm concerned about a possible clot causing her sudden paralysis. I discussed the patient with Dr. Butler, neurosurgeon in [place] and he recommended transfer to via [facility] neurointensive care unit and recommended that I speak with the neuro geopolitics teacher. I did speak with Dr. Damian Riley who excepted the patient in transfer but requested an MRI prior to transfer (at that time I did not know the patient could not have an MRI due to pacemaker placement). I then did recall dispatch at [place] and let them know the patient could not undergo MRI. I asked them to have Dr. Riley called me if he had any other questions prior to transfer. We will transfer the patient stat to the [facility] neurointensive care unit. The patient is in agreement with this plan. The patient's daughter did speak with the customer response representative for the nerve stimulator who recommended that it be unplugged from the battery and the nurse did unplugged the battery prior to discharge. Sudden onset back pain which is new in nature Recent implantation of neurostimulator in the back Recent resumption of anticoagulation with Lovenox and Coumadin last night Prosthetic aortic valve Acute on chronic hypoxic respiratory failure in a patient with COPD and chronic O2 needs. She is not somnolent. Chronic steroid use Chronic narcotic use Nausea and vomiting (resolved at this time) most likely secondary to back pain. PANCHO GARCIA MD Nov 24, 2016 05:26 TE MAHER MD Nov 24, 2016 08:13
[2016-11-24] MEDS ORDERED: HYDROMORPHONE 2mg/ml INJECTION IV PRN (05:30)
[2016-11-24] MEDS ORDERED: LORAZEPAM 0.5 MG TABLET PO PRN (05:30)
[2016-11-24] MEDS ORDERED: FENTANYL 12MCG/HR PATCH TD SCH (05:30)
[2016-11-24] MEDS ORDERED: ONDANSETRON 4mg/2ml INJECTION IV PRN (05:30)
--- NOTE | 2016-11-24 05:45 | NUR ---
arrival to unit patient arrived via cart from ed on 8L non-rebreather. NC placed at 3l to see if patient could maintain sats greater than 90, patient unable to do so. placed on 5L nc--85-86%. daughter present.
--- NOTE | 2016-11-24 05:45 | NUR ---
DEPART PT IS TRANSFERRED VIA CART TO MEDICAL UNIT BY JILLIAN KOLB AT THIS TIME.
[2016-11-24 05:49] VITALS: BP 175/81; PULSE 76; RESP 14; TEMP 97.7; O2SAT 85
[2016-11-24 05:51] VITALS: Ht 167.6 cm; Wt 77.3 kg
[2016-11-24 06:27] VITALS: PULSE 67; RESP 16
[2016-11-24] MEDS ORDERED: BACLOFEN 10 MG TABLET PO PRN (06:30)
[2016-11-24] MEDS ORDERED: LEVOTHYROXINE 88 MCG TABLET PO SCH (06:30)
--- NOTE | 2016-11-24 07:25 | NUR ---
status patient reported having a numbing sensation to bilateral lower extremities as well as not being able to move her legs. Previously the patient was able to move her legs and turn herself in bed. i turned the patient to get her onto her back and the patient did gain some movement in the left foot. Currently the patient can only wiggle the first three toes on the left foot and no movement at all on the right leg. She is still reporting excruciating pain to her abdomen and upper back, the pain is 10/10; pain medication has not been effective per patient, she is not able to describe the pain, but reports it is new. She is on HFNC at 10 L with shallow breaths and reports a dry cough. The daughter has been contacted about this change.
[2016-11-24] MEDS ORDERED: PANTOPRAZOLE 40 MG TABLET PO SCH (07:30)
[2016-11-24 07:42] VITALS: BP 158/68; PULSE 63; RESP 24; TEMP 97.4; O2SAT 94
--- NOTE | 2016-11-24 07:42 | NUR ---
STATUS PT ALERT AND ORIENTED X3. VITALS OBTAINED-TEMP 97.4. HR 63. RESP 24. O2 SAT 94% ON HIGH-FLOW NC AT 10L. BP 158/68. PT RESTS QUIETLY BETWEEN CARES.
[2016-11-24 07:44] LABS: INR 1.37 (0.76-1.04); PROTHROMBIN TIME 14.9 SEC (9.31-12.49)
--- NOTE | 2016-11-24 07:50 | NUR ---
TENS UNIT PT'S DAUGHTER CALLED AND INFORMED OF PROBABLE TRANSFER TO [place] FOR CONTINUED TREATMENT. PT'S DAUGHTER STATES SHE HAS BEEN IN CONTACT WITH THE "PATIENT DRIER AND PULVERIZER TENDER" FROM THE COMPANY THAT PLACED THE TENS UNIT AND THAT THIS REP IS REQUESTING THAT THE TENS UNIT BE UNPLUGGED FROM THE PATIENT. THIS IS DONE. PT STATES IT FEELS "WEIRD" WHEN THIS IS DONE BUT NOTHING CHANGES TO STATUS OF RIGHT LEG IN THAT SHE HAS FEELING BUT IS UNABLE TO MOVE HER RIGHT LEG. THIS IS ALL REPORTED TO DR. CLARK.
[2016-11-24] MEDS ORDERED: POTASSIUM CHLORIDE 20 MEQ TABLET PO SCH (08:00)
[2016-11-24] MEDS ORDERED: CARVEDILOL 12.5 MG TABLET PO SCH (08:00)
[2016-11-24] MEDS ORDERED: PredniSONE 5 MG TABLET PO SCH (08:00)
--- NOTE | 2016-11-24 08:15 | NUR ---
REPORT REPORT CALLED TO KENNEDI ARREGUIN, AT NEURO-INTENSIVE CARE AT [facility]. SHE DENIES FURTHER QUESTIONS AT THIS TIME.
--- NOTE | 2016-11-24 08:30 | NUR ---
DISCHARGE REPORT GIVEN TO EMS PER DR. CLARK. PT TRANSFERRED TO [facility] AND GOES STAT TRANSFER TO [facility]. TENS UNITS (2) DEVICES SENT WITH EMS FOR PT. PT'S DAUGHTER CALLED REQUESTED THAT PT HAD LEFT. DAUGHTER DOES NOT ANSWER. MESSAGE LEFT. 2733-PT'S DAUGHTER, ROX, CALLS BACK. ROX INFORMED THAT PILAR JUST LEFT AND THAT PT'S BELONGINGS WILL BE KEPT HERE ON THE MEDICAL UNIT FOR THEM TO AIRLINE STEWARDESS
[2016-11-24] MEDS ORDERED: DRONEDARONE 400 MG TABLET PO SCH (09:00)
[2016-11-24] MEDS ORDERED: DILTIAZEM CD 240mg CAP (QD) PO SCH (09:00)
[2016-11-24] MEDS ORDERED: DULOXETINE 60 MG CAPSULE PO SCH (09:00)
[2016-11-24] MEDS ORDERED: FUROSEMIDE 40 MG TABLET PO SCH (09:00)
--- NOTE | 2016-11-24 10:36 | DI ---
EXAM: CT ABD/PELVIS W/CONTRAST ONLY DATE: 11/24/2016 LOCATION OF DICTATION: [facility] HISTORY: ITS.REASON: vomiting with abd pain, small bowel obstruction COMPARISON: Prior examination dated 11/18/2014 TECHNIQUE: CT images were obtained of the abdomen and pelvis with IV contrast administration. Coronal and sagittal reconstruction imaging was utilized. The current CT scan was performed using radiation dose-reduction techniques. FINDINGS: LUNG BASES: Chronic interstitial changes are seen at the lung bases with patchy bibasilar opacities suspicious for acute infiltrate. The heart is enlarged. Median sternotomy wires are partially visualized. There is a small hiatal hernia. LIVER: Normal size and contour showing fatty infiltration. SPLEEN: Stable size and contour with stable splenic calcifications. GALLBLADDER: Surgically absent. PANCREAS: Stable appearing mildly atrophic showing no discrete lesions. ADRENAL GLANDS: Unremarkable. KIDNEYS: Mildly atrophic showing symmetrical size, contour and enhancement with no evidence of nephrocalcinosis or obstructive uropathy. No enhancing lesions are seen on either kidney. VASCULAR: Abdominal aorta and IVC are normal caliber. Moderate diffuse plaque formation is seen in the mildly tortuous abdominal aorta and iliac arteries. LYMPH NODES: No abdominal pelvic adenopathy. STOMACH BOWEL LOOPS: The stomach is unremarkable. The bowel loops are normal caliber, there is no evidence of mechanical bowel obstruction or acute inflammatory bowel process. Scattered diverticula are again seen along the course of the colon, concentrated in the region of the sigmoid colon there is no evidence of diverticulitis. An abnormal appendix is not seen. URINARY BLADDER: The evaluation of the urinary bladder is limited due to streak artifact associated with the right total hip prosthesis. There is no obvious filling defects or wall thickening. UTERUS/OVARIES: The evaluation is limited due to streak artifact associated with the right total hip prosthesis at the uterine anatomy is either atrophic or surgically absent. OSSEOUS STRUCTURES: Stable again showing advanced degenerative changes in the scoliotic lumbar spine. A right total hip prosthesis is in place. No acute fractures or focal destructive lesions are identified. PERITONEAL CAVITY: No free air or free fluid ABDOMINAL WALL: No abdominal wall defects are identified IMPRESSION: 1. No evidence of mechanical bowel obstruction or acute inflammatory bowel process. 2. Diverticulosis coli without evidence of diverticulitis. 3. Bibasilar infiltrate/atelectasis. 4. Cardiomegaly, there are changes of prior coronary artery bypass grafting. 5. Gallbladder is surgically absent. The uterine anatomy is either severely atrophic or surgically absent as well. 6. No free air or free fluid. Preliminary report was provided [facility] .
[2016-11-24] MEDS ORDERED: WARFARIN 2 MG TABLET PO SCH (12:00)
[2016-11-24] MEDS ORDERED: MIRTAZAPINE 30 MG TABLET PO SCH (22:00)
[2016-11-27] MEDS ORDERED: FENTANYL PATCH REMOVAL TD SCH (06:00)
== END 2016-11-24 08:30 | disposition short-term general hospital (02) ==
LOC: ED 01:47 → EDHOLD 04:22 → MED 05:45
PROVIDERS: ADMIT Internal Medicine; ATTEND Family Medicine
DX: G89.29 Other chronic pain (principal); M54.89 Other dorsalgia; A08.4 Viral intestinal infection, unspecified; R53.1 Weakness; Z79.899 Other long term (current) drug therapy; J44.9 Chronic obstructive pulmonary disease, unspecified; Z99.81 Dependence on supplemental oxygen; I50.9 Heart failure, unspecified; E78.00 Pure hypercholesterolemia, unspecified; I10 Essential (primary) hypertension; E03.9 Hypothyroidism, unspecified; I48.91 Unspecified atrial fibrillation; I25.2 Old myocardial infarction; M32.9 Systemic lupus erythematosus, unspecified; F03.90 Unspecified dementia, unspecified severity, without behavioral disturbance, psychotic disturbance, mood disturbance, and anxiety; F32.9 Major depressive disorder, single episode, unspecified; Z95.0 Presence of cardiac pacemaker; Z98.61 Coronary angioplasty status; Z95.3 Presence of xenogenic heart valve; Z79.01 Long term (current) use of anticoagulants; Z79.52 Long term (current) use of systemic steroids
CPT/HCPCS: 36415; 74177; 80053; 83690; 85025; 85610; 94640; 96374; 96375; 99284; A9270; G0378; J0780; J1170; J2360; J7050; Q9967; 99218

== ENCOUNTER 2016-11-30 11:19 | Inpatient (IN) | payer MEDICARE, BC ==
[~2016-11-30] VITALS: Ht 167.6 cm; Wt 82.7 kg
[~2016-11-30 11:19] MED LIST changes: -ALEN70TA7 PO; -BUME1TAB17 PO; -CLON0.1T13 PO; -COLC0.6T69 PO; +DILT240C95 PO; +FURO-153 PO; -HYDR-4072 PO; -LISI-126 PO; +MIRT30TA PO; -MIRT45TA5 PO; -POLY17PO18 PO; +POTA-81 PO; -PRED20TA PO
--- OUTSIDE RECORDS SUMMARY | 2016-11-30 11:25 | XMS REPORT | Continuity of Care Document ---
Author Author [facility] Organization [facility] Address Unknown Phone Unavailable Support Name Relationship Address Phone ELVIADALIA ROLON Caregiver [address] [place] [address] OTHER Caregiver Unknown [phone] MANFRED LEON MD Caregiver [address] [place] [address] ROX MOROCHO Next Of Kin [address] [place] [address] Insurance Providers Payer Name Policy Number Subscriber Name Relationship Medicare [id number] Lulú Sterling 20 Self [facility] [id number] Lulú Sterling 18 Self Advance Directives Directive [...] having problems relating to your surgery at [phone]. 2. Problems such as: Temp above 101.5 degrees You develop redness, excessive swelling of the incision, increasing pain or excessive foul smelling drainage. 3. If the office is closed, call [facility] at [phone] and have your Surgeon paged. Condition at time of discharge: Fair - You have pain and/or swelling in your feet, calves, or legs. - You have difficulty breathing, abnormal cough, or chest pain. During office hours, call [phone]. After hours, please call [facility] at [phone] and have the can line operator page Dr. Yang or the covering surgeon. *In the event of an emergency, seek medical care at the nearest emergency room.* Condition at time of discharge: Good Plan of Care Discharge Date 11/27/14 4:45pm Disposition 04 TO [facility] HOME/FACILITY Instructions/Education Provided NM Congestive [...] F (96.8 - 99.1) Temperature (Calculated Celsius) 35.22828 degrees C (36.0 - 37.3) Pulse Rate [...] 11, 2013 9:25am LAB TEST FORM REQUEST [id number] - Lipase November 18, 2014 9:03am 114 [...] 23, 2014 10:00am 6.1 % N 0-9.0 PR-Mke-P-Type Natriuretic Peptide November 23, 2014 10:00am 2580 [...] Has specimen been collected/obtained? Y Urine Specific [place] November 18, 2014 9:35am 1.015 - Has [...] Ssp Pneumoniae Name: LULÚ STERLING Unit #: [id number] : 1935 Sex: F Loc / Svc: MED DOS: 11/23/14 Signed Report #: [id number] DIAGNOSTIC IMAGING REPORT TYPE OF EXAM: CHEST, [...] ADDON completed 11/18/14 TX/PRO/DX INJ SAME DRUG MAGAZINE WORKER completed 11/18/14 EMERGENCY DEPT VISIT completed 11/18/14 [id number]"INJECTION, ONDANSETRON HYDROCHLORIDE, PER 1 MG" completed 11/18/14 [id number]"INFUSION, NORMAL SALINE SOLUTION , 1000 CC" completed 11/18/14 Encounters Encounter Location Date/Time Admitted Inpatient [facility] 11/23/14 11:23am Departed Emergency Room [facility] 11/18/14 8:23am Recent Diagnosis Pneumonia involving right lung Pneumonia involving right lung Pulmonary fibrosis Acute respiratory insufficiency Hypothyroidism CHF due to valvular disease Hyperosmolality and hypernatremia Anemia
--- OUTSIDE RECORDS SUMMARY | 2016-11-30 11:27 | XMS REPORT | Continuity of Care Document ---
Author Author [facility]. Organization [facility] Address Unknown Phone Unavailable Allergies Active Description [...] 784.7 EPISTAXIS 08/10/2016 ALICIA SPICER P Z79.01 FPC (CURRENT) USE OF ANTICOAGULANTS ALICIA SPICER 10/11/2016 [...] UNSPECIFIED SITE 10/11/2016 Je Wilburn MD Z79.01 FPC (CURRENT) USE OF ANTICOAGULANTS 10/11/2016 Je Wilburn MD Z87.891 PERSONAL HISTORY OF NICOTINE DEPENDENCE 10/11/2016 Je Wilburn MD Z90.710 ACQUIRED ABSENCE OF BOTH CERVIX AND UTERUS 10/11/2016 Je Wilburn MD Z95.2 PRESENCE OF PROSTHETIC HEART VALVE 10/11/2016 Je Wilburn MD Z96.89 PRESENCE OF OTHER SPECIFIED FUNCTIONAL IMPLANTS Procedures Code Description Performed By Performed On 81.88 REVERSE TOTAL SHOULDER REPLACEMENT Morteza Cueva MD 01/04/2013 35286 PROTHROMBIN TIME KELL MYERS MD 01/19/2013 21.00 CONTROL OF EPISTAXIS NOS 03/03/2015 Encounters ACCT No. Visit Date/Time Discharge Status Pt. Type Provider Facility Loc./Unit Complaint [id number] 01/19/2013 14:46:00 01/19/2013 14:46:00 DIS Outpatient KELL MYERS MD [facility]
--- OUTSIDE RECORDS SUMMARY | 2016-11-30 11:28 | XMS REPORT | Continuity of Care Document ---
Author Author [facility] Organization [facility] Address Unknown Phone Unavailable Support Name Relationship Address Phone JEAN CARLOS MEDINA MD Caregiver [address] [place] [address] Unavailable PAUL RIOS Caregiver Unknown Unavailable MOO GARCIA MD Caregiver [address] [place] [address] Unavailable PANCHO GARCIA MD Caregiver [address] [place] [address] Unavailable ROX MOROCHO Next Of Kin [address] [id number] Insurance Providers Guarantor LaloShahlaLulú E Address [address] [address] Email DENIED 16 Payer Medicare Policy Number [id number] Subscriber's Name Lulú May Relationship 18 Self Effective Date 02 Payer [facility] Policy Number [id number] Subscriber's Name Lulú May Relationship 18 Self Group Number [id number] Advance Directives Directive Response Recorded Date/Time Advanced Directives Type None 11/24/16 1:47am Dr Ordered Resuscitation Status Full Code 11/24/16 4:23am Resuscitation Documents on File No 11/24/16 5:52am DPOA for Healthcare Only No 11/24/16 5:52am Living Will No 11/24/16 5:52am Problems Active Problems Medical Problem Onset Date [...] Vascular dementia Unknown Chronic Weakness Unknown Acute Past Problems Medical Problem Onset Date Exacerbation of chronic back pain Unknown Viral gastroenteritis Unknown Medications Current Home Medications Medication Dose Units Route Directions Days Qty Instructions Start Date Carvedilol 12.5 Mg Tablet 1 Tab Oral Twice Daily With Meals BEST WITH FOOD. 10/18/16 Diltiazem Hcl (Cardizem Cd) 240 Mg Cap.er.24h 1 Cap Oral Daily 30 Capsule 11/24/16 Duloxetine Hcl (Cymbalta) 60 Mg Capsule.dr 1 Tab Oral Daily 06/01 Fentanyl (Fentanyl 12 Mcg/Hr) 1 Each Patch.td72 1 Patch Topically Every 72 Hours 30 Days 10/25/16 Furosemide (Lasix) 40 Mg Tablet 1 Tab Oral Twice A Day 11/24/16 Levothyroxine Sodium 88 Mcg Tablet 88 Mcg Oral Before Breakfast Once daily before breakfast. 10/18/16 Lorazepam 0.5 Mg Tablet 1 Tab Oral Twice A Day as needed for Anxiety 06/01/13 Mirtazapine (Remeron) 30 Mg Tablet 30 Mg Oral Bedtime Take 1 tablet , by mouth, one time a day (at bedtime). 11/24/16 Potassium Chloride 20 Meq Tablet.er 20 Meq Oral Twice Daily With Meals Take 1 tablet, by mouth, two times a day with meals. 11/24/16 Warfarin Sodium (Coumadin) 1 Mg Tablet 2 Tab Oral Daily 30 Tablet 10/25/16 Past Home Medications Medication Directions Ordered Status Alendronate Sodium (Fosamax) 70 Mg Tablet, 1 Tab Oral Weekly 06/01/13 Discontinued Ciprofloxacin Hcl (Cipro) 500 Mg Tablet, 500 Mg Oral Every 12 Hours 11/18/14 Discontinued Dronedarone Hcl (Multaq) 400 Mg Tablet, 1 Tab Oral Daily 11/24/16 Discontinued Esomeprazole Magnesium (Nexium) 40 Mg Capsule., 1 Cap Oral Daily 11/24/16 Discontinued Hydrocodone/Acetaminophen (Hydrocodon-Acetaminoph 7.5-325) 7.5-325 Tablet, 1 Tab Oral Every 4 Hours as needed for Pain 10/25/16 Discontinued Hydrocodone/Acetaminophen (Hydrocodon-Acetaminoph 7.5-325) 7.5-325 Tablet, 1 Tab Oral Every 4 Hours as needed for Pain 10/21/16 Discontinued Levothyroxine Sodium 88 Mcg Tablet, 1 Tab Oral Daily 06/01/13 Discontinued Ondansetron (Zofran Odt) 4 Mg Tab.rapdis, 4 Mg Oral Q6h/0300,0900,1500,2100 11/24/16 Discontinued Prednisone 5 Mg Tablet, 5 Mg Oral Give With Breakfast 11/24/16 Discontinued Warfarin Sodium 1 Mg Tablet, 0.5 Mg Oral Every Evening 10/18/16 Discontinued Warfarin Sodium 2.5 Mg Tablet, 1.25 Mg Oral Every Evening 10/21/16 Discontinued Warfarin Sodium (Coumadin) 2 Mg Tablet, 1 Tab Oral Daily 06/01/13 Discontinued Social History Social History Problem Response Recorded Date/Time Onset Date Status Chewing Tobacco Status No 06/01/2013 1:02pm Not Applicable Not Applicable Hx Substance Use No 11/24/2016 3:18am Not Applicable Not Applicable Hx Alcohol Use No 11/24/2016 3:18am Not Applicable Not Applicable Has the pt used tobacco in the last 12 months No 11/24/2016 5:55am Not Applicable Not Applicable Tobacco Usage none 11/23/2014 2:10pm Not Applicable Not Applicable Query Response Start Date Stop Date Smoking Status Former smoker Hospital Discharge Instructions No hospital discharge instructions. Plan of Care Discharge Date 11/24/16 8:30am Disposition 02 TO [facility] Instructions/Education Provided Gastroenteritis (ED) Back Pain (ED) Prescriptions See Medication Section Functional Status Query Response Date Recorded Mobility Status Ambulatory w/assist November 24, 2016 6:10am Assistive Devices None November 24, 2016 6:10am Activity Limitations Pain November 24, 2016 6:10am Feeding Ability Independent November 24, 2016 6:10am Toileting Ability Assist November 24, 2016 6:10am Grooming Ability Assist November 24, 2016 6:10am Dressing Ability Assist November 24, 2016 6:10am Driving Ability Assist November 24, 2016 6:10am Housework Ability Assist November 24, 2016 6:10am Meal Preparation Ability Assist November 24, 2016 6:10am Stair Climbing Ability Assist November 24, 2016 6:10am Ability to complete ADL's impeded by Impaired Mobility November 24, 2016 6:10am Cognitive/Perceptual Impairments None November 24, 2016 6:10am Allergies, Adverse Reactions, Alerts Allergen Type Severity Reaction Status Last Updated Thiazides Allergy Unknown RASH Active 11/24/16 Nifedipine Allergy Unknown DROPPED BLOOD PRESSURE TOO FAST Active 11/24/16 Codeine Adverse Reaction Unknown NAUSEA Active 11/24/16 Tramadol Allergy Unknown Active 11/24/16 Amiodarone Allergy Unknown DYSPNEA, LUNG DAMAGE Active 11/24/16 Hydroxychloroquine Allergy Unknown Active 11/24/16 Immunizations Query Response on File Recorded Date/Time Hx Influenza Vaccination Y 05/3011/24/16 5:55am Hx Pneumococcal Vaccination Y May 2016 11/24/16 5:55am Hx Tetanus, Diptheria, Pertussis No 11/23/14 12:52pm Hx Influenza Vaccination Y 05/3011/24/16 5:55am Hx Tetanus Diptheria No 11/23/14 12:52pm Hx Tetanus, Diptheria, Pertussis No 11/23/14 12:52pm Hx Tetanus Toxoid Vaccination No 11/23/14 12:52pm Influenza Vaccine Hx May 2016 11/24/16 3:18am Vital Signs Acute Vital Signs Vital Response Date/Time Temperature (Fahrenheit) 97.4 deg F (96.8 - 99.1) 11/24/2016 7:42am Temperature (Calculated Celsius) 36.66337 degrees C (36.0 - 37.3) 11/24/2016 7:42am Pulse Rate (adult) 63 bpm (60 - 100) 11/24/2016 7:42am Respiratory Rate 24 breaths/min (10 - 20) 11/24/2016 7:42am O2 Sat by Pulse Oximetry 94 % (90 - 100) 11/24/2016 7:42am Oxygen Delivery Method Nasal Cannula 10/24/2016 8:15pm Oxygen Delivery Method Nasal Cannula 11/24/2016 7:42am Oxygen Flow Rate 10.00 L/min 11/24/2016 7:42am Blood Pressure 158/68 mm Hg 11/24/2016 7:42am Blood Pressure Source Automatic Cuff 11/24/2016 7:42am Height (Feet) 5 feet 11/24/2016 5:51am Height (Inches) 6.00 inches 11/24/2016 5:51am Weight (Kilograms) 77.300 kg 11/24/2016 5:51am Body Mass Index (BMI) 27.5 11/24/2016 5:51am Results Laboratory Results Test Name Result Units Flags Reference Collection Date/Time Result Date/ Time Comments Uric Acid 9.2 MG/DL H 2.5-7.5 10/22/2016 4:04am 10/22/2016 5:34am Urine Collection Type VOIDED-NOT CC-MIDSTR 10/24/2016 8:57am 2016 9:04am Urine Color YELLOW YELLOW 10/24/2016 8:57am 10/24/2016 9:04am Urine Turbidity CLEAR CLEAR 10/24/2016 8:57am 10/24/2016 9:04am Urine Specific [place] 1.025 1.015-1.025 10/24/2016 8:57am 2016 9:04am Urine [...] MICROSCOPIC NOT IND. 10/24/2016 8:57am 2016 9:04am White Blood Count 9.2 T/MM3 4.5-11.0 11/24/2016 2:51am 11/24/2016 2: 59am Red Blood Count 4.43 M/MM3 4.00-5.20 11/24/2016 2:51am 11/24/2016 2: 59am Hemoglobin 12.8 GM/DL 12-16 11/24/2016 2:51am 11/24/2016 2:59am Hematocrit 41.4 % 36-46 11/24/2016 2:51am 11/24/2016 2:59am Mean Corpuscular Volume 93.5 UM3 80-100 11/24/2016 2:5111/24/2016 2: 59am Mean Corpuscular Hemoglobin 28.9 UUG 26-34 11/24/2016 2:512016 2:59am Mean Corpuscular Hemoglobin Concent 30.9 GM/DL L 31-37 11/24/2016 2:5111/24/2016 2:59am RDW Standard Deviation 46.1 FL 36.9-50.2 11/24/2016 2:5111/24/2016 2 :59am Platelet Count 479 T/MM3 H 130-400 11/24/2016 2:5111/24/2016 2:59am Mean Platelet Volume 8.6 UM3 L 9.4-12.4 11/24/2016 2:5111/24/2016 2: 59am Neutrophils (%) (Auto) 72.6 % H 33-66 11/24/2016 2:11/24/2016 2: 59am Lymphocytes (%) (Auto) 16.3 % L 23-45 11/24/2016 2:5111/24/2016 2: 59am Monocytes (%) (Auto) 4.5 % 0-9.0 11/24/2016 2:11/24/2016 2:59am Eosinophils (%) (Auto) 5.6 % H 0-4 11/24/2016 2:11/24/2016 2:59am Basophils (%) (Auto) 0.7 % 0-2 11/24/2016 2:11/24/2016 2:59am Immature Granulocyte % (Auto) 0.3 % 0.0-0.5 11/24/2016 2:2016 2:59am Absolute Neutrophils (auto) 6.7 T/MM3 1.8-7.7 11/24/2016 2:512016 2:59am Absolute Lymphocytes (auto) 1.5 T/MM3 1-4.8 11/24/2016 2:512016 2:59am Absolute Monocytes (auto) 0.4 T/MM3 0-0.8 11/24/2016 2:5111/24/2016 2:59am Absolute Eosinophils (auto) 0.5 T/MM3 0-0.5 11/24/2016 2:512016 2:59am Absolute Basophils (auto) 0.1 T/MM3 0-0.2 11/24/2016 2:5111/24/2016 2:59am Absolute Immature Granulocyte (auto 0.03 T/MM3 0.00-0.03 11/24/2016 2: 5111/24/2016 2:59am Prothromb Time International Ratio 1.37 H 0.76-1.04 11/24/2016 2:5111/24/2016 7:44am THERAPUTIC RANGE=2.00-3.00 FOR ANTI-THROMBOSIS THERAPUTIC RANGE=2.50-3.50 FOR IMPLANTED VALVE Icterus Index < 2 0-7 11/24/2016 2:5111/24/2016 3:07am Chemistry Specimen Hemolysis < 15 0-25 11/24/2016 2:5111/24/2016 3 :07am 0-25: Specimen Exhibited No Hemolysis. Turbidity < 20 0-20 11/24/2016 2:5111/24/2016 3:07am Sodium Level 149 MEQ/L H 134-144 11/24/2016 2:5111/24/2016 3:07am Potassium Level 3.6 MEQ/L 3.6-5 11/24/2016 2:5111/24/2016 3:07am Chloride Level 105 MEQ/L 98-107 11/24/2016 2:5111/24/2016 3:07am Carbon Dioxide Level 28 MEQ/L 22-30 11/24/2016 2:5111/24/2016 3: 07am Anion Gap 16 MEQ/L H 5-15 11/24/2016 2:5111/24/2016 3:07am Blood Urea Nitrogen 12.0 MG/DL 7-17 11/24/2016 2:5111/24/2016 3: 07am Creatinine 0.9 MG/DL 0.7-1.2 11/24/2016 2:5111/24/2016 3:07am BUN/Creatinine Ratio 13 RATIO 6-26 11/24/2016 2:5111/24/2016 3:07am Glomerular Filtration Rate Calc 60 11/24/2016 2:5111/24/2016 3: 07am Glucose Level 173 MG/DL H 65-110 11/24/2016 2:51am 11/24/2016 3:07am Calculated Osmolality 290 MOSM/KG H 261-280 11/24/2016 2:51am 2016 3:07am Calcium Level 9.7 MG/DL 8.4-10.2 11/24/2016 2:51am 11/24/2016 3:07am Total Bilirubin 0.60 MG/DL 0.20-1.30 11/24/2016 2:51am 11/24/2016 3: 07am Alkaline Phosphatase 97 U/L 38-126 11/24/2016 2:51am 11/24/2016 3:07am Total Protein 8.2 G/DL 6.3-8.2 11/24/2016 2:5111/24/2016 3:07am Albumin 4.1 G/DL 3.5-5.0 11/24/2016 2:5111/24/2016 3:07am Globulin 4.1 G/DL H 2.4-3.6 11/24/2016 2:51am 11/24/2016 3:07am Albumin/Globulin Ratio 1.0 RATIO L 1.1-2.2 11/24/2016 2:51am 11/24/2016 3:07am Aspartate Amino Transf (AST/SGOT) 37 U/L H 14-36 11/24/2016 2:51am 11/24 3:07am Alanine Aminotransferase (ALT/SGPT) 32 U/L 9-52 11/24/2016 2:51am 11/24 3:07am Lipase 255 U/L 23-300 11/24/2016 2:51am 11/24/2016 3:07am Procedures Procedure Status Date Provider(s) Gait training therapy Completed 10/18/16 MEG SETH MD Pt eval mod complex 30 min Completed 10/18/16 MEG SETH MD Therapeutic exercises Completed 10/18/16 MEG SETH MD Ot eval mod complex 45 min Completed 10/18/16 MEG SETH MD GAIT TRAINING/AMBULAT TREATMENT USING ASSIST EQUIPMENT Completed 10/18/16 MEG SETH MD THERAPEUTIC EXERCISE TREATMENT OF MUSCULOSK WHOLE Completed 10/18/16 MEG SETH MD HOME MANAGEMENT TREATMENT Completed 10/18/16 MEG SETH MD Encounters Encounter Location Arrival/Admit Date Discharge/Depart Date Attending Provider Discharged Inpatient (obs) [facility] 11/24/16 4:22am 11/24/16 8: 30am MOO GARCIA MD [facility] 10/27/16 12:00am PEDRO KENNEY MD Discharged Inpatient [facility] 10/18/16 5:33pm 10/25/16 4:37pm MEG SETH MD
--- OUTSIDE RECORDS SUMMARY | 2016-11-30 11:28 | XMS REPORT | Continuity of Care Document ---
Author Author [facility] Organization [facility] Address Unknown Phone Unavailable Support Name Relationship Address Phone OTHER Caregiver Unknown [phone] MANFRED LEON MD Caregiver [address] [place] [address] [place] [address] ROX MOROCHO Next Of Kin [address] [place] [address] Insurance Providers Payer Name Policy Number Subscriber Name Relationship Medicare [id number] Lulú Sterling 20 Self [facility] [id number] Lulú Sterling 20 Self Advance Directives Directive [...] F (96.8 - 99.1) Temperature (Calculated Celsius) 36.77439 degrees C (36.0 - 37.3) Pulse Rate [...] 11, 2013 9:25am LAB TEST FORM REQUEST [id number] - Lipase November 18, 2014 9:03am 114 [...] Has specimen been collected/obtained? Y Urine Specific [place] November 18, 2014 9:35am 1.015 - Has [...] N 4.5-11.0 Name: LULÚ STERLING Unit #: [id number] : 1935 Sex: F Loc / Svc: ED DOS: 11/18/14 Signed Report #: [id number] DIAGNOSTIC IMAGING REPORT TYPE OF EXAM: CT [...] Encounters Encounter Location Date/Time Departed Emergency Room [facility] 11/18/14 8:23am Recent Diagnosis
[2016-11-30 11:30] VITALS: BP 150/67; PULSE 66; RESP 20; TEMP 97.9; O2SAT 93; Ht 167.6 cm; Wt 82.7 kg
--- NOTE | 2016-11-30 11:30 | NUR ---
Admit Patient admitted to IRU from [facility]. Transported to [facility] by daughter. Patient brought to unit in W/C. Transfers with min assist, gait belt. Patient oriented to room, bed.
[2016-11-30] MEDS ORDERED: ACET-2321 PO (12:19)
[2016-11-30] MEDS ORDERED: BISA-72 PO (12:21)
[2016-11-30] MEDS ORDERED: METH500T PO (12:27)
[2016-11-30] MEDS ORDERED: OXYC-532 PO (12:30)
[2016-11-30] MEDS ORDERED: HEPA500017 SQ (12:35)
[2016-11-30] MEDS ORDERED: FURO20TA4 PO (12:35)
[2016-11-30] MEDS ORDERED: LISI-621 PO (12:39)
[2016-11-30] MEDS ORDERED: CARV25TA2 PO (12:39)
[2016-11-30] MEDS ORDERED: MIRT45TA5 PO (12:48)
[2016-11-30] MEDS ORDERED: BISACODYL 5 MG E.C. TABLET PO PRN (13:15)
[2016-11-30] MEDS ORDERED: LORAZEPAM 0.5 MG TABLET PO PRN (13:15)
[2016-11-30] MEDS ORDERED: PRN ORDERS MC (13:15)
--- NOTE | 2016-11-30 15:08 | CONSPD ---
JESSE MONTES APRN 11/30/16 1216: Consultation Info Date DATE: 11/30/16 TIME: 12:13 Date of Consultation: Nov 30, 2016 Attending Physician: MARY - Dr. Chanel Hospitalist - Dr. Clifford Reason for Consultation: Heart disease, COPD HPI - Adult Date DATE: 11/30/16 TIME: 12:13 General Chief Complaint: back pain and leg weakness History of Present Illness Lulú May is a 81 y/o woman who was transferred to IRU on 11/30/16 after a 7-day acute hospitalization. It started after a spinal cord stimulator was inserted into her thoracic spine on 11/22/16. The next day she developed a loss of sensorimotor activity to B/L LE, R>L, and was admitted to [facility]. She was subsequently transferred to the neuro-ICU at [facility] where CT scan showed an epidural hematoma causing spinal cord compression at the site of the stimulator. She was taken to the OR for emergent T4-T8 thoracic decompressive laminectomy for evacuation of the epidural hematoma and removal of the spinal cord stimulator on 11/24/[address] Butler. She tolerated this well and over the next few days her leg strength gradually improved, though she was still quite weak. She had urinary retention after Jaramillo was removed, requiring occasional straight catheterization. Because of the epidural hematoma, neurosx wished to hold anticoagulation, though cardiology recommended to continue it. Ultimately prophylactic anticoagulation was agreed upon and she was given SQ heparin. She is to continue with prophylactic heparin in IRU until 2 weeks postop, at which time she may resume full anticoagulation. Dr. Butler recommended daily dressing changes and f/u with him 6 weeks postop. I saw Lulú on the day of admission. She voided spontaneously and had a small bowel movement shortly after arrival. She notes leg weakness; paresthesias to both legs have significantly improved. She has back pain, as expected. Dressing was c/d/i. Otherwise ROS was negative. Past Medical History Past Medical History Patient's Medical History: (1) COPD (chronic obstructive pulmonary disease) (2) Oxygen dependent (3) Amiodarone pulmonary toxicity (4) CHF due to valvular disease Permanent Comment: possibly rheumatic heart disease Last Edited By: Jesse Montes on Oct 19, 2016 08:07 (5) Atrial fibrillation (6) Arthritis (7) HTN (hypertension) (8) Lupus (9) Dyslipidemia (10) Vascular dementia (11) Hypothyroidism (12) Epidural hematoma Permanent Comment: Emergent T4-T8 thoracic decompressive laminectomy for evacuation of an epidural hematoma and removal of the spinal cord stimulator on 11/24/[address] Butler Last Edited By: Jesse Montes on Nov 30, 2016 15:07 (13) Constipation due to opioid therapy (14) Overweight (BMI 25.0-29.9) Surgical History Patient's Surgical History: spinal cord stimulator was inserted into her thoracic spine on 11/22/16. Emergent T4-T8 thoracic decompressive laminectomy for evacuation of an epidural hematoma and removal of the spinal cord stimulator on 11/24/[address] 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) cardiac cath hysterectomy kypphoplasty multiple back surgeries RCR hip (rt) knee replacements bilaterally shoulder sx Current Medications Home Meds Reported Medications Mirtazapine (Mirtazapine) 45 Mg Tab.rapdis, 45 MG PO HS, TAB Take 1 tablet, by mouth, one time a day (at bedtime). 11/30/16 Lisinopril (Lisinopril) 20 Mg Tablet, 20 MG PO BID, TAB 11/30/16 Carvedilol (Carvedilol) 25 Mg Tablet, 1 TAB PO BIDWM, TAB BEST WITH FOOD. 11/30/16 Heparin Sodium,Porcine (Heparin 5000 UNIT/1 ML) 5,000 Unit/1 Ml Vial, 1 ML SQ Q8H 11/30/16 Furosemide (Furosemide) 20 Mg Tablet, 1 TAB PO DAILY, TAB 11/30/16 Oxycodone HCl/Acetaminophen (Oxycodon-Acetaminophen 7.5-325) 7.5-325 Tablet, 1- 2 TAB PO Q4H Y for PAIN/AIR HUNGER, TAB Take 1-2 tablets, by mouth, every 4 hours for Pain 11/30/16 Methocarbamol (Robaxin) 500 Mg Tablet, 1.5 TAB PO 4XDPRN 11/30/16 Bisacodyl (Dulcolax) 5 Mg Tablet.dr, 1 TAB PO DAILY Y for PRN ORDERS, TAB DO NOT CHEW, BITE, OR CRUSH TABLET 11/30/16 Acetaminophen (Tylenol) 325 Mg Tablet, 2 TAB PO Q4HR Y for PAIN/FEVER, TAB 11/30/16 Potassium Chloride (Potassium Chloride) 20 Meq Tablet.er, 20 MEQ PO BIDWM, TAB Take 1 tablet, by mouth, two times a day with meals. 11/24/16 Levothyroxine Sodium (Levothyroxine Sodium) 88 Mcg Tablet, 88 MCG PO ACB, TAB Once daily before breakfast. 10/18/16 Lorazepam (Lorazepam) 0.5 Mg Tablet, 1 TAB PO BID Y for ANXIETY 06/01/13 Duloxetine Hcl (Cymbalta) 60 Mg Capsule.dr, 1 TAB PO DAILY 06/01/13 Discontinued Reported Medications Mirtazapine (Remeron) 30 Mg Tablet, 30 MG PO HS, TAB Take 1 tablet, by mouth, one time a day (at bedtime). 11/24/16 Furosemide (Lasix) 40 Mg Tablet, 1 TAB PO BID, TAB 11/24/16 Carvedilol (Carvedilol) 12.5 Mg Tablet, 1 TAB PO BIDWM, TAB BEST WITH FOOD. 10/18/16 Esomeprazole Magnesium (Nexium) 40 Mg Capsule.dr, 1 CAP PO DAILY, CAP 11/24/16 Prednisone (Prednisone) 5 Mg Tablet, 5 MG PO WB, TAB Take 1 tablet, by mouth, once a day with breakfast. 11/24/16 Dronedarone HCl (Multaq) 400 Mg Tablet, 1 TAB PO DAILY, #180 TAB 1 Refill 11/24/16 Alendronate Sodium (Fosamax) 70 Mg Tablet, 1 TAB PO WEEKLY 06/01/13 Discontinued Scripts Ondansetron (Zofran Odt) 4 Mg Tab.rapdis, 4 MG PO Q6HR, #10 TAB Oral disintegrating tablet Prov:JEAN CARLOS MEDINA MD 11/24/16 Hydrocodone/Acetaminophen (Hydrocodon-Acetaminoph 7.5-325) 7.5-325 Tablet, 1 TAB PO Q4HR Y for PAIN for 30 Days Prov:SABA STEVEN APRN 10/25/16 Allergies: Coded Allergies: Thiazides (Verified Allergy, Unknown, RASH, 11/24/16) amiodarone (Verified Allergy, Unknown, DYSPNEA, LUNG DAMAGE, 11/24/16) hydroxychloroquine (Verified Allergy, Unknown, 11/24/16) nifedipine (Verified Allergy, Unknown, DROPPED BLOOD PRESSURE TOO FAST, 07/31) tramadol (Verified Allergy, Unknown, 11/24/16) codeine (Verified Adverse Reaction, Unknown, NAUSEA, 11/24/16) Family History Family History: Both parents of ID. Heart disease on both sides of the family. 1 son had diabetes () 1 son with HTN Social History Does patient use chewing tobac: No Second Hand Exposure: No Substance Use Type: does not use Alcohol Intake: none Marital Status: Review of Systems Constitutional: REPORTS: weakness, DENIES: appetite decrease, chills, dizziness , fever Eyes Vision: DENIES: vision changes ENMT Sinuses: NOT FOUND: congestion, rhinorrhea Mouth/Throat: DENIES: sore throat Cardiovascular DENIES: chest pain, dyspnea on exertion Vascular: DENIES: pedal edema Pulmonary Respiratory: DENIES: cough, dyspnea GI Upper Abdomen: DENIES: pain, vomiting Lower Abdomen: constipation (resolved) General: DENIES: dysuria Musculoskeletal Lumbar: pain (T-spine) Integumentary Skin: DENIES: rash Neurological General: weakness, DENIES: headache Psychiatric Psychiatric: anxiety Hematologic/Lymphatic easy bruising, DENIES: anemia Allergic/Immunological DENIES: frequent infections All Other Systems All Other Systems: Reviewed (remainder of 10-point ROS Neg.) Physical Exam General General Nourishment: well nourished, well developed General Body Habitus: well groomed Vital Signs Vital Signs Date Time Temp Pulse Resp B/P Pulse Ox O2 Delivery O2 Flow Rate FiO2 11/30/16 11:30 97.9 66 20 150/67 93 Nasal Cannula 3.00 Height (Feet): 5 Height (Inches): 6.00 Eyes Brief: FOUND: PERRL, NOT FOUND: scleral icterus ENMT Brief: NOT FOUND: mucosa moist (dry MM), pharnyx erythema Neck Brief: NOT FOUND: adenopathy, nuchal rigidity Respiratory Auscultation: FOUND: normal, NOT FOUND: rales, rhonchi, wheezes Cardiovascular Auscultation: FOUND: S1, S2, regular Murmur: FOUND: other (mechanical click), systolic Peripheral Pulses: 2+: Dorasalis Pedis (L), Dorsalis Pedis (R), Posterior Tibial (L), Posterior Tibial (R), Radial (L), Radial (R) Edema: 0: Anasarca, Arm (L), Arm (R), Face, Leg (L), Leg (R) Abdomen Inspection: NOT FOUND: distention Palpation: FOUND: soft, NOT FOUND: McBurney's point tender, Lemus's sign, involuntary guarding, rebound, tender, voluntary guarding Auscultation: FOUND: normo active Lymphatic (brief) Lymphatic Brief: NOT FOUND: adenopathy Integumentary (brief) Integumentary Brief: FOUND: dry, warm Integumentary General: FOUND: dry, warm Color: FOUND: pink Neurologic (brief) Neurological Brief: FOUND: cranial 2-12 intact (grossly), motor (leg (knee ext , ankle ext & flex) weakness b/l right 4/5, left 3+/5) Neurologic GCS Eye Opening: (4)Spontaneous GCS Verbal: (5)Oriented GCS Motor: (6)Obeys Commands RN Documented GCS Total: 15 Psychiatric (brief) FOUND: alert, attentive, normal affect, oriented Impression/Recommendation Problems: (1) Epidural hematoma Status: Acute Assessment & Plan: Following placement of spinal cord stimulator on 11/22/16. Underwent emergent T4-T8 thoracic decompressive laminectomy for evacuation of the epidural hematoma and removal of the spinal cord stimulator on 11/24/[address] 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 Recommendation Agree with orders per Dr. Chanel. Mechanical valves - start full anticoagulation with Coumadin 2 weeks postop, which is on 12/08/16. In the meantime, continue prophylactic Lovenox. Daily dressing changes & f/u with Dr. Butler 6 weeks postop. Constipation - bowel regimen continued. Urinary retention - PVR x24 hrs. She had urinary retention requiring occ. straight cath after catheter was removed at [facility]. CBC and BMP ordered for the am. ENRIQUETA CLIFFORD MD 11/30/16 1997: Past Medical History Current Medications Home Meds Reported Medications Mirtazapine (Mirtazapine) 45 Mg Tab.rapdis, 45 MG PO HS, TAB Take 1 tablet, by mouth, one time a day (at bedtime). 11/30/16 Lisinopril (Lisinopril) 20 Mg Tablet, 20 MG PO BID, TAB 11/30/16 Carvedilol (Carvedilol) 25 Mg Tablet, 1 TAB PO BIDWM, TAB BEST WITH FOOD. 11/30/16 Heparin Sodium,Porcine (Heparin 5000 UNIT/1 ML) 5,000 Unit/1 Ml Vial, 1 ML SQ Q8H 11/30/16 Furosemide (Furosemide) 20 Mg Tablet, 1 TAB PO DAILY, TAB 11/30/16 Oxycodone HCl/Acetaminophen (Oxycodon-Acetaminophen 7.5-325) 7.5-325 Tablet, 1- 2 TAB PO Q4H Y for PAIN/AIR HUNGER, TAB Take 1-2 tablets, by mouth, every 4 hours for Pain 11/30/16 Methocarbamol (Robaxin) 500 Mg Tablet, 1.5 TAB PO 4XDPRN 11/30/16 Bisacodyl (Dulcolax) 5 Mg Tablet.dr, 1 TAB PO DAILY Y for PRN ORDERS, TAB DO NOT CHEW, BITE, OR CRUSH TABLET 11/30/16 Acetaminophen (Tylenol) 325 Mg Tablet, 2 TAB PO Q4HR Y for PAIN/FEVER, TAB 11/30/16 Potassium Chloride (Potassium Chloride) 20 Meq Tablet.er, 20 MEQ PO BIDWM, TAB Take 1 tablet, by mouth, two times a day with meals. 11/24/16 Levothyroxine Sodium (Levothyroxine Sodium) 88 Mcg Tablet, 88 MCG PO ACB, TAB Once daily before breakfast. 10/18/16 Lorazepam (Lorazepam) 0.5 Mg Tablet, 1 TAB PO BID Y for ANXIETY 06/01/13 Duloxetine Hcl (Cymbalta) 60 Mg Capsule.dr, 1 TAB PO DAILY 06/01/13 Discontinued Reported Medications Mirtazapine (Remeron) 30 Mg Tablet, 30 MG PO HS, TAB Take 1 tablet, by mouth, one time a day (at bedtime). 11/24/16 Furosemide (Lasix) 40 Mg Tablet, 1 TAB PO BID, TAB 11/24/16 Carvedilol (Carvedilol) 12.5 Mg Tablet, 1 TAB PO BIDWM, TAB BEST WITH FOOD. 10/18/16 Esomeprazole Magnesium (Nexium) 40 Mg Capsule.dr, 1 CAP PO DAILY, CAP 11/24/16 Prednisone (Prednisone) 5 Mg Tablet, 5 MG PO WB, TAB Take 1 tablet, by mouth, once a day with breakfast. 11/24/16 Dronedarone HCl (Multaq) 400 Mg Tablet, 1 TAB PO DAILY, #180 TAB 1 Refill 11/24/16 Alendronate Sodium (Fosamax) 70 Mg Tablet, 1 TAB PO WEEKLY 06/01/13 Discontinued Scripts Ondansetron (Zofran Odt) 4 Mg Tab.rapdis, 4 MG PO Q6HR, #10 TAB Oral disintegrating tablet Prov:JEAN CARLOS MEDINA MD 11/24/16 Hydrocodone/Acetaminophen (Hydrocodon-Acetaminoph 7.5-325) 7.5-325 Tablet, 1 TAB PO Q4HR Y for PAIN for 30 Days Prov:SABA STEVEN APRN 10/25/16 Allergies: Coded Allergies: Thiazides (Verified Allergy, Unknown, RASH, 11/24/16) amiodarone (Verified Allergy, Unknown, DYSPNEA, LUNG DAMAGE, 11/24/16) hydroxychloroquine (Verified Allergy, Unknown, 11/24/16) nifedipine (Verified Allergy, Unknown, DROPPED BLOOD PRESSURE TOO FAST, 07/31) tramadol (Verified Allergy, Unknown, 11/24/16) codeine (Verified Adverse Reaction, Unknown, NAUSEA, 11/24/16) Impression/Recommendation Impression I have independently evaluated and examined this patient. I reviewed the chart, the patient's history, and the CNC CUTTING OPERATOR's documented findings as above. We discussed and formulated the assessment and plan as above with additions as below: Patient known from recent stay in IRU. She is transferred from [facility] after hospitalization for thoracic nerves cumulative placement complicated by epidural hematoma requiring evacuation with decompressive laminectomy. At present patient denies any immediate concerns including lightheadedness, chest pain, nausea, or dyspnea. She did not complain of pain and reports that she's recently moved to [place] to be closer to family members. On examination the patient has a regular cardiac rhythm with S2 click. Breath sounds are clear with good airflow Patient describes vague altered/decreased sensation in the right lower extremity but has retained dorsiflexion/plantar flexion in both feet. She is able to raise each leg off the floor from a seated position although does so weekly. Managing wire steward is Dr. Rivas and patient believes that warfarin was resumed yesterday although transfer records do not indicate the same. Neurosurgery recommended waiting 2 weeks after surgery (11/24) to re- anticoagulate with warfarin and bridging Lovenox. Prophylactic anticoagulation initiated 11/28 with neurosurgical approval. Discharge hemoglobin at [facility] 8.8 this morning, creatinine 0.63. Chest x-ray at [facility] 11/24 reported to show bilateral infiltrates but oxygenation stable. Reassess chest x-ray in a.m. Recommendation Transfer records reviewed, laboratory data reviewed, past record [facility] reviewed and discussed with nursing. JESSE MONTES APRN Nov 30, 2016 12:16 ENRIQUETA CLIFFORD MD Nov 30, 2016 17:46
[2016-11-30 16:00] VITALS: BP 142/66; PULSE 78; RESP 24; TEMP 97.4; O2SAT 97
[2016-11-30] MEDS: HEPARIN SUB-Q 5,000 unit/0.5ml vial SQ SCH ×2 (16:09→22:45)
[2016-11-30] MEDS: CARVEDILOL 25 MG TABLET PO SCH (18:09)
[2016-11-30] MEDS: POTASSIUM CHLORIDE 20 MEQ TABLET PO SCH (18:09)
[2016-11-30] MEDS: METHOCARBAMOL 750 MG TABLET PO SCH ×2 (18:09→22:44)
[2016-11-30 19:02] VITALS: PULSE 76; RESP 16; O2SAT 97
[2016-11-30 20:28] VITALS: BP 111/45; PULSE 71; TEMP 98.5; O2SAT 93
--- NOTE | 2016-11-30 20:28 | NUR ---
Shift summary Patient alert and oriented x3. O2 at 3L via nasal cannula. Dressing to mid back clean, dry and intact. Transfers with FWW, gait belt, min assist. Wears pullups. Continent of bowel and bladder today. Post void residual 151ml at 1700. Feeds self. Percocet 7.5 given at supper for 9/10 pain.
[2016-11-30 22:00] VITALS: PULSE 71; RESP 3
[2016-11-30] MEDS: DOCUSATE SODIUM 100 MG CAPSULE PO SCH (22:43)
[2016-11-30] MEDS: MIRTAZAPINE 45 MG PO SCH (22:45)
[2016-11-30 22:56] VITALS: BP 136/62; PULSE 68
[2016-11-30] MEDS: LISINOPRIL 20 MG TABLET PO SCH (22:57)
[2016-12-01] VITALS (8 sets, daily range): BP systolic 88–144; BP diastolic 42–70; PULSE 61–72; RESP 14–63; TEMP 98.1–98.5; O2SAT 94–99
--- NOTE | 2016-12-01 04:25 | NUR ---
Chart Check 24 hour chart check completed
[2016-12-01 05:30] LABS: BASOPHILS # (AUTO) 0.1 T/MM3 (0-0.2); BASOPHILS % (AUTO) 0.6 % (0-2); EOSINOPHILS # (AUTO) 0.7 T/MM3 (0-0.5); EOSINOPHILS % (AUTO) 8.9 % (0-4); HCT - HEMATOCRIT 31.4 % (36-46); HGB - HEMOGLOBIN 8.9 GM/DL (12-16); IMMATURE GRANULOCYTE # (AUTO) 0.02 T/MM3 (0.00-0.03); IMMATURE GRANULOCYTE % (AUTO) 0.2 % (0.0-0.5); LYMPHOCYTES # (AUTO) 1.8 T/MM3 (1-4.8); LYMPHOCYTES % (AUTO) 21.4 % (23-45); MEAN CORPUSCULAR HGB 28.3 UUG (26-34); MEAN CORPUSCULAR HGB CONC(MCHC 28.3 GM/DL (31-37); MEAN PLATELET VOLUME 8.9 UM3 (9.4-12.4); MONOCYTES # (AUTO) 0.6 T/MM3 (0-0.8); MONOCYTES % (AUTO) 6.8 % (0-9.0); NEUTROPHILS #(AUTO)-ABSOLUTE 5.1 T/MM3 (1.8-7.7); NEUTROPHILS % (AUTO) 62.1 % (33-66); RED BLOOD COUNT 3.14 M/MM3 (4.00-5.20); WBC - WHITE BLOOD COUNT 8.2 T/MM3 (4.5-11.0)
[2016-12-01 05:47] LABS: ANION GAP 8 MEQ/L (5-15); BUN/CREATININE RATIO 21 RATIO (6-26); CHLORIDE 106 MEQ/L (98-107); CO2 - CARBON DIOXIDE 33 MEQ/L (22-30); CREATININE 0.7 MG/DL (0.7-1.2); GLOMERULAR FILTRATION RATE 81; GLUCOSE 98 MG/DL (65-110); POTASSIUM 5.1 MEQ/L (3.6-5); SODIUM 147 MEQ/L (134-144)
[2016-12-01] MEDS: HEPARIN SUB-Q 5,000 unit/0.5ml vial SQ SCH ×3 (06:10→21:15)
[2016-12-01] MEDS: LEVOTHYROXINE 88 MCG TABLET PO SCH (06:10)
--- NOTE | 2016-12-01 07:00 | NUR ---
SUMMARY YVONNE IS A PLEASANT AND COOPERATIVE PATIENT. SHE WAS MEDICATED FOR PAIN WITH ADEQUATE RELIEF . SHE SLEPT THROUGH THE NIGHT. THE DRESSING TO HER BACK WAS CHANGED. SEE MARTINAR.BIBI.BEDALARMS ON THRU THE NIGHT.SHE VOIDED ONCE AND AND POST VOID RESIDUAL WAS 121 CC.SHE WAS CONTINENT OF BLADDER WITH HYGIENE PER PT.O2 WAS USED THRU THE NIGHT AT 2L PER NC.
--- NOTE | 2016-12-01 09:00 | DI ---
Indication: ITS.REASON: hypoxia/COPD PROCEDURE: CHEST 1 VIEW: Encounter: Initial Comparison: November 27, 2014 Findings: Patchy bilateral airspace consolidation, right greater than left. Some of this may be chronic due to scarring or fibrosis given the similar appearance two years ago. No obvious new infiltrate compared to the prior exam. No obvious pleural effusion. No pneumothorax. Prior sternotomy with cardiac valve replacement and left cardiac pacemaker. Vertical surgical staple line projecting over the thoracic spine. Right shoulder replacement. Impression: Patchy bilateral airspace disease greatest in the right lung similar in appearance to the exam performed two years ago, some of which may be due to chronic scarring and COPD although an acute pneumonia cannot be entirely excluded. Recommend clinical and laboratory correlation. .
[2016-12-01] MEDS: METHOCARBAMOL 750 MG TABLET PO SCH ×4 (09:02→21:33)
[2016-12-01] MEDS: DOCUSATE SODIUM 100 MG CAPSULE PO SCH ×2 (09:02→21:32)
[2016-12-01] MEDS: DULOXETINE 60 MG CAPSULE PO SCH (09:02)
[2016-12-01] MEDS: LISINOPRIL 20 MG TABLET PO SCH ×2 (09:02→21:00)
[2016-12-01] MEDS: POTASSIUM CHLORIDE 20 MEQ TABLET PO SCH ×2 (09:03→17:45)
[2016-12-01] MEDS: FUROSEMIDE 20 MG TABLET PO SCH (09:03)
[2016-12-01] MEDS: CARVEDILOL 25 MG TABLET PO SCH ×2 (09:03→17:44)
--- NOTE | 2016-12-01 14:05 | NUR ---
BP Pt reported that she was feeling "weird," upon assessment she reported that she was having discomfort to her back. Obtained a set of VS which her BP in the Rt arm was 89/45 HR 61. In the Lt arm BP 88/47 HR 61, O2 was 99% on 3 L/NC. This was reported to Kathy Hood APRN, she wanted to encourage fluids and recheck in an hour.
--- NOTE | 2016-12-01 15:03 | NUR ---
BP recheck Pts BP upon reassessment was 107/54 with HR 64. This was reported to Kathy Hood APRN, no new orders obtained.
--- NOTE | 2016-12-01 15:09 | HPPDOC ---
HPI Date DATE: 11/30/16 TIME: 1630 Pt seen adn evaluated 11/30/16 at approx 1630, note finished today. General Chief Complaint: back pain and leg weakness History of Present Illness 81 yo female s/p spinal decompression for epidural hematoma following placement of spinal cord stimulator.She has hadlos of strength and sensation to both right and left legs. She had the clot decompressed adn has had some improvement , albeit slowly. Due to pain and weakness,she is unable to manage her adl's and cannot live by herself at this time. Past Medical History Past Medical History Patient's Medical History: (1) COPD (chronic obstructive pulmonary disease) (2) Oxygen dependent (3) Amiodarone pulmonary toxicity (4) CHF due to valvular disease Permanent Comment: possibly rheumatic heart disease Last Edited By: Viv Hilton on Oct 19, 2016 08:07 (5) Atrial fibrillation (6) Arthritis (7) HTN (hypertension) (8) Lupus (9) Dyslipidemia (10) Vascular dementia (11) Hypothyroidism (12) Epidural hematoma Permanent Comment: Emergent T4-T8 thoracic decompressive laminectomy for evacuation of an epidural hematoma and removal of the spinal cord stimulator on 11/24/[address] Butler Last Edited By: Viv Hilton on Nov 30, 2016 15:07 (13) Constipation due to opioid therapy (14) Overweight (BMI 25.0-29.9) Surgical History Patient's Surgical History: spinal cord stimulator was inserted into her thoracic spine on 11/22/16. Emergent T4-T8 thoracic decompressive laminectomy for evacuation of an epidural hematoma and removal of the spinal cord stimulator on 11/24/[address] 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) cardiac cath hysterectomy kypphoplasty multiple back surgeries RCR hip (rt) knee replacements bilaterally shoulder sx Current Medications Home Meds Reported Medications Mirtazapine (Mirtazapine) 45 Mg Tab.rapdis, 45 MG PO HS, TAB Take 1 tablet, by mouth, one time a day (at bedtime). 11/30/16 Lisinopril (Lisinopril) 20 Mg Tablet, 20 MG PO BID, TAB 11/30/16 Carvedilol (Carvedilol) 25 Mg Tablet, 1 TAB PO BIDWM, TAB BEST WITH FOOD. 11/30/16 Heparin Sodium,Porcine (Heparin 5000 UNIT/1 ML) 5,000 Unit/1 Ml Vial, 1 ML SQ Q8H 11/30/16 Furosemide (Furosemide) 20 Mg Tablet, 1 TAB PO DAILY, TAB 11/30/16 Oxycodone HCl/Acetaminophen (Oxycodon-Acetaminophen 7.5-325) 7.5-325 Tablet, 1- 2 TAB PO Q4H Y for PAIN/AIR HUNGER, TAB Take 1-2 tablets, by mouth, every 4 hours for Pain 11/30/16 Methocarbamol (Robaxin) 500 Mg Tablet, 1.5 TAB PO 4XDPRN 11/30/16 Bisacodyl (Dulcolax) 5 Mg Tablet.dr, 1 TAB PO DAILY Y for PRN ORDERS, TAB DO NOT CHEW, BITE, OR CRUSH TABLET 11/30/16 Acetaminophen (Tylenol) 325 Mg Tablet, 2 TAB PO Q4HR Y for PAIN/FEVER, TAB 11/30/16 Potassium Chloride (Potassium Chloride) 20 Meq Tablet.er, 20 MEQ PO BIDWM, TAB Take 1 tablet, by mouth, two times a day with meals. 11/24/16 Levothyroxine Sodium (Levothyroxine Sodium) 88 Mcg Tablet, 88 MCG PO ACB, TAB Once daily before breakfast. 10/18/16 Lorazepam (Lorazepam) 0.5 Mg Tablet, 1 TAB PO BID Y for ANXIETY 06/01/13 Duloxetine Hcl (Cymbalta) 60 Mg Capsule.dr, 1 TAB PO DAILY 06/01/13 Discontinued Reported Medications Mirtazapine (Remeron) 30 Mg Tablet, 30 MG PO HS, TAB Take 1 tablet, by mouth, one time a day (at bedtime). 11/24/16 Furosemide (Lasix) 40 Mg Tablet, 1 TAB PO BID, TAB 11/24/16 Carvedilol (Carvedilol) 12.5 Mg Tablet, 1 TAB PO BIDWM, TAB BEST WITH FOOD. 10/18/16 Esomeprazole Magnesium (Nexium) 40 Mg Capsule.dr, 1 CAP PO DAILY, CAP 11/24/16 Prednisone (Prednisone) 5 Mg Tablet, 5 MG PO WB, TAB Take 1 tablet, by mouth, once a day with breakfast. 11/24/16 Dronedarone HCl (Multaq) 400 Mg Tablet, 1 TAB PO DAILY, #180 TAB 1 Refill 11/24/16 Alendronate Sodium (Fosamax) 70 Mg Tablet, 1 TAB PO WEEKLY 06/01/13 Discontinued Scripts Ondansetron (Zofran Odt) 4 Mg Tab.rapdis, 4 MG PO Q6HR, #10 TAB Oral disintegrating tablet Prov:JEAN CARLOS MEDINA MD 11/24/16 Hydrocodone/Acetaminophen (Hydrocodon-Acetaminoph 7.5-325) 7.5-325 Tablet, 1 TAB PO Q4HR Y for PAIN for 30 Days Prov:SABA STEVEN APRN 10/25/16 Allergies: Coded Allergies: Thiazides (Verified Allergy, Unknown, RASH, 11/24/16) amiodarone (Verified Allergy, Unknown, DYSPNEA, LUNG DAMAGE, 11/24/16) hydroxychloroquine (Verified Allergy, Unknown, 11/24/16) nifedipine (Verified Allergy, Unknown, DROPPED BLOOD PRESSURE TOO FAST, 07/31) tramadol (Verified Allergy, Unknown, 11/24/16) codeine (Verified Adverse Reaction, Unknown, NAUSEA, 11/24/16) Family History Family History: Both parents of ID. Heart disease on both sides of the family. 1 son had diabetes () 1 son with HTN Social History Does patient use chewing tobac: No Second Hand Exposure: No Substance Use Type: does not use Alcohol Intake: none Marital Status: Advance Directives: Yes DPOA for Healthcare Only (daughter and sister) Review of Systems Constitutional: REPORTS: weight loss GI Comments constipation, nausea. Musculoskeletal General: see HPI Neurological General: see HPI All Other Systems All Other Systems: Reviewed Physical Exam General General Nourishment: well nourished, well developed General Body Habitus: well groomed Vital Signs Vital Signs Date Time Temp Pulse Resp B/P Pulse Ox O2 Delivery O2 Flow Rate FiO2 12/01/16 13:51 61 88/47 99 Nasal Cannula 3.00 12/01/16 09:30 63 12/01/16 07:18 98.1 Height (Feet): 5 Height (Inches): 6.00 Telemetry Rhythm: Sinus Rhythm Eyes Brief: FOUND: EOMI, PERRL ENMT Brief: FOUND: TM clear, TM good light reflex Neck Brief: NOT FOUND: adenopathy, carotid bruits, thyromegaly Respiratory Brief: FOUND: clear all neely, equal bilaterally Cardiovascular (brief) Cardiac Brief: FOUND: regular rate, regular rhythm Capillary Refill: <2 sec Abdomen (brief) Abdominal Brief: FOUND: BS normo active x4, soft, NOT FOUND: tender Musculoskeletal (brief) Comments weakness bilat legs L>R Neurologic (brief) Neurological Brief: FOUND: cerebellar, cranial 2-12 intact, motor (except bilat legs with deficit.), sensory (some deficit bilat legs), NOT FOUND: facial droop Neurologic RN Documented GCS Eye Opening: (4)Spontaneous Verbal: (5)Oriented Motor: (6)Obeys Commands Total: Psychiatric (brief) FOUND: alert, oriented Laboratory Laboratory Tests Test 12/01/16 05:09 White Blood Count 8.2T/MM3 Red Blood Count 3.14M/MM3 Hemoglobin 8.9GM/DL Hematocrit 31.4% Mean Corpuscular Volume 100.0UM3 Mean Corpuscular Hemoglobin 28.3UUG Mean Corpuscular Hemoglobin Concent 28.3GM/DL RDW Standard Deviation 52.9FL Platelet Count 377T/MM3 Mean Platelet Volume 8.9UM3 Immature Granulocyte % (Auto) 0.2% Neutrophils (%) (Auto) 62.1% Lymphocytes (%) (Auto) 21.4% Monocytes (%) (Auto) 6.8% Eosinophils (%) (Auto) 8.9% Basophils (%) (Auto) 0.6% Absolute Immature Granulocyte (auto 0.02T/MM3 Absolute Neutrophils (auto) 5.1T/MM3 Absolute Lymphocytes (auto) 1.8T/MM3 Absolute Monocytes (auto) 0.6T/MM3 Absolute Eosinophils (auto) 0.7T/MM3 Absolute Basophils (auto) 0.1T/MM3 Turbidity < 20 Sodium Level 147MEQ/L Potassium Level 5.1MEQ/L Chloride Level 106MEQ/L Carbon Dioxide Level 33MEQ/L Anion Gap 8MEQ/L Blood Urea Nitrogen 15.0MG/DL Creatinine 0.7MG/DL Glomerular Filtration Rate Calc 81 BUN/Creatinine Ratio 21RATIO Glucose Level 98MG/DL Calculated Osmolality 283MOSM/KG Calcium Level 9.0MG/DL Icterus Index < 2 Chemistry Specimen Hemolysis < 15 Assessment & Plan Problems: (1) Vascular dementia Status: Chronic Assessment & Plan: Medical to manage (2) Epidural hematoma Status: Acute Assessment & Plan: stable, surgical to follow (3) Bilateral leg weakness Status: Acute Assessment & Plan: PT and OT to create plan of care with pt. (4) CHF due to valvular disease Status: Chronic Assessment & Plan: medical to manage DVT Prophylaxis: SCD'S Code Status Full Code, unverified Interventions to Obtain Goals OT Treatment Plan: ADL's (basic care), Ther. Exercise for ADL's, UE Functional Training, Balance Training, Pt./Family Education, IADL's Hospital Course Summary Disclaimer The hospital course summary below is not to be considered part of the above Progress Note. MEG SETH MD Dec 01, 2016 15:03
--- NOTE | 2016-12-01 15:11 | IRU24PDOC ---
24 Hour Post Admission Eval Relevant Changes Relevant Changes: No I have reviewed the patient's information and concur with the finding and results of the pre-admission screen. Certification I certify the patient for rehabilitation. Patient Condition Prior Medical Conditions: (1) Vascular dementia Status: Chronic Additional Information: Medical to manage (2) Epidural hematoma Status: Acute Additional Information: stable, surgical to follow (3) Bilateral leg weakness Status: Acute Additional Information: PT and OT to create plan of care with pt. (4) CHF due to valvular disease Status: Chronic Additional Information: medical to manage Current Medical Conditions: (1) Vascular dementia Status: Chronic Additional Information: Medical to manage (2) Epidural hematoma Status: Acute Additional Information: stable, surgical to follow (3) Bilateral leg weakness Status: Acute Additional Information: PT and OT to create plan of care with pt. (4) CHF due to valvular disease Status: Chronic Additional Information: medical to manage Prior Functional Condition Lives With: Alone Residence Type: Private home/apartment Assistive Devices: Front Wheeled Walker, 4-Wheeled Walker Prior Functional Status: Indep. at home or school Current Functional Status Patient Requirements * Patient has been determined to have significant functional limitations requiring at least two therapy disciplines. * Rehabilitation medical practitioner will provide admission approval, assessment and oversight and program coordination at least daily. * Intensive rehabilitative nursing services on site and available 24 hours a day. * The treatment plan will be developed within 24 hours of admission. * Interdisciplinary and goal oriented treatment by professional nursing, social work msw, and rehabilitation therapist. * Interdisciplinary team meeting weekly inclusive of ongoing comprehensive discharge planning. First team meeting by day seven. Weekly meetings to follow. * Rehab Physician is the team meeting leader. * Pharmacy and diagnostic services will be available. * Ongoing comprehensive rehab program with at least 2 disciplines and greater than or equal to 3 hours a day, 5 days a week. Physical Therapy Minutes: 90 Occupational Therapy Minutes: 90 Therapy The patient is to receive therapy at least 5 days a week. Current Functional Status: Using assistive device Plan of Care Comment: 6x/wk for 1st wk; 5x/wk for 2nd and 3rd wks. OT Treatment Plan: ADL's (basic care), Ther. Exercise for ADL's, UE Functional Training, Balance Training, Pt./Family Education, IADL's OT Treatment Plan Frequency: five times per week OT Treatment Plan Duration: three weeks Muscle Weakness Location: Left Lower Extremity, Right Lower Extremity Complication/Comorbidities Patient Complication Risk: (1) Vascular dementia Status: Chronic Comments: Medical to manage (2) Epidural hematoma Status: Acute Comments: stable, surgical to follow (3) Bilateral leg weakness Status: Acute Comments: PT and OT to create plan of care with pt. (4) CHF due to valvular disease Status: Chronic Comments: medical to manage Impact on Functional Outcomes Delayed improvement due to permanent nerve damage, although pt should still show significant improvement. Barriers to Discharge: weakness, endurance, balance, pain control, medical stability Plan to Avoid Complications Plan to Avoid Complications The patient cannot receive this care in a lesser intensive setting such as Long-Term or Outpatient Therapy due to the patient requiring the following management of chf, afib and post op complications. The patient requires oversight by a rehabilitation physician to manage their rehabilitation treatment plan and the multidisciplinary approach to care that can only be provided in an IRF and requires a multidisciplinary approach to care , provided by professional PTs, OTs, STs, dieticians, RTs, rehabilitation nurses and is not available in lesser levels of care. The frequency and duration for therapy, as recommended by the professional Rehabilitation therapists, meet the patient's initial rehabilitation treatment plan needs and will be further evaluated on a weekly basis for progress and/or changes needed. MEG SETH MD Dec 01, 2016 15:11
--- NOTE | 2016-12-01 18:11 | NUR ---
Shift Summary Pt is in the dining room at this time. Pivot transfers with assist of 1, FWW, and gait belt. Has O2 running at 3 L/NC. She worked well with therapy this shift, did report pain throughout the day. Received her scheduled Robaxin but also received Percocet 7.5 (2) at 1054 and 1745. Has been continent for the most part this shift, did have one episode of urine incontinence this shift. She needs assist with clothing and hygiene cares, max assist for incontinence cares. Ate well for meals, did not need assist with her tray, took the wheelchair to the dining room. She does have moments that she appears to be confused but is alert and oriented to person, place, and time. When in the chair or the bed the alarm is in use and call light is within reach.
[2016-12-01] MEDS: MIRTAZAPINE 45 MG PO SCH (21:32)
[2016-12-01] MEDS: TRAVOPROST 0.004% EYE DROPS 2.5ml RIGHT EYE SCH (21:33)
--- NOTE | 2016-12-02 00:09 | NUR ---
Chart Check 24 hour chart check completed
--- NOTE | 2016-12-02 07:21 | NUR ---
Summary Patient a/ox3, able to make needs known. Patient was in bed upon arrival. Cooperative with vitals, All hs medications given except lisinopril, Order to hold one dose per Dr Peterson due to BP 92/49. Rechecked BP at 0030, BP was 98/63. Patient takes medications whole in pudding. Patient complained of 4/10 back pain, offered prn pain medication. Patient refused pain medication stating she would call if she changed her mind. Patient checked on routinely. encouraged fluids. Patient continent of bladder. Patient is currently in bed resting with the bed alarm on, rails upx2, and call light is in reach.
[2016-12-02 08:00] VITALS: BP 145/64; PULSE 61; RESP 20; TEMP 98.3; O2SAT 96
[2016-12-02] MEDS: DOCUSATE SODIUM 100 MG CAPSULE PO SCH ×2 (08:48→20:40)
[2016-12-02] MEDS: DULOXETINE 60 MG CAPSULE PO SCH (08:48)
[2016-12-02] MEDS: POTASSIUM CHLORIDE 20 MEQ TABLET PO SCH ×2 (08:49→18:18)
[2016-12-02] MEDS: METHOCARBAMOL 750 MG TABLET PO SCH ×3 (08:49→20:40)
[2016-12-02] MEDS: FUROSEMIDE 20 MG TABLET PO SCH (08:49)
[2016-12-02] MEDS: CARVEDILOL 25 MG TABLET PO SCH ×2 (08:49→18:18)
[2016-12-02] MEDS: LISINOPRIL 10 MG TABLET PO SCH ×2 (08:50→20:40)
[2016-12-02] MEDS ORDERED: HEPARIN SUB-Q 5,000 unit/0.5ml vial SQ SCH (09:00)
--- NOTE | 2016-12-02 09:40 | NUR ---
JONATHAN HAMM SCORE IS 9. Addendum: 12/02/16 at 0941 by REINA HERNANDEZ Amended: Links added.
--- NOTE | 2016-12-02 11:27 | NUR ---
CM THIS WORKER VISITED PT IN ROOM, INTRODUCED SELF AND ROLE OF CASE MANAGEMENT. PT STATED SHE HAS GOOD FAMILY SUPPORT, HER DAUGHTER-ROX HAS BEEN VISITING. PT STATED HER FAMILY LIVE NEARBY. PT STATED SHE HAS HOME HEALTH THROUGH [facility] AND WILL CONTINUE WITH [facility]. PT REPORTED SHE HAS A SHOWER SEAT, 4WW, AND O2 TANK AND CONCENTRATOR AT HOME. PT'S D/C PLAN IS TO RETURN HOME. PT DENIED ANY NEEDS AT THIS TIME AND WAS ENCOURAGED TO HOP TRAINER IF ANY QUESTIONS/CONCERNS ARISE. Addendum: 12/02/16 at 1131 by REINA HERNANDEZ Amended: Links added. Addendum: 12/02/16 at 1313 by REINA HERNANDEZ THIS WORKER CALLED [id number] AT [phone]. [facility] CONFIRMED PT IS ON 3L CONTINUOS OXYGEN.
--- NOTE | 2016-12-02 15:28 | PNPDOC ---
Subjective Date DATE: 12/02/16 TIME: 0815 Subjective Lulú is seen this morning. I'll in breakfast. She is in her room, sitting up in the wheelchair getting ready to work with therapy. She states that overall she is fatigued. Complains of having mild mid back pain, however, declines the need for further pain management. She continues to be at her baseline 3 liters of oxygen by nasal cannula. Denies chest pain, or GI complaints. Blood pressure 125/64. Objective Vital Signs Vital signs Vital Signs Date Time Temp Pulse Resp B/P Pulse Ox O2 Delivery O2 Flow Rate FiO2 12/02/16 08:00 98.3 61 20 145/64 96 Nasal Cannula 3.00 Telemetry Rhythm: Sinus Rhythm Height (Feet): 5 Height (Inches): 6.00 Weight (Kilograms): 76.000 General General Appearance: Alert, Orientated x 3, Cooperative, No Acute Distress Eyes (Brief) Eyes: FOUND: EOMI ENMT (Brief) ENMT: FOUND: mucosa moist, normal dentition, NOT FOUND: pharnyx erythema Neck (Brief) Neck: FOUND: midline, NOT FOUND: adenopathy, carotid bruits, tracheal deviation Respiratory (Brief) Respiratory: FOUND: clear all neely, equal bilaterally, NOT FOUND: wheezes Cardiovascular (Brief) Cardiac: FOUND: regular rate, regular rhythm, NOT FOUND: murmur, pedal edema Capillary Refill: <2 sec Abdomen (Brief) Abdominal: FOUND: BS normo active x4, soft, NOT FOUND: distended, tender Lymphatic (Brief) Lymphatic: NOT FOUND: adenopathy Musculoskeletal (Brief) Musculoskeletal: FOUND: tenderness (back pain) Integumentary (Brief) Integumentary: FOUND: dry, pink, warm Neurologic (Brief) Neurological: FOUND: cranial 2-12 intact Psychiatric (Brief) Psychiatric: FOUND: alert, attentive, normal affect, oriented Laboratory Laboratory Laboratory Tests 12/01/16 05:09 Laboratory Tests 12/01/16 05:09 Assessment & Plan Problems: (1) Epidural hematoma Status: Acute Assessment & Plan: Following placement of spinal cord stimulator on 11/22/16. Underwent emergent T4-T8 thoracic decompressive laminectomy for evacuation of the epidural hematoma and removal of the spinal cord stimulator on 11/24/[address] Butler (2) Bilateral leg weakness Status: Acute (3) CHF due to valvular disease Status: Chronic (4) COPD (chronic obstructive pulmonary disease) Status: Chronic (5) Oxygen dependent Status: Chronic (6) Amiodarone pulmonary toxicity Status: Chronic (7) Atrial fibrillation Status: Chronic (8) Hypothyroidism Status: Chronic (9) HTN (hypertension) Status: Chronic (10) Lupus Status: Chronic (11) Dyslipidemia Status: Chronic (12) Overweight (BMI 25.0-29.9) Status: Chronic Plan/Intensity of Service 12/02/16 Continue on postoperative prophylaxis- Heparin SQ TID. May not start full anticoagulation until 12/08/16 for mechanical valves. Continue with oxygen at baseline 3 liters. Currently on Percocet for pain control, and Robaxin for muscle relaxers. Continue with Colace for postoperative bowel motivation Continue to encourage work with PT and OT for ongoing postoperative strengthening and pain control Check CBC and BMP tomorrow morning to follow anemia, electrolyte abnormalities Code Status Full Code, unverified Hospital Course Summary Disclaimer The hospital course summary below is not to be considered part of the above Progress Note. Hospital Course Summary 12/02/16 Continue on postoperative prophylaxis- Heparin SQ TID. May not start full anticoagulation until 12/08/16 for mechanical valves. Continue with oxygen at baseline 3 liters. Currently on Percocet for pain control, and Robaxin for muscle relaxers. Continue with Colace for postoperative bowel motivation Continue to encourage work with PT and OT for ongoing postoperative strengthening and pain control Check CBC and BMP tomorrow morning to follow anemia, electrolyte abnormalities SABA STEVEN APRN Dec 02, 2016 15:28
[2016-12-02 16:00] VITALS: BP 111/58; PULSE 64; RESP 12; TEMP 98; O2SAT 99
--- NOTE | 2016-12-02 16:00 | NUR ---
STATUS. ASSUMED CARE AT 1500. AGREE WITH SHIFT ASSESSMENT. PT SITTING UP IN WC VISITORS IN THE ROOM.
--- NOTE | 2016-12-02 16:18 | NUR ---
Shift summary Patient alert and oriented x3. Min assist with upper extremity dressing. Min assist with upper extremity bathing. Max assist with lower extremity dressing and bathing. Patient given percocet at beginning of shift for 8/10 back pain. Patient wears glasses, dentures. Continent of bowel and blader, wears pull ups. Patient seemes down and depressed this shift. She states she does not want us to praise her for doing well in therapy. She says if we are being fake about how she is doing, she doesn't want to know. Assured patient that we would be honest with her when she is doing well or needing to try to do more. O2 at 3 liters NC.
--- NOTE | 2016-12-02 17:44 | PDIRUOPC ---
Overall Plan of Care Date DATE: 12/02/16 TIME: 17:41 Relevant Changes Relevant Changes: No I have reviewed the patient's information and concur with the finding and results of the pre-admission screen. Certification I certify the patient for rehabilitation. Patient Impairments Prior Medical Conditions: (1) Vascular dementia Status: Chronic Additional Information: Medical to manage (2) Epidural hematoma Status: Acute Additional Information: stable, surgical to follow (3) Bilateral leg weakness Status: Acute Additional Information: PT and OT to create plan of care with pt. (4) CHF due to valvular disease Status: Chronic Additional Information: medical to manage Current Medical Conditions: (1) Vascular dementia Status: Chronic Additional Information: Medical to manage (2) Epidural hematoma Status: Acute Additional Information: stable, surgical to follow (3) Bilateral leg weakness Status: Acute Additional Information: PT and OT to create plan of care with pt. (4) CHF due to valvular disease Status: Chronic Additional Information: medical to manage Medical Prognosis Fair IRF Tx That Should Address Dx: (1) Bilateral leg weakness Dx Requiring Medical FU: (1) Epidural hematoma (2) CHF due to valvular disease Vital Signs Vital Signs Date Time Temp Pulse Resp B/P Pulse Ox O2 Delivery O2 Flow Rate FiO2 12/02/16 08:00 61 20 12/02/16 08:00 98.3 145/64 96 Nasal Cannula 3.00 Laboratory Laboratory Tests Test 12/01/16 05:09 White Blood Count 8.2T/MM3 Red Blood Count 3.14M/MM3 Hemoglobin 8.9GM/DL Hematocrit 31.4% Mean Corpuscular Volume 100.0UM3 Mean Corpuscular Hemoglobin 28.3UUG Mean Corpuscular Hemoglobin Concent 28.3GM/DL RDW Standard Deviation 52.9FL Platelet Count 377T/MM3 Mean Platelet Volume 8.9UM3 Immature Granulocyte % (Auto) 0.2% Neutrophils (%) (Auto) 62.1% Lymphocytes (%) (Auto) 21.4% Monocytes (%) (Auto) 6.8% Eosinophils (%) (Auto) 8.9% Basophils (%) (Auto) 0.6% Absolute Immature Granulocyte (auto 0.02T/MM3 Absolute Neutrophils (auto) 5.1T/MM3 Absolute Lymphocytes (auto) 1.8T/MM3 Absolute Monocytes (auto) 0.6T/MM3 Absolute Eosinophils (auto) 0.7T/MM3 Absolute Basophils (auto) 0.1T/MM3 Turbidity < 20 Sodium Level 147MEQ/L Potassium Level 5.1MEQ/L Chloride Level 106MEQ/L Carbon Dioxide Level 33MEQ/L Anion Gap 8MEQ/L Blood Urea Nitrogen 15.0MG/DL Creatinine 0.7MG/DL Glomerular Filtration Rate Calc 81 BUN/Creatinine Ratio 21RATIO Glucose Level 98MG/DL Calculated Osmolality 283MOSM/KG Calcium Level 9.0MG/DL Icterus Index < 2 Chemistry Specimen Hemolysis < 15 Anticipated Interventions The patient requires inpatient IRF care for PT, OT, and/or ST for residuals remaining from [] resulting in muscular weakness and strength deficits. ROM Deficit: Left Lower Extremity, Right Lower Extremity Strength Deficits: Left Lower Extremity, Right Lower Extremity FIM Scores Ambulation Distance: 14 Ambulation Ability: 4 Minimal Assistance Ambulation Assistance Needed: 1 Person Walk FIM Score Reason: Distance Wheelchair Propulsion Ability: 2 Maximum Assistance Wheelchair Propulsion Assistan: 1 Person Eating Ability-FIM: 5 Supervision/Setup Grooming Ability: 4 Minimal Assistance Bathing Ability: 4 Minimal Assistance Upper Body Dressing Ability: 5 Supervision/Setup Lower Body Dressing Ability: 4 Minimal Assistance Lower Body Dressing Assistance: 1 Person Toileting Ability: 4 Minimal Assistance Toileting Assistance Needed: 1 Person Bed Transfer Ability: 3 Moderate Assistance Bed Transfer Assistance Needed: 1 Person Chair Transfer Ability: 4 Minimal Assistance Overall Wheelchair Transfer Ab: 4 Minimal Assistance Overall Toilet / Commode Trans: 4 Minimal Assistance Toilet / Commode Transfer Assi: 1 Person Tub / Shower Transfer Ability: 4 Minimal Assistance Tub/Shower FIM Score Reason: Not tested due to fatigue/safety concern. Comprehension Ability: 6 Modified Anson Social Interaction: 7+ Complete Anson Problem Solvin+ Complete Anson Expression Ability: 7+ Complete Anson Memory: 6 Modified Anson Current Functional Status Failed Alternative Therapy: Arrived from acute care Patient Requires * Patient has been determined to have significant functional limitations requiring at least two therapy disciplines. * Rehabilitation medical practitioner will provide admission approval, assessment and oversight and program coordination at least daily. * Intensive rehabilitative nursing services on site and available 24 hours a day. * The treatment plan will be developed within 24 hours of admission. * Interdisciplinary and goal oriented treatment by professional nursing, older adult social work specialist, and rehabilitation therapist. * Interdisciplinary team meeting weekly inclusive of ongoing comprehensive discharge planning. First team meeting by . Weekly meetings to follow. * Rehab Physician is the team meeting leader. * Pharmacy and diagnostic services will be available. * Ongoing comprehensive rehab program with at least 2 disciplines and greater than or equal to 3 hours a day, 5 days a week. Limitations require: limited mobility, ADL impairment, respiratory impairment Physical Therapy Minutes: 90 Occupational Therapy Minutes: 90 Therapy The patient is to receive therapy at least 5 days a week. PT Treatment Plan: Therapeutic Exercise, Gait Training, Functional Activities , Balance/Proprioception, Wound Care Treatment Plan Frequency: five times per week Treatment Plan Duration: two weeks Plan of Care Comment: 6x/wk for 1st wk; 5x/wk for 2nd and 3rd wks. OT Treatment Plan: ADL's (basic care), Ther. Exercise for ADL's, UE Functional Training, Balance Training, Pt./Family Education, IADL's OT Treatment Plan Frequency: five times per week OT Treatment Plan Duration: three weeks Anticapted LOS/Outcomes Anticipated Functional Outcome improvement in stamina and overal stability in ambulating. Anticipated DC Destination: Home Health Service Home Safety Plan The patient will be provided with the development of a Home Safety Plan for return to a home or home-like environment and to ensure safety post discharge. Complicating Conditions Complications since IRF admit: (1) Vascular dementia Status: Chronic Comments: Medical to manage (2) Epidural hematoma Status: Acute Comments: stable, surgical to follow (3) Bilateral leg weakness Status: Acute Comments: PT and OT to create plan of care with pt. (4) CHF due to valvular disease Status: Chronic Comments: medical to manage Other Contributing Factors: Plan to Avoid Complications Barriers to Attaining Goals: weakness, balance, endurance, pain control Plan to Avoid Complications The patient cannot receive this care in a lesser intensive setting such as [facility] or Outpatient Therapy due to the patient requiring the following vascular dementia, weakness, chf.. The patient requires oversight by a rehabilitation physician to manage their rehabilitation treatment plan and the multidisciplinary approach to care that can only be provided in an IRF and requires a multidisciplinary approach to care , provided by professional PTs, OTs, STs, dieticians, RTs, rehabilitation nurses and is not available in lesser levels of care. The frequency and duration for therapy, as recommended by the professional Rehabilitation therapists, meet the patient's initial rehabilitation treatment plan needs and will be further evaluated on a weekly basis for progress and/or changes needed. MEG SETH MD Dec 02, 2016 17:44
[2016-12-02] MEDS: HEPARIN SUB-Q 5,000 unit/0.5ml vial SQ SCH (19:23)
--- NOTE | 2016-12-02 19:49 | NUR ---
STATUS. PT ALERT AND OX3. PT ON O2, REPORTS HAS IT AT HOME ALSO. PERCO 7.5 2 TABS GIVEN AT 1618 FOR 8/10 PAIN LEVEL. PT REPORTS HELPS "SOME". PT TAKES MED WHOLE OR CUT IN HALF WITH PUDDING. WC TO DINING ROOM ATE WELL.
[2016-12-02 20:00] VITALS: PULSE 86; RESP 12
[2016-12-02] MEDS: MIRTAZAPINE 45 MG PO SCH (20:40)
[2016-12-02] MEDS: TRAVOPROST 0.004% EYE DROPS 2.5ml RIGHT EYE SCH (20:40)
[2016-12-02 21:24] VITALS: BP 112/55; PULSE 86; RESP 18; TEMP 98.5; O2SAT 94
[2016-12-03] VITALS: BP 123/65; PULSE 66; RESP 20; TEMP 98.2; O2SAT 100
[2016-12-03 05:20] LABS: BASOPHILS # (AUTO) 0.1 T/MM3 (0-0.2); BASOPHILS % (AUTO) 0.7 % (0-2); EOSINOPHILS # (AUTO) 0.6 T/MM3 (0-0.5); HCT - HEMATOCRIT 31.6 % (36-46); HGB - HEMOGLOBIN 9.1 GM/DL (12-16); IMMATURE GRANULOCYTE # (AUTO) 0.02 T/MM3 (0.00-0.03); IMMATURE GRANULOCYTE % (AUTO) 0.3 % (0.0-0.5); LYMPHOCYTES # (AUTO) 1.4 T/MM3 (1-4.8); LYMPHOCYTES % (AUTO) 17.9 % (23-45); MEAN CORPUSCULAR HGB 28.5 UUG (26-34); MEAN CORPUSCULAR HGB CONC(MCHC 28.8 GM/DL (31-37); MEAN CORPUSCULAR VOLUME 99.1 UM3 (80-100); MEAN PLATELET VOLUME 9.1 UM3 (9.4-12.4); MONOCYTES # (AUTO) 0.7 T/MM3 (0-0.8); MONOCYTES % (AUTO) 8.8 % (0-9.0); NEUTROPHILS #(AUTO)-ABSOLUTE 4.9 T/MM3 (1.8-7.7); NEUTROPHILS % (AUTO) 64.3 % (33-66); RED BLOOD COUNT 3.19 M/MM3 (4.00-5.20); WBC - WHITE BLOOD COUNT 7.6 T/MM3 (4.5-11.0)
[2016-12-03 05:32] LABS: ANION GAP 10 MEQ/L (5-15); BUN/CREATININE RATIO 23 RATIO (6-26); CALCIUM 8.7 MG/DL (8.4-10.2); CHLORIDE 104 MEQ/L (98-107); CO2 - CARBON DIOXIDE 31 MEQ/L (22-30); CREATININE 0.9 MG/DL (0.7-1.2); GLOMERULAR FILTRATION RATE 60; GLUCOSE 109 MG/DL (65-110); POTASSIUM 5.3 MEQ/L (3.6-5); SODIUM 145 MEQ/L (134-144)
[2016-12-03] MEDS: LEVOTHYROXINE 88 MCG TABLET PO SCH ×2 (05:44→05:48)
[2016-12-03] MEDS: HEPARIN SUB-Q 5,000 unit/0.5ml vial SQ SCH ×3 (05:44→18:25)
[2016-12-03] MEDS: DOCUSATE SODIUM 100 MG CAPSULE PO SCH ×2 (09:01→20:22)
[2016-12-03] MEDS: METHOCARBAMOL 750 MG TABLET PO SCH ×4 (09:01→22:29)
[2016-12-03] MEDS: CARVEDILOL 25 MG TABLET PO SCH ×2 (09:02→18:25)
[2016-12-03] MEDS: FUROSEMIDE 20 MG TABLET PO SCH (09:02)
[2016-12-03] MEDS: LISINOPRIL 10 MG TABLET PO SCH ×2 (09:02→20:22)
[2016-12-03] MEDS: DULOXETINE 60 MG CAPSULE PO SCH (09:02)
[2016-12-03] MEDS: POTASSIUM CHLORIDE 20 MEQ TABLET PO SCH (09:56)
--- NOTE | 2016-12-03 10:00 | NUR ---
K+ K+ noted to be 5.3 this A.M. Notified ABIDA Merrill, and she reported this RN could hold this mornings dose of K+. Will continue to monitor.
[2016-12-03 10:30] VITALS: PULSE 62; RESP 20
[2016-12-03 10:35] VITALS: BP 110/76; PULSE 62; RESP 18; TEMP 98.5; O2SAT 95
--- NOTE | 2016-12-03 12:55 | PDIRUTEAM ---
Multidisciplinary Team Meeting Nursing Hx Incontinence: Yes Bladder Goal: 7+ Complete Byers Jaramillo Y/N: No Bladder Continent or Incontine: Incontinent Incontinent Product Used: Pull-up Number of Times Incontinent of: 1 Cleaning Ability-Bladder: 5 Supervision/Setup Bladder Incontinence Managemen: 4 Minimal Assistance Bowel Goal: 7+ Complete Byers Colostomy Y/N: No Bowel Incontinent/Continent: Continent Cleaning Ability-Bowel: 4 Minimal Assistance Toileting Ability: 4 Minimal Assistance Vital Signs Vital Signs Date Time Temp Pulse Resp B/P Pulse Ox O2 Delivery O2 Flow Rate FiO2 12/03/16 10:35 98.5 62 18 110/76 95 Nasal Cannula 3.00 Current Medications Current Medications Medications (Trade) Dose Ordered Sig/Stephanie Route PRN Reason Start Time Stop Time Status Last Admin Dose Admin Docusate Sodium (Colace) 100 mg BID PO 11/30/16 21:00 12/03/16 09:01 Carvedilol (Coreg) 25 mg BIDWM PO 11/30/16 17:30 12/03/16 09:02 Duloxetine HCl (Cymbalta) 60 mg DAILY PO 12/01/16 09:00 12/03/16 09:02 Furosemide (Lasix) 20 mg DAILY PO 12/01/16 09:00 12/03/16 09:02 Levothyroxine Sodium (Synthroid) 88 mcg ACB PO 12/01/16 06:30 12/03/16 05:48 Lisinopril (Prinivil) 20 mg BID PO 11/30/16 21:00 12/02/16 08:01 DC 12/01/16 09:02 Methocarbamol (Robaxin) 750 mg QID PO 11/30/16 17:00 12/03/16 12:30 Mirtazapine (Remeron Solu-Tab) 45 mg HS PO 11/30/16 22:00 12/02/16 20:40 Oxycodone/ Acetaminophen (Percocet 7.5/ 325) 1-2 Q4H PRN PO PAIN 11/30/16 13:15 12/03/16 12:31 Potassium Chloride (Kdur) 20 meq BIDWM PO 11/30/16 17:30 12/02/16 18:18 Heparin Sodium (Porcine) (Heparin Sub-Q) 5,000 unit Q8H SQ 11/30/16 13:15 12/02/16 06:43 DC 12/01/16 13:28 Travoprost (Travatan) 1 drop HS RIGHT EYE 12/01/16 22:00 12/02/16 20:40 Heparin Sodium (Porcine) (Heparin Sub-Q) 5,000 unit Q8H SQ 12/02/16 09:00 12/02/16 17:47 DC 12/02/16 11:27 Lisinopril (Prinivil) 10 mg BID PO 12/02/16 09:00 12/03/16 09:02 Heparin Sodium (Porcine) (Heparin Sub-Q) 5,000 unit Q8H SQ 12/02/16 17:00 12/03/16 10:37 Physical Therapy Bed Transfer Ability: 3 Moderate Assistance Bed Transfer Assistance Needed: 1 Person Chair Transfer Ability: 5 Supervision/Setup Overall Wheelchair Transfer Ab: 4 Minimal Assistance Wheelchair Transfer Assistance: 1 Person Overall Toilet / Commode Trans: 4 Minimal Assistance Ambulation Ability: 4 Minimal Assistance Ambulation Assistance Needed: 1 Person Walk FIM Score Reason: distance Ambulation Distance: 106 Comments Limited due to pain, is increasing distance. Cognition may be an issue. Confused about where she has moved to and if there are even stairs in the house. showing confusion. Occupational Therapy Grooming Ability: 4 Minimal Assistance Bathing Ability: 4 Minimal Assistance Upper Body Dressing Ability: 5 Supervision/Setup Lower Body Dressing Ability: 4 Minimal Assistance Lower Body Dressing Assistance: 1 Person Toileting Assistance Needed: 1 Person Comments Difficulty remembering sequences. Poor safety awareness. Care Plan Condition at time of discharge: Fair IRU Discharge Disposition: Home Health Service Interventions/Goals Order HONG to evaluate cognition. Changing pain meds to oxy 7.5 -- 1 tab q 4 scheduled and 1 tab q 4 prn pain. Barriers to d/c:activity tolerance, pain, strength, safety, cognition reeval in one week. MEG SETH MD Dec 03, 2016 12:52
--- NOTE | 2016-12-03 15:00 | NUR ---
Status/Pain Pt. has rated pain T4-T8 Lami site an 8/10 consistently this shift. She rates pain as sharp. PRN Perc. 7.5 administered. Please see eMAR. Pain meds noted to be changed to Q4H DIANA by Dr. Chanel. Please see eMAR. Pt. is also on scheduled Robaxin. Encouraged Re-positioning for comfort. Will continue to monitor.
[2016-12-03 15:47] VITALS: BP 128/60; PULSE 62; RESP 16; TEMP 98.5; O2SAT 98
--- NOTE | 2016-12-03 16:18 | PNPDOC ---
Subjective Date DATE: 12/03/16 TIME: 16:08 Subjective Lulú is seen this afternoon following reported change in back pain. Although this pain was reported as acute and sudden onset pt states that it has been the ongoing back pain and is consistent. She does not feel that tramadol is treating her pain. She denies having any increased weakness to upper or lower ext. Motor and sensation to all extremities is unchanged from baseline. Continues on chronic 3 liters of oxygen by nasal cannula without any distress. Objective Vital Signs Vital signs Vital Signs Date Time Temp Pulse Resp B/P Pulse Ox O2 Delivery O2 Flow Rate FiO2 12/03/16 15:47 98.5 62 16 128/60 98 Nasal Cannula 3.00 Telemetry Rhythm: Sinus Rhythm Height (Feet): 5 Height (Inches): 6.00 Weight (Kilograms): 76.000 General General Appearance: Alert, Orientated x 3, Cooperative, No Acute Distress Eyes (Brief) Eyes: FOUND: EOMI ENMT (Brief) ENMT: FOUND: mucosa moist, normal dentition, NOT FOUND: pharnyx erythema Neck (Brief) Neck: FOUND: midline, NOT FOUND: adenopathy, carotid bruits, tracheal deviation Respiratory (Brief) Respiratory: FOUND: clear all neely, equal bilaterally, NOT FOUND: wheezes Cardiovascular (Brief) Cardiac: FOUND: regular rate, regular rhythm, NOT FOUND: murmur, pedal edema Capillary Refill: <2 sec Abdomen (Brief) Abdominal: FOUND: BS normo active x4, soft, NOT FOUND: distended, tender Lymphatic (Brief) Lymphatic: NOT FOUND: adenopathy Musculoskeletal (Brief) Musculoskeletal: NOT FOUND: tenderness Integumentary (Brief) Integumentary: FOUND: dry, pink, warm Neurologic (Brief) Neurological: FOUND: cranial 2-12 intact, motor (strength equal x4 ext), sensory (equal x4 ext) Psychiatric (Brief) Psychiatric: FOUND: alert, attentive, normal affect, oriented Laboratory Laboratory Laboratory Tests 12/03/16 04:21 Laboratory Tests 12/03/16 04:21 Assessment & Plan Problems: (1) Epidural hematoma Status: Acute Assessment & Plan: Following placement of spinal cord stimulator on 11/22/16. Underwent emergent T4-T8 thoracic decompressive laminectomy for evacuation of the epidural hematoma and removal of the spinal cord stimulator on 11/24/[address] 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 Agrees with re-imaging of thoracic back to rule out further bleeding or changes. T-spine without IV contrast ordered. Continue on postoperative prophylaxis- Heparin SQ TID. May not start full anticoagulation until 12/08/16 for mechanical valves. Noted hyperkalemia- Oral potassium held. Will recheck tomorrow Currently on Percocet for pain control, and Robaxin for muscle relaxers. Continue with Colace for postoperative bowel motivation Continue to encourage work with PT and OT for ongoing postoperative strengthening and pain control Code Status Full Code, unverified Hospital Course Summary Disclaimer The hospital course summary below is not to be considered part of the above Progress Note. Hospital Course Summary 12/02/16 Continue on postoperative prophylaxis- Heparin SQ TID. May not start full anticoagulation until 12/08/16 for mechanical valves. Continue with oxygen at baseline 3 liters. Currently on Percocet for pain control, and Robaxin for muscle relaxers. Continue with Colace for postoperative bowel motivation Continue to encourage work with PT and OT for ongoing postoperative strengthening and pain control Check CBC and BMP tomorrow morning to follow anemia, electrolyte abnormalities 12/03/[address] Chanel. Agrees with re-imaging of thoracic back to rule out further bleeding or changes. T-spine without IV contrast ordered. Continue on postoperative prophylaxis- Heparin SQ TID. May not start full anticoagulation until 12/08/16 for mechanical valves. Noted hyperkalemia- Oral potassium held. Will recheck tomorrow Currently on Percocet for pain control, and Robaxin for muscle relaxers. Continue with Colace for postoperative bowel motivation Continue to encourage work with PT and OT for ongoing postoperative strengthening and pain control SABA STEVEN APRN Dec 03, 2016 16:14
--- NOTE | 2016-12-03 16:48 | DI ---
Indication: ITS.REASON: sudden onset thoracic pain PROCEDURE: CT THORACIC SPINE W/O CONTRAST: Encounter: Initial Comparison: None: Technique: Axial noncontrast CT imaging of the thoracic spine was performed with coronal and sagittal two-dimensional reformats. Automated Exposure Control and Iterative Reconstruction dose reducing techniques were utilized. FINDINGS: Alignment of the thoracic spine shows mild scoliosis. Extensive posterior decompression is noted from the T4-T8 levels. There is a tiny focus of gas seen in the posterior epidural space at the T4 level. The vertebral body heights are maintained. No obvious fluid collection or abscess appreciated. Paraspinal soft tissues show enlarged prevascular and paratracheal lymph nodes. Calcified disk protrusion at T12-L1 causing slight effacement of the thecal sac and mild central canal narrowing. Mild neural foraminal narrowing on the right at T10-T11. Mild left neural foraminal narrowing at T12-L1. No other areas of significant neural foraminal stenosis. Scattered areas of groundglass opacity in the lungs. Impression: 1. No acute osseous abnormality of the thoracic spine. Prior spinal surgery with posterior decompression. 2. Mediastinal adenopathy with groundglass opacities in the lungs raising concern for sarcoidosis or potentially metastatic disease. Dedicated contrast-enhanced CT of the chest could be helpful for further evaluation. .
--- NOTE | 2016-12-03 17:00 | NUR ---
Status Pt.'s granddaughter here this afternoon. Pt. now reports right sided thoracic pain in the back. Pt.'s granddaughter reports that this is similar to when she first came to the ER and found that pt. had a hematoma. Granddaughter and pt. express concern about bleeding. Notified Dr. Chanel. CT scan obtained this afternoon per orders. Please see imaging. Will continue to monitor.
--- NOTE | 2016-12-03 19:00 | NUR ---
Summary VS's stable. She is on 3L O2 via nasal canula and reports she wears O2 at home. Pt. is a pivot transfer x1 with gait belt to the wheelchair. She takes meds whole. Pt. reports last BM was yesterday. Dressing to laminectomy site on mid-upper back changed this afternoon per orders. No drainage, or s/s of infection noted. Pt. continues to rate back pain an 8/10. PRN and scheduled meds given. Please see eMAR. Encouraged re-positioning for comfort. Polar pack offered, but pt. refused. Pt. is currently resting in bed. Alarm is on. Will pass on report to scene shifter.
[2016-12-03 20:13] VITALS: BP 110/58
[2016-12-03] MEDS: TRAVOPROST 0.004% EYE DROPS 2.5ml RIGHT EYE SCH (20:19)
[2016-12-03] MEDS: MIRTAZAPINE 45 MG PO SCH (22:28)
[2016-12-04] MEDS: HEPARIN SUB-Q 5,000 unit/0.5ml vial SQ SCH ×3 (01:23→18:31)
[2016-12-04] MEDS: LEVOTHYROXINE 88 MCG TABLET PO SCH (04:59)
--- NOTE | 2016-12-04 05:31 | NUR ---
Chart Check 24 hour chart check completed
--- NOTE | 2016-12-04 06:22 | NUR ---
Summary Pt has had complaint of back pain 05/24. scheduled Percocet 7.5's given, PRN Percocet refused by pt. Pt ambulates well and rises from bed with supervision. Pt sleeping in bed at this time
[2016-12-04] MEDS: FUROSEMIDE 20 MG TABLET PO SCH (09:20)
[2016-12-04] MEDS: LISINOPRIL 10 MG TABLET PO SCH ×2 (09:20→21:10)
[2016-12-04] MEDS: DULOXETINE 60 MG CAPSULE PO SCH (09:20)
[2016-12-04] MEDS: DOCUSATE SODIUM 100 MG CAPSULE PO SCH ×2 (09:21→21:10)
[2016-12-04] MEDS: CARVEDILOL 25 MG TABLET PO SCH ×2 (09:21→18:32)
[2016-12-04] MEDS: METHOCARBAMOL 750 MG TABLET PO SCH ×4 (09:22→21:10)
[2016-12-04 11:15] VITALS: PULSE 63; RESP 18
[2016-12-04 11:20] VITALS: BP 106/65; PULSE 63; RESP 18; TEMP 97.5; O2SAT 91
--- NOTE | 2016-12-04 12:30 | NUR ---
Pain Pt. reports unbearable sharp pain in back and side rated 8/10. Encouraged re-positioning for comfort. Pt. is on scheduled pain meds. Please see eMAR. Dr. Chanel spoke with pt. and Neurontin is noted to have been ordered. Please see eMAR. Will continue to monitor.
[2016-12-04] MEDS: GABAPENTIN 100 MG CAPSULE PO SCH ×2 (14:46→21:11)
--- NOTE | 2016-12-04 15:11 | NUR ---
BM Pt. reports that she does not feel constipated. Abdomen noted to be a little distended. Pt. reports she was passing gas earlier. Sch. Benoit given this A.M. Also spoke with pt. about MOM. Pt. reported she would like to try prune juice instead. Prune juice given. Will continue to monitor.
[2016-12-04 16:44] VITALS: BP 108/52; PULSE 63; RESP 16; TEMP 98.1; O2SAT 96
--- NOTE | 2016-12-04 19:26 | NUR ---
Summary VS's stable. She is on 3L O2 via nasal canula and reports she wears O2 at home. Pt. is a transfer x1 with gait belt and walker. She has ambulated to the bathroom and is wheeled out to meals. She takes meds whole. Pt. did have a BM this shift. Dressing to laminectomy site on mid-upper back changed this afternoon per orders. No drainage, or s/s of infection noted. Pt. continues to rate back pain an 8-10/10. Scheduled pain meds given. Please see eMAR. Encouraged re-positioning for comfort. Polar pack offered, but pt. refused. Pt. is currently resting in bed. Alarm is on. Report has been past on to shiftman.
[2016-12-04 19:59] VITALS: BP 107/51; PULSE 64; RESP 18; TEMP 98.1; O2SAT 93
[2016-12-04] MEDS: MIRTAZAPINE 45 MG PO SCH (21:11)
[2016-12-04] MEDS: TRAVOPROST 0.004% EYE DROPS 2.5ml RIGHT EYE SCH (21:11)
[2016-12-05] MEDS: HEPARIN SUB-Q 5,000 unit/0.5ml vial SQ SCH ×3 (00:28→18:01)
[2016-12-05] MEDS: LEVOTHYROXINE 88 MCG TABLET PO SCH (04:23)
--- NOTE | 2016-12-05 04:35 | NUR ---
Chart Check 24 hour chart check completed
--- NOTE | 2016-12-05 05:56 | NUR ---
Summary Pt has complaint of pain to back. PRN Ativan taken HS. Pt states she takes it regularly at home. Pt declined PRN Percocet, taking only the scheduled doses. Pt has been assisted to reposition through the night. Pt has been up to the BR and ambulates well with FWW. Education provided re Gabapentin. Pt resting with eyes closed at this time
[2016-12-05 07:36] VITALS: BP 126/59; PULSE 62; RESP 16; TEMP 97.8; O2SAT 94
[2016-12-05 08:00] VITALS: PULSE 62; RESP 16
--- NOTE | 2016-12-05 08:30 | NUR ---
Dressing Change Mid-Back incision changed during bag bath this A.M. Area around back incision cleansed with soap and water. No drainage, or s/s of infection noted. Several skin abrasions noted below incision. Made sure area was covered and used as little tape as possible on skin. Will pass on to have look at area tomorrow. Will continue to monitor.
[2016-12-05] MEDS: METHOCARBAMOL 750 MG TABLET PO SCH ×4 (08:57→21:04)
[2016-12-05] MEDS: DULOXETINE 60 MG CAPSULE PO SCH (08:57)
[2016-12-05] MEDS: GABAPENTIN 100 MG CAPSULE PO SCH ×3 (08:58→21:04)
[2016-12-05] MEDS: CARVEDILOL 25 MG TABLET PO SCH ×2 (08:58→16:47)
[2016-12-05] MEDS: LISINOPRIL 10 MG TABLET PO SCH ×2 (08:58→21:04)
[2016-12-05] MEDS: DOCUSATE SODIUM 100 MG CAPSULE PO SCH ×2 (08:58→21:04)
[2016-12-05] MEDS: FUROSEMIDE 20 MG TABLET PO SCH (08:58)
--- NOTE | 2016-12-05 15:00 | NUR ---
Status/Pain Pt. is A/O and pleasant. VS's stable. She continues to rated 8-10/10 back pain. Scheduled pain meds given. Please see eMAR. Polar Pack implemented and upon re-assessment, she repots polar pack does feel good and does help some. Will continue to monitor.
[2016-12-05 16:29] VITALS: BP 124/60; PULSE 62; RESP 18; TEMP 97.6; O2SAT 92
--- NOTE | 2016-12-05 18:36 | NUR ---
Pain Pt. continues to rate 8-10/10 pain in back with activity. Scheduled pain meds given. Please see eMAR. Pt. reports pain has not gotten any better and reports pain is still horrible with activity. Spoke with Dr. Chanel and her gave verbal order for Lidoderm patch to apply to area of pain. Will pass on and continue to monitor.
--- NOTE | 2016-12-05 18:39 | NUR ---
Summary VS's stable. She is on 3L O2 via nasal canula. Pt. is a transfer x1 with gait belt and walker. She has ambulated to the bathroom and is wheeled out to meals. She takes meds whole. Encouraged re-positioning and polar pack for comfort. Pt. is currently sitting up in the wheelchair. Will pass on report to dietitian research.
[2016-12-05] MEDS: MIRTAZAPINE 45 MG PO SCH (21:04)
[2016-12-05] MEDS: TRAVOPROST 0.004% EYE DROPS 2.5ml RIGHT EYE SCH (21:09)
[2016-12-05] MEDS: LIDOCAINE 5% PATCH TOP SCH (21:23)
[2016-12-05 21:30] VITALS: BP 117/52; PULSE 61; RESP 16; TEMP 97.9; O2SAT 98
--- NOTE | 2016-12-05 22:37 | PNPDOC ---
IRU Subjective Date DATE: 12/03/16 TIME: 19:32 Pt seen tuesday12/03/16, but note entered today. Med changes made on 12/03 per visit. Subjective Pain is consistently 8-9/10. She has pain to right ribs and I was called to room to see her. Pain is limiting motion and she and a relative both worry this is a rebleed into the spinal canal. IRU Objective Vital Signs Vital signs Vital Signs Date Time Temp Pulse Resp B/P Pulse Ox O2 Delivery O2 Flow Rate FiO2 12/05/16 22:14 Nasal Cannula 3.00 12/05/16 21:30 97.9 61 16 117/52 98 Telemetry Rhythm: Sinus Rhythm Height (Feet): 5 Height (Inches): 6.00 Weight (Kilograms): 76.000 General General Appearance: Alert, Orientated x 2 Respiratory (Brief) Respiratory: FOUND: clear all neely, equal bilaterally Cardiovascular (Brief) Cardiac: FOUND: regular rate, regular rhythm Musculoskeletal (Brief) Comments no direct pain on thoracic or lumbar spinal column. Pain is right ribs, midaxillary, T6-8. very light touch on skin sets off pain. Assessment & Plan Problems: (1) Vascular dementia Status: Chronic Assessment & Plan: medical managing. (2) Epidural hematoma Status: Acute Assessment & Plan: stable. Pt concerned about new pain. Does not fit with epidural bleed based on exam More likely shingles pre-eruption vs chronic pain syndrome. CT ordered of Tspine and neg on date. Neurontin 100mg tid added for pain relief. No increase in narcotics will really help at this time, based on chronic pain (3) Bilateral leg weakness Status: Acute Assessment & Plan: cont with PT and OT per care plan (4) CHF due to valvular disease Status: Chronic Code Status Full Code, unverified Interventions to Obtain Goals PT Treatment Plan: Therapeutic Exercise, Gait Training, Functional Activities , Balance/Proprioception, Wound Care OT Treatment Plan: ADL's (basic care), Ther. Exercise for ADL's, UE Functional Training, Balance Training, Pt./Family Education, IADL's Hospital Course Summary Disclaimer The hospital course summary below is not to be considered part of the above Progress Note. Hospital Course Summary 12/02/16 Continue on postoperative prophylaxis- Heparin SQ TID. May not start full anticoagulation until 12/08/16 for mechanical valves. Continue with oxygen at baseline 3 liters. Currently on Percocet for pain control, and Robaxin for muscle relaxers. Continue with Colace for postoperative bowel motivation Continue to encourage work with PT and OT for ongoing postoperative strengthening and pain control Check CBC and BMP tomorrow morning to follow anemia, electrolyte abnormalities 12/03/[address] Seth. Agrees with re-imaging of thoracic back to rule out further bleeding or changes. T-spine without IV contrast ordered. Continue on postoperative prophylaxis- Heparin SQ TID. May not start full anticoagulation until 12/08/16 for mechanical valves. Noted hyperkalemia- Oral potassium held. Will recheck tomorrow Currently on Percocet for pain control, and Robaxin for muscle relaxers. Continue with Colace for postoperative bowel motivation Continue to encourage work with PT and OT for ongoing postoperative strengthening and pain control MEG SETH MD Dec 05, 2016 22:36
--- NOTE | 2016-12-05 22:40 | PNPDOC ---
IRU Subjective Date DATE: 12/05/16 TIME: 22:37 Subjective Pt pain continues and I was called to come in earlier today due to pain despite neurontin. Pt has worse pain with moving and pain 8-9/10 with any movement. IRU Objective Vital Signs Vital signs Vital Signs Date Time Temp Pulse Resp B/P Pulse Ox O2 Delivery O2 Flow Rate FiO2 12/05/16 22:14 Nasal Cannula 3.00 12/05/16 21:30 97.9 61 16 117/52 98 Telemetry Rhythm: Sinus Rhythm Height (Feet): 5 Height (Inches): 6.00 Weight (Kilograms): 76.000 General General Appearance: Alert Respiratory (Brief) Respiratory: FOUND: clear all neely, equal bilaterally Cardiovascular (Brief) Cardiac: FOUND: regular rate, regular rhythm Musculoskeletal (Brief) Comments continued pain similar to tuesday with pain to light touch ribs on right. Assessment & Plan Problems: (1) Vascular dementia Status: Chronic (2) Epidural hematoma Status: Acute Assessment & Plan: no change in overall pain with neurontin. I do not want to add more narcotics due to hx of chronic pain and likelihood more narcotics will not help with pain control, but will create more care home issues for patient. Reeval in am. (3) Bilateral leg weakness Status: Acute Assessment & Plan: no increase in limitation of movement. (4) CHF due to valvular disease Status: Chronic Code Status Full Code, unverified Interventions to Obtain Goals PT Treatment Plan: Therapeutic Exercise, Gait Training, Functional Activities , Balance/Proprioception, Wound Care OT Treatment Plan: ADL's (basic care), Ther. Exercise for ADL's, UE Functional Training, Balance Training, Pt./Family Education, IADL's Hospital Course Summary Disclaimer The hospital course summary below is not to be considered part of the above Progress Note. Hospital Course Summary 12/02/16 Continue on postoperative prophylaxis- Heparin SQ TID. May not start full anticoagulation until 12/08/16 for mechanical valves. Continue with oxygen at baseline 3 liters. Currently on Percocet for pain control, and Robaxin for muscle relaxers. Continue with Colace for postoperative bowel motivation Continue to encourage work with PT and OT for ongoing postoperative strengthening and pain control Check CBC and BMP tomorrow morning to follow anemia, electrolyte abnormalities 12/03/[address] [place]. Agrees with re-imaging of thoracic back to rule out further bleeding or changes. T-spine without IV contrast ordered. Continue on postoperative prophylaxis- Heparin SQ TID. May not start full anticoagulation until 12/08/16 for mechanical valves. Noted hyperkalemia- Oral potassium held. Will recheck tomorrow Currently on Percocet for pain control, and Robaxin for muscle relaxers. Continue with Colace for postoperative bowel motivation Continue to encourage work with PT and OT for ongoing postoperative strengthening and pain control MEG SETH MD Dec 05, 2016 22:40
[2016-12-06] MEDS: HEPARIN SUB-Q 5,000 unit/0.5ml vial SQ SCH ×3 (00:39→18:19)
--- NOTE | 2016-12-06 05:42 | NUR ---
Summary Pt rates pain 10/10 but says it doesn't hurt when she lies still. Pt stated "I think it will be a 10 when i get up". Pt states she is unsure if the Lidoderm patch has helped. Pt had episode of bladder incont with bladder accident in bed. Bladder accident required changing of all bed linens, pad, pillow, gown, and brief. Pt ambulated to the BR well with FWW and Gb. Pt was able to manage her own clothing (night gown) and brief, dressing and undressing unsupervised while sitting in the bathroom. Pt sleeping at this time.
[2016-12-06] MEDS: LEVOTHYROXINE 88 MCG TABLET PO SCH (06:06)
[2016-12-06 07:47] VITALS: BP 125/53; PULSE 66; RESP 14; TEMP 98.4; O2SAT 93
[2016-12-06 08:10] VITALS: PULSE 66; RESP 14
[2016-12-06] MEDS: DOCUSATE SODIUM 100 MG CAPSULE PO SCH (08:39)
[2016-12-06] MEDS: CARVEDILOL 25 MG TABLET PO SCH ×2 (08:41→17:02)
[2016-12-06] MEDS: DULOXETINE 60 MG CAPSULE PO SCH (08:41)
[2016-12-06] MEDS: LISINOPRIL 10 MG TABLET PO SCH ×2 (08:41→21:18)
[2016-12-06] MEDS: FUROSEMIDE 20 MG TABLET PO SCH (08:41)
[2016-12-06] MEDS: METHOCARBAMOL 750 MG TABLET PO SCH ×4 (08:41→21:19)
[2016-12-06] MEDS: GABAPENTIN 100 MG CAPSULE PO SCH ×3 (08:41→21:18)
[2016-12-06] MEDS: LIDOCAINE 5% PATCH TOP SCH (09:17)
--- NOTE | 2016-12-06 12:54 | PNPDOC ---
IRU Subjective Date DATE: 12/06/16 TIME: 12:50 Subjective Patient is up in working with physical therapy during evaluation today. I did evaluate her with medical present as well. She states her pain is still 7-8 out of 10, with no improvement despite medical changes over the weekend. IRU Objective Vital Signs Vital signs Vital Signs Date Time Temp Pulse Resp B/P Pulse Ox O2 Delivery O2 Flow Rate FiO2 12/06/16 08:10 66 14 12/06/16 07:47 98.4 125/53 93 Nasal Cannula 2.00 Telemetry Rhythm: Sinus Rhythm Height (Feet): 5 Height (Inches): 6.00 Weight (Kilograms): 76.000 General General Appearance: Alert, Orientated x 2 Respiratory (Brief) Respiratory: FOUND: clear all neely, equal bilaterally Cardiovascular (Brief) Cardiac: FOUND: regular rate, regular rhythm Capillary Refill: <2 sec Musculoskeletal (Brief) Comments Still significant tenderness right 6 to eighth ribs mid axillary. Integumentary (Brief) Comments Postop incision lower thoracic spine, no signs of cellulitis. Patient does have 2 small lesions along the tape line. Assessment & Plan Problems: (1) Vascular dementia Status: Chronic Assessment & Plan: Managed by medical (2) Epidural hematoma Status: Acute Assessment & Plan: Pain is the main issue. However this is a patient was at chronic pain and will have significant difficulty with any treatment even with increasing narcotics. At this point we have increased her dramatically and it had no improvement in pain level. We did try Neurontin over the weekend without success and yesterday were nurses called them place a Lidoderm patch over the site of pain on the ribs. We had some concern this may be shingles in the process of breaking out, however this is been 3 days we have yet to see any lesions on the skin. I don't think the lesions under the bandage are herpetic. We'll continue with Lidoderm patch today, increase Neurontin dose, to discuss with the patient that her pain was went to be very difficult to get under control and that I did not want to increase the narcotics anymore. Neurontin increased to 200 mg by mouth 3 times a day (3) Bilateral leg weakness Status: Acute Assessment & Plan: Continue with physical therapy and occupational therapy to increase strength, stamina, safety. (4) CHF due to valvular disease Status: Chronic Assessment & Plan: Managed by medical Code Status Full Code, unverified Interventions to Obtain Goals PT Treatment Plan: Therapeutic Exercise, Gait Training, Functional Activities , Balance/Proprioception, Wound Care OT Treatment Plan: ADL's (basic care), Ther. Exercise for ADL's, UE Functional Training, Balance Training, Pt./Family Education, IADL's Hospital Course Summary Disclaimer The hospital course summary below is not to be considered part of the above Progress Note. Hospital Course Summary 12/02/16 Continue on postoperative prophylaxis- Heparin SQ TID. May not start full anticoagulation until 12/08/16 for mechanical valves. Continue with oxygen at baseline 3 liters. Currently on Percocet for pain control, and Robaxin for muscle relaxers. Continue with Colace for postoperative bowel motivation Continue to encourage work with PT and OT for ongoing postoperative strengthening and pain control Check CBC and BMP tomorrow morning to follow anemia, electrolyte abnormalities 12/03/[address] Seth. Agrees with re-imaging of thoracic back to rule out further bleeding or changes. T-spine without IV contrast ordered. Continue on postoperative prophylaxis- Heparin SQ TID. May not start full anticoagulation until 12/08/16 for mechanical valves. Noted hyperkalemia- Oral potassium held. Will recheck tomorrow Currently on Percocet for pain control, and Robaxin for muscle relaxers. Continue with Colace for postoperative bowel motivation Continue to encourage work with PT and OT for ongoing postoperative strengthening and pain control MEG SETH MD Dec 06, 2016 12:53
--- NOTE | 2016-12-06 13:56 | NUR ---
Call placed to Dr. Butler office inquiring about removal of sutures. Spoke with nurse Leanna who advises Dr. Butler likes jonathan to remain in 14 days post op. Her records show surgery on the so sutures may be removed 12/08 barring any complications. Kathy Hood APRN notified.
--- NOTE | 2016-12-06 13:58 | NUR ---
Incision/Dressing Notified ABIDA Merrill, of skin abrasions below pt.'s back incision. She went in to look at incision. She reports to continue to monitor site. Will continue to monitor.
--- NOTE | 2016-12-06 14:08 | PNPDOC ---
SABA STEVEN V [employer]CH[employer]IC 12/06/16 1358: Subjective Date DATE: 12/06/16 TIME: 13:54 Subjective Lulú is seen today in follow up. She continues to complaint of mid thorax pain that is also right lateral axilla area. This seems to be muscular in nature as it is reproducible. Evaluated thoracic incision with jonathan present. Appears to be healing well without evidence of erythema or drainage. There is an area. The distal end of the incision. Whether some skin irritation, however, does not appear to be a wound, but rather irritation from tape around the dressing. Weakness or numbness to the lower extremities. Objective Vital Signs Vital signs Vital Signs Date Time Temp Pulse Resp B/P Pulse Ox O2 Delivery O2 Flow Rate FiO2 12/06/16 08:10 66 14 12/06/16 07:47 98.4 125/53 93 Nasal Cannula 2.00 Telemetry Rhythm: Sinus Rhythm Height (Feet): 5 Height (Inches): 6.00 Weight (Kilograms): 76.000 General General Appearance: Alert, Orientated x 3, Cooperative, No Acute Distress Eyes (Brief) Eyes: FOUND: EOMI ENMT (Brief) ENMT: FOUND: mucosa moist, normal dentition, NOT FOUND: pharnyx erythema Neck (Brief) Neck: FOUND: midline, NOT FOUND: adenopathy, carotid bruits, tracheal deviation Respiratory (Brief) Respiratory: FOUND: clear all neely, equal bilaterally, NOT FOUND: wheezes Cardiovascular (Brief) Cardiac: FOUND: regular rate, regular rhythm, NOT FOUND: murmur, pedal edema Capillary Refill: <2 sec Abdomen (Brief) Abdominal: FOUND: BS normo active x4, soft, NOT FOUND: distended, tender Lymphatic (Brief) Lymphatic: NOT FOUND: adenopathy Musculoskeletal (Brief) Musculoskeletal: NOT FOUND: tenderness Comments Thoracic incision with jonathan present, no erythema or drainage Integumentary (Brief) Integumentary: FOUND: dry, pink, warm Neurologic (Brief) Neurological: FOUND: cranial 2-12 intact Psychiatric (Brief) Psychiatric: FOUND: alert, attentive, normal affect, oriented Assessment & Plan Problems: (1) Epidural hematoma Status: Acute Assessment & Plan: Following placement of spinal cord stimulator on 11/22/16. Underwent emergent T4-T8 thoracic decompressive laminectomy for evacuation of the epidural hematoma and removal of the spinal cord stimulator on 11/24/[address] Butler (2) Bilateral leg weakness Status: Acute (3) CHF due to valvular disease Status: Chronic (4) COPD (chronic obstructive pulmonary disease) Status: Chronic (5) Oxygen dependent Status: Chronic (6) Amiodarone pulmonary toxicity Status: Chronic (7) Atrial fibrillation Status: Chronic (8) Hypothyroidism Status: Chronic (9) HTN (hypertension) Status: Chronic (10) Lupus Status: Chronic (11) Dyslipidemia Status: Chronic (12) Overweight (BMI 25.0-29.9) Status: Chronic Plan/Intensity of Service 12/06/16 Continue on postoperative prophylaxis- Heparin SQ TID. May start full anticoagulation on 12/08/16 for mechanical valves. Will re-evaluate incision again Friday 12/08. Will likely be able to remove jonathan at that time if incision looks good. This is the 2 week post-op. Noted hyperkalemia- Oral potassium held. Will recheck tomorrow Currently on Percocet for pain control, and Robaxin for muscle relaxers. Lidoderm patch added to right lateral back Continue with Colace for postoperative bowel motivation Continue to encourage work with PT and OT for ongoing postoperative strengthening and pain control Code Status Full Code, unverified Hospital Course Summary Disclaimer The hospital course summary below is not to be considered part of the above Progress Note. Hospital Course Summary 12/02/16 Continue on postoperative prophylaxis- Heparin SQ TID. May not start full anticoagulation until 12/08/16 for mechanical valves. Continue with oxygen at baseline 3 liters. Currently on Percocet for pain control, and Robaxin for muscle relaxers. Continue with Colace for postoperative bowel motivation Continue to encourage work with PT and OT for ongoing postoperative strengthening and pain control Check CBC and BMP tomorrow morning to follow anemia, electrolyte abnormalities 12/03/[address] Chanel. Agrees with re-imaging of thoracic back to rule out further bleeding or changes. T-spine without IV contrast ordered. Continue on postoperative prophylaxis- Heparin SQ TID. May not start full anticoagulation until 12/08/16 for mechanical valves. Noted hyperkalemia- Oral potassium held. Will recheck tomorrow Currently on Percocet for pain control, and Robaxin for muscle relaxers. Continue with Colace for postoperative bowel motivation Continue to encourage work with PT and OT for ongoing postoperative strengthening and pain control 12/06/16 Continue on postoperative prophylaxis- Heparin SQ TID. May start full anticoagulation on 12/08/16 for mechanical valves. Will re-evaluate incision again Friday 12/08. Will likely be able to remove jonathan at that time if incision looks good. This is the 2 week post-op. Noted hyperkalemia- Oral potassium held. Will recheck tomorrow Currently on Percocet for pain control, and Robaxin for muscle relaxers. Lidoderm patch added to right lateral back Continue with Colace for postoperative bowel motivation Continue to encourage work with PT and OT for ongoing postoperative strengthening and pain control ENRIQUETA NICOLE MD 12/06/161957: Assessment & Plan Assessment I have independently evaluated and examined this patient. I reviewed the chart, the patient's history, and the [employer] MA[employer]CH[employer]IC's documented findings as above. We discussed and formulated the assessment and plan as above with additions as below: Mrs. May describes back pain and reports that she hurts all the time. She expressed frustration with therapy but went on to tell me that she thought she was doing a little bit better. Anterior lung neely are clear and respirations nonlabored. S2 click present, cardiac rhythm regular. Results of thoracic spine imaging noted-no recurrent bleed, surgical changes present. Blood pressure fluctuates, mild residual hypernatremia/hyperkalemia. Colace really isn't very effective with narcotic-induced constipation; convert to Senokot-S 2 tablets twice a day with Dulcolax as needed oral or suppository. Anticoagulation for valve to resume later this week. SABA STEVEN APRN Dec 06, 2016 13:58 ENRIQUETA NICOLE MD Dec 06, 2016 19:58
[2016-12-06 15:50] VITALS: BP 95/45; PULSE 68; RESP 14; TEMP 98.3; O2SAT 94
[2016-12-06 17:06] VITALS: BP 155/62; PULSE 70
--- NOTE | 2016-12-06 17:30 | NUR ---
BM Last BM noted on 12-04-16. Pt. does report she feels constipated and requests prune juice. Prune juice administered with dinner. Will continue to monitor.
--- NOTE | 2016-12-06 19:08 | NUR ---
Summary VS's stable. She is on 3L O2 via nasal canula. Pt. is a transfer x1 with gait belt and walker. She has ambulated to the bathroom and is wheeled out to meals. She takes meds whole. Encouraged re-positioning and polar pack for comfort. She continues to rate right side pain on the back an 8-10/10. Lidoderm patch in place and it is noted Neurontin dose was increased this afternoon. Please see eMAR. Pt. is currently resting in bed. Alarm is on. Report has been past on to shift supervisor melting.
[2016-12-06 19:30] VITALS: BP 105/57; PULSE 63; RESP 20; TEMP 98.4; O2SAT 94
[2016-12-06] MEDS: BENZOCAINE 20% MM PRN (19:39)
[2016-12-06] MEDS ORDERED: BISACODYL 10 MG SUPPOSITORY RECTALLY PRN (20:00)
[2016-12-06 21:00] VITALS: PULSE 63; RESP 20
[2016-12-06] MEDS: LIDOCAINE PATCH REMOVAL TOP SCH (21:00)
[2016-12-06] MEDS: MIRTAZAPINE 45 MG PO SCH (21:19)
[2016-12-06] MEDS: TRAVOPROST 0.004% EYE DROPS 2.5ml RIGHT EYE SCH (21:20)
[2016-12-06] MEDS: SENNA + DOCUSATE TAB PO SCH (22:30)
[2016-12-07] MEDS: HEPARIN SUB-Q 5,000 unit/0.5ml vial SQ SCH ×3 (00:13→18:05)
--- NOTE | 2016-12-07 03:37 | NUR ---
Chart Check 24 hour chart check completed
[2016-12-07] MEDS: LEVOTHYROXINE 88 MCG TABLET PO SCH (06:44)
--- NOTE | 2016-12-07 06:55 | NUR ---
Summary Pt is pleasant and cooperative. She is alert and oriented x three.She has managed pain with scheduled pain medication.She was sleeping deeply this am so 0400 pain med was held. She was given a dose of Oxycodone 7.5/325 with her early am medication.She reports pain level of 10 although she was very groggy and barely able to open her eyes.
[2016-12-07] MEDS: CARVEDILOL 25 MG TABLET PO SCH ×2 (08:33→18:04)
[2016-12-07] MEDS: GABAPENTIN 100 MG CAPSULE PO SCH ×3 (08:34→20:48)
[2016-12-07] MEDS: DULOXETINE 60 MG CAPSULE PO SCH (08:34)
[2016-12-07] MEDS: LISINOPRIL 10 MG TABLET PO SCH ×2 (08:34→20:49)
[2016-12-07] MEDS: METHOCARBAMOL 750 MG TABLET PO SCH ×4 (08:34→20:51)
[2016-12-07] MEDS: FUROSEMIDE 20 MG TABLET PO SCH (08:34)
[2016-12-07] MEDS: SENNA + DOCUSATE TAB PO SCH ×2 (08:36→20:48)
[2016-12-07 08:43] VITALS: BP 127/64; PULSE 67; RESP 20; TEMP 98.4; O2SAT 89
[2016-12-07] MEDS: LIDOCAINE 5% PATCH TOP SCH (09:30)
[2016-12-07 12:13] VITALS: BP 110/48; PULSE 73; O2SAT 95
--- NOTE | 2016-12-07 14:13 | NUR ---
CM THIS WORKER VISITED PT IN ROOM. REVIEWED IRU PLAN OF CARE WITH PT, PT AGREED AND SIGNED.
[2016-12-07 16:00] VITALS: BP 105/54; PULSE 63; RESP 20; TEMP 95.8; O2SAT 97
--- NOTE | 2016-12-07 19:00 | NUR ---
SHIFT SUMMARY PATIENT ALERT AND ORIENTED X 3. C/O PAIN BACK 03/24, SCHEDULED PERCOCET GIVEN. DRESSING CHANGE DONE BY DAVID KOLB TO BACK. PATIENT UP WITH ONE WITH GAIT BELT AND WALKER TO BATH. PATIENT USED WC FOR MEALS. LARGE CONTINENT URINE THIS AM. WILL CONT TO MONITOR.
[2016-12-07 20:48] VITALS: PULSE 63; RESP 18
[2016-12-07] MEDS: MIRTAZAPINE 45 MG PO SCH (20:49)
[2016-12-07] MEDS: TRAVOPROST 0.004% EYE DROPS 2.5ml RIGHT EYE SCH (20:50)
[2016-12-07] MEDS: BENZOCAINE 20% MM PRN (20:50)
[2016-12-07] MEDS: LIDOCAINE PATCH REMOVAL TOP SCH (21:00)
[2016-12-07 22:47] VITALS: BP 118/44; PULSE 63; RESP 18; TEMP 98.5; O2SAT 97
[2016-12-08] MEDS: HEPARIN SUB-Q 5,000 unit/0.5ml vial SQ SCH ×3 (00:34→18:08)
--- NOTE | 2016-12-08 01:41 | NUR ---
Chart Check 24 hour chart check completed
[2016-12-08] MEDS: LEVOTHYROXINE 88 MCG TABLET PO SCH (04:00)
--- NOTE | 2016-12-08 06:11 | NUR ---
Summary Shahla has reported pain to her back 8-10. She has been medicated with scheduled Percocet and has been asleep upon evaluation. She has voided once and was incontinent small amount to the pad in her underwear.She is able to manage her incontinence . She has slept well. Appropriate use of call light. When in bed she has the siderails up x two and bed alarms on.She ambulates and transfers with fww gb and stand by assist.Dressing to her back is C/D/I.
[2016-12-08 08:00] VITALS: BP 128/60; PULSE 101; RESP 20; TEMP 98.7; O2SAT 91
[2016-12-08] MEDS: GABAPENTIN 100 MG CAPSULE PO SCH ×3 (08:48→22:05)
[2016-12-08] MEDS: CARVEDILOL 25 MG TABLET PO SCH ×2 (08:49→18:09)
[2016-12-08] MEDS: SENNA + DOCUSATE TAB PO SCH ×2 (08:49→22:06)
[2016-12-08] MEDS: FUROSEMIDE 20 MG TABLET PO SCH (08:49)
[2016-12-08] MEDS: LISINOPRIL 10 MG TABLET PO SCH ×2 (08:50→22:06)
[2016-12-08] MEDS: DULOXETINE 60 MG CAPSULE PO SCH (08:50)
[2016-12-08] MEDS: METHOCARBAMOL 750 MG TABLET PO SCH ×4 (08:50→22:07)
[2016-12-08] MEDS: LIDOCAINE 5% PATCH TOP SCH (08:51)
[2016-12-08] MEDS: BENZOCAINE 20% MM PRN (13:00)
--- NOTE | 2016-12-08 13:50 | PDIRUTEAM ---
Multidisciplinary Team Meeting Nursing Hx Incontinence: Yes Bladder Goal: 7+ Complete [place] Jar[place] Y/N: No Bladder Continent or Incontine: Incontinent Incontinent Product Used: Pull-up Number of Times Incontinent of: 1 Cleaning Ability-Bladder: 5 Supervision/Setup Bladder Incontinence Managemen: 5 Supervision/Setup Bowel Goal: 7+ Complete [place] Colostomy Y/N: No Bowel Incontinent/Continent: Continent Bowel Number of Accidents: 0 Number of times Incontinent of: 0 Cleaning Ability-Bowel: 4 Minimal Assistance Toileting Ability: 5 Supervision/Setup Vital Signs Vital Signs Date Time Temp Pulse Resp B/P Pulse Ox O2 Delivery O2 Flow Rate FiO2 12/08/16 08:00 98.7 101 20 128/60 91 Nasal Cannula 3.00 Current Medications Current Medications Medications (Trade) Dose Ordered Sig/Stephanie Route PRN Reason Start Time Stop Time Status Last Admin Dose Admin Docusate Sodium (Colace) 100 mg BID PO 11/30/16 21:00 12/06/16 19:58 DC 12/06/16 08:39 Carvedilol (Coreg) 25 mg BIDWM PO 11/30/16 17:30 12/08/16 08:49 Duloxetine HCl (Cymbalta) 60 mg DAILY PO 12/01/16 09:00 12/08/16 08:50 Furosemide (Lasix) 20 mg DAILY PO 12/01/16 09:00 12/08/16 08:49 Levothyroxine Sodium (Synthroid) 88 mcg ACB PO 12/01/16 06:30 12/08/16 04:00 Lisinopril (Prinivil) 20 mg BID PO 11/30/16 21:00 12/02/16 08:01 DC 12/01/16 09:02 Lorazepam (Ativan) 0.5 mg BID PRN PO ANXIETY 11/30/16 13:15 12/04/16 22:06 Methocarbamol (Robaxin) 750 mg QID PO 11/30/16 17:00 12/08/16 12:07 Mirtazapine (Remeron Solu-Tab) 45 mg HS PO 11/30/16 22:00 12/07/16 20:49 Oxycodone/ Acetaminophen (Percocet 7.5/ 325) 1-2 Q4H PRN PO PAIN 11/30/16 13:15 12/03/16 12:53 DC 12/03/16 12:31 Potassium Chloride (Kdur) 20 meq BIDWM PO 11/30/16 17:30 Future Hold 12/02/16 18:18 Heparin Sodium (Porcine) (Heparin Sub-Q) 5,000 unit Q8H SQ 11/30/16 13:15 12/02/16 06:43 DC 12/01/16 13:28 Travoprost (Travatan) 1 drop HS RIGHT EYE 12/01/16 22:00 12/07/16 20:50 Heparin Sodium (Porcine) (Heparin Sub-Q) 5,000 unit Q8H SQ 12/02/16 09:00 12/02/16 17:47 DC 12/02/16 11:27 Lisinopril (Prinivil) 10 mg BID PO 12/02/16 09:00 12/08/16 08:50 Heparin Sodium (Porcine) (Heparin Sub-Q) 5,000 unit Q8H SQ 12/02/16 17:00 12/08/16 08:50 Oxycodone/ Acetaminophen (Percocet 7.5/ 325) 1 tab Q4H PRN PO 12/03/16 13:00 12/07/16 06:44 Oxycodone/ Acetaminophen (Percocet 7.5/ 325) 1 tab Q4H PO 12/03/16 16:00 12/08/16 12:08 Gabapentin (Neurontin) 100 mg TID PO 12/04/16 15:00 12/06/16 12:53 DC 12/06/16 08:41 Lidocaine (Lidoderm) 1 patch DAILY TOP 12/05/16 21:00 12/08/16 08:51 Benzocaine (Anbesol) 1 applic QID PRN MM MOUTH PAIN 12/05/16 20:30 12/08/16 13:00 Lidocaine (Lidoderm Patch Removal) 1 removal 2100 TOP 12/06/16 21:00 12/07/16 21:00 Gabapentin (Neurontin) 200 mg TID PO 12/06/16 15:00 12/08/16 08:48 Senna/Docusate Sodium (Senna Plus) 2 tab BID PO 12/06/16 21:00 12/08/16 08:49 Comments No improvement in pain despite adding more percocet, neurontin and lidoderm patch. Physical Therapy Bed Transfer Ability: 5 Supervision/Setup Bed Transfer Assistance Needed: 1 Person Bed FIM Score Reason: pivot Chair Transfer Ability: 5 Supervision/Setup Chair Transfer Assistance Need: 1 Person Overall Wheelchair Transfer Ab: 5 Supervision/Setup Wheelchair Transfer Assistance: 1 Person Wheelchair Transfer FIM Score: pivot Overall Toilet / Commode Trans: 5 Supervision/Setup Ambulation Ability: 2 Maximum Assistance Ambulation Assistance Needed: 1 Person Walk FIM Score Reason: Distance Ambulation Distance: 137 Comments Improving distance and endurance. Pain limits. Occupational Therapy Grooming Ability: 5 Supervision/Setup Bathing Ability: 5 Supervision/Setup Upper Body Dressing Ability: 5 Supervision/Setup Lower Body Dressing Ability: 4 Minimal Assistance Lower Body Dressing Assistance: 1 Person Dressing-Lower FIM Score Reaso: AE training and adjusting of socks Toileting Assistance Needed: 1 Person Comments improved participation. Still having safety awareness deficits. Still tripping over oxygen line. Care Plan Condition at time of discharge: Fair IRU Discharge Disposition: Home Health Service Interventions/Goals Starting anticoag today. She bled previously within 8 hours of anticoag start with surgery. Recommending neuro checks by nursing. Lives alone in an apartment with multiple steps. barriers to d/c, pain,activity tolerance, oxygen management. MEG SETH MD Dec 08, 2016 13:41
[2016-12-08 14:31] LABS: INR 1.12 (0.76-1.04); PROTHROMBIN TIME 12.2 SEC (9.31-12.49)
--- NOTE | 2016-12-08 15:17 | NUR ---
COUMADIN CONSULT (Initial): Dx: Neurological Condition S: 81 yo female s/p spinal decompression for epidural hematoma following placement of spinal cord stimulator.She has had lost of strength and sensation to both right and left legs. She had the clot decompressed and has had some improvement, albeit slowly. Due to pain and weakness,she is unable to manage her ADL's and cannot live by herself at this time. Patient has a history of A Fib, CHF, COPD, etc. Also has Amiodarone Pulmonary Toxicity. O: Date INR Dose 12/08 1.12 Plan 4 mg A/P: I have ordered Warfarin 4 mg today because of patient's age. The pharmacy will continue to monitor the INRs and adjust the dosage of the Coumadin accordingly. Thanks for the Warfarin Protocol, Ambrose Best, Pharmacist.
[2016-12-08 16:07] VITALS: BP 119/54; PULSE 71; RESP 18; TEMP 98.3; O2SAT 94
--- NOTE | 2016-12-08 16:44 | PNPDOC ---
Subjective Date DATE: 12/08/16 TIME: 16:40 Subjective Lulú is seen today resting in bed. Her thoracic incision. Appears to be healing well. It has been 2 weeks since surgery and jonathan are able to be removed today. She does have several areas on the distal aspect of the incision where skin is of braised this appears to be secondary to dressing, tape. She continues to have mild amount of thoracic discomfort. However, no new symptoms of pain or weakness. Denies feeling short of breath and is chronically on 3 liters of oxygen by nasal cannula. No chest pain, or GI complaints. Objective Vital Signs Vital signs Vital Signs Date Time Temp Pulse Resp B/P Pulse Ox O2 Delivery O2 Flow Rate FiO2 12/08/16 16:07 98.3 71 18 119/54 94 Nasal Cannula 3.00 Telemetry Rhythm: Sinus Rhythm Height (Feet): 5 Height (Inches): 6.00 Weight (Kilograms): 83.800 General General Appearance: Alert, Orientated x 3, Cooperative, No Acute Distress Eyes (Brief) Eyes: FOUND: EOMI ENMT (Brief) ENMT: FOUND: mucosa moist, normal dentition, NOT FOUND: pharnyx erythema Neck (Brief) Neck: FOUND: midline, NOT FOUND: adenopathy, carotid bruits, tracheal deviation Respiratory (Brief) Respiratory: FOUND: clear all neely, equal bilaterally, NOT FOUND: wheezes Cardiovascular (Brief) Cardiac: FOUND: regular rate, regular rhythm, NOT FOUND: murmur, pedal edema Capillary Refill: <2 sec Abdomen (Brief) Abdominal: FOUND: BS normo active x4, soft, NOT FOUND: distended, tender Lymphatic (Brief) Lymphatic: NOT FOUND: adenopathy Musculoskeletal (Brief) Musculoskeletal: NOT FOUND: tenderness Integumentary (Brief) Integumentary: FOUND: dry, pink, warm Comments Thoracic incision. Appears to be healing well. No evidence of erythema or drainage. Neurologic (Brief) Neurological: FOUND: cranial 2-12 intact Psychiatric (Brief) Psychiatric: FOUND: alert, attentive, normal affect, oriented Assessment & Plan Problems: (1) Epidural hematoma Status: Acute Assessment & Plan: Following placement of spinal cord stimulator on 11/22/16. Underwent emergent T4-T8 thoracic decompressive laminectomy for evacuation of the epidural hematoma and removal of the spinal cord stimulator on 11/24/[address] 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 Will resume on full anticoagulation Coumadin today. Given her chronic mechanical valve. Have placed consultation to pharmacy for dosing management. Will monitor patient carefully doing every 2 hours neurologic checks to evaluate for any evidence of bleeding. Last time patient was initiated on Coumadin. She had a epidural hematoma that had to be extracted. Will remove jonathan from thoracic incision as it seems to be healing well. Currently on Percocet for pain control, and Robaxin for muscle relaxers. Lidoderm patch added to right lateral back Continue with Colace and senna for postoperative bowel motivation Continue to encourage work with PT and OT for ongoing postoperative strengthening and pain control Code Status Full Code, unverified Hospital Course Summary Disclaimer The hospital course summary below is not to be considered part of the above Progress Note. Hospital Course Summary 12/02/16 Continue on postoperative prophylaxis- Heparin SQ TID. May not start full anticoagulation until 12/08/16 for mechanical valves. Continue with oxygen at baseline 3 liters. Currently on Percocet for pain control, and Robaxin for muscle relaxers. Continue with Colace for postoperative bowel motivation Continue to encourage work with PT and OT for ongoing postoperative strengthening and pain control Check CBC and BMP tomorrow morning to follow anemia, electrolyte abnormalities 12/03/[address] Chanel. Agrees with re-imaging of thoracic back to rule out further bleeding or changes. T-spine without IV contrast ordered. Continue on postoperative prophylaxis- Heparin SQ TID. May not start full anticoagulation until 12/08/16 for mechanical valves. Noted hyperkalemia- Oral potassium held. Will recheck tomorrow Currently on Percocet for pain control, and Robaxin for muscle relaxers. Continue with Colace for postoperative bowel motivation Continue to encourage work with PT and OT for ongoing postoperative strengthening and pain control 12/06/16 Continue on postoperative prophylaxis- Heparin SQ TID. May start full anticoagulation on 12/08/16 for mechanical valves. Will re-evaluate incision again Friday 12/08. Will likely be able to remove jonathan at that time if incision looks good. This is the 2 week post-op. Noted hyperkalemia- Oral potassium held. Will recheck tomorrow Currently on Percocet for pain control, and Robaxin for muscle relaxers. Lidoderm patch added to right lateral back Continue with Colace for postoperative bowel motivation Continue to encourage work with PT and OT for ongoing postoperative strengthening and pain control 12/08/16 Continue on postoperative prophylaxis- Heparin SQ TID bridge until INR is therapeutic. Will resume on full anticoagulation Coumadin today. Given her chronic mechanical valve. Have placed consultation to pharmacy for dosing management. Will monitor patient carefully doing every 2 hours neurologic checks to evaluate for any evidence of bleeding. Last time patient was initiated on Coumadin. She had a epidural hematoma that had to be extracted. Will remove jonathan from thoracic incision as it seems to be healing well. Currently on Percocet for pain control, and Robaxin for muscle relaxers. Lidoderm patch added to right lateral back Continue with Colace and senna for postoperative bowel motivation Continue to encourage work with PT and OT for ongoing postoperative strengthening and pain control SABA STEVEN APRN Dec 08, 2016 16:44
[2016-12-08] MEDS ORDERED: FENTANYL PATCH REMOVAL TD SCH (16:45)
[2016-12-08] MEDS: FENTANYL 12MCG/HR PATCH TD SCH (16:57)
[2016-12-08] MEDS ORDERED: WARFARIN 4 MG TABLET PO ONE (19:00)
--- NOTE | 2016-12-08 19:45 | NUR ---
Shift Summary Pt is in bed at this time. Ambulates with assist of 1, FWW, and gait belt. Reported discomfort of an 8/10 at all times, she was asked several different ways regarding pain, she was on scheduled Percocet 7.5 which was last received at 171, it has now changed. Fentanyl 12 mcg is now applied to the Rt upper arm. Has been continent of urine, but also incontinent x1 and also had an accident x1. She is able to manage her own clothing and cares even for her incontinence. Ate well for meals, did not need assist with her tray, wheeled herself to the dining room. She was started on Coumadin this evening, the nurses from [facility] have been coming on the odd hours to perform the NIH stroke scale. Korey to her back were removed and a new gauze dressing was placed, pt tolerated well. Worked well with therapy today. When in bed or the chair the alarm is in use and call light is within reach. Addendum: 12/08/16 at 2057 by GERALDO DU RN Her scheduled Percocet 7.5 was at 1610 not 1710
[2016-12-08 20:04] VITALS: BP 101/47; PULSE 63; TEMP 98.3; O2SAT 91
[2016-12-08] MEDS: MIRTAZAPINE 45 MG PO SCH (22:06)
[2016-12-08] MEDS: OXYCODONE/APAP 5mg/325mg TABLET PO PRN (22:06)
[2016-12-08] MEDS: TRAVOPROST 0.004% EYE DROPS 2.5ml RIGHT EYE SCH (22:12)
[2016-12-09] MEDS: HEPARIN SUB-Q 5,000 unit/0.5ml vial SQ SCH ×4 (01:42→18:13)
[2016-12-09 02:05] VITALS: PULSE 63; RESP 18
[2016-12-09] MEDS: OXYCODONE/APAP 5mg/325mg TABLET PO PRN ×3 (04:39→17:05)
--- NOTE | 2016-12-09 04:59 | NUR ---
Chart Check 24 hour chart check completed
[2016-12-09 05:00] LABS: INR 1.12 (0.76-1.04); PROTHROMBIN TIME 12.2 SEC (9.31-12.49)
[2016-12-09] MEDS: LEVOTHYROXINE 88 MCG TABLET PO SCH (05:09)
--- NOTE | 2016-12-09 06:35 | NUR ---
Summary Patient has been alert and oriented times three, pleasant and cooperative. She has had Viking twice though the night, reporting her pain as about a 4 when sitting or lying and 8 when up. Neuro checks completed q2 and she has done well with them. She has ambulated to the restroom with FWW and gait belt. She was incontinent of urine. She is currently in bed with side rails up times two, bed alarm on and call light within reach.
[2016-12-09 07:45] VITALS: BP 118/74; PULSE 61; RESP 20; TEMP 98.2; O2SAT 98
[2016-12-09] MEDS: CARVEDILOL 25 MG TABLET PO SCH ×2 (08:45→18:13)
[2016-12-09] MEDS: DULOXETINE 60 MG CAPSULE PO SCH (08:45)
[2016-12-09] MEDS: METHOCARBAMOL 750 MG TABLET PO SCH ×4 (08:46→22:47)
[2016-12-09] MEDS: FUROSEMIDE 20 MG TABLET PO SCH (08:46)
[2016-12-09] MEDS: SENNA + DOCUSATE TAB PO SCH ×2 (08:46→22:47)
[2016-12-09] MEDS: LISINOPRIL 10 MG TABLET PO SCH ×2 (08:46→22:47)
[2016-12-09] MEDS: GABAPENTIN 100 MG CAPSULE PO SCH ×3 (08:46→22:47)
[2016-12-09] MEDS: ACETAMINOPHEN 325 MG TABLET PO PRN (09:08)
[2016-12-09] MEDS: BENZOCAINE 20% MM PRN (09:09)
--- NOTE | 2016-12-09 09:40 | NUR ---
COUMADIN CONSULT (Initial): Dx: Neurological Condition S: 81 yo female s/p spinal decompression for epidural hematoma following placement of spinal cord stimulator.She has had lost of strength and sensation to both right and left legs. She had the clot decompressed and has had some improvement, albeit slowly. Due to pain and weakness,she is unable to manage her ADL's and cannot live by herself at this time. Patient has a history of A Fib, CHF, COPD, etc. Also has Amiodarone Pulmonary Toxicity. O: Date INR Dose 12/08 1.12 4 mg 12/09 1.12 Plan 6mg A/P: I have ordered Warfarin 6 mg today. The pharmacy will continue to monitor the INRs and adjust the dosage of the Coumadin accordingly. Thanks for the Warfarin Protocol.
[2016-12-09] MEDS ORDERED: WARFARIN 6 MG TABLET PO SCH (12:00)
--- NOTE | 2016-12-09 14:31 | NUR ---
CM THIS WORKER REVIEWED PLAN OF CARE WITH PT, PT AGREED AND SIGNED.
--- NOTE | 2016-12-09 15:02 | PNPDOC ---
Subjective Date DATE: 12/09/16 TIME: 14:51 Subjective Pat was seen after returning from therapy. She states she is worn out. She is slightly dyspneic, but she states that his typical. She denies any chest pain. No abdominal pain or GI complaints. She feels like therapy is going well. We discussed restarting her Coumadin, and symptoms to watch for that might alert us to development of an epidural hematoma. I informed her that the nurses will be doing frequent neuro checks, and she seemed pleased with this. Objective Vital Signs Vital signs Vital Signs Date Time Temp Pulse Resp B/P Pulse Ox O2 Delivery O2 Flow Rate FiO2 12/09/16 07:45 98.2 61 20 118/74 98 Nasal Cannula 3.00 Telemetry Rhythm: Sinus Rhythm Height (Feet): 5 Height (Inches): 6.00 Weight (Kilograms): 83.800 General General Appearance: Alert, Orientated x 3, Well Nourished, Well Developed, No Acute Distress Eyes (Brief) Eyes: FOUND: PERRL, NOT FOUND: scleral icterus ENMT (Brief) ENMT: FOUND: mucosa moist, NOT FOUND: pharnyx erythema Respiratory (Brief) Respiratory: FOUND: clear all neely, equal bilaterally Comments tachypneic Cardiovascular (Brief) Cardiac: FOUND: click, regular rate, regular rhythm Abdomen (Brief) Abdominal: FOUND: BS normo active x4, soft, NOT FOUND: distended, tender Extremities (Brief) Extremity : Side: Bilateral Extremity: leg Extremity Finding: FOUND: edema Musculoskeletal (Brief) Musculoskeletal: NOT FOUND: tenderness Comments RAMBO hose bilaterally Integumentary (Brief) Integumentary: FOUND: dry, pink, warm Psychiatric (Brief) Psychiatric: FOUND: alert, attentive, normal affect, oriented Assessment & Plan Problems: (1) Epidural hematoma Status: Acute Assessment & Plan: Following placement of spinal cord stimulator on 11/22/16. Underwent emergent T4-T8 thoracic decompressive laminectomy for evacuation of the epidural hematoma and removal of the spinal cord stimulator on 11/24/[address] Butler (2) Bilateral leg weakness Status: Acute (3) CHF due to valvular disease Status: Chronic (4) COPD (chronic obstructive pulmonary disease) Status: Chronic (5) Oxygen dependent Status: Chronic (6) Amiodarone pulmonary toxicity Status: Chronic (7) Atrial fibrillation Status: Chronic (8) Hypothyroidism Status: Chronic (9) HTN (hypertension) Status: Chronic (10) Lupus Status: Chronic (11) Dyslipidemia Status: Chronic (12) Overweight (BMI 25.0-29.9) Status: Chronic Plan/Intensity of Service Continue on heparin bridge until INR is therapeutic. Coumadin was restarted yesterday. INR is subtherapeutic today. Agree with frequent neuro checks. Discussed neuro symptoms with the patient, and encouraged her to let us know if she develops any numbness, tingling or weakness. [employer] is Dr. Rivas. Hyperkalemia: Recheck BMP tomorrow morning. Potassium is on hold. Regarding recent urinary retention, postvoid residuals shortly after admission to IRU were 120 and 150. Currently, she is incontinent. Continue to monitor. Continue with pain control. Having regular bowel movements. DVT Prophylaxis: SQ Heparin, Coumadin Code Status Full Code, unverified Hospital Course Summary Disclaimer The hospital course summary below is not to be considered part of the above Progress Note. Hospital Course Summary 12/02/16 Continue on postoperative prophylaxis- Heparin SQ TID. May not start full anticoagulation until 12/08/16 for mechanical valves. Continue with oxygen at baseline 3 liters. Currently on Percocet for pain control, and Robaxin for muscle relaxers. Continue with Colace for postoperative bowel motivation Continue to encourage work with PT and OT for ongoing postoperative strengthening and pain control Check CBC and BMP tomorrow morning to follow anemia, electrolyte abnormalities 12/03/[address] Chanel. Agrees with re-imaging of thoracic back to rule out further bleeding or changes. T-spine without IV contrast ordered. Continue on postoperative prophylaxis- Heparin SQ TID. May not start full anticoagulation until 12/08/16 for mechanical valves. Noted hyperkalemia- Oral potassium held. Will recheck tomorrow Currently on Percocet for pain control, and Robaxin for muscle relaxers. Continue with Colace for postoperative bowel motivation Continue to encourage work with PT and OT for ongoing postoperative strengthening and pain control 12/06/16 Continue on postoperative prophylaxis- Heparin SQ TID. May start full anticoagulation on 12/08/16 for mechanical valves. Will re-evaluate incision again Friday 12/08. Will likely be able to remove jonathan at that time if incision looks good. This is the 2 week post-op. Noted hyperkalemia- Oral potassium held. Will recheck tomorrow Currently on Percocet for pain control, and Robaxin for muscle relaxers. Lidoderm patch added to right lateral back Continue with Colace for postoperative bowel motivation Continue to encourage work with PT and OT for ongoing postoperative strengthening and pain control 12/08/16 Continue on postoperative prophylaxis- Heparin SQ TID bridge until INR is therapeutic. Will resume on full anticoagulation Coumadin today. Given her chronic mechanical valve. Have placed consultation to pharmacy for dosing management. Will monitor patient carefully doing every 2 hours neurologic checks to evaluate for any evidence of bleeding. Last time patient was initiated on Coumadin. She had a epidural hematoma that had to be extracted. Will remove jonathan from thoracic incision as it seems to be healing well. Currently on Percocet for pain control, and Robaxin for muscle relaxers. Lidoderm patch added to right lateral back Continue with Colace and senna for postoperative bowel motivation Continue to encourage work with PT and OT for ongoing postoperative strengthening and pain control 12/09/16 Continue on heparin bridge until INR is therapeutic. Coumadin was restarted yesterday. INR is subtherapeutic today. Agree with frequent neuro checks. Discussed neuro symptoms with the patient, and encouraged her to let us know if she develops any numbness, tingling or weakness. [employer] is Dr. Rivas. Hyperkalemia: Recheck BMP tomorrow morning. Potassium is on hold. Regarding recent urinary retention, postvoid residuals shortly after admission to IRU were 120 and 150. Currently, she is incontinent. Continue to monitor. Continue with pain control. Having regular bowel movements. JESSE MONTES [employer] Dec 09, 2016 14:54
[2016-12-09 16:10] VITALS: BP 110/56; PULSE 61; RESP 18; TEMP 98.4; O2SAT 93
--- NOTE | 2016-12-09 19:00 | NUR ---
SHIFT SUMMARY PATIENT ALERT AND ORIENTED X 3. C/O PAIN IN BACK6-03/24. FENTYNL PATCH IN PLACE, PATIENT GIVEN PERCOCET AND TYLENOL FOR PAIN WELL, PATIENT REPORTED SOME PAIN RELIEF FROM PRN MEDS. DRESSING CHANGED TO BACK. PATIENT UP WITH ONE WITH GAITBELT. USES WALKER TO GO TO BATHROOM, WHEELCHAIR FOR LONGER DISTANCES. PATIENT JOSE MEALS WELL. RESTARTED ON COUMADIN YESTERDAY, RECEIVED DOSE TODAY. PATIENT WAS ON Q2 NIH STROKE SCALE CHECKS UNTIL 1100, CHANGED TO Q4 PER DR. SETH. PATIENT STABLE, STROKE SCALE CHECKS HAVE BEEN STABLE. WILL CONT TO MONITOR.
[2016-12-09] MEDS: TRAVOPROST 0.004% EYE DROPS 2.5ml RIGHT EYE SCH (22:46)
[2016-12-09] MEDS: MIRTAZAPINE 45 MG PO SCH (22:47)
[2016-12-09 23:13] VITALS: BP 139/66; PULSE 62; RESP 16; TEMP 98.5; O2SAT 95
[2016-12-10] MEDS: HEPARIN SUB-Q 5,000 unit/0.5ml vial SQ SCH ×3 (01:33→17:11)
[2016-12-10 05:28] LABS: INR 1.39 (0.76-1.04); PROTHROMBIN TIME 15.2 SEC (9.31-12.49)
[2016-12-10 05:34] LABS: ANION GAP 9 MEQ/L (5-15); BUN/CREATININE RATIO 34 RATIO (6-26); CALCIUM 8.6 MG/DL (8.4-10.2); CHLORIDE 103 MEQ/L (98-107); CO2 - CARBON DIOXIDE 31 MEQ/L (22-30); CREATININE 0.8 MG/DL (0.7-1.2); GLOMERULAR FILTRATION RATE 69; GLUCOSE 96 MG/DL (65-110); POTASSIUM 4.8 MEQ/L (3.6-5); SODIUM 143 MEQ/L (134-144)
[2016-12-10] MEDS: LEVOTHYROXINE 88 MCG TABLET PO SCH (06:26)
[2016-12-10 07:36] VITALS: BP 117/60; PULSE 61; RESP 18; TEMP 98.4; O2SAT 97
[2016-12-10] MEDS: DULOXETINE 60 MG CAPSULE PO SCH (08:48)
[2016-12-10] MEDS: CARVEDILOL 25 MG TABLET PO SCH ×2 (08:48→17:10)
[2016-12-10] MEDS: METHOCARBAMOL 750 MG TABLET PO SCH ×4 (08:49→21:43)
[2016-12-10] MEDS: SENNA + DOCUSATE TAB PO SCH ×2 (08:49→21:44)
[2016-12-10] MEDS: GABAPENTIN 100 MG CAPSULE PO SCH ×3 (08:49→21:43)
[2016-12-10] MEDS: FUROSEMIDE 20 MG TABLET PO SCH (08:49)
[2016-12-10] MEDS: LISINOPRIL 10 MG TABLET PO SCH ×2 (08:49→21:44)
[2016-12-10] MEDS: OXYCODONE/APAP 5mg/325mg TABLET PO PRN ×2 (08:50→17:11)
--- NOTE | 2016-12-10 09:07 | NUR ---
COUMADIN CONSULT (Initial): Dx: 81 yo female s/p spinal decompression for epidural hematoma following placement of spinal cord stimulator. Has had lost of strength and sensation to both right and left legs. Had the clot decompressed and has had some slow improvement. Pt is unable to manage her ADL's and cannot live by herself at this time. Co-morbidities of A Fib, CHF, COPD, Amiodarone Pulmonary Toxicity, etc. Date INR Dose 12/08 1.12 4 mg 12/09 1.12 6mg 12/10 1.39 Will give Warfarin 5mg today. Will continue to monitor INRs and adjust dosage of Coumadin accordingly. Thanks for the Warfarin Protocol.
[2016-12-10] MEDS: BENZOCAINE 20% MM PRN (11:11)
[2016-12-10 11:20] VITALS: PULSE 61; RESP 18
[2016-12-10] MEDS ORDERED: WARFARIN 5 MG TABLET PO SCH (12:00)
[2016-12-10] MEDS: ACETAMINOPHEN 325 MG TABLET PO PRN (12:38)
--- NOTE | 2016-12-10 13:05 | PNPDOC ---
JESSE MONTES INFORMATION COORDINATOR 12/10/16 1259: Subjective Date DATE: 12/10/16 TIME: 12:56 Subjective I watched Walk from her room to the gym for her physical therapy session this afternoon. She ambulated with a fairly steady gait using a walker, with standby assist. She commented that her back pain is worse today, but is hopeful that her pain medicine will be kicking in soon. After she made it to the gym, she was able to sit down and recover before starting therapy. She states she feels a little bit short of breath, as usual. Again, she describes a higher degree of pain today. She has not had any numbness, tingling, or new weakness. Staff has been monitoring her for signs of epidural hematoma re-collection. Objective Vital Signs Vital signs Vital Signs Date Time Temp Pulse Resp B/P Pulse Ox O2 Delivery O2 Flow Rate FiO2 12/10/16 07:36 98.4 61 18 117/60 97 Nasal Cannula 3.00 Telemetry Rhythm: Sinus Rhythm Height (Feet): 5 Height (Inches): 6.00 Weight (Kilograms): 83.800 General General Appearance: Alert, Orientated x 3, Well Nourished, Well Developed, No Acute Distress Eyes (Brief) Eyes: FOUND: PERRL, NOT FOUND: scleral icterus ENMT (Brief) ENMT: FOUND: mucosa moist, NOT FOUND: pharnyx erythema Respiratory (Brief) Respiratory: FOUND: clear all neely, equal bilaterally Cardiovascular (Brief) Cardiac: FOUND: regular rate, regular rhythm Abdomen (Brief) Abdominal: FOUND: BS normo active x4, soft, NOT FOUND: distended Extremities (Brief) Extremity : Extremity Finding: FOUND: edema Comments RAMBO hose bilaterally Musculoskeletal (Brief) Musculoskeletal: NOT FOUND: deformity Integumentary (Brief) Integumentary: FOUND: dry, pink, warm Psychiatric (Brief) Psychiatric: FOUND: alert, attentive, normal affect, oriented Laboratory Laboratory Laboratory Tests 12/10/16 04:46 Assessment & Plan Problems: (1) Epidural hematoma Status: Acute Assessment & Plan: Following placement of spinal cord stimulator on 11/22/16. Underwent emergent T4-T8 thoracic decompressive laminectomy for evacuation of the epidural hematoma and removal of the spinal cord stimulator on 11/24/[address] Butler (2) Bilateral leg weakness Status: Acute (3) CHF due to valvular disease Status: Chronic (4) COPD (chronic obstructive pulmonary disease) Status: Chronic (5) Oxygen dependent Status: Chronic (6) Amiodarone pulmonary toxicity Status: Chronic (7) Atrial fibrillation Status: Chronic (8) Hypothyroidism Status: Chronic (9) HTN (hypertension) Status: Chronic (10) Lupus Status: Chronic (11) Dyslipidemia Status: Chronic (12) Overweight (BMI 25.0-29.9) Status: Chronic Plan/Intensity of Service Continue on heparin bridge until INR is therapeutic. Coumadin was restarted on . INR increased slightly to 1.39. Continue with frequent neuro checks. Monitor pain level, since this could be an indication of postoperative complication. Both hyperkalemia and hypernatremia have resolved on labs this morning. Continue to hold potassium today, and will restart tomorrow at once a day dosing rather than twice a day. Will recheck BMP on 12/13/16. High risk medications in use. DVT Prophylaxis: SQ Heparin, Coumadin Code Status Full Code, unverified Hospital Course Summary Disclaimer The hospital course summary below is not to be considered part of the above Progress Note. Hospital Course Summary 12/02/16 Continue on postoperative prophylaxis- Heparin SQ TID. May not start full anticoagulation until 12/08/16 for mechanical valves. Continue with oxygen at baseline 3 liters. Currently on Percocet for pain control, and Robaxin for muscle relaxers. Continue with Colace for postoperative bowel motivation Continue to encourage work with PT and OT for ongoing postoperative strengthening and pain control Check CBC and BMP tomorrow morning to follow anemia, electrolyte abnormalities 12/03/[address] Chanel. Agrees with re-imaging of thoracic back to rule out further bleeding or changes. T-spine without IV contrast ordered. Continue on postoperative prophylaxis- Heparin SQ TID. May not start full anticoagulation until 12/08/16 for mechanical valves. Noted hyperkalemia- Oral potassium held. Will recheck tomorrow Currently on Percocet for pain control, and Robaxin for muscle relaxers. Continue with Colace for postoperative bowel motivation Continue to encourage work with PT and OT for ongoing postoperative strengthening and pain control 12/06/16 Continue on postoperative prophylaxis- Heparin SQ TID. May start full anticoagulation on 12/08/16 for mechanical valves. Will re-evaluate incision again Friday 12/08. Will likely be able to remove jonathan at that time if incision looks good. This is the 2 week post-op. Noted hyperkalemia- Oral potassium held. Will recheck tomorrow Currently on Percocet for pain control, and Robaxin for muscle relaxers. Lidoderm patch added to right lateral back Continue with Colace for postoperative bowel motivation Continue to encourage work with PT and OT for ongoing postoperative strengthening and pain control 12/08/16 Continue on postoperative prophylaxis- Heparin SQ TID bridge until INR is therapeutic. Will resume on full anticoagulation Coumadin today. Given her chronic mechanical valve. Have placed consultation to pharmacy for dosing management. Will monitor patient carefully doing every 2 hours neurologic checks to evaluate for any evidence of bleeding. Last time patient was initiated on Coumadin. She had a epidural hematoma that had to be extracted. Will remove jonathan from thoracic incision as it seems to be healing well. Currently on Percocet for pain control, and Robaxin for muscle relaxers. Lidoderm patch added to right lateral back Continue with Colace and senna for postoperative bowel motivation Continue to encourage work with PT and OT for ongoing postoperative strengthening and pain control 12/09/16 Continue on heparin bridge until INR is therapeutic. Coumadin was restarted yesterday. INR is subtherapeutic today. Agree with frequent neuro checks. Discussed neuro symptoms with the patient, and encouraged her to let us know if she develops any numbness, tingling or weakness. Blending Supervisor is Dr. Rivas. Hyperkalemia: Recheck BMP tomorrow morning. Potassium is on hold. Regarding recent urinary retention, postvoid residuals shortly after admission to IRU were 120 and 150. Currently, she is incontinent. Continue to monitor. Continue with pain control. Having regular bowel movements. 12/10/16 Continue on heparin bridge until INR is therapeutic. Coumadin was restarted on . INR increased slightly to 1.39. Continue with frequent neuro checks. Monitor pain level, since this could be an indication of postoperative complication. Both hyperkalemia and hypernatremia have resolved on labs this morning. Continue to hold potassium today, and will restart tomorrow at once a day dosing rather than twice a day. Will recheck BMP on 12/13/16. ENRIQUETA NICOLE MD 12/10/162037: Assessment & Plan Assessment I have independently evaluated and examined this patient. I reviewed the chart, the patient's history, and the INFORMATION COORDINATOR's documented findings as above. We discussed and formulated the assessment and plan as above with additions as below: Mrs. May complains of dysuria this evening and persistent back pain. She feels likes progress is slowly being made in therapy. Examination reveals regular cardiac rhythm with an S2 click and soft systolic murmur Abdomen is obese but soft, no suprapubic tenderness was noted Sensation intact bilateral lower extremities INR coming up very slowly, may require therapeutic heparin/Lovenox if not therapeutic within several days. Can discuss further with Dr. Rivas if needed. Urinalysis to be obtained due to patient reports of dysuria. JESSE MONTES APRN Dec 10, 2016 12:59 ENRIQUETA NICOLE MD Dec 10, 2016 20:38
--- NOTE | 2016-12-10 15:00 | NUR ---
Stroke Scale Received call from Cintia from CCU. She asked about stroke scale on pt. and asked if the DrCatrina wanted to keep stroke scale assessment at Q4H, or change it to Q8H. Pt. is stable. Spoke with Dr. Chanel and he reported we could change stroke scale to Q8H. Notified Cintia and will continue to monitor.
[2016-12-10 16:00] VITALS: BP 133/63; PULSE 62; RESP 12; TEMP 98.4; O2SAT 97
--- NOTE | 2016-12-10 18:30 | NUR ---
Summary Patient has been alert and oriented times three, pleasant and cooperative. CCU nurse has done stroke scale Q4 hours and she has remained steady is scores at a two. She had some pain in the evening, rating it at 8/10 and had pain medication to help control it. She has been up to restroom with FWW, gait belt and steadying assist, and has been incontinent of urine each time up. When in bed, side rails are up times two, bed alarm on and call light within reach.
--- NOTE | 2016-12-10 19:15 | NUR ---
Summary VS's stable. She is on 3L O2 via nasal canula. Pt. is a transfer x1 with gait belt and walker. She has ambulated to, or part way to meals. She takes meds whole. Encouraged re-positioning and polar pack for comfort. Pt. has refused polar pack this shift. She continues to rate right side pain on the back an 6-8/10. PRN pain meds given. Please see eMAR. Dressing to mid-upper back changed this shift per orders. No drainage, or s/s of infection noted. Report has been past on to sheet metal foreman.
[2016-12-10 19:30] VITALS: BP 104/51; PULSE 62; RESP 18; TEMP 98.7; O2SAT 94
[2016-12-10] MEDS: MIRTAZAPINE 45 MG PO SCH (21:43)
[2016-12-10] MEDS: TRAVOPROST 0.004% EYE DROPS 2.5ml RIGHT EYE SCH (21:43)
[2016-12-11] MEDS: OXYCODONE/APAP 5mg/325mg TABLET PO PRN ×3 (00:20→12:24)
[2016-12-11] MEDS: HEPARIN SUB-Q 5,000 unit/0.5ml vial SQ SCH ×3 (00:26→18:21)
[2016-12-11 05:10] LABS: INR 2.28 (0.76-1.04); PROTHROMBIN TIME 24.9 SEC (9.31-12.49)
[2016-12-11] MEDS: LEVOTHYROXINE 88 MCG TABLET PO SCH (06:48)
--- NOTE | 2016-12-11 07:00 | NUR ---
Summary Patient is alert and oriented times three, pleasant and cooperative. Pt had some pain during this shift, 4-04/24 and pain medication was given. She ambulates with FWW, gait belt. She has been incontinent of urine. She reported to signs of bladder infection and UA was ordered. Unable to collect this shift. Reported to day shift. When in bed, side rails are up times two, bed alarm on and call light within reach.
--- NOTE | 2016-12-11 07:29 | NUR ---
WARFARIN CONSULT S: 81 y/o F on warfarin for mechanical aortic valve replacement. Goal INR 2-3. Pt was on warfarin 2 mg PO daily prior to 11/22. On 11/22 pt had a nerve stimulator placed and was bridged with enoxaparin; unfortunately developed an epidural hematoma and underwent surgery on 11/24 for evacuation with decompressive laminectomy. Pt admitted on IRU at [facility] [place] on 11/30 with orders not to re-start warfarin until 12/08. O: Date INR Warfarin Dose 12/08 1.12 4 mg 12/09 1.12 6 mg 12/10 1.39 5 mg 12/11 2.28 PLAN: 1 mg A/P: INR therapeutic; diogenes significantly and may increase quite a bit still. Pt is on heparin subQ; may be discontinued if INR remains >2 tomorrow. Will order warfarin 1 mg PO today. Will continue to monitor & make adjustments accordingly. Thank you for the consult. Giovana Hernandes, PharmD, BCPS
[2016-12-11 08:00] VITALS: BP 115/55; PULSE 62; PULSE 63; RESP 18; RESP 20; TEMP 99.8
[2016-12-11] MEDS: SENNA + DOCUSATE TAB PO SCH ×2 (09:00→21:24)
[2016-12-11] MEDS: DULOXETINE 60 MG CAPSULE PO SCH (09:46)
[2016-12-11] MEDS: LISINOPRIL 10 MG TABLET PO SCH ×2 (09:47→21:25)
[2016-12-11] MEDS: FUROSEMIDE 20 MG TABLET PO SCH (09:47)
[2016-12-11] MEDS: GABAPENTIN 100 MG CAPSULE PO SCH ×3 (09:47→21:24)
[2016-12-11] MEDS: CARVEDILOL 25 MG TABLET PO SCH ×2 (09:47→18:21)
[2016-12-11] MEDS: METHOCARBAMOL 750 MG TABLET PO SCH ×4 (09:48→21:24)
[2016-12-11] MEDS ORDERED: WARFARIN 1 MG TABLET PO ONE (12:00)
[2016-12-11 13:41] LABS: BLOOD, URINE 2+ (NEGATIVE); COLOR,URINE YELLOW (YELLOW); LEUKOCYTE ESTERASE ,URINE 2+ (NEGATIVE); NITRITE,URINE POSITIVE (NEGATIVE); UROBILINOGEN,URINE 0.2 EU/DL (NORMAL)
[2016-12-11 13:50] LABS: WBC,URINE TNTC /HPF (0-5)
[2016-12-11 13:51] LABS: BACTERIA,URINE 3+ (NEGATIVE); RBC,URINE 0-1 /HPF (0-3); SQUAMOUS EPITHELIAL CELL,UR NONE SEEN
[2016-12-11 16:00] VITALS: BP 122/63; PULSE 70; RESP 20; TEMP 98.2; O2SAT 91
[2016-12-11] MEDS: FENTANYL PATCH REMOVAL TD SCH (16:45)
[2016-12-11] MEDS: FENTANYL 12MCG/HR PATCH TD SCH (16:57)
[2016-12-11 19:56] VITALS: BP 109/50; PULSE 74; RESP 18; TEMP 98.3; O2SAT 93
--- NOTE | 2016-12-11 20:48 | NUR ---
Shift summary Patient ambulating with FWW, giat belt, min assist. Wears RAMBO hose. Has glasses, dentures. Dressing to back changed this shift. Incision well approximated. Transfers with min to stand by assist. Incontinent of stool this shift with accident. Total assist for bowel incontinence management. wears pullups. Patient refused stool softners and laxatives today due to loose stools. Duragesic patch removed from right upper extremity and new patch placed to left upper extremity.
[2016-12-11] MEDS: MIRTAZAPINE 45 MG PO SCH (21:24)
[2016-12-12] MEDS: ACETAMINOPHEN 325 MG TABLET PO PRN (02:39)
[2016-12-12] MEDS: HEPARIN SUB-Q 5,000 unit/0.5ml vial SQ SCH ×3 (02:44→17:00)
--- NOTE | 2016-12-12 04:58 | NUR ---
Chart Check 24 hour chart check completed
[2016-12-12 05:23] LABS: INR 3.12 (0.76-1.04)
[2016-12-12] MEDS: LEVOTHYROXINE 88 MCG TABLET PO SCH (05:36)
[2016-12-12] MEDS: OXYCODONE/APAP 5mg/325mg TABLET PO PRN ×4 (05:38→23:06)
--- NOTE | 2016-12-12 07:55 | NUR ---
Summary Patient is alert and oriented times three, pleasant and cooperative. She has a lot of pain which is treated with Fentnyl patch Q3days and Percocet 5 PRN. She has been incontinent during the night. She is on 3LO2. She ambulates with FWW and gait belt and provides her own sam care.
--- NOTE | 2016-12-12 07:59 | NUR ---
WARFARIN CONSULT S: 81 y/o F on warfarin for mechanical aortic valve replacement. Goal INR 2-3. Pt was on warfarin 2 mg PO daily prior to 11/22. On 11/22 pt had a nerve stimulator placed and was bridged with enoxaparin; unfortunately developed an epidural hematoma and underwent surgery on 11/24 for evacuation with decompressive laminectomy. Pt admitted on IRU [place] [facility] on 11/30 with orders not to re-start warfarin until 12/08. O: Date INR Warfarin Dose 12/08 1.12 4 mg 12/09 1.12 6 mg 12/10 1.39 5 mg 12/11 2.28 1 mg 12/12 3.12 HOLD A/P: INR supratherapeutic; diogenes significantly due to high doses (relative to home) on first 3 days of therapy. Pt is on heparin subQ; recommend discontinuation. Will hold warfarin today. Will continue to monitor & make adjustments accordingly. Thank you for the consult. Giovana Hernandes, PharmD, BCPS
[2016-12-12 08:00] VITALS: BP 148/63; PULSE 62; RESP 16; TEMP 97.3; O2SAT 100
[2016-12-12 08:30] VITALS: PULSE 62; RESP 16
[2016-12-12] MEDS: CARVEDILOL 25 MG TABLET PO SCH ×2 (08:30→17:30)
[2016-12-12] MEDS: METHOCARBAMOL 750 MG TABLET PO SCH ×4 (09:00→20:24)
[2016-12-12] MEDS: SENNA + DOCUSATE TAB PO SCH ×3 (09:00→20:35)
[2016-12-12] MEDS: GABAPENTIN 100 MG CAPSULE PO SCH ×3 (09:01→20:24)
[2016-12-12] MEDS: FUROSEMIDE 20 MG TABLET PO SCH (09:01)
[2016-12-12] MEDS: DULOXETINE 60 MG CAPSULE PO SCH (09:01)
[2016-12-12] MEDS: CEFUROXIME AXETIL 500 MG TABLET PO SCH ×2 (09:01→20:23)
[2016-12-12] MEDS: LISINOPRIL 10 MG TABLET PO SCH ×2 (09:01→20:24)
--- NOTE | 2016-12-12 14:37 | PNPDOC ---
Subjective Date DATE: 12/12/16 TIME: 14:16 Teresa Chino is seen today in follow up for her recent back surgery and pain and new UTI. She is seen while resting in bed and appears short of breath. She states that she just walked back from the dining room where she had lunch and is a little short of breath, but nothing abnormal. She admits to wearing 3L NC at home chronically which is what she is currently on. She denies any chest pain, shortness of breath, fevers, chills, nausea, vomiting or syncope. She state that while she was in the lunch room, she had an "accident" soiling her pants. She admits to increased diarrhea the past few days. Nursing notes report that she complained of urinary frequency and burning last night. UA showed TNTC WBC with + nitrites and 3+ bacteria so she was started on Ceftin for a UTI. Her appetite is good. INR therapeutic at 3.12. Objective Vital Signs Vital signs Vital Signs Date Time Temp Pulse Resp B/P Pulse Ox O2 Delivery O2 Flow Rate FiO2 12/12/16 08:30 62 16 12/12/16 08:00 97.3 148/63 100 Nasal Cannula 3.00 Telemetry Rhythm: Sinus Rhythm Height (Feet): 5 Height (Inches): 6.00 Weight (Kilograms): 83.800 General General Appearance: Alert, Cooperative, Mild Distress Comments appears short of breath initially on exam which improves as the exam progresses. Eyes (Brief) Eyes: FOUND: PERRL, NOT FOUND: scleral icterus ENMT (Brief) ENMT: FOUND: mucosa moist Neck (Brief) Neck: FOUND: midline, NOT FOUND: nuchal rigidity, tracheal deviation Respiratory (Brief) Respiratory: FOUND: symmetrical, NOT FOUND: wheezes Comments diminished bilaterally Cardiovascular (Brief) Cardiac: FOUND: click, murmur, pedal edema (1+), regular rate, regular rhythm Abdomen (Brief) Abdominal: FOUND: BS normo active x4, soft, NOT FOUND: distended, tender Extremities (Brief) Extremity : Side: Bilateral Extremity: leg Extremity Finding: FOUND: edema (1+), NOT FOUND: deformity Lymphatic (Brief) Lymphatic: NOT FOUND: lymphedema Musculoskeletal (Brief) Musculoskeletal: FOUND: extremities move equally, NOT FOUND: deformity, loss of motion Integumentary (Brief) Integumentary: FOUND: dry, pink, warm Comments afebrile Neurologic (Brief) Neurological: NOT FOUND: facial droop Psychiatric (Brief) Psychiatric: FOUND: alert, attentive, oriented Microbiology Microbiology Microbiology Date/Time Source Procedure Growth Status 12/11/16 13:51 Urine, Clean Catch-Midstream Urine Culture - Preliminary Gram Negative Will Resulted Assessment & Plan Problems: (1) Epidural hematoma Status: Acute Assessment & Plan: Following placement of spinal cord stimulator on 11/22/16. Underwent emergent T4-T8 thoracic decompressive laminectomy for evacuation of the epidural hematoma and removal of the spinal cord stimulator on 11/24/[address] Butler (2) Bilateral leg weakness Status: Acute (3) CHF due to valvular disease Status: Chronic (4) COPD (chronic obstructive pulmonary disease) Status: Chronic (5) Oxygen dependent Status: Chronic (6) Amiodarone pulmonary toxicity Status: Chronic (7) Atrial fibrillation Status: Chronic (8) Hypothyroidism Status: Chronic (9) HTN (hypertension) Status: Chronic (10) Lupus Status: Chronic (11) Dyslipidemia Status: Chronic (12) Overweight (BMI 25.0-29.9) Status: Chronic Plan/Intensity of Service 12/12: Alecia. 1. Epidural hematoma with bilateral leg weakness * Continue therapy and pain control per Dr. Chanel for strengthening and improvement in functional ability. * Continue to monitor neurologic function and pain level for signs of post op complications. * Recheck CBC and BMP in AM to monitor blood counts, electrolytes and renal function in light of recent infection, anemia, electrolyte imbalance and current UTI. 2. CHF * Lasix daily and monitor closely for signs of fluid overload with daily weights. 3. COPD - Oxygen dependent * Continuous oxygen to maintain SAO2 between 90-96%; home baseline is 3L. 4. A-fib and Hypertension * Continue Coreg and Lisinopril and monitor closely. * INR therapeutic at 3.12. Can discontinue heparin bridge 5. Hypothyroid * Continue Synthroid 6. Lupus 7. Dyslipidemia 8. UTI, new diagnosis * Patient complained of dysuria on 12/11 and found to have a UTI with WBC TNTC, + nitirtes and 3+ bacteria. UA culture pending. Ceftin initiated for antimicrobial coverage of urinary pathogens. * Initiate Pyridium TID x 2 day for urinary burning. Code Status Full Code, unverified Hospital Course Summary Disclaimer The hospital course summary below is not to be considered part of the above Progress Note. Hospital Course Summary 12/02/16 Continue on postoperative prophylaxis- Heparin SQ TID. May not start full anticoagulation until 12/08/16 for mechanical valves. Continue with oxygen at baseline 3 liters. Currently on Percocet for pain control, and Robaxin for muscle relaxers. Continue with Colace for postoperative bowel motivation Continue to encourage work with PT and OT for ongoing postoperative strengthening and pain control Check CBC and BMP tomorrow morning to follow anemia, electrolyte abnormalities 12/03/[address] Chanel. Agrees with re-imaging of thoracic back to rule out further bleeding or changes. T-spine without IV contrast ordered. Continue on postoperative prophylaxis- Heparin SQ TID. May not start full anticoagulation until 12/08/16 for mechanical valves. Noted hyperkalemia- Oral potassium held. Will recheck tomorrow Currently on Percocet for pain control, and Robaxin for muscle relaxers. Continue with Colace for postoperative bowel motivation Continue to encourage work with PT and OT for ongoing postoperative strengthening and pain control 12/06/16 Continue on postoperative prophylaxis- Heparin SQ TID. May start full anticoagulation on 12/08/16 for mechanical valves. Will re-evaluate incision again Friday 12/08. Will likely be able to remove jonathan at that time if incision looks good. This is the 2 week post-op. Noted hyperkalemia- Oral potassium held. Will recheck tomorrow Currently on Percocet for pain control, and Robaxin for muscle relaxers. Lidoderm patch added to right lateral back Continue with Colace for postoperative bowel motivation Continue to encourage work with PT and OT for ongoing postoperative strengthening and pain control 12/08/16 Continue on postoperative prophylaxis- Heparin SQ TID bridge until INR is therapeutic. Will resume on full anticoagulation Coumadin today. Given her chronic mechanical valve. Have placed consultation to pharmacy for dosing management. Will monitor patient carefully doing every 2 hours neurologic checks to evaluate for any evidence of bleeding. Last time patient was initiated on Coumadin. She had a epidural hematoma that had to be extracted. Will remove jonathan from thoracic incision as it seems to be healing well. Currently on Percocet for pain control, and Robaxin for muscle relaxers. Lidoderm patch added to right lateral back Continue with Colace and senna for postoperative bowel motivation Continue to encourage work with PT and OT for ongoing postoperative strengthening and pain control 12/09/16 Continue on heparin bridge until INR is therapeutic. Coumadin was restarted yesterday. INR is subtherapeutic today. Agree with frequent neuro checks. Discussed neuro symptoms with the patient, and encouraged her to let us know if she develops any numbness, tingling or weakness. Research Environmental Engineer is Dr. Rivas. Hyperkalemia: Recheck BMP tomorrow morning. Potassium is on hold. Regarding recent urinary retention, postvoid residuals shortly after admission to IRU were 120 and 150. Currently, she is incontinent. Continue to monitor. Continue with pain control. Having regular bowel movements. 12/10/16 Continue on heparin bridge until INR is therapeutic. Coumadin was restarted on . INR increased slightly to 1.39. Continue with frequent neuro checks. Monitor pain level, since this could be an indication of postoperative complication. Both hyperkalemia and hypernatremia have resolved on labs this morning. Continue to hold potassium today, and will restart tomorrow at once a day dosing rather than twice a day. Will recheck BMP on 12/13/16. 12/12: Alecia. 1. Epidural hematoma with bilateral leg weakness * Continue therapy and pain control per Dr. Chanel for strengthening and improvement in functional ability. * Continue to monitor neurologic function and pain level for signs of post op complications. * Recheck CBC and BMP in AM to monitor blood counts, electrolytes and renal function in light of recent infection, anemia, electrolyte imbalance and current UTI. 2. CHF * Lasix daily and monitor closely for signs of fluid overload with daily weights. 3. COPD - Oxygen dependent * Continuous oxygen to maintain SAO2 between 90-96%; home baseline is 3L. 4. A-fib and Hypertension * Continue Coreg and Lisinopril and monitor closely. * INR therapeutic at 3.12. Can discontinue heparin bridge 5. Hypothyroid * Continue Synthroid 6. Lupus 7. Dyslipidemia 8. UTI, new diagnosis * Patient complained of dysuria on 12/11 and found to have a UTI with WBC TNTC, + nitirtes and 3+ bacteria. UA culture pending. Ceftin initiated for antimicrobial coverage of urinary pathogens. * Initiate Pyridium TID x 2 day for urinary burning. ARTIS HOLLY Dec 12, 2016 14:20
[2016-12-12 16:00] VITALS: BP 121/58; PULSE 62; RESP 18; TEMP 98.7; O2SAT 86
[2016-12-12 16:05] VITALS: O2SAT 91
[2016-12-12] MEDS: PHENAZOPYRIDINE 95 MG TABLET PO SCH (18:03)
--- NOTE | 2016-12-12 18:39 | NUR ---
PT HAD FAMILY AT BEDSIDE PART OF THIS SHIFT. SHE HAS COMPLAINED OF PAIN 8/10 AT ALL TIMES. SHE HAS AMBULATED TO DINNER ALL OF MEALS AND TO AND FROM BATHROOM SEVERAL TIMES. INCREASED NEED FOR O2 THIS EVENING WITH NO INCREASED SHORTNESS OF BREATH. APPETITE GOOD.
[2016-12-12 19:41] VITALS: BP 117/54; PULSE 63; RESP 24; TEMP 98.1; O2SAT 91
[2016-12-12] MEDS: MIRTAZAPINE 45 MG PO SCH (20:24)
[2016-12-12 20:30] VITALS: PULSE 60; RESP 22; O2SAT 94
[2016-12-12] MEDS: TRAVOPROST 0.004% EYE DROPS 2.5ml RIGHT EYE SCH ×2 (21:09→21:12)
--- NOTE | 2016-12-12 23:16 | PNPDOC ---
IRU Subjective Date DATE: 12/12/16 TIME: 23:11 Subjective Pt without complication from restarting coumadin. Up and mobile today. She is still having pain issues. IRU Objective Vital Signs Vital signs Vital Signs Date Time Temp Pulse Resp B/P Pulse Ox O2 Delivery O2 Flow Rate FiO2 12/12/16 19:57 Nasal Cannula 3.00 12/12/16 19:41 98.1 63 24 117/54 91 Telemetry Rhythm: Sinus Rhythm Height (Feet): 5 Height (Inches): 6.00 Weight (Kilograms): 83.800 General General Appearance: Alert, Orientated x 2 Respiratory (Brief) Respiratory: FOUND: clear all neely, equal bilaterally Cardiovascular (Brief) Cardiac: FOUND: regular rate, regular rhythm Musculoskeletal (Brief) Comments No signs of any developing hematoma on back Laboratory Laboratory Laboratory Tests Test 12/11/16 04:35 12/11/16 13:32 12/12/16 04:26 Prothromb Time International Ratio 2.28 3.12 Urine Collection Type Cleancatch-midstream Urine Color Yellow Urine Turbidity Cloudy Urine pH 5.0 Urine Specific [place] 1.015 Urine Protein 1+ Urine Glucose (UA) Negative Urine Ketones Negative Urine Blood 2+ Urine Nitrite Positive Urine Bilirubin Negative Urine Urobilinogen 0.2EU/DL Urine Leukocyte Esterase 2+ Urine RBC 0-1/HPF Urine WBC Tntc/HPF Urine Squamous Epithelial Cells None seen Urine Bacteria 3+ Urine Culture Indicated Cult reflexed &setup Microbiology Microbiology Microbiology Date/Time Source Procedure Growth Status 12/11/16 13:51 Urine, Clean Catch-Midstream Urine Culture - Preliminary Gram Negative Will Resulted Assessment & Plan Problems: (1) Vascular dementia Status: Chronic Assessment & Plan: managed by medical. (2) Epidural hematoma Status: Acute Assessment & Plan: resolved. No new hematoma noted despite restarting coumadin. Neurochecks were done appropriately by staff and showed no progressive sx. (3) Bilateral leg weakness Status: Acute Assessment & Plan: Cont with PT and OT, plan to reeval in am for possible d/c. (4) CHF due to valvular disease Status: Chronic Code Status Full Code, unverified Interventions to Obtain Goals PT Treatment Plan: Therapeutic Exercise, Gait Training, Functional Activities , Balance/Proprioception, Wound Care OT Treatment Plan: ADL's (basic care), Ther. Exercise for ADL's, UE Functional Training, Balance Training, Pt./Family Education, IADL's Hospital Course Summary Disclaimer The hospital course summary below is not to be considered part of the above Progress Note. Hospital Course Summary 12/02/16 Continue on postoperative prophylaxis- Heparin SQ TID. May not start full anticoagulation until 12/08/16 for mechanical valves. Continue with oxygen at baseline 3 liters. Currently on Percocet for pain control, and Robaxin for muscle relaxers. Continue with Colace for postoperative bowel motivation Continue to encourage work with PT and OT for ongoing postoperative strengthening and pain control Check CBC and BMP tomorrow morning to follow anemia, electrolyte abnormalities 12/03/[address] Chanel. Agrees with re-imaging of thoracic back to rule out further bleeding or changes. T-spine without IV contrast ordered. Continue on postoperative prophylaxis- Heparin SQ TID. May not start full anticoagulation until 12/08/16 for mechanical valves. Noted hyperkalemia- Oral potassium held. Will recheck tomorrow Currently on Percocet for pain control, and Robaxin for muscle relaxers. Continue with Colace for postoperative bowel motivation Continue to encourage work with PT and OT for ongoing postoperative strengthening and pain control 12/06/16 Continue on postoperative prophylaxis- Heparin SQ TID. May start full anticoagulation on 12/08/16 for mechanical valves. Will re-evaluate incision again Friday 12/08. Will likely be able to remove jonathan at that time if incision looks good. This is the 2 week post-op. Noted hyperkalemia- Oral potassium held. Will recheck tomorrow Currently on Percocet for pain control, and Robaxin for muscle relaxers. Lidoderm patch added to right lateral back Continue with Colace for postoperative bowel motivation Continue to encourage work with PT and OT for ongoing postoperative strengthening and pain control 12/08/16 Continue on postoperative prophylaxis- Heparin SQ TID bridge until INR is therapeutic. Will resume on full anticoagulation Coumadin today. Given her chronic mechanical valve. Have placed consultation to pharmacy for dosing management. Will monitor patient carefully doing every 2 hours neurologic checks to evaluate for any evidence of bleeding. Last time patient was initiated on Coumadin. She had a epidural hematoma that had to be extracted. Will remove jonathan from thoracic incision as it seems to be healing well. Currently on Percocet for pain control, and Robaxin for muscle relaxers. Lidoderm patch added to right lateral back Continue with Colace and senna for postoperative bowel motivation Continue to encourage work with PT and OT for ongoing postoperative strengthening and pain control 12/09/16 Continue on heparin bridge until INR is therapeutic. Coumadin was restarted yesterday. INR is subtherapeutic today. Agree with frequent neuro checks. Discussed neuro symptoms with the patient, and encouraged her to let us know if she develops any numbness, tingling or weakness. [employer] is Dr. Rivas. Hyperkalemia: Recheck BMP tomorrow morning. Potassium is on hold. Regarding recent urinary retention, postvoid residuals shortly after admission to IRU were 120 and 150. Currently, she is incontinent. Continue to monitor. Continue with pain control. Having regular bowel movements. 12/10/16 Continue on heparin bridge until INR is therapeutic. Coumadin was restarted on . INR increased slightly to 1.39. Continue with frequent neuro checks. Monitor pain level, since this could be an indication of postoperative complication. Both hyperkalemia and hypernatremia have resolved on labs this morning. Continue to hold potassium today, and will restart tomorrow at once a day dosing rather than twice a day. Will recheck BMP on 12/13/16. 12/12: [place]. 1. Epidural hematoma with bilateral leg weakness * Continue therapy and pain control per Dr. Chanel for strengthening and improvement in functional ability. * Continue to monitor neurologic function and pain level for signs of post op complications. * Recheck CBC and BMP in AM to monitor blood counts, electrolytes and renal function in light of recent infection, anemia, electrolyte imbalance and current UTI. 2. CHF * Lasix daily and monitor closely for signs of fluid overload with daily weights. 3. COPD - Oxygen dependent * Continuous oxygen to maintain SAO2 between 90-96%; home baseline is 3L. 4. A-fib and Hypertension * Continue Coreg and Lisinopril and monitor closely. * INR therapeutic at 3.12. Can discontinue heparin bridge 5. Hypothyroid * Continue Synthroid 6. Lupus 7. Dyslipidemia 8. UTI, new diagnosis * Patient complained of dysuria on 12/11 and found to have a UTI with WBC TNTC, + nitirtes and 3+ bacteria. UA culture pending. Ceftin initiated for antimicrobial coverage of urinary pathogens. * Initiate Pyridium TID x 2 day for urinary burning. MEG CHANEL MD Dec 12, 2016 23:14
--- NOTE | 2016-12-12 23:19 | PNPDOC ---
IRU Subjective Date DATE: 11/30/16 TIME: 1844 Subjective Care taken with neurochecks, staff training and following protocol. No issues with restart of coumadin. Pt still c/o overall pain. IRU Objective Vital Signs Vital signs Vital Signs Date Time Temp Pulse Resp B/P Pulse Ox O2 Delivery O2 Flow Rate FiO2 12/12/16 19:57 Nasal Cannula 3.00 12/12/16 19:41 98.1 63 24 117/54 91 Telemetry Rhythm: Sinus Rhythm Height (Feet): 5 Height (Inches): 6.00 Weight (Kilograms): 83.800 General General Appearance: Alert, Orientated x 2 Respiratory (Brief) Respiratory: FOUND: clear all neely, equal bilaterally Cardiovascular (Brief) Cardiac: FOUND: regular rate, regular rhythm Musculoskeletal (Brief) Comments Incision on back is approp, not dehiscing at this time. Laboratory Laboratory Laboratory Tests Test 12/11/16 04:35 12/11/16 13:32 12/12/16 04:26 Prothromb Time International Ratio 2.28 3.12 Urine Collection Type Cleancatch-midstream Urine Color Yellow Urine Turbidity Cloudy Urine pH 5.0 Urine Specific [place] 1.015 Urine Protein 1+ Urine Glucose (UA) Negative Urine Ketones Negative Urine Blood 2+ Urine Nitrite Positive Urine Bilirubin Negative Urine Urobilinogen 0.2EU/DL Urine Leukocyte Esterase 2+ Urine RBC 0-1/HPF Urine WBC Tntc/HPF Urine Squamous Epithelial Cells None seen Urine Bacteria 3+ Urine Culture Indicated Cult reflexed &setup Microbiology Microbiology Microbiology Date/Time Source Procedure Growth Status 12/11/16 13:51 Urine, Clean Catch-Midstream Urine Culture - Preliminary Gram Negative Will Resulted Assessment & Plan Problems: (1) Vascular dementia Status: Chronic Assessment & Plan: medical management (2) Epidural hematoma Status: Acute Assessment & Plan: Restart of coumadin has us all watching closely, but neuro checks showing no progress of symptoms, pt stable. (3) Bilateral leg weakness Status: Acute Assessment & Plan: PT and OT will cont to work with pt. Started duragesic patch and decreased percocet as pt is certain this will help her overall pain. (4) CHF due to valvular disease Status: Chronic Code Status Full Code, unverified Interventions to Obtain Goals PT Treatment Plan: Therapeutic Exercise, Gait Training, Functional Activities , Balance/Proprioception, Wound Care OT Treatment Plan: ADL's (basic care), Ther. Exercise for ADL's, UE Functional Training, Balance Training, Pt./Family Education, IADL's Hospital Course Summary Disclaimer The hospital course summary below is not to be considered part of the above Progress Note. Hospital Course Summary 12/02/16 Continue on postoperative prophylaxis- Heparin SQ TID. May not start full anticoagulation until 12/08/16 for mechanical valves. Continue with oxygen at baseline 3 liters. Currently on Percocet for pain control, and Robaxin for muscle relaxers. Continue with Colace for postoperative bowel motivation Continue to encourage work with PT and OT for ongoing postoperative strengthening and pain control Check CBC and BMP tomorrow morning to follow anemia, electrolyte abnormalities 12/03/[address] Chanel. Agrees with re-imaging of thoracic back to rule out further bleeding or changes. T-spine without IV contrast ordered. Continue on postoperative prophylaxis- Heparin SQ TID. May not start full anticoagulation until 12/08/16 for mechanical valves. Noted hyperkalemia- Oral potassium held. Will recheck tomorrow Currently on Percocet for pain control, and Robaxin for muscle relaxers. Continue with Colace for postoperative bowel motivation Continue to encourage work with PT and OT for ongoing postoperative strengthening and pain control 12/06/16 Continue on postoperative prophylaxis- Heparin SQ TID. May start full anticoagulation on 12/08/16 for mechanical valves. Will re-evaluate incision again Friday 12/08. Will likely be able to remove jonathan at that time if incision looks good. This is the 2 week post-op. Noted hyperkalemia- Oral potassium held. Will recheck tomorrow Currently on Percocet for pain control, and Robaxin for muscle relaxers. Lidoderm patch added to right lateral back Continue with Colace for postoperative bowel motivation Continue to encourage work with PT and OT for ongoing postoperative strengthening and pain control 12/08/16 Continue on postoperative prophylaxis- Heparin SQ TID bridge until INR is therapeutic. Will resume on full anticoagulation Coumadin today. Given her chronic mechanical valve. Have placed consultation to pharmacy for dosing management. Will monitor patient carefully doing every 2 hours neurologic checks to evaluate for any evidence of bleeding. Last time patient was initiated on Coumadin. She had a epidural hematoma that had to be extracted. Will remove jonathan from thoracic incision as it seems to be healing well. Currently on Percocet for pain control, and Robaxin for muscle relaxers. Lidoderm patch added to right lateral back Continue with Colace and senna for postoperative bowel motivation Continue to encourage work with PT and OT for ongoing postoperative strengthening and pain control 12/09/16 Continue on heparin bridge until INR is therapeutic. Coumadin was restarted yesterday. INR is subtherapeutic today. Agree with frequent neuro checks. Discussed neuro symptoms with the patient, and encouraged her to let us know if she develops any numbness, tingling or weakness. 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 Hyperkalemia: Recheck BMP tomorrow morning. Potassium is on hold. Regarding recent urinary retention, postvoid residuals shortly after admission to IRU were 120 and 150. Currently, she is incontinent. Continue to monitor. Continue with pain control. Having regular bowel movements. 12/10/16 Continue on heparin bridge until INR is therapeutic. Coumadin was restarted on . INR increased slightly to 1.39. Continue with frequent neuro checks. Monitor pain level, since this could be an indication of postoperative complication. Both hyperkalemia and hypernatremia have resolved on labs this morning. Continue to hold potassium today, and will restart tomorrow at once a day dosing rather than twice a day. Will recheck BMP on 12/13/16. 12/12: [place]. 1. Epidural hematoma with bilateral leg weakness * Continue therapy and pain control per Dr. Chanel for strengthening and improvement in functional ability. * Continue to monitor neurologic function and pain level for signs of post op complications. * Recheck CBC and BMP in AM to monitor blood counts, electrolytes and renal function in light of recent infection, anemia, electrolyte imbalance and current UTI. 2. CHF * Lasix daily and monitor closely for signs of fluid overload with daily weights. 3. COPD - Oxygen dependent * Continuous oxygen to maintain SAO2 between 90-96%; home baseline is 3L. 4. A-fib and Hypertension * Continue Coreg and Lisinopril and monitor closely. * INR therapeutic at 3.12. Can discontinue heparin bridge 5. Hypothyroid * Continue Synthroid 6. Lupus 7. Dyslipidemia 8. UTI, new diagnosis * Patient complained of dysuria on 12/11 and found to have a UTI with WBC TNTC, + nitirtes and 3+ bacteria. UA culture pending. Ceftin initiated for antimicrobial coverage of urinary pathogens. * Initiate Pyridium TID x 2 day for urinary burning. MEG CHANEL MD Dec 12, 2016 23:19
[2016-12-13] MEDS: HEPARIN SUB-Q 5,000 unit/0.5ml vial SQ SCH ×3 (01:19→18:27)
--- NOTE | 2016-12-13 02:55 | NUR ---
Chart Check 24 hour chart check completed
[2016-12-13 04:44] LABS: BASOPHILS # (AUTO) 0.1 T/MM3 (0-0.2); BASOPHILS % (AUTO) 0.9 % (0-2); EOSINOPHILS # (AUTO) 0.8 T/MM3 (0-0.5); EOSINOPHILS % (AUTO) 10.1 % (0-4); HCT - HEMATOCRIT 30.3 % (36-46); HGB - HEMOGLOBIN 8.7 GM/DL (12-16); IMMATURE GRANULOCYTE # (AUTO) 0.02 T/MM3 (0.00-0.03); IMMATURE GRANULOCYTE % (AUTO) 0.3 % (0.0-0.5); LYMPHOCYTES # (AUTO) 1.7 T/MM3 (1-4.8); LYMPHOCYTES % (AUTO) 22.7 % (23-45); MEAN CORPUSCULAR HGB 28.4 UUG (26-34); MEAN CORPUSCULAR HGB CONC(MCHC 28.7 GM/DL (31-37); MEAN PLATELET VOLUME 9.1 UM3 (9.4-12.4); MONOCYTES # (AUTO) 0.6 T/MM3 (0-0.8); MONOCYTES % (AUTO) 7.2 % (0-9.0); NEUTROPHILS #(AUTO)-ABSOLUTE 4.5 T/MM3 (1.8-7.7); NEUTROPHILS % (AUTO) 58.8 % (33-66); RED BLOOD COUNT 3.06 M/MM3 (4.00-5.20); WBC - WHITE BLOOD COUNT 7.6 T/MM3 (4.5-11.0)
[2016-12-13 04:54] LABS: ANION GAP 12 MEQ/L (5-15); BUN/CREATININE RATIO 20 RATIO (6-26); CALCIUM 8.5 MG/DL (8.4-10.2); CHLORIDE 104 MEQ/L (98-107); CO2 - CARBON DIOXIDE 29 MEQ/L (22-30); CREATININE 0.8 MG/DL (0.7-1.2); GLOMERULAR FILTRATION RATE 69; GLUCOSE 96 MG/DL (65-110); POTASSIUM 4.6 MEQ/L (3.6-5); SODIUM 145 MEQ/L (134-144)
[2016-12-13] MEDS: LEVOTHYROXINE 88 MCG TABLET PO SCH (05:58)
[2016-12-13] MEDS: OXYCODONE/APAP 5mg/325mg TABLET PO PRN ×3 (05:58→22:10)
[2016-12-13 06:01] LABS: INR 2.5 (0.76-1.04); PROTHROMBIN TIME 27.2 SEC (9.31-12.49)
--- NOTE | 2016-12-13 07:00 | NUR ---
Summary Shahla has reported pain to her back 6-8 out of 10. She has been medicated with prn Percocet x two and has been asleep upon evaluation. .She is able to manage her incontinence . She has slept well. Appropriate use of call light. When in bed she has the siderails up x two and bed alarms on.She ambulates and transfers with fww gb and stand by assist.Dressing to her back is changed with incision intact ,clean and dry.o2 per nasal cannula increased to 4/l with sao2 increasing to 95%.Gabriel hose off at this time.
[2016-12-13 08:00] VITALS: BP 117/55; PULSE 63; RESP 24; TEMP 98.1; O2SAT 96
--- NOTE | 2016-12-13 09:17 | NUR ---
WARFARIN CONSULT S: 81 y/o F on warfarin for mechanical aortic valve replacement. Goal INR 2-3. Pt was on warfarin 2 mg PO daily prior to 11/22. On 11/22 pt had a nerve stimulator placed and was bridged with enoxaparin; unfortunately developed an epidural hematoma and underwent surgery on 11/24 for evacuation with decompressive laminectomy. [place] [facility] [place] with orders not to re-start warfarin until 12/08. O: Date INR Warfarin Dose 12/08 1.12 4 mg 12/09 1.12 6 mg 12/10 1.39 5 mg 12/11 2.28 1 mg 12/12 3.12 HOLD 12/13 2.50 1 mg A/P: INR diogenes significantly due to high doses (relative to home) on first 3 days of therapy. Pt is on heparin subQ; recommend discontinuation. Give 1mg of warfarin today. Will continue to monitor & make adjustments accordingly. Thank you for the consult.
[2016-12-13] MEDS: DULOXETINE 60 MG CAPSULE PO SCH (09:48)
[2016-12-13] MEDS: CEFUROXIME AXETIL 500 MG TABLET PO SCH ×2 (09:48→21:42)
[2016-12-13] MEDS: METHOCARBAMOL 750 MG TABLET PO SCH ×4 (09:48→21:43)
[2016-12-13] MEDS: PHENAZOPYRIDINE 95 MG TABLET PO SCH ×3 (09:48→18:28)
[2016-12-13] MEDS: GABAPENTIN 100 MG CAPSULE PO SCH ×3 (09:48→21:42)
[2016-12-13] MEDS: LISINOPRIL 10 MG TABLET PO SCH ×2 (09:49→21:56)
[2016-12-13] MEDS: FUROSEMIDE 20 MG TABLET PO SCH (09:49)
[2016-12-13] MEDS: CARVEDILOL 25 MG TABLET PO SCH ×2 (09:49→17:35)
[2016-12-13] MEDS: SENNA + DOCUSATE TAB PO SCH ×2 (09:50→21:00)
[2016-12-13] MEDS: ACETAMINOPHEN 325 MG TABLET PO PRN ×2 (09:50→18:27)
[2016-12-13] MEDS ORDERED: WARFARIN 1 MG TABLET PO SCH (12:00)
--- NOTE | 2016-12-13 13:48 | NUR ---
CM SPOKE WITH PT. DISCUSSED DC PLANNING AND THAT SHE MIGHT BE RELEASED TODAY. SHE SAID SHE DOES NOT FEEL LIKE SHE IS READY TO LEAVE YET DUE TO HER PAIN AND HER FUNCTION LEVEL. SHE SAID SHE HAS A 4 WHEELED WALKER BUT SHE WOULD LIKE A 2 WHEELED WALKER. THIS WORKER REVIEWED WITH HER HOW TO OBTAIN THIS (EXPLAINED INSURANCE WOULD NOT COVER A NEW ONE SINCE IT PAID FOR HER 4 WHEELED WALKER WITHIN THE LAST 5 YEARS); THROUGH [employer], [employer], AND [employer]. PROVIDED THIS IN WRITING. REVIEWED RESUMING HOME HEALTH THROUGH [employer], WHICH IS WHAT SHE WANTS TO DO. SHE SAID SHE HAS BEEN ON COUMADIN FOR THE PAST 6 YEARS OR SO, AND SHE HAS A HOME INR [facility] THAT SHE USES AND THE RESULT IS CALLED IN TO HER DOCTOR. SHE SAID HER PRIMARY DOCTOR IS DR. KENENY. OXYGEN IS THROUGH [employer], AND SHE HAS A PORTABLE OXYGEN TANK IN HER ROOM FOR HER TRIP HOME. SHE SAID HER DAUGHTER ROX PAID HER RENT FOR HER APARTMENT TODAY. THIS WORKER DISCUSSED HAVING INCREASED SOCIALIZATION, PER TEAM'S RECOMMENDATIONS. PT STATED THERE IS A MONTHLY DINNER AT THE APARTMENT COMPLEX, BUT SHE REALLY DOESN'T LIKE TO GO TO THOSE. SHE SAID SHE PREFERS TO BE IN HER APARTMENT, AND SHE SAID HER DAUGHTER FIXED THE APARTMENT UP VERY NICELY. SHE GAVE PERMISSION FOR THIS WORKER TO CONTACT HER DAUGHTER, ROX, FOR DC PLANNING. Addendum: 12/13/16 at 1358 by CLARIBEL HERNANDEZ Amended: Links added.
--- NOTE | 2016-12-13 14:00 | NUR ---
CM LEFT MESSAGE WITH DAUGHTER ROX, RE: DC PLANNING
--- NOTE | 2016-12-13 14:16 | NUR ---
states pain is 6-7 not hurting to bad in lying postion. states I will have to tough it out.
[2016-12-13 16:03] VITALS: BP 133/65; PULSE 65; RESP 24; TEMP 97.9; O2SAT 96
[2016-12-13] MEDS ORDERED: POTASSIUM CHLORIDE 20 MEQ PO SCH (17:30)
--- NOTE | 2016-12-13 18:07 | NUR ---
ambulated to dining room with walker and gait belt.
--- NOTE | 2016-12-13 18:40 | NUR ---
shift status ambulated back to room had a lg loose stool sam care done medicated with tylenol for back pain.
[2016-12-13 19:22] VITALS: BP 99/47; PULSE 60; RESP 16; TEMP 98.2; O2SAT 92
[2016-12-13] MEDS: MIRTAZAPINE 45 MG PO SCH (21:44)
[2016-12-13] MEDS: TRAVOPROST 0.004% EYE DROPS 2.5ml RIGHT EYE SCH (21:44)
[2016-12-13 21:55] VITALS: BP 104/56; PULSE 60
--- NOTE | 2016-12-13 23:06 | PNPDOC ---
IRU Subjective Date DATE: 12/13/16 TIME: 23:04 Subjective working with PT and OT, pain management still an issue. IRU Objective Vital Signs Vital signs Vital Signs Date Time Temp Pulse Resp B/P Pulse Ox O2 Delivery O2 Flow Rate FiO2 12/13/16 21:55 60 104/56 12/13/16 19:43 Nasal Cannula 3.00 12/13/16 19:22 98.2 16 92 Telemetry Rhythm: Sinus Rhythm Height (Feet): 5 Height (Inches): 6.00 Weight (Kilograms): 83.800 General General Appearance: Alert, Orientated x 2 Respiratory (Brief) Respiratory: FOUND: clear all neely, equal bilaterally Cardiovascular (Brief) Cardiac: FOUND: regular rate, regular rhythm Laboratory Laboratory Laboratory Tests Test 12/12/16 04:26 12/13/16 03:57 Prothromb Time International Ratio 3.12 2.50 White Blood Count 7.6T/MM3 Red Blood Count 3.06M/MM3 Hemoglobin 8.7GM/DL Hematocrit 30.3% Mean Corpuscular Volume 99.0UM3 Mean Corpuscular Hemoglobin 28.4UUG Mean Corpuscular Hemoglobin Concent 28.7GM/DL RDW Standard Deviation 54.6FL Platelet Count 262T/MM3 Mean Platelet Volume 9.1UM3 Immature Granulocyte % (Auto) 0.3% Neutrophils (%) (Auto) 58.8% Lymphocytes (%) (Auto) 22.7% Monocytes (%) (Auto) 7.2% Eosinophils (%) (Auto) 10.1% Basophils (%) (Auto) 0.9% Absolute Immature Granulocyte (auto 0.02T/MM3 Absolute Neutrophils (auto) 4.5T/MM3 Absolute Lymphocytes (auto) 1.7T/MM3 Absolute Monocytes (auto) 0.6T/MM3 Absolute Eosinophils (auto) 0.8T/MM3 Absolute Basophils (auto) 0.1T/MM3 Turbidity < 20 Sodium Level 145MEQ/L Potassium Level 4.6MEQ/L Chloride Level 104MEQ/L Carbon Dioxide Level 29MEQ/L Anion Gap 12MEQ/L Blood Urea Nitrogen 16.0MG/DL Creatinine 0.8MG/DL Glomerular Filtration Rate Calc 69 BUN/Creatinine Ratio 20RATIO Glucose Level 96MG/DL Calculated Osmolality 280MOSM/KG Calcium Level 8.5MG/DL Icterus Index < 2 Chemistry Specimen Hemolysis < 15 Microbiology Microbiology Microbiology Date/Time Source Procedure Growth Status 12/11/16 13:51 Urine, Clean Catch-Midstream Urine Culture - Final Klebsiella Oxytoca Complete Assessment & Plan Problems: (1) Vascular dementia Status: Chronic Assessment & Plan: managed by medical. (2) Epidural hematoma Status: Acute Assessment & Plan: stable, coumadin restarted and no issues. Last q8hour neuro check with NIH scale performed today. (3) Bilateral leg weakness Status: Acute Assessment & Plan: stable, pt working with PT and OT. cont with plan. (4) CHF due to valvular disease Status: Chronic Code Status Full Code, unverified Interventions to Obtain Goals PT Treatment Plan: Therapeutic Exercise, Gait Training, Functional Activities , Balance/Proprioception, Wound Care OT Treatment Plan: ADL's (basic care), Ther. Exercise for ADL's, UE Functional Training, Balance Training, Pt./Family Education, IADL's Hospital Course Summary Disclaimer The hospital course summary below is not to be considered part of the above Progress Note. Hospital Course Summary 12/02/16 Continue on postoperative prophylaxis- Heparin SQ TID. May not start full anticoagulation until 12/08/16 for mechanical valves. Continue with oxygen at baseline 3 liters. Currently on Percocet for pain control, and Robaxin for muscle relaxers. Continue with Colace for postoperative bowel motivation Continue to encourage work with PT and OT for ongoing postoperative strengthening and pain control Check CBC and BMP tomorrow morning to follow anemia, electrolyte abnormalities 12/03/[address] Chanel. Agrees with re-imaging of thoracic back to rule out further bleeding or changes. T-spine without IV contrast ordered. Continue on postoperative prophylaxis- Heparin SQ TID. May not start full anticoagulation until 12/08/16 for mechanical valves. Noted hyperkalemia- Oral potassium held. Will recheck tomorrow Currently on Percocet for pain control, and Robaxin for muscle relaxers. Continue with Colace for postoperative bowel motivation Continue to encourage work with PT and OT for ongoing postoperative strengthening and pain control 12/06/16 Continue on postoperative prophylaxis- Heparin SQ TID. May start full anticoagulation on 12/08/16 for mechanical valves. Will re-evaluate incision again Friday 12/08. Will likely be able to remove jonathan at that time if incision looks good. This is the 2 week post-op. Noted hyperkalemia- Oral potassium held. Will recheck tomorrow Currently on Percocet for pain control, and Robaxin for muscle relaxers. Lidoderm patch added to right lateral back Continue with Colace for postoperative bowel motivation Continue to encourage work with PT and OT for ongoing postoperative strengthening and pain control 12/08/16 Continue on postoperative prophylaxis- Heparin SQ TID bridge until INR is therapeutic. Will resume on full anticoagulation Coumadin today. Given her chronic mechanical valve. Have placed consultation to pharmacy for dosing management. Will monitor patient carefully doing every 2 hours neurologic checks to evaluate for any evidence of bleeding. Last time patient was initiated on Coumadin. She had a epidural hematoma that had to be extracted. Will remove jonathan from thoracic incision as it seems to be healing well. Currently on Percocet for pain control, and Robaxin for muscle relaxers. Lidoderm patch added to right lateral back Continue with Colace and senna for postoperative bowel motivation Continue to encourage work with PT and OT for ongoing postoperative strengthening and pain control 12/09/16 Continue on heparin bridge until INR is therapeutic. Coumadin was restarted yesterday. INR is subtherapeutic today. Agree with frequent neuro checks. Discussed neuro symptoms with the patient, and encouraged her to let us know if she develops any numbness, tingling or weakness. Lead Sharepoint Developer is Dr. Rivas. Hyperkalemia: Recheck BMP tomorrow morning. Potassium is on hold. Regarding recent urinary retention, postvoid residuals shortly after admission to IRU were 120 and 150. Currently, she is incontinent. Continue to monitor. Continue with pain control. Having regular bowel movements. 12/10/16 Continue on heparin bridge until INR is therapeutic. Coumadin was restarted on . INR increased slightly to 1.39. Continue with frequent neuro checks. Monitor pain level, since this could be an indication of postoperative complication. Both hyperkalemia and hypernatremia have resolved on labs this morning. Continue to hold potassium today, and will restart tomorrow at once a day dosing rather than twice a day. Will recheck BMP on 12/13/16. 12/12: [place]. 1. Epidural hematoma with bilateral leg weakness * Continue therapy and pain control per Dr. Chanel for strengthening and improvement in functional ability. * Continue to monitor neurologic function and pain level for signs of post op complications. * Recheck CBC and BMP in AM to monitor blood counts, electrolytes and renal function in light of recent infection, anemia, electrolyte imbalance and current UTI. 2. CHF * Lasix daily and monitor closely for signs of fluid overload with daily weights. 3. COPD - Oxygen dependent * Continuous oxygen to maintain SAO2 between 90-96%; home baseline is 3L. 4. A-fib and Hypertension * Continue Coreg and Lisinopril and monitor closely. * INR therapeutic at 3.12. Can discontinue heparin bridge 5. Hypothyroid * Continue Synthroid 6. Lupus 7. Dyslipidemia 8. UTI, new diagnosis * Patient complained of dysuria on 12/11 and found to have a UTI with WBC TNTC, + nitirtes and 3+ bacteria. UA culture pending. Ceftin initiated for antimicrobial coverage of urinary pathogens. * Initiate Pyridium TID x 2 day for urinary burning. MEG CHANEL MD December 13, 2016 23:05
[2016-12-14] MEDS: HEPARIN SUB-Q 5,000 unit/0.5ml vial SQ SCH ×2 (01:22→09:19)
[2016-12-14 03:54] VITALS: PULSE 60; RESP 16
[2016-12-14 05:27] LABS: INR 2.06 (0.76-1.04); PROTHROMBIN TIME 22.4 SEC (9.31-12.49)
[2016-12-14] MEDS: LEVOTHYROXINE 88 MCG TABLET PO SCH (06:16)
[2016-12-14] MEDS: OXYCODONE/APAP 5mg/325mg TABLET PO PRN ×3 (06:16→21:18)
--- NOTE | 2016-12-14 06:19 | NUR ---
Summary Shahla is a pleasant and cooperative patient. Shahla has reported pain to her back and has been medicated with prn Percocet x two .She has slept well. Appropriate use of call light. When in bed she has the siderails up x two and bed alarms on.She ambulates and transfers with fww gb and stand by assist.Dressing to her back incision intact ,clean and dry.o2 per nasal cannula at 4/L . Gabriel hose off at this time.
[2016-12-14 07:52] VITALS: BP 139/72; PULSE 62; RESP 16; TEMP 98; O2SAT 92
[2016-12-14 08:00] VITALS: PULSE 62; RESP 16
[2016-12-14] MEDS: SENNA + DOCUSATE TAB PO SCH ×2 (09:00→21:00)
[2016-12-14] MEDS: GABAPENTIN 100 MG CAPSULE PO SCH ×3 (09:17→21:13)
[2016-12-14] MEDS: CEFUROXIME AXETIL 500 MG TABLET PO SCH ×2 (09:18→21:13)
[2016-12-14] MEDS: LISINOPRIL 10 MG TABLET PO SCH ×2 (09:18→21:14)
[2016-12-14] MEDS: DULOXETINE 60 MG CAPSULE PO SCH (09:18)
[2016-12-14] MEDS: FUROSEMIDE 20 MG TABLET PO SCH (09:18)
[2016-12-14] MEDS: PHENAZOPYRIDINE 95 MG TABLET PO SCH ×3 (09:18→18:34)
[2016-12-14] MEDS: METHOCARBAMOL 750 MG TABLET PO SCH ×4 (09:18→21:14)
[2016-12-14] MEDS: CARVEDILOL 25 MG TABLET PO SCH ×2 (09:19→18:04)
--- NOTE | 2016-12-14 09:33 | NUR ---
WARFARIN CONSULT S: 81 y/o F on warfarin for mechanical aortic valve replacement. Goal INR 2-3. Pt was on warfarin 2 mg PO daily prior to 11/22. On 11/22 pt had a nerve stimulator placed and was bridged with enoxaparin; unfortunately developed an epidural hematoma and underwent surgery on 11/24 for evacuation with decompressive laminectomy. Pt admitted on IRU at [facility] [place] on 11[place]30 with orders not to re-start warfarin until 12/08. O: Date INR Warfarin Dose 12/08 1.12 4 mg 12/09 1.12 6 mg 12/10 1.39 5 mg 12/11 2.28 1 mg 12/12 3.12 HOLD 12/13 2.50 1 mg 12/14 2.06 Plan: 2 mg A/P: INR low normal; Will continue to monitor & make adjustments accordingly. Thank you for the consult.
[2016-12-14] MEDS ORDERED: WARFARIN 2 MG TABLET PO SCH (12:00)
--- NOTE | 2016-12-14 15:55 | PNPDOC ---
Subjective Date DATE: 12/14/16 TIME: 15:37 Subjective Lulú is seen this afternoon while resting. She continues on her baseline home oxygen of 3 liters. She continues to have right upper back discomfort and she is laying on a ice polar back currently. She complains of having soreness to her mouth and gums. Some whiteness to lower gums, concern for thrush. BP 139/ 72. Objective Vital Signs Vital signs Vital Signs Date Time Temp Pulse Resp B/P Pulse Ox O2 Delivery O2 Flow Rate FiO2 12/14/16 08:00 62 16 12/14/16 07:52 98.0 139/72 92 Nasal Cannula 3.00 Telemetry Rhythm: Sinus Rhythm Height (Feet): 5 Height (Inches): 6.00 Weight (Kilograms): 83.800 General General Appearance: Alert, Orientated x 3, Cooperative, No Acute Distress Eyes (Brief) Eyes: FOUND: EOMI ENMT (Brief) ENMT: FOUND: mucosa moist, normal dentition, other (lower gum and tongue discomfort with white ), NOT FOUND: pharnyx erythema Neck (Brief) Neck: FOUND: midline, NOT FOUND: adenopathy, carotid bruits, tracheal deviation Respiratory (Brief) Respiratory: FOUND: clear all neely, equal bilaterally, NOT FOUND: wheezes Cardiovascular (Brief) Cardiac: FOUND: regular rate, regular rhythm, NOT FOUND: murmur, pedal edema Capillary Refill: <2 sec Abdomen (Brief) Abdominal: FOUND: BS normo active x4, soft, NOT FOUND: distended, tender Lymphatic (Brief) Lymphatic: NOT FOUND: adenopathy Musculoskeletal (Brief) Musculoskeletal: NOT FOUND: tenderness Integumentary (Brief) Integumentary: FOUND: dry, pink, warm Neurologic (Brief) Neurological: FOUND: cranial 2-12 intact Psychiatric (Brief) Psychiatric: FOUND: alert, attentive, normal affect, oriented Laboratory Laboratory Laboratory Tests 12/13/16 03:57 Laboratory Tests 12/13/16 03:57 Assessment & Plan Problems: (1) Epidural hematoma Status: Acute Assessment & Plan: Following placement of spinal cord stimulator on 11/22/16. Underwent emergent T4-T8 thoracic decompressive laminectomy for evacuation of the epidural hematoma and removal of the spinal cord stimulator on 11/24/[address] Butler (2) Bilateral leg weakness Status: Acute (3) CHF due to valvular disease Status: Chronic (4) COPD (chronic obstructive pulmonary disease) Status: Chronic (5) Oxygen dependent Status: Chronic (6) Amiodarone pulmonary toxicity Status: Chronic (7) Atrial fibrillation Status: Chronic (8) Hypothyroidism Status: Chronic (9) HTN (hypertension) Status: Chronic (10) Lupus Status: Chronic (11) Dyslipidemia Status: Chronic (12) Overweight (BMI 25.0-29.9) Status: Chronic Plan/Intensity of Service 12/14/16 Reviewed urine cultures, Positive for Klebsiella Oxytoca. Sensitive to Ceftin, Continue through 12/17/16 Will add nystatin oral suspension QID for treatment of thrush Pharmacy is managing Coumadin dosing. Will discontinue Heparin given 4 days over 2.0 INR. Hgb stable at 8.7. Continue fentanyl patch, Percocet, Neurontin for pain control Continue to encourage work with PT/OT. She does feeling that she is gaining strength. Code Status Full Code, unverified Hospital Course Summary Disclaimer The hospital course summary below is not to be considered part of the above Progress Note. Hospital Course Summary 12/02/16 Continue on postoperative prophylaxis- Heparin SQ TID. May not start full anticoagulation until 12/08/16 for mechanical valves. Continue with oxygen at baseline 3 liters. Currently on Percocet for pain control, and Robaxin for muscle relaxers. Continue with Colace for postoperative bowel motivation Continue to encourage work with PT and OT for ongoing postoperative strengthening and pain control Check CBC and BMP tomorrow morning to follow anemia, electrolyte abnormalities 12/03/[address] Chanel. Agrees with re-imaging of thoracic back to rule out further bleeding or changes. T-spine without IV contrast ordered. Continue on postoperative prophylaxis- Heparin SQ TID. May not start full anticoagulation until 12/08/16 for mechanical valves. Noted hyperkalemia- Oral potassium held. Will recheck tomorrow Currently on Percocet for pain control, and Robaxin for muscle relaxers. Continue with Colace for postoperative bowel motivation Continue to encourage work with PT and OT for ongoing postoperative strengthening and pain control 12/06/16 Continue on postoperative prophylaxis- Heparin SQ TID. May start full anticoagulation on 12/08/16 for mechanical valves. Will re-evaluate incision again Friday 12/08. Will likely be able to remove jonathan at that time if incision looks good. This is the 2 week post-op. Noted hyperkalemia- Oral potassium held. Will recheck tomorrow Currently on Percocet for pain control, and Robaxin for muscle relaxers. Lidoderm patch added to right lateral back Continue with Colace for postoperative bowel motivation Continue to encourage work with PT and OT for ongoing postoperative strengthening and pain control 12/08/16 Continue on postoperative prophylaxis- Heparin SQ TID bridge until INR is therapeutic. Will resume on full anticoagulation Coumadin today. Given her chronic mechanical valve. Have placed consultation to pharmacy for dosing management. Will monitor patient carefully doing every 2 hours neurologic checks to evaluate for any evidence of bleeding. Last time patient was initiated on Coumadin. She had a epidural hematoma that had to be extracted. Will remove jonathan from thoracic incision as it seems to be healing well. Currently on Percocet for pain control, and Robaxin for muscle relaxers. Lidoderm patch added to right lateral back Continue with Colace and senna for postoperative bowel motivation Continue to encourage work with PT and OT for ongoing postoperative strengthening and pain control 12/09/16 Continue on heparin bridge until INR is therapeutic. Coumadin was restarted yesterday. INR is subtherapeutic today. Agree with frequent neuro checks. Discussed neuro symptoms with the patient, and encouraged her to let us know if she develops any numbness, tingling or weakness. Search Marketing Coordinator is Dr. Rivas. Hyperkalemia: Recheck BMP tomorrow morning. Potassium is on hold. Regarding recent urinary retention, postvoid residuals shortly after admission to IRU were 120 and 150. Currently, she is incontinent. Continue to monitor. Continue with pain control. Having regular bowel movements. 12/10/16 Continue on heparin bridge until INR is therapeutic. Coumadin was restarted on . INR increased slightly to 1.39. Continue with frequent neuro checks. Monitor pain level, since this could be an indication of postoperative complication. Both hyperkalemia and hypernatremia have resolved on labs this morning. Continue to hold potassium today, and will restart tomorrow at once a day dosing rather than twice a day. Will recheck BMP on 12/13/16. 12/12: [place]. 1. Epidural hematoma with bilateral leg weakness * Continue therapy and pain control per Dr. Chanel for strengthening and improvement in functional ability. * Continue to monitor neurologic function and pain level for signs of post op complications. * Recheck CBC and BMP in AM to monitor blood counts, electrolytes and renal function in light of recent infection, anemia, electrolyte imbalance and current UTI. 2. CHF * Lasix daily and monitor closely for signs of fluid overload with daily weights. 3. COPD - Oxygen dependent * Continuous oxygen to maintain SAO2 between 90-96%; home baseline is 3L. 4. A-fib and Hypertension * Continue Coreg and Lisinopril and monitor closely. * INR therapeutic at 3.12. Can discontinue heparin bridge 5. Hypothyroid * Continue Synthroid 6. Lupus 7. Dyslipidemia 8. UTI, new diagnosis * Patient complained of dysuria on 12/11 and found to have a UTI with WBC TNTC, + nitirtes and 3+ bacteria. UA culture pending. Ceftin initiated for antimicrobial coverage of urinary pathogens. * Initiate Pyridium TID x 2 day for urinary burning. * * 12/14/16 Reviewed urine cultures, Positive for Klebsiella Oxytoca. Sensitive to Ceftin, Continue through 12/17/16 Will add nystatin oral suspension QID for treatment of thrush Pharmacy is managing Coumadin dosing. Will discontinue Heparin given 4 days over 2.0 INR. Hgb stable at 8.7. Continue fentanyl patch, Percocet, Neurontin for pain control Continue to encourage work with PT/OT. She does feeling that she is gaining strength. SABA STEVEN APRN December 14, 2016 15:42
[2016-12-14 16:27] VITALS: BP 102/58; PULSE 62; RESP 16; TEMP 96.8; O2SAT 90
[2016-12-14] MEDS: FENTANYL 12MCG/HR PATCH TD SCH (18:32)
[2016-12-14] MEDS: FENTANYL PATCH REMOVAL TD SCH (18:33)
[2016-12-14] MEDS: NYSTATIN 500,000 units/5ml Susp UD PO SCH ×2 (18:34→21:14)
--- NOTE | 2016-12-14 19:41 | NUR ---
Summary VS's stable. Pt. is on 3L O2 via nasal canula. I/O adequate. Pt. is incontinent at times. She is on PO meds for UTI. Pt. is noted to be on Pyridium so urine is noted to be orange. Pt. transfers with assist x1, walker and gait belt. She has ambulated to meals. RAMBO hose in place. Dressing to upper-mid back changed per orders. No drainage, or s/s of infection noted. Pt. has rated back right shoulder pain a 6-7/10 this shift. PRN pain meds administered and polar pack implemented for comfort. Please see eMAR. Report has been past on to overnight stocker.
[2016-12-14] MEDS: MIRTAZAPINE 45 MG PO SCH (21:15)
[2016-12-14] MEDS: TRAVOPROST 0.004% EYE DROPS 2.5ml RIGHT EYE SCH (21:36)
[2016-12-15] VITALS (7 sets, daily range): BP systolic 104–150; BP diastolic 49–71; PULSE 62–68; RESP 20–24; TEMP 97.7–99; O2SAT 91–92
--- NOTE | 2016-12-15 00:33 | NUR ---
STATUS. PT HAS BEEN ALERT AND OX3. SBA WITH CHANGING GOWN. ASSIST WITH REMOVING RAMBO HOSE. AMBULATES USING FWW AND GAITBELT WITH SBA. FENTANYL PATCH NOTED TO BE ON RT SHOULDER. PT GIVEN PERCO 1 TAB AT HS FOR 8/10 PAIN LEVEL. O2 3L/NC. SCDS ON WHILE IN BED.
--- NOTE | 2016-12-15 05:05 | NUR ---
Chart Check 24 hour chart check completed
[2016-12-15 05:31] LABS: INR 1.94 (0.76-1.04); PROTHROMBIN TIME 21.2 SEC (9.31-12.49)
[2016-12-15] MEDS: LEVOTHYROXINE 88 MCG TABLET PO SCH (06:23)
[2016-12-15] MEDS: OXYCODONE/APAP 5mg/325mg TABLET PO PRN ×3 (06:24→22:25)
--- NOTE | 2016-12-15 06:25 | NUR ---
SUMMARY. PT AWAKEN EASILY FOR SCHEDULED MED. PERCO 5 1TAB GIVEN NOW FOR 8/10 PAIN LEVEL. PT REPORTS HAS SLEPT WELL. SCDS ON WHILE IN BED. TEDS OFF AT HS. PT HAS BEEN CONT B AND B TONIGHT. PT TAKES MEDS WHOLE. LARGE ONE WITH PUDDING.
[2016-12-15] MEDS: CEFUROXIME AXETIL 500 MG TABLET PO SCH (08:55)
[2016-12-15] MEDS: METHOCARBAMOL 750 MG TABLET PO SCH ×4 (08:55→22:25)
[2016-12-15] MEDS: DULOXETINE 60 MG CAPSULE PO SCH (08:56)
[2016-12-15] MEDS: FUROSEMIDE 20 MG TABLET PO SCH (08:56)
[2016-12-15] MEDS: CARVEDILOL 25 MG TABLET PO SCH ×2 (08:56→17:36)
[2016-12-15] MEDS: GABAPENTIN 100 MG CAPSULE PO SCH ×3 (08:56→22:25)
[2016-12-15] MEDS: LISINOPRIL 10 MG TABLET PO SCH ×2 (08:56→22:25)
[2016-12-15] MEDS: NYSTATIN 500,000 units/5ml Susp UD PO SCH ×4 (08:57→21:00)
[2016-12-15] MEDS: SENNA + DOCUSATE TAB PO SCH ×2 (08:59→22:26)
--- NOTE | 2016-12-15 09:40 | NUR ---
WARFARIN CONSULT S: 81 y/o F on warfarin for mechanical aortic valve replacement. Goal INR 2-3. Pt was on warfarin 2 mg PO daily prior to 11/22. On 11/22 pt had a nerve stimulator placed and was bridged with enoxaparin; unfortunately developed an epidural hematoma and underwent surgery on 11/24 for evacuation with decompressive laminectomy. Pt admitted on IRU at [facility] [place] on 11/30 with orders not to re-start warfarin until 12/08. O: Date INR Warfarin Dose 12/08 1.12 4 mg 12/09 1.12 6 mg 12/10 1.39 5 mg 12/11 2.28 1 mg 12/12 3.12 HOLD 12/13 2.50 1 mg 12/14 2.06 2 mg 12/15 1.94 Plan 2.5mg A/P: INR slightly subtherapeutic; Will continue to monitor & make adjustments accordingly. Thank you for the consult.
[2016-12-15] MEDS ORDERED: WARFARIN 2.5 MG TABLET PO SCH (12:00)
[2016-12-15] MEDS: ACETAMINOPHEN 325 MG TABLET PO PRN (17:44)
--- NOTE | 2016-12-15 19:30 | NUR ---
Summary VS's stable. Pt. is on 3L O2 via nasal canula. I/O adequate. Pt. is incontinent at times. She is on PO meds for UTI. Pt. transfers with assist x1, walker and gait belt. She has ambulated to meals. RAMBO hose in place. Dressing to upper-mid back changed per orders. No drainage, or s/s of infection noted. Pt. has rated back right shoulder pain a 6-7/10 this shift. PRN pain meds administered and polar pack implemented for comfort. Please see eMAR. Report has been past on to shift supervisor rn.
[2016-12-15] MEDS: MIRTAZAPINE 45 MG PO SCH (22:25)
[2016-12-15] MEDS: TRAVOPROST 0.004% EYE DROPS 2.5ml RIGHT EYE SCH (22:26)
[2016-12-15] MEDS: CEFUROXIME AXETIL 250 MG TABLET PO SCH (22:26)
[2016-12-16 05:08] LABS: BASOPHILS % (AUTO) 0.6 % (0-2); EOSINOPHILS # (AUTO) 0.8 T/MM3 (0-0.5); EOSINOPHILS % (AUTO) 11.7 % (0-4); HCT - HEMATOCRIT 30.6 % (36-46); HGB - HEMOGLOBIN 8.7 GM/DL (12-16); LYMPHOCYTES # (AUTO) 1.4 T/MM3 (1-4.8); LYMPHOCYTES % (AUTO) 19.9 % (23-45); MEAN CORPUSCULAR HGB 27.9 UUG (26-34); MEAN CORPUSCULAR HGB CONC(MCHC 28.4 GM/DL (31-37); MEAN CORPUSCULAR VOLUME 98.1 UM3 (80-100); MEAN PLATELET VOLUME 8.8 UM3 (9.4-12.4); MONOCYTES # (AUTO) 0.5 T/MM3 (0-0.8); MONOCYTES % (AUTO) 7.1 % (0-9.0); NEUTROPHILS #(AUTO)-ABSOLUTE 4.3 T/MM3 (1.8-7.7); NEUTROPHILS % (AUTO) 60.7 % (33-66); RED BLOOD COUNT 3.12 M/MM3 (4.00-5.20)
[2016-12-16 05:17] LABS: INR 1.99 (0.76-1.04); PROTHROMBIN TIME 21.7 SEC (9.31-12.49)
--- NOTE | 2016-12-16 05:55 | NUR ---
Summary Patient is alert and oriented times three, pleasant and cooperative. She reported pain of 8/10 tonight and had [place] with her HS medications. She also request some this AM so she will be ready for therapy. She has been incontinent of urine times one this shift. She is in bed now with side rails up times two and bed alarm on.
[2016-12-16] MEDS: OXYCODONE/APAP 5mg/325mg TABLET PO PRN ×3 (06:13→20:48)
[2016-12-16] MEDS: LEVOTHYROXINE 88 MCG TABLET PO SCH (06:13)
[2016-12-16 08:00] VITALS: BP 150/70; PULSE 80; RESP 16; TEMP 98.1; O2SAT 93
[2016-12-16] MEDS: CARVEDILOL 25 MG TABLET PO SCH ×2 (08:45→17:41)
[2016-12-16] MEDS: FUROSEMIDE 20 MG TABLET PO SCH (08:46)
[2016-12-16] MEDS: DULOXETINE 60 MG CAPSULE PO SCH (08:46)
[2016-12-16] MEDS: CEFUROXIME AXETIL 250 MG TABLET PO SCH ×2 (08:46→20:47)
[2016-12-16] MEDS: GABAPENTIN 100 MG CAPSULE PO SCH ×3 (08:46→20:48)
[2016-12-16] MEDS: SENNA + DOCUSATE TAB PO SCH ×2 (08:47→20:49)
[2016-12-16] MEDS: NYSTATIN 500,000 units/5ml Susp UD PO SCH ×4 (08:47→20:47)
[2016-12-16] MEDS: METHOCARBAMOL 750 MG TABLET PO SCH ×4 (08:47→20:53)
[2016-12-16] MEDS: LISINOPRIL 10 MG TABLET PO SCH ×2 (09:00→20:48)
--- NOTE | 2016-12-16 09:17 | NUR ---
WARFARIN CONSULT S: 81 y/o F on warfarin for mechanical aortic valve replacement. Goal INR 2-3. Pt was on warfarin 2 mg PO daily prior to 11/22. On 11/22 pt had a nerve stimulator placed and was bridged with enoxaparin; unfortunately developed an epidural hematoma and underwent surgery on 11/24 for evacuation with decompressive laminectomy. Pt admitted on IRU [place] [facility] [place] on 11/30 with orders not to re-start warfarin until 12/08. O: Date INR Warfarin Dose 12/08 1.12 4 mg 12/09 1.12 6 mg 12/10 1.39 5 mg 12/11 2.28 1 mg 12/12 3.12 HOLD 12/13 2.50 1 mg 12/14 2.06 2 mg 12/15 1.94 2.5 mg 12/16 1.99 PLAN: 2 mg A/P: INR almost therapeutic. Will order warfarin 2 mg PO today. Will continue to monitor & make adjustments accordingly. Thank you for the consult. Giovana Hernandes, PharmD, BCPS
[2016-12-16] MEDS ORDERED: WARFARIN 2 MG TABLET PO ONE (12:00)
[2016-12-16 15:52] VITALS: BP 116/60; PULSE 64; RESP 20; TEMP 98.4; O2SAT 91
--- NOTE | 2016-12-16 16:44 | NUR ---
CM SPOKE WITH PT, RE: TEAM'S RECOMMENDATION OF POSSIBLE ASSISTED LIVING DUE TO SAFETY CONCERNS OF RETURNING HOME ALONE. PT ASKED THIS WORKER TO TALK TO HER DAUGHTER ABOUT THIS. THIS WORKER CALLED DAUGHTER ROX. DISCUSSED THIS. SHE WAS AGREEABLE TO THIS. DISCUSSED POSSIBLE PLAN OF : SNU AT [facility] THEN TRANSITION TO [facility] VS. RETURN HOME WITH HOME HEALTH AND THE 90 DAY SEVEN PROGRAM (FOR IN HOME ASSISTANCE). PT AGREEABLE. ATTEMPTED TO CALL BOTH [facility] AND [facility]; PHONE WERE DOWN. WILL FOLLOW UP.
[2016-12-16] MEDS: ACETAMINOPHEN 325 MG TABLET PO PRN (17:46)
--- NOTE | 2016-12-16 18:13 | PNPDOC ---
IRU Subjective Date DATE: 12/15/16 TIME: 16:32 IRU Objective Vital Signs Vital signs Vital Signs Date Time Temp Pulse Resp B/P Pulse Ox O2 Delivery O2 Flow Rate FiO2 12/16/16 15:52 98.4 64 20 116/60 91 Nasal Cannula 3.00 Telemetry Rhythm: Sinus Rhythm Height (Feet): 5 Height (Inches): 6.00 Weight (Kilograms): 85.700 Laboratory Laboratory Laboratory Tests Test 12/15/16 04:55 12/16/16 04:46 Prothromb Time International Ratio 1.94 1.99 White Blood Count 7.0T/MM3 Red Blood Count 3.12M/MM3 Hemoglobin 8.7GM/DL Hematocrit 30.6% Mean Corpuscular Volume 98.1UM3 Mean Corpuscular Hemoglobin 27.9UUG Mean Corpuscular Hemoglobin Concent 28.4GM/DL RDW Standard Deviation 54.0FL Platelet Count 279T/MM3 Mean Platelet Volume 8.8UM3 Immature Granulocyte % (Auto) 0.0% Neutrophils (%) (Auto) 60.7% Lymphocytes (%) (Auto) 19.9% Monocytes (%) (Auto) 7.1% Eosinophils (%) (Auto) 11.7% Basophils (%) (Auto) 0.6% Absolute Immature Granulocyte (auto 0.00T/MM3 Absolute Neutrophils (auto) 4.3T/MM3 Absolute Lymphocytes (auto) 1.4T/MM3 Absolute Monocytes (auto) 0.5T/MM3 Absolute Eosinophils (auto) 0.8T/MM3 Absolute Basophils (auto) 0.0T/MM3 Assessment & Plan Problems: (1) Vascular dementia Status: Chronic Assessment & Plan: Managed by medical. Safety is an issue, nursing and therapy is working with her on this. (2) Epidural hematoma Status: Acute Assessment & Plan: Patient has converted over to Coumadin without any issue. No rebleeding. Up and working with physical therapy. (3) Bilateral leg weakness Status: Acute Assessment & Plan: Some improvement with physical and occupational therapy. Patient is attempting to cooperate and puts day for the best effort she can. (4) CHF due to valvular disease Status: Chronic DVT Prophylaxis: SCD'S Code Status Full Code, unverified Interventions to Obtain Goals PT Treatment Plan: Therapeutic Exercise, Gait Training, Functional Activities , Patient/Family Education, Balance/Proprioception OT Treatment Plan: ADL's (basic care), Ther. Exercise for ADL's, UE Functional Training, Balance Training, Pt./Family Education, IADL's Hospital Course Summary Disclaimer The hospital course summary below is not to be considered part of the above Progress Note. Hospital Course Summary 12/02/16 Continue on postoperative prophylaxis- Heparin SQ TID. May not start full anticoagulation until 12/08/16 for mechanical valves. Continue with oxygen at baseline 3 liters. Currently on Percocet for pain control, and Robaxin for muscle relaxers. Continue with Colace for postoperative bowel motivation Continue to encourage work with PT and OT for ongoing postoperative strengthening and pain control Check CBC and BMP tomorrow morning to follow anemia, electrolyte abnormalities 12/03/[address] Chanel. Agrees with re-imaging of thoracic back to rule out further bleeding or changes. T-spine without IV contrast ordered. Continue on postoperative prophylaxis- Heparin SQ TID. May not start full anticoagulation until 12/08/16 for mechanical valves. Noted hyperkalemia- Oral potassium held. Will recheck tomorrow Currently on Percocet for pain control, and Robaxin for muscle relaxers. Continue with Colace for postoperative bowel motivation Continue to encourage work with PT and OT for ongoing postoperative strengthening and pain control 12/06/16 Continue on postoperative prophylaxis- Heparin SQ TID. May start full anticoagulation on 12/08/16 for mechanical valves. Will re-evaluate incision again Friday 12/08. Will likely be able to remove jonathan at that time if incision looks good. This is the 2 week post-op. Noted hyperkalemia- Oral potassium held. Will recheck tomorrow Currently on Percocet for pain control, and Robaxin for muscle relaxers. Lidoderm patch added to right lateral back Continue with Colace for postoperative bowel motivation Continue to encourage work with PT and OT for ongoing postoperative strengthening and pain control 12/08/16 Continue on postoperative prophylaxis- Heparin SQ TID bridge until INR is therapeutic. Will resume on full anticoagulation Coumadin today. Given her chronic mechanical valve. Have placed consultation to pharmacy for dosing management. Will monitor patient carefully doing every 2 hours neurologic checks to evaluate for any evidence of bleeding. Last time patient was initiated on Coumadin. She had a epidural hematoma that had to be extracted. Will remove jonathan from thoracic incision as it seems to be healing well. Currently on Percocet for pain control, and Robaxin for muscle relaxers. Lidoderm patch added to right lateral back Continue with Colace and senna for postoperative bowel motivation Continue to encourage work with PT and OT for ongoing postoperative strengthening and pain control 12/09/16 Continue on heparin bridge until INR is therapeutic. Coumadin was restarted yesterday. INR is subtherapeutic today. Agree with frequent neuro checks. Discussed neuro symptoms with the patient, and encouraged her to let us know if she develops any numbness, tingling or weakness. Telecommunications Switch Technician is Dr. Rivas. Hyperkalemia: Recheck BMP tomorrow morning. Potassium is on hold. Regarding recent urinary retention, postvoid residuals shortly after admission to IRU were 120 and 150. Currently, she is incontinent. Continue to monitor. Continue with pain control. Having regular bowel movements. 12/10/16 Continue on heparin bridge until INR is therapeutic. Coumadin was restarted on . INR increased slightly to 1.39. Continue with frequent neuro checks. Monitor pain level, since this could be an indication of postoperative complication. Both hyperkalemia and hypernatremia have resolved on labs this morning. Continue to hold potassium today, and will restart tomorrow at once a day dosing rather than twice a day. Will recheck BMP on 12/13/16. 12/12: Mirak[place]. 1. Epidural hematoma with bilateral leg weakness * Continue therapy and pain control per Dr. Chanel for strengthening and improvement in functional ability. * Continue to monitor neurologic function and pain level for signs of post op complications. * Recheck CBC and BMP in AM to monitor blood counts, electrolytes and renal function in light of recent infection, anemia, electrolyte imbalance and current UTI. 2. CHF * Lasix daily and monitor closely for signs of fluid overload with daily weights. 3. COPD - Oxygen dependent * Continuous oxygen to maintain SAO2 between 90-96%; home baseline is 3L. 4. A-fib and Hypertension * Continue Coreg and Lisinopril and monitor closely. * INR therapeutic at 3.12. Can discontinue heparin bridge 5. Hypothyroid * Continue Synthroid 6. Lupus 7. Dyslipidemia 8. UTI, new diagnosis * Patient complained of dysuria on 12/11 and found to have a UTI with WBC TNTC, + nitirtes and 3+ bacteria. UA culture pending. Ceftin initiated for antimicrobial coverage of urinary pathogens. * Initiate Pyridium TID x 2 day for urinary burning. * * 12/14/16 Reviewed urine cultures, Positive for Klebsiella Oxytoca. Sensitive to Ceftin, Continue through 12/17/16 Will add nystatin oral suspension QID for treatment of thrush Pharmacy is managing Coumadin dosing. Will discontinue Heparin given 4 days over 2.0 INR. Hgb stable at 8.7. Continue fentanyl patch, Percocet, Neurontin for pain control Continue to encourage work with PT/OT. She does feeling that she is gaining strength. MEG CHANEL MD December 16, 2016 18:13
[2016-12-16 19:18] VITALS: BP 106/53; PULSE 70; TEMP 97.9; O2SAT 91
--- NOTE | 2016-12-16 20:12 | NUR ---
Shift summary Patient ambulating with FWW, gait belt, stand by assist with O2 at 3 L nasal canula. Transfers with stand by assist. Patient wears RAMBO hose. Patient feeds self, uses dentures. Alert and oriented x3. Dressing to mid back incision covered with telfa and tape. Incision approximated, no drainage noted. Incontinent of urine x2 this shift with min assist for management. No BM this shift.
[2016-12-16] MEDS: MIRTAZAPINE 45 MG PO SCH (20:47)
[2016-12-16] MEDS: TRAVOPROST 0.004% EYE DROPS 2.5ml RIGHT EYE SCH (20:49)
[2016-12-16 23:51] VITALS: PULSE 70
--- NOTE | 2016-12-17 00:20 | NUR ---
Chart Check 24 hour chart check completed
--- NOTE | 2016-12-17 05:06 | NUR ---
Summary Patient had family visiting in the evening. After they left, she went to restroom and had an episode of shortness of air. Her O2 decreased to the 80s. Patient moved to her bed and sat up strait and recovered quickly. Upon recheck o@ was 93%. Her feet were a little more edematous tonight. She continues on 3L oxygen via Nasal canula. She reported at that time pain of 8/10 to back. She had a Percocet to control the pain and has slept quietly since then. She took her medication whole with pudding.Her RAMBO hose have been removed for the night. She is resting quietly in bed with side rails up times two, bed alarm on and call light within reach. Weight remains stable.
[2016-12-17] MEDS: OXYCODONE/APAP 5mg/325mg TABLET PO PRN ×3 (06:04→21:59)
[2016-12-17] MEDS: LEVOTHYROXINE 88 MCG TABLET PO SCH (06:04)
[2016-12-17 06:38] LABS: INR 2.15 (0.76-1.04); PROTHROMBIN TIME 23.4 SEC (9.31-12.49)
[2016-12-17 08:00] VITALS: BP 136/68; PULSE 64; RESP 14; TEMP 98; O2SAT 88
[2016-12-17] MEDS: METHOCARBAMOL 750 MG TABLET PO SCH ×4 (08:42→21:52)
[2016-12-17] MEDS: CEFUROXIME AXETIL 250 MG TABLET PO SCH ×2 (08:43→22:04)
[2016-12-17] MEDS: LISINOPRIL 10 MG TABLET PO SCH ×2 (08:43→22:14)
[2016-12-17] MEDS: NYSTATIN 500,000 units/5ml Susp UD PO SCH ×4 (08:43→21:52)
[2016-12-17] MEDS: GABAPENTIN 100 MG CAPSULE PO SCH (08:44)
[2016-12-17] MEDS: DULOXETINE 60 MG CAPSULE PO SCH (08:44)
[2016-12-17] MEDS: FUROSEMIDE 20 MG TABLET PO SCH ×3 (08:44→21:53)
[2016-12-17] MEDS: SENNA + DOCUSATE TAB PO SCH ×2 (08:45→21:48)
[2016-12-17] MEDS: CARVEDILOL 25 MG TABLET PO SCH ×2 (08:45→17:52)
[2016-12-17] MEDS: ACETAMINOPHEN 325 MG TABLET PO PRN (08:46)
--- NOTE | 2016-12-17 10:17 | NUR ---
COUMADIN CONSULT (Recurring): Today's INR = 2.15. Will give Warfarin 2 mg today. Will continue to monitor & make adjustments accordingly. Thank you.
--- NOTE | 2016-12-17 10:21 | NUR ---
CM CM PER CLARIBEL'S 12/16/16 NOTE CM LEFT REFERRAL FOR SNF IN FOR ANTHONY AT [facility]. PORTAL IS OPENED.
[2016-12-17] MEDS ORDERED: WARFARIN 2 MG TABLET PO SCH (12:00)
--- NOTE | 2016-12-17 12:04 | PNPDOC ---
Subjective Date DATE: 12/17/16 TIME: 11:52 Subjective Lulú is seen this morning while in with physical therapy. She states that she is having "rough morning". Reports that she has had increased shortness of breath this morning. Initially was found to be hypoxic with saturations on her baseline oxygen down to 86%. She feels more swollen in her lower extremities. She reports that she normally was taking 40 mg of lasix BID. She denies having chest pain. Does feel like her lower extremity numbness is intermittent and worse on the left today. However, not new. Did inquire about increasing Neurontin. Objective Vital Signs Vital signs Vital Signs Date Time Temp Pulse Resp B/P Pulse Ox O2 Delivery O2 Flow Rate FiO2 12/17/16 08:00 98.0 64 14 136/68 88 Nasal Cannula 3.00 Telemetry Rhythm: Sinus Rhythm Height (Feet): 5 Height (Inches): 6.00 Weight (Kilograms): 85.000 General General Appearance: Alert, Orientated x 3, Cooperative, No Acute Distress Eyes (Brief) Eyes: FOUND: EOMI ENMT (Brief) ENMT: FOUND: mucosa moist, normal dentition, NOT FOUND: pharnyx erythema Neck (Brief) Neck: FOUND: midline, NOT FOUND: adenopathy, carotid bruits, tracheal deviation Respiratory (Brief) Respiratory: NOT FOUND: wheezes Comments Diminished bilateral bases Cardiovascular (Brief) Cardiac: FOUND: regular rate, regular rhythm, NOT FOUND: murmur, pedal edema Capillary Refill: <2 sec Abdomen (Brief) Abdominal: FOUND: BS normo active x4, soft, NOT FOUND: distended, tender Lymphatic (Brief) Lymphatic: NOT FOUND: adenopathy Musculoskeletal (Brief) Musculoskeletal: NOT FOUND: tenderness Integumentary (Brief) Integumentary: FOUND: dry, pink, warm Neurologic (Brief) Neurological: FOUND: cranial 2-12 intact Psychiatric (Brief) Psychiatric: FOUND: alert, attentive, normal affect, oriented Laboratory Laboratory Laboratory Tests 12/16/16 04:46 Assessment & Plan Problems: (1) Epidural hematoma Status: Acute Assessment & Plan: Following placement of spinal cord stimulator on 11/22/16. Underwent emergent T4-T8 thoracic decompressive laminectomy for evacuation of the epidural hematoma and removal of the spinal cord stimulator on 11/24/[address] Butler (2) Bilateral leg weakness Status: Acute (3) CHF due to valvular disease Status: Chronic (4) COPD (chronic obstructive pulmonary disease) Status: Chronic (5) Oxygen dependent Status: Chronic (6) Amiodarone pulmonary toxicity Status: Chronic (7) Atrial fibrillation Status: Chronic (8) Hypothyroidism Status: Chronic (9) HTN (hypertension) Status: Chronic (10) Lupus Status: Chronic (11) Dyslipidemia Status: Chronic (12) Overweight (BMI 25.0-29.9) Status: Chronic Plan/Intensity of Service 12/17/16 Will obtain a two-view chest x-ray due to increased hypoxia this morning. Check BMP now to monitor electrolytes. Will increase diuretic, Lasix to 20 mg TID. Home dosing was 40mg BID. Increase Neurontin to 300 milligrams 3 times a day for neuropathic pain. Continue to monitor carefully for evidence of lower extremity numbness/weakness. Continue antibiotic following tonight's dose as she has received complete treatment for urinary tract infection. CBC and BMP tomorrow morning to follow blood counts, renal function and electrolytes Code Status Full Code, unverified Hospital Course Summary Disclaimer The hospital course summary below is not to be considered part of the above Progress Note. Hospital Course Summary 12/02/16 Continue on postoperative prophylaxis- Heparin SQ TID. May not start full anticoagulation until 12/08/16 for mechanical valves. Continue with oxygen at baseline 3 liters. Currently on Percocet for pain control, and Robaxin for muscle relaxers. Continue with Colace for postoperative bowel motivation Continue to encourage work with PT and OT for ongoing postoperative strengthening and pain control Check CBC and BMP tomorrow morning to follow anemia, electrolyte abnormalities 12/03/[address] Chanel. Agrees with re-imaging of thoracic back to rule out further bleeding or changes. T-spine without IV contrast ordered. Continue on postoperative prophylaxis- Heparin SQ TID. May not start full anticoagulation until 12/08/16 for mechanical valves. Noted hyperkalemia- Oral potassium held. Will recheck tomorrow Currently on Percocet for pain control, and Robaxin for muscle relaxers. Continue with Colace for postoperative bowel motivation Continue to encourage work with PT and OT for ongoing postoperative strengthening and pain control 12/06/16 Continue on postoperative prophylaxis- Heparin SQ TID. May start full anticoagulation on 12/08/16 for mechanical valves. Will re-evaluate incision again Friday 12/08. Will likely be able to remove jonathan at that time if incision looks good. This is the 2 week post-op. Noted hyperkalemia- Oral potassium held. Will recheck tomorrow Currently on Percocet for pain control, and Robaxin for muscle relaxers. Lidoderm patch added to right lateral back Continue with Colace for postoperative bowel motivation Continue to encourage work with PT and OT for ongoing postoperative strengthening and pain control 12/08/16 Continue on postoperative prophylaxis- Heparin SQ TID bridge until INR is therapeutic. Will resume on full anticoagulation Coumadin today. Given her chronic mechanical valve. Have placed consultation to pharmacy for dosing management. Will monitor patient carefully doing every 2 hours neurologic checks to evaluate for any evidence of bleeding. Last time patient was initiated on Coumadin. She had a epidural hematoma that had to be extracted. Will remove jonathan from thoracic incision as it seems to be healing well. Currently on Percocet for pain control, and Robaxin for muscle relaxers. Lidoderm patch added to right lateral back Continue with Colace and senna for postoperative bowel motivation Continue to encourage work with PT and OT for ongoing postoperative strengthening and pain control 12/09/16 Continue on heparin bridge until INR is therapeutic. Coumadin was restarted yesterday. INR is subtherapeutic today. Agree with frequent neuro checks. Discussed neuro symptoms with the patient, and encouraged her to let us know if she develops any numbness, tingling or weakness. Loss Prevention Representative is Dr. Rivas. Hyperkalemia: Recheck BMP tomorrow morning. Potassium is on hold. Regarding recent urinary retention, postvoid residuals shortly after admission to IRU were 120 and 150. Currently, she is incontinent. Continue to monitor. Continue with pain control. Having regular bowel movements. 12/10/16 Continue on heparin bridge until INR is therapeutic. Coumadin was restarted on . INR increased slightly to 1.39. Continue with frequent neuro checks. Monitor pain level, since this could be an indication of postoperative complication. Both hyperkalemia and hypernatremia have resolved on labs this morning. Continue to hold potassium today, and will restart tomorrow at once a day dosing rather than twice a day. Will recheck BMP on 12/13/16. 12/12: [place]. 1. Epidural hematoma with bilateral leg weakness * Continue therapy and pain control per Dr. Chanel for strengthening and improvement in functional ability. * Continue to monitor neurologic function and pain level for signs of post op complications. * Recheck CBC and BMP in AM to monitor blood counts, electrolytes and renal function in light of recent infection, anemia, electrolyte imbalance and current UTI. 2. CHF * Lasix daily and monitor closely for signs of fluid overload with daily weights. 3. COPD - Oxygen dependent * Continuous oxygen to maintain SAO2 between 90-96%; home baseline is 3L. 4. A-fib and Hypertension * Continue Coreg and Lisinopril and monitor closely. * INR therapeutic at 3.12. Can discontinue heparin bridge 5. Hypothyroid * Continue Synthroid 6. Lupus 7. Dyslipidemia 8. UTI, new diagnosis * Patient complained of dysuria on 12/11 and found to have a UTI with WBC TNTC, + nitirtes and 3+ bacteria. UA culture pending. Ceftin initiated for antimicrobial coverage of urinary pathogens. * Initiate Pyridium TID x 2 day for urinary burning. * * 12/14/16 Reviewed urine cultures, Positive for Klebsiella Oxytoca. Sensitive to Ceftin, Continue through 12/17/16 Will add nystatin oral suspension QID for treatment of thrush Pharmacy is managing Coumadin dosing. Will discontinue Heparin given 4 days over 2.0 INR. Hgb stable at 8.7. Continue fentanyl patch, Percocet, Neurontin for pain control Continue to encourage work with PT/OT. She does feeling that she is gaining strength. 12/17/16 Will obtain a two-view chest x-ray due to increased hypoxia this morning. Check BMP now to monitor electrolytes. Will increase diuretic, Lasix to 20 mg TID. Home dosing was 40mg BID. Increase Neurontin to 300 milligrams 3 times a day for neuropathic pain. Continue to monitor carefully for evidence of lower extremity numbness/weakness. Continue antibiotic following tonight's dose as she has received complete treatment for urinary tract infection. CBC and BMP tomorrow morning to follow blood counts, renal function and electrolytes SABA STEVEN APRN December 17, 2016 11:58
[2016-12-17 12:06] LABS: ANION GAP 9 MEQ/L (5-15); BUN/CREATININE RATIO 29 RATIO (6-26); CALCIUM 8.7 MG/DL (8.4-10.2); CHLORIDE 104 MEQ/L (98-107); CO2 - CARBON DIOXIDE 32 MEQ/L (22-30); CREATININE 0.7 MG/DL (0.7-1.2); GLOMERULAR FILTRATION RATE 81; GLUCOSE 108 MG/DL (65-110); POTASSIUM 4.9 MEQ/L (3.6-5); SODIUM 145 MEQ/L (134-144)
[2016-12-17 16:00] VITALS: BP 144/66; PULSE 78; RESP 16; TEMP 97.4; O2SAT 87
--- NOTE | 2016-12-17 16:38 | DI ---
INDICATION: ITS.REASON: increased shortness of breath PROCEDURE: CHEST 2-VIEWS UPRIGHT (PA \T\ LAT) Encounter: Initial COMPARISON: December 01, 2016 FINDINGS: Bilateral pulmonary abnormalities are again noted with patchy airspace opacities. These are not significantly changed from the comparison study. No pleural effusion or pneumothorax. Cardiac silhouette remains enlarged. Prior sternotomy and cardiac valve replacement. Left pacemaker. Right shoulder replacement. Pulmonary vascularity is stable. Impression: Stable bilateral pulmonary opacities could be due to an infectious, inflammatory or neoplastic process given the findings on prior CT study. Pulmonology evaluation may be helpful. .
[2016-12-17] MEDS: GABAPENTIN 300 MG CAPSULE PO SCH ×2 (16:56→21:53)
[2016-12-17] MEDS: FENTANYL 12MCG/HR PATCH TD SCH (17:52)
[2016-12-17] MEDS: FENTANYL PATCH REMOVAL TD SCH (17:56)
--- NOTE | 2016-12-17 19:17 | NUR ---
Shift summary Patient ambulating with FWW, gait belt, stand by assist, with O2 at 3L. RAMBO hose on. Duragesic patch to left upper arm. Transfers with stand by assist. Patient wears glasses, dentures. Takes medication iin pudding. Incision to mid back well approximated. Patient wears pull ups. Continent of urine, no BM this shift. Set up asist for upper body bathing and dressing. Min assist for lower body bathing and dressing. Toileting hygeine done by patient.
[2016-12-17 20:19] VITALS: BP 87/57; PULSE 62; RESP 20; TEMP 98.3; O2SAT 87
[2016-12-17 20:20] VITALS: O2SAT 94
--- NOTE | 2016-12-17 20:23 | NUR ---
Chart Check 24 hour chart check completed
[2016-12-17] MEDS: MIRTAZAPINE 45 MG PO SCH (21:49)
[2016-12-17 21:50] VITALS: PULSE 62; RESP 20
[2016-12-17] MEDS: TRAVOPROST 0.004% EYE DROPS 2.5ml RIGHT EYE SCH (21:52)
[2016-12-17 22:11] VITALS: BP 124/63; O2SAT 93
[2016-12-18 05:12] LABS: BASOPHILS # (AUTO) 0.1 T/MM3 (0-0.2); BASOPHILS % (AUTO) 0.6 % (0-2); EOSINOPHILS # (AUTO) 0.8 T/MM3 (0-0.5); EOSINOPHILS % (AUTO) 10.4 % (0-4); HCT - HEMATOCRIT 30.1 % (36-46); HGB - HEMOGLOBIN 8.5 GM/DL (12-16); IMMATURE GRANULOCYTE # (AUTO) 0.02 T/MM3 (0.00-0.03); IMMATURE GRANULOCYTE % (AUTO) 0.2 % (0.0-0.5); LYMPHOCYTES # (AUTO) 1.5 T/MM3 (1-4.8); LYMPHOCYTES % (AUTO) 18.1 % (23-45); MEAN CORPUSCULAR HGB 28.1 UUG (26-34); MEAN CORPUSCULAR HGB CONC(MCHC 28.2 GM/DL (31-37); MEAN CORPUSCULAR VOLUME 99.3 UM3 (80-100); MONOCYTES # (AUTO) 0.5 T/MM3 (0-0.8); MONOCYTES % (AUTO) 6.2 % (0-9.0); NEUTROPHILS #(AUTO)-ABSOLUTE 5.2 T/MM3 (1.8-7.7); NEUTROPHILS % (AUTO) 64.5 % (33-66); RED BLOOD COUNT 3.03 M/MM3 (4.00-5.20)
[2016-12-18 05:17] LABS: INR 2.52 (0.76-1.04); PROTHROMBIN TIME 27.5 SEC (9.31-12.49)
--- NOTE | 2016-12-18 05:19 | NUR ---
Summary Shahla is a pleasant and cooperative patient. She is alert and oriented x three.She is able to manage her incontinence with min assist. She has slept well. Appropriate use of call light. When in bed siderails up x two and bed alarms on.She ambulates and transfers with fww gb and stand by assist.Dressing to her back is C/D/I. Her O2 per nasal cannula increased to 4/L due to Sao2 of 87%. Sao2 increasing to 94%.Gabriel hose off at this time. Pain meds per Emar .
[2016-12-18 05:26] LABS: ANION GAP 12 MEQ/L (5-15); BUN/CREATININE RATIO 28 RATIO (6-26); CALCIUM 8.6 MG/DL (8.4-10.2); CHLORIDE 104 MEQ/L (98-107); CO2 - CARBON DIOXIDE 30 MEQ/L (22-30); CREATININE 0.9 MG/DL (0.7-1.2); GLOMERULAR FILTRATION RATE 60; GLUCOSE 105 MG/DL (65-110); POTASSIUM 4.9 MEQ/L (3.6-5); SODIUM 146 MEQ/L (134-144)
[2016-12-18] MEDS: LEVOTHYROXINE 88 MCG TABLET PO SCH (05:41)
[2016-12-18] MEDS: OXYCODONE/APAP 5mg/325mg TABLET PO PRN ×3 (05:41→22:18)
[2016-12-18 07:37] VITALS: BP 135/67; PULSE 67; RESP 18; TEMP 98; O2SAT 90
[2016-12-18 08:30] VITALS: PULSE 67; RESP 18
[2016-12-18] MEDS: DULOXETINE 60 MG CAPSULE PO SCH (08:57)
[2016-12-18] MEDS: METHOCARBAMOL 750 MG TABLET PO SCH ×4 (08:57→21:08)
[2016-12-18] MEDS: FUROSEMIDE 20 MG TABLET PO SCH ×3 (08:57→21:08)
[2016-12-18] MEDS: NYSTATIN 500,000 units/5ml Susp UD PO SCH ×4 (08:58→21:08)
[2016-12-18] MEDS: LISINOPRIL 10 MG TABLET PO SCH ×2 (08:58→21:08)
[2016-12-18] MEDS: SENNA + DOCUSATE TAB PO SCH ×2 (08:58→21:08)
[2016-12-18] MEDS: GABAPENTIN 300 MG CAPSULE PO SCH ×3 (08:58→21:08)
[2016-12-18] MEDS: CARVEDILOL 25 MG TABLET PO SCH ×2 (08:59→18:15)
[2016-12-18] MEDS: ACETAMINOPHEN 325 MG TABLET PO PRN ×2 (09:00→18:15)
[2016-12-18] MEDS: CEFUROXIME AXETIL 250 MG TABLET PO SCH (09:04)
--- NOTE | 2016-12-18 10:07 | NUR ---
WARFARIN CONSULT S: 81 y/o F on warfarin for mechanical aortic valve replacement. Goal INR 2-3. Pt was on warfarin 2 mg PO daily prior to 11/22. On 11/22 pt had a nerve stimulator placed and was bridged with enoxaparin; unfortunately developed an epidural hematoma and underwent surgery on 11/24 for evacuation with decompressive laminectomy. Pt admitted on IRU at [facility] on 11/30 with orders not to re-start warfarin until 12/08. O: Date INR Warfarin Dose 12/08 1.12 4 mg 12/09 1.12 6 mg 12/10 1.39 5 mg 12/11 2.28 1 mg 12/12 3.12 HOLD 12/13 2.50 1 mg 12/14 2.06 2 mg 12/15 1.94 2.5 mg 12/16 1.99 2 mg 12/17 1.67 2 mg 12/18 2.53 Plan 1 mg A/P: The INR is therapeutic. I ordered Warfarin 1 mg PO today. The Pharmacy will continue to monitor & make adjustments accordingly. Thank you for the consult, Ambrose Best RPh.
[2016-12-18] MEDS ORDERED: WARFARIN 1 MG TABLET PO SCH (12:00)
[2016-12-18 16:09] VITALS: BP 105/50; PULSE 63; RESP 16; TEMP 98.4; O2SAT 90
--- NOTE | 2016-12-18 19:08 | NUR ---
Summary VS's stable. Pt. is on 4L O2 via nasal canula. She is SOA with activity. Encouraged coughing and deep breathing. I/O adequate. Pt. is incontinent of urine at times. Pt. transfers with assist x1, walker and gait belt. She has ambulated to meals. RAMBO hose in place. Dressing to upper-mid back changed per orders. No drainage, or s/s of infection noted. Pt. has rated back right shoulder pain a 6-7/10 this shift. PRN pain meds administered and re-positioning implemented for comfort. Polar pack offered, but pt. refused this shift. Please see eMAR. Pt. is currently sitting up in the recliner. Alarm is on. Report has been past on to differential tester.
[2016-12-18 19:30] VITALS: PULSE 67; RESP 20
[2016-12-18 19:41] VITALS: BP 111/58; PULSE 67; RESP 20; TEMP 98.5; O2SAT 91
[2016-12-18] MEDS: TRAVOPROST 0.004% EYE DROPS 2.5ml RIGHT EYE SCH (21:09)
[2016-12-18] MEDS: MIRTAZAPINE 45 MG PO SCH (21:09)
[2016-12-19] VITALS (7 sets, daily range): BP systolic 96–113; BP diastolic 44–61; PULSE 60–63; RESP 16–20; TEMP 97.9–98.3; O2SAT 90–98
--- NOTE | 2016-12-19 01:06 | NUR ---
Chart Check 24 hour chart check completed
[2016-12-19] MEDS: LEVOTHYROXINE 88 MCG TABLET PO SCH (05:28)
[2016-12-19] MEDS: OXYCODONE/APAP 5mg/325mg TABLET PO PRN ×3 (05:28→21:49)
[2016-12-19 05:41] LABS: INR 2.46 (0.76-1.04); PROTHROMBIN TIME 26.8 SEC (9.31-12.49)
--- NOTE | 2016-12-19 05:53 | NUR ---
Summary Shahla is a pleasant and cooperative patient. She is alert and oriented x three.She is able to manage her incontinence with min assist. She has slept well this night. Appropriate use of call light and good safety awareness. When offered she has refused the need to use her polar pack.When in bed her siderails are up x two and bed alarms are on.She ambulates and transfers with fww gb and stand by assist.Dressing to her back is C/D/I. Her oxygen is set at 4L per nc. Pain meds were given at 2218 and at 0528 see EMAR. She takes her meds whole.VSS.
--- NOTE | 2016-12-19 09:27 | NUR ---
WARFARIN CONSULT S: 81 y/o F on warfarin for mechanical aortic valve replacement. Goal INR 2-3. Pt was on warfarin 2 mg PO daily prior to 11/22. On 11/22 pt had a nerve stimulator placed and was bridged with enoxaparin; unfortunately developed an epidural hematoma and underwent surgery on 11/24 for evacuation with decompressive laminectomy. Pt admitted on IRU at [facility] on 11/30 with orders not to re-start warfarin until 12/08. O: Date INR Warfarin Dose 12/08 1.12 4 mg 12/09 1.12 6 mg 12/10 1.39 5 mg 12/11 2.28 1 mg 12/12 3.12 HOLD 12/13 2.50 1 mg 12/14 2.06 2 mg 12/15 1.94 2.5 mg 12/16 1.99 2 mg 12/17 1.67 2 mg 12/18 2.53 1 mg 12/19 2.46 Plan 2 mg A/P: The INR is slightjly subtherapeutic. I ordered Warfarin 2 mg PO today. The Pharmacy will continue to monitor & make adjustments accordingly. Thank you for the consult, Ambrose Best [facility].
[2016-12-19] MEDS: NYSTATIN 500,000 units/5ml Susp UD PO SCH ×4 (10:24→21:02)
[2016-12-19] MEDS: DULOXETINE 60 MG CAPSULE PO SCH (10:24)
[2016-12-19] MEDS: ACETAMINOPHEN 325 MG TABLET PO PRN ×2 (10:25→18:18)
[2016-12-19] MEDS: GABAPENTIN 300 MG CAPSULE PO SCH ×3 (10:25→21:02)
[2016-12-19] MEDS: FUROSEMIDE 20 MG TABLET PO SCH ×2 (10:25→14:44)
[2016-12-19] MEDS: CARVEDILOL 25 MG TABLET PO SCH ×2 (10:25→18:18)
[2016-12-19] MEDS: METHOCARBAMOL 750 MG TABLET PO SCH ×4 (10:25→21:02)
[2016-12-19] MEDS: SENNA + DOCUSATE TAB PO SCH ×2 (10:26→21:02)
[2016-12-19] MEDS: LISINOPRIL 10 MG TABLET PO SCH (10:26)
[2016-12-19] MEDS ORDERED: WARFARIN 2 MG TABLET PO SCH (12:00)
[2016-12-19] MEDS ORDERED: METOLAZONE 5 MG TABLET PO ONE (14:30)
--- NOTE | 2016-12-19 14:42 | PNPDOC ---
Subjective Date DATE: 12/19/16 TIME: 14:32 Subjective Lulú is seen today in follow up. She is a bit more dyspneic- reports that she had to go up to 4L/NC. She is on 3L/NC at home normally. 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 She denies specific history of HF. Does admit to pacer in place. Reports pain is fairly well controlled. Denies any fever, chills. Denies cough or chest pain. Mild increase in LE edema. Objective Vital Signs Vital signs Vital Signs Date Time Temp Pulse Resp B/P Pulse Ox O2 Delivery O2 Flow Rate FiO2 12/19/16 08:00 61 20 12/19/16 07:44 98.3 113/61 94 Nasal Cannula 4.00 Telemetry Rhythm: Sinus Rhythm Height (Feet): 5 Height (Inches): 6.00 Weight (Kilograms): 88.200 General General Appearance: Alert, Orientated x 3, Cooperative, No Acute Distress Eyes (Brief) Eyes: FOUND: EOMI, PERRL, NOT FOUND: scleral icterus Neck (Brief) Neck: FOUND: JVD, midline, NOT FOUND: nuchal rigidity, spasm Comments +Jugular venous pulsation c/w fluid overload and aortic valve disease. Respiratory (Brief) Respiratory: FOUND: equal bilaterally, symmetrical (No changes to breath sounds anterior exam. She is mildly dyspneic on exertion. ), NOT FOUND: rales, wheezes Cardiovascular (Brief) Cardiac: FOUND: murmur (Faint), pedal edema, peripheral edema, regular rate, regular rhythm Abdomen (Brief) Abdominal: FOUND: BS normo active x4, soft, NOT FOUND: tender Extremities (Brief) Extremity : Side: Bilateral Extremity Finding: FOUND: edema (Trace) Integumentary (Brief) Integumentary: FOUND: dry, pink, warm Psychiatric (Brief) Psychiatric: FOUND: alert, oriented Laboratory Laboratory Laboratory Tests 12/18/16 04:31 Laboratory Tests 12/18/16 04:31 Radiology CXR Impression: Stable bilateral pulmonary opacities could be due to an infectious, inflammatory or neoplastic process given the findings on prior CT study. Pulmonology evaluation may be helpful. Assessment & Plan Problems: (1) Epidural hematoma Status: Acute Assessment & Plan: Following placement of spinal cord stimulator on 11/22/16. Underwent emergent T4-T8 thoracic decompressive laminectomy for evacuation of the epidural hematoma and removal of the spinal cord stimulator on 11/24/[address] Butler (2) Bilateral leg weakness Status: Acute (3) CHF due to valvular disease Status: Chronic (4) COPD (chronic obstructive pulmonary disease) Status: Chronic (5) Oxygen dependent Status: Chronic (6) Amiodarone pulmonary toxicity Status: Chronic (7) Atrial fibrillation Status: Chronic (8) Hypothyroidism Status: Chronic (9) HTN (hypertension) Status: Chronic (10) Lupus Status: Chronic (11) Dyslipidemia Status: Chronic (12) Overweight (BMI 25.0-29.9) Status: Chronic Plan/Intensity of Service 12/19/16- *CHF with fluid overload *Chronic lung disease (amiodarone toxicity), Chronic respiratory failure Change Lasix to 40mg PO BID. Metolazone 2.5mg PO x 1 now to diurese. Continue O2- up to 4L/NC. Add duoneb, pulmicort. CXR is reviewed- will try and optimize medical therapy. Suspect infiltrates are due to chronic lung disease, But may need to consider CT if no improvement. *Hyperkalemia- Hold KCL Decrease Lisinopril to daily. *HTN- diurese. Continue Lisinopril. Coreg is optimized. *Hx. Mechanical AVR- Coumadin per pharmacy. Goal INR 2.5-3.5 *Spinal hematoma s/p decompression and spinal stimulator removal- PT per rehab team. Consider decreasing Robaxin dosing or change to PRN. *Anemia- acute vs. chronic- Check CBC and Iron panel in AM. *UTI- abx completed. Continue supportive care. Code Status Full Code, unverified Hospital Course Summary Disclaimer The hospital course summary below is not to be considered part of the above Progress Note. Hospital Course Summary 12/02/16 Continue on postoperative prophylaxis- Heparin SQ TID. May not start full anticoagulation until 12/08/16 for mechanical valves. Continue with oxygen at baseline 3 liters. Currently on Percocet for pain control, and Robaxin for muscle relaxers. Continue with Colace for postoperative bowel motivation Continue to encourage work with PT and OT for ongoing postoperative strengthening and pain control Check CBC and BMP tomorrow morning to follow anemia, electrolyte abnormalities 12/03/[address] Chanel. Agrees with re-imaging of thoracic back to rule out further bleeding or changes. T-spine without IV contrast ordered. Continue on postoperative prophylaxis- Heparin SQ TID. May not start full anticoagulation until 12/08/16 for mechanical valves. Noted hyperkalemia- Oral potassium held. Will recheck tomorrow Currently on Percocet for pain control, and Robaxin for muscle relaxers. Continue with Colace for postoperative bowel motivation Continue to encourage work with PT and OT for ongoing postoperative strengthening and pain control 12/06/16 Continue on postoperative prophylaxis- Heparin SQ TID. May start full anticoagulation on 12/08/16 for mechanical valves. Will re-evaluate incision again Friday 12/08. Will likely be able to remove jonathan at that time if incision looks good. This is the 2 week post-op. Noted hyperkalemia- Oral potassium held. Will recheck tomorrow Currently on Percocet for pain control, and Robaxin for muscle relaxers. Lidoderm patch added to right lateral back Continue with Colace for postoperative bowel motivation Continue to encourage work with PT and OT for ongoing postoperative strengthening and pain control 12/08/16 Continue on postoperative prophylaxis- Heparin SQ TID bridge until INR is therapeutic. Will resume on full anticoagulation Coumadin today. Given her chronic mechanical valve. Have placed consultation to pharmacy for dosing management. Will monitor patient carefully doing every 2 hours neurologic checks to evaluate for any evidence of bleeding. Last time patient was initiated on Coumadin. She had a epidural hematoma that had to be extracted. Will remove jonathan from thoracic incision as it seems to be healing well. Currently on Percocet for pain control, and Robaxin for muscle relaxers. Lidoderm patch added to right lateral back Continue with Colace and senna for postoperative bowel motivation Continue to encourage work with PT and OT for ongoing postoperative strengthening and pain control 12/09/16 Continue on heparin bridge until INR is therapeutic. Coumadin was restarted yesterday. INR is subtherapeutic today. Agree with frequent neuro checks. Discussed neuro symptoms with the patient, and encouraged her to let us know if she develops any numbness, tingling or weakness. Elevator Serviceman is Dr. Rivas. Hyperkalemia: Recheck BMP tomorrow morning. Potassium is on hold. Regarding recent urinary retention, postvoid residuals shortly after admission to IRU were 120 and 150. Currently, she is incontinent. Continue to monitor. Continue with pain control. Having regular bowel movements. 12/10/16 Continue on heparin bridge until INR is therapeutic. Coumadin was restarted on . INR increased slightly to 1.39. Continue with frequent neuro checks. Monitor pain level, since this could be an indication of postoperative complication. Both hyperkalemia and hypernatremia have resolved on labs this morning. Continue to hold potassium today, and will restart tomorrow at once a day dosing rather than twice a day. Will recheck BMP on 12/13/16. 12/12: Mirakian. 1. Epidural hematoma with bilateral leg weakness * Continue therapy and pain control per Dr. Chanel for strengthening and improvement in functional ability. * Continue to monitor neurologic function and pain level for signs of post op complications. * Recheck CBC and BMP in AM to monitor blood counts, electrolytes and renal function in light of recent infection, anemia, electrolyte imbalance and current UTI. 2. CHF * Lasix daily and monitor closely for signs of fluid overload with daily weights. 3. COPD - Oxygen dependent * Continuous oxygen to maintain SAO2 between 90-96%; home baseline is 3L. 4. A-fib and Hypertension * Continue Coreg and Lisinopril and monitor closely. * INR therapeutic at 3.12. Can discontinue heparin bridge 5. Hypothyroid * Continue Synthroid 6. Lupus 7. Dyslipidemia 8. UTI, new diagnosis * Patient complained of dysuria on 12/11 and found to have a UTI with WBC TNTC, + nitirtes and 3+ bacteria. UA culture pending. Ceftin initiated for antimicrobial coverage of urinary pathogens. * Initiate Pyridium TID x 2 day for urinary burning. * * 12/14/16 Reviewed urine cultures, Positive for Klebsiella Oxytoca. Sensitive to Ceftin, Continue through 12/17/16 Will add nystatin oral suspension QID for treatment of thrush Pharmacy is managing Coumadin dosing. Will discontinue Heparin given 4 days over 2.0 INR. Hgb stable at 8.7. Continue fentanyl patch, Percocet, Neurontin for pain control Continue to encourage work with PT/OT. She does feeling that she is gaining strength. 12/17/16 Will obtain a two-view chest x-ray due to increased hypoxia this morning. Check BMP now to monitor electrolytes. Will increase diuretic, Lasix to 20 mg TID. Home dosing was 40mg BID. Increase Neurontin to 300 milligrams 3 times a day for neuropathic pain. Continue to monitor carefully for evidence of lower extremity numbness/weakness. Continue antibiotic following tonight's dose as she has received complete treatment for urinary tract infection. CBC and BMP tomorrow morning to follow blood counts, renal function and electrolytes 12/19/16- *CHF with fluid overload *Chronic lung disease (amiodarone toxicity), Chronic respiratory failure Change Lasix to 40mg PO BID. Metolazone 2.5mg PO x 1 now to diurese. Continue O2- up to 4L/NC. Add duoneb, pulmicort. CXR is reviewed- will try and optimize medical therapy. Suspect infiltrates are due to chronic lung disease, But may need to consider CT if no improvement. *Hyperkalemia- Hold KCL Decrease Lisinopril to daily. *HTN- diurese. Continue Lisinopril. Coreg is optimized. *Hx. Mechanical AVR- Coumadin per pharmacy. Goal INR 2.5-3.5 *Spinal hematoma s/p decompression and spinal stimulator removal- PT per rehab team. *Anemia- acute vs. chronic- Check CBC and Iron panel in AM. Continue supportive care. ERIK PRADHAN RESULTS TECHNICIAN December 19, 2016 14:35
[2016-12-19] MEDS: ALBUTEROL/IPRATROPIUM INHAL. 2.5mg-0.5mg/3ml Neb. AEROSOL SCH ×2 (15:30→19:14)
[2016-12-19] MEDS: FUROSEMIDE 40 MG TABLET PO SCH (18:18)
--- NOTE | 2016-12-19 19:07 | NUR ---
Summary VS's stable. Pt. is on 4L O2 via nasal canula. She is SOA with activity at times. Encouraged coughing and deep breathing. I/O adequate. Pt. is incontinent of urine at times. Pt. transfers with assist x1, walker and gait belt. She has ambulated to meals. RAMBO hose in place. Dressing to upper-mid back changed per orders. No drainage, or s/s of infection noted. Pt. has rated back right shoulder pain a 6-7/10 this shift. PRN pain meds administered and re-positioning implemented for comfort. Please see eMAR. Pt. is currently sitting up in the recliner. Alarm is on. Report has been past on to night stocker.
[2016-12-19] MEDS: BUDESONIDE INH.SOLN. 0.5mg/2ml NEB AEROSOL SCH (19:14)
[2016-12-19] MEDS: TRAVOPROST 0.004% EYE DROPS 2.5ml RIGHT EYE SCH (21:02)
[2016-12-19] MEDS: MIRTAZAPINE 45 MG PO SCH (21:03)
[2016-12-20 05:01] LABS: BASOPHILS # (AUTO) 0.1 T/MM3 (0-0.2); BASOPHILS % (AUTO) 0.7 % (0-2); EOSINOPHILS # (AUTO) 0.8 T/MM3 (0-0.5); EOSINOPHILS % (AUTO) 11.9 % (0-4); HCT - HEMATOCRIT 30.4 % (36-46); HGB - HEMOGLOBIN 8.4 GM/DL (12-16); IMMATURE GRANULOCYTE # (AUTO) 0.02 T/MM3 (0.00-0.03); IMMATURE GRANULOCYTE % (AUTO) 0.3 % (0.0-0.5); LYMPHOCYTES # (AUTO) 1.4 T/MM3 (1-4.8); LYMPHOCYTES % (AUTO) 19.9 % (23-45); MEAN CORPUSCULAR HGB 27.3 UUG (26-34); MEAN CORPUSCULAR HGB CONC(MCHC 27.6 GM/DL (31-37); MEAN CORPUSCULAR VOLUME 98.7 UM3 (80-100); MEAN PLATELET VOLUME 8.8 UM3 (9.4-12.4); MONOCYTES # (AUTO) 0.5 T/MM3 (0-0.8); MONOCYTES % (AUTO) 7.6 % (0-9.0); NEUTROPHILS #(AUTO)-ABSOLUTE 4.2 T/MM3 (1.8-7.7); NEUTROPHILS % (AUTO) 59.6 % (33-66); RED BLOOD COUNT 3.08 M/MM3 (4.00-5.20)
[2016-12-20 05:19] LABS: INR 2.24 (0.76-1.04); PROTHROMBIN TIME 24.4 SEC (9.31-12.49)
[2016-12-20 05:33] LABS: ALBUMIN 3.6 G/DL (3.5-5.0); ANION GAP 12 MEQ/L (5-15); BUN/CREATININE RATIO 34 RATIO (6-26); CALCIUM 8.8 MG/DL (8.4-10.2); CHLORIDE 102 MEQ/L (98-107); CO2 - CARBON DIOXIDE 32 MEQ/L (22-30); CREATININE 0.9 MG/DL (0.7-1.2); GLOMERULAR FILTRATION RATE 60; GLUCOSE 98 MG/DL (65-110); MAGNESIUM 2.5 MG/DL (1.6-2.3); PHOSPHORUS 5.5 MG/DL (2.5-4.5); POTASSIUM 4.9 MEQ/L (3.6-5); SODIUM 146 MEQ/L (134-144)
[2016-12-20 05:34] LABS: TOTAL IRON BINDING CAPACITY 357 UG/DL (261-497)
[2016-12-20 05:53] LABS: IRON 11 UG/DL (37-170); IRON % SAT (TRANSF %SAT)(CALC) 3 % (9-55)
[2016-12-20] MEDS: LEVOTHYROXINE 88 MCG TABLET PO SCH (06:22)
[2016-12-20] MEDS: OXYCODONE/APAP 5mg/325mg TABLET PO PRN ×3 (06:25→21:41)
[2016-12-20 06:45] VITALS: O2SAT 94
[2016-12-20] MEDS: ALBUTEROL/IPRATROPIUM INHAL. 2.5mg-0.5mg/3ml Neb. AEROSOL SCH ×4 (06:52→19:07)
[2016-12-20] MEDS: BUDESONIDE INH.SOLN. 0.5mg/2ml NEB AEROSOL SCH ×2 (06:53→19:07)
--- NOTE | 2016-12-20 07:34 | NUR ---
Summary Pt states she slept well last night. Pills taken with pudding or sips of water. Pt denies SOA, 4L O2 maintained. Pt up early with therapy for shower.
[2016-12-20 08:07] VITALS: BP 130/69; PULSE 62; RESP 16; TEMP 97.5; O2SAT 96
[2016-12-20 08:20] VITALS: PULSE 62; RESP 16
[2016-12-20] MEDS: GABAPENTIN 300 MG CAPSULE PO SCH ×3 (08:31→21:41)
[2016-12-20] MEDS: DULOXETINE 60 MG CAPSULE PO SCH (08:31)
[2016-12-20] MEDS: LISINOPRIL 10 MG TABLET PO SCH (08:31)
[2016-12-20] MEDS: NYSTATIN 500,000 units/5ml Susp UD PO SCH ×4 (08:31→21:42)
[2016-12-20] MEDS: METHOCARBAMOL 750 MG TABLET PO SCH ×4 (08:31→21:40)
[2016-12-20] MEDS: FUROSEMIDE 40 MG TABLET PO SCH ×2 (08:31→17:17)
[2016-12-20] MEDS: CARVEDILOL 25 MG TABLET PO SCH ×2 (08:32→17:17)
[2016-12-20] MEDS: SENNA + DOCUSATE TAB PO SCH ×2 (08:32→21:42)
--- NOTE | 2016-12-20 09:14 | NUR ---
WARFARIN CONSULT S: 81 y/o F on warfarin for mechanical aortic valve replacement. Goal INR 2-3. Pt was on warfarin 2 mg PO daily prior to 11/22. On 11/22 pt had a nerve stimulator placed and was bridged with enoxaparin; unfortunately developed an epidural hematoma and underwent surgery on 11/24 for evacuation with decompressive laminectomy. Pt admitted on IRU at [facility] on 11/30 with orders not to re-start warfarin until 12/08. O: Date INR Warfarin Dose 12/08 1.12 4 mg 12/09 1.12 6 mg 12/10 1.39 5 mg 12/11 2.28 1 mg 12/12 3.12 HOLD 12/13 2.50 1 mg 12/14 2.06 2 mg 12/15 1.94 2.5 mg 12/16 1.99 2 mg 12/17 2.15 2 mg 12/18 2.52 1 mg 12/19 2.46 2 mg 12/20 2.24 2 mg A/P: INR therapeutic. Will order warfarin 2 mg PO today. Will continue to monitor & make adjustments accordingly. Thank you for the consult. Giovana Hernandes, PharmD, BCPS
--- NOTE | 2016-12-20 09:49 | NUR ---
CM MULTIPLE VOICEMAILS FROM YOLANDA (DTR) AND TONNY (GRANDDTR), RE: THEY DO NOT WANT [facility] BUT [facility]. CALLED YOLANDA. SHE HAD QUESTIONS ABOUT THE FIRE EXTINGUISHER INSPECTOR PLAN FOR THE PT; THIS WORKER EXPLAINED THE TEAM'S RECOMMENDATION IS FOR A MORE SUPERVISED/SUPPORTIVE ENVIRONMENT, I.E. ASSISTED LIVING. YOLANDA VERY AGREEABLE TO THIS, AND SHE ALSO SAID PT IS EXPRESSING FEAR OF RETURNING HOME AND FALLING. SHE GAVE PERMISSION FOR THIS WORKER TO RELEASE RECORDS TO [facility]. SHE ALSO HAD QUESTIONS ABOUT PT'S MEDICAL; THIS WORKER WILL RELAY THIS TO THE DOCTORS. CALLED [facility], SPOKE WITH LIZETH. SHE SAID SHE WILL PRESENT THE CASE TO ADMIN SINCE PT DOES NOT HAVE MEDICAID. FAXED RECORDS TO HER. SHE SAID SHE WILL FOLLOW UP WITH THIS WORKER.
[2016-12-20 10:01] LABS: PROBNP 1470 PG/ML (0-175)
[2016-12-20 11:00] VITALS: O2SAT 95
[2016-12-20] MEDS ORDERED: WARFARIN 2 MG TABLET PO ONE (12:00)
--- NOTE | 2016-12-20 13:41 | PNPDOC ---
Subjective Date DATE: 12/20/16 TIME: 13:35 Teresa Chino is seen several times throughout the day. She states that she is feeling much better over the last 24 hours. She does feel that her breathing continues to improve. Continues to have some lower extremity edema. However, overall it has improved. Denies chest pain, GI complaints or weakness. Currently on 3-4 liters. Weight is down 2 kilograms from yesterday. Objective Vital Signs Vital signs Vital Signs Date Time Temp Pulse Resp B/P Pulse Ox O2 Delivery O2 Flow Rate FiO2 12/20/16 11:13 90 12/20/16 11:00 16 95 12/20/16 08:07 97.5 130/69 Nasal Cannula 4.00 Telemetry Rhythm: Sinus Rhythm Height (Feet): 5 Height (Inches): 6.00 Weight (Kilograms): 86.000 General General Appearance: Alert, Orientated x 3, Cooperative, No Acute Distress Eyes (Brief) Eyes: FOUND: EOMI ENMT (Brief) ENMT: FOUND: mucosa moist, normal dentition, NOT FOUND: pharnyx erythema Neck (Brief) Neck: FOUND: midline, NOT FOUND: adenopathy, carotid bruits, tracheal deviation Respiratory (Brief) Respiratory: FOUND: clear all neely, equal bilaterally, NOT FOUND: wheezes Cardiovascular (Brief) Cardiac: FOUND: regular rate, regular rhythm, NOT FOUND: murmur, pedal edema Capillary Refill: <2 sec Abdomen (Brief) Abdominal: FOUND: BS normo active x4, soft, NOT FOUND: distended, tender Extremities (Brief) Extremity : Side: Bilateral Extremity: leg Extremity Finding: FOUND: edema Lymphatic (Brief) Lymphatic: NOT FOUND: adenopathy Musculoskeletal (Brief) Musculoskeletal: NOT FOUND: tenderness Integumentary (Brief) Integumentary: FOUND: dry, pink, warm Neurologic (Brief) Neurological: FOUND: cranial 2-12 intact Psychiatric (Brief) Psychiatric: FOUND: alert, attentive, normal affect, oriented Laboratory Laboratory Laboratory Tests 12/20/16 04:15 Laboratory Tests 12/20/16 04:15 Assessment & Plan Problems: (1) Epidural hematoma Status: Acute Assessment & Plan: Following placement of spinal cord stimulator on 11/22/16. Underwent emergent T4-T8 thoracic decompressive laminectomy for evacuation of the epidural hematoma and removal of the spinal cord stimulator on 11/24/[address] Butler (2) Bilateral leg weakness Status: Acute (3) CHF due to valvular disease Status: Chronic (4) COPD (chronic obstructive pulmonary disease) Status: Chronic (5) Oxygen dependent Status: Chronic (6) Amiodarone pulmonary toxicity Status: Chronic (7) Atrial fibrillation Status: Chronic (8) Hypothyroidism Status: Chronic (9) HTN (hypertension) Status: Chronic (10) Lupus Status: Chronic (11) Dyslipidemia Status: Chronic (12) Overweight (BMI 25.0-29.9) Status: Chronic Plan/Intensity of Service 12/20/16 Overall breath sounds have improved. Patient feels that her breathing effort has lessened. Tenuous scheduled breathing treatments. Monitor WILLIAMS, daily weight, weight has decreased 2 kilograms since yesterday. Continue with Lasix 40 milligrams twice a day Continue with lisinopril and Coreg for blood pressure control Intended chronic anticoagulation on Coumadin per pharmacy protocol. Goal INR 2.5 -3.5 for mechanical valve Continue to encourage work with PT and OT for ongoing strengthening. Continue with Fentanyl, Neurontin,Percocet and Robaxin for pain control Continues to have persistent hypernatremia, NA 146- Continued to motnior Hgb is stable at 8.4. Code Status Full Code, unverified Hospital Course Summary Disclaimer The hospital course summary below is not to be considered part of the above Progress Note. Hospital Course Summary 12/02/16 Continue on postoperative prophylaxis- Heparin SQ TID. May not start full anticoagulation until 12/08/16 for mechanical valves. Continue with oxygen at baseline 3 liters. Currently on Percocet for pain control, and Robaxin for muscle relaxers. Continue with Colace for postoperative bowel motivation Continue to encourage work with PT and OT for ongoing postoperative strengthening and pain control Check CBC and BMP tomorrow morning to follow anemia, electrolyte abnormalities 12/03/[address] Chanel. Agrees with re-imaging of thoracic back to rule out further bleeding or changes. T-spine without IV contrast ordered. Continue on postoperative prophylaxis- Heparin SQ TID. May not start full anticoagulation until 12/08/16 for mechanical valves. Noted hyperkalemia- Oral potassium held. Will recheck tomorrow Currently on Percocet for pain control, and Robaxin for muscle relaxers. Continue with Colace for postoperative bowel motivation Continue to encourage work with PT and OT for ongoing postoperative strengthening and pain control 12/06/16 Continue on postoperative prophylaxis- Heparin SQ TID. May start full anticoagulation on 12/08/16 for mechanical valves. Will re-evaluate incision again Friday 12/08. Will likely be able to remove jonathan at that time if incision looks good. This is the 2 week post-op. Noted hyperkalemia- Oral potassium held. Will recheck tomorrow Currently on Percocet for pain control, and Robaxin for muscle relaxers. Lidoderm patch added to right lateral back Continue with Colace for postoperative bowel motivation Continue to encourage work with PT and OT for ongoing postoperative strengthening and pain control 12/08/16 Continue on postoperative prophylaxis- Heparin SQ TID bridge until INR is therapeutic. Will resume on full anticoagulation Coumadin today. Given her chronic mechanical valve. Have placed consultation to pharmacy for dosing management. Will monitor patient carefully doing every 2 hours neurologic checks to evaluate for any evidence of bleeding. Last time patient was initiated on Coumadin. She had a epidural hematoma that had to be extracted. Will remove jonathan from thoracic incision as it seems to be healing well. Currently on Percocet for pain control, and Robaxin for muscle relaxers. Lidoderm patch added to right lateral back Continue with Colace and senna for postoperative bowel motivation Continue to encourage work with PT and OT for ongoing postoperative strengthening and pain control 12/09/16 Continue on heparin bridge until INR is therapeutic. Coumadin was restarted yesterday. INR is subtherapeutic today. Agree with frequent neuro checks. Discussed neuro symptoms with the patient, and encouraged her to let us know if she develops any numbness, tingling or weakness. Cyanide Case Hardener is Dr. Rivas. Hyperkalemia: Recheck BMP tomorrow morning. Potassium is on hold. Regarding recent urinary retention, postvoid residuals shortly after admission to IRU were 120 and 150. Currently, she is incontinent. Continue to monitor. Continue with pain control. Having regular bowel movements. 12/10/16 Continue on heparin bridge until INR is therapeutic. Coumadin was restarted on . INR increased slightly to 1.39. Continue with frequent neuro checks. Monitor pain level, since this could be an indication of postoperative complication. Both hyperkalemia and hypernatremia have resolved on labs this morning. Continue to hold potassium today, and will restart tomorrow at once a day dosing rather than twice a day. Will recheck BMP on 12/13/16. 12/12: Mirakian. 1. Epidural hematoma with bilateral leg weakness * Continue therapy and pain control per Dr. Chaenl for strengthening and improvement in functional ability. * Continue to monitor neurologic function and pain level for signs of post op complications. * Recheck CBC and BMP in AM to monitor blood counts, electrolytes and renal function in light of recent infection, anemia, electrolyte imbalance and current UTI. 2. CHF * Lasix daily and monitor closely for signs of fluid overload with daily weights. 3. COPD - Oxygen dependent * Continuous oxygen to maintain SAO2 between 90-96%; home baseline is 3L. 4. A-fib and Hypertension * Continue Coreg and Lisinopril and monitor closely. * INR therapeutic at 3.12. Can discontinue heparin bridge 5. Hypothyroid * Continue Synthroid 6. Lupus 7. Dyslipidemia 8. UTI, new diagnosis * Patient complained of dysuria on 12/11 and found to have a UTI with WBC TNTC, + nitirtes and 3+ bacteria. UA culture pending. Ceftin initiated for antimicrobial coverage of urinary pathogens. * Initiate Pyridium TID x 2 day for urinary burning. * * 12/14/16 Reviewed urine cultures, Positive for Klebsiella Oxytoca. Sensitive to Ceftin, Continue through 12/17/16 Will add nystatin oral suspension QID for treatment of thrush Pharmacy is managing Coumadin dosing. Will discontinue Heparin given 4 days over 2.0 INR. Hgb stable at 8.7. Continue fentanyl patch, Percocet, Neurontin for pain control Continue to encourage work with PT/OT. She does feeling that she is gaining strength. 12/17/16 Will obtain a two-view chest x-ray due to increased hypoxia this morning. Check BMP now to monitor electrolytes. Will increase diuretic, Lasix to 20 mg TID. Home dosing was 40mg BID. Increase Neurontin to 300 milligrams 3 times a day for neuropathic pain. Continue to monitor carefully for evidence of lower extremity numbness/weakness. Continue antibiotic following tonight's dose as she has received complete treatment for urinary tract infection. CBC and BMP tomorrow morning to follow blood counts, renal function and electrolytes 12/19/16- *CHF with fluid overload *Chronic lung disease (amiodarone toxicity), Chronic respiratory failure Change Lasix to 40mg PO BID. Metolazone 2.5mg PO x 1 now to diurese. Continue O2- up to 4L/NC. Add duoneb, pulmicort. CXR is reviewed- will try and optimize medical therapy. Suspect infiltrates are due to chronic lung disease, But may need to consider CT if no improvement. *Hyperkalemia- Hold KCL Decrease Lisinopril to daily. *HTN- diurese. Continue Lisinopril. Coreg is optimized. *Hx. Mechanical AVR- Coumadin per pharmacy. Goal INR 2.5-3.5 *Spinal hematoma s/p decompression and spinal stimulator removal- PT per rehab team. *Anemia- acute vs. chronic- Check CBC and Iron panel in AM. Continue supportive care. 12/20/16 Overall breath sounds have improved. Patient feels that her breathing effort has lessened. Tenuous scheduled breathing treatments. Monitor WILLIAMS, daily weight, weight has decreased 2 kilograms since yesterday. Continue with Lasix 40 milligrams twice a day Continue with lisinopril and Coreg for blood pressure control Intended chronic anticoagulation on Coumadin per pharmacy protocol. Goal INR 2.5 -3.5 for mechanical valve Continue to encourage work with PT and OT for ongoing strengthening. Continue with Fentanyl, Neurontin,Percocet and Robaxin for pain control Continues to have persistent hypernatremia, NA 146- Continued to motnior Hgb is stable at 8.4. SABA STEVEN APRN December 20, 2016 13:40
--- NOTE | 2016-12-20 13:57 | NUR ---
CM CALLED [facility], SPOKE WITH KELLY, REQUESTED CARE ASSESSMENT. CALLED DAUGHTER YOLANDA, UPDATED HER ON THE ABOVE. AND ALSO THAT THIS WORKER IS AWAITING A RESPONSE FROM [place]. DISCUSSED OPTION OF [facility] ASSISTED LIVING, ALSO.
[2016-12-20 16:00] VITALS: BP 127/61; PULSE 65; RESP 16; TEMP 98.1; O2SAT 98
[2016-12-20] MEDS: FENTANYL PATCH REMOVAL TD SCH (16:45)
[2016-12-20] MEDS: FENTANYL 12MCG/HR PATCH TD SCH (17:18)
--- NOTE | 2016-12-20 19:15 | NUR ---
Shift Summary Pt is resting in the recliner at this time. Ambulates well with assist of 1, FWW, and gait belt. Dressing to her back was changed this shift, replaced with a Telfa and tape. Has been continent this shift, ambulates to the bathroom, able to manage her own clothing and cares. Ate well for meals did not need assist with her tray, ambulated to the dining room, needed assist opening items on her tray. Reported some discomfort, received Percocet 5/325 (1) at 1221; she reported that it helped. Worked well with therapy today. When in bed or the chair the alarm is in use and call light is within reach.
[2016-12-20 21:10] VITALS: BP 134/78; PULSE 75; RESP 18; TEMP 98.8; O2SAT 93
[2016-12-20] MEDS: TRAVOPROST 0.004% EYE DROPS 2.5ml RIGHT EYE SCH (21:40)
[2016-12-20] MEDS: MIRTAZAPINE 45 MG PO SCH (21:41)
--- NOTE | 2016-12-20 23:43 | PNPDOC ---
IRU Subjective Date DATE: 12/19/16 TIME: 1525 Pt seen 12/19 during day, note entered now. Subjective Pt resting in room. Did go out to eat in commons area today. Still having pain in back, but stable. IRU Objective Vital Signs Vital signs Vital Signs Date Time Temp Pulse Resp B/P Pulse Ox O2 Delivery O2 Flow Rate FiO2 12/20/16 21:10 98.8 75 18 134/78 93 Nasal Cannula 5.00 Telemetry Rhythm: Sinus Rhythm Height (Feet): 5 Height (Inches): 6.00 Weight (Kilograms): 86.000 General General Appearance: Alert Respiratory (Brief) Respiratory: FOUND: clear all neely, equal bilaterally Cardiovascular (Brief) Cardiac: FOUND: regular rate, regular rhythm Musculoskeletal (Brief) Comments tender to palp over spine. Laboratory Laboratory Laboratory Tests Test 12/19/16 04:57 12/20/16 04:15 Prothromb Time International Ratio 2.46 2.24 White Blood Count 7.0T/MM3 Red Blood Count 3.08M/MM3 Hemoglobin 8.4GM/DL Hematocrit 30.4% Mean Corpuscular Volume 98.7UM3 Mean Corpuscular Hemoglobin 27.3UUG Mean Corpuscular Hemoglobin Concent 27.6GM/DL RDW Standard Deviation 55.6FL Platelet Count 307T/MM3 Mean Platelet Volume 8.8UM3 Immature Granulocyte % (Auto) 0.3% Neutrophils (%) (Auto) 59.6% Lymphocytes (%) (Auto) 19.9% Monocytes (%) (Auto) 7.6% Eosinophils (%) (Auto) 11.9% Basophils (%) (Auto) 0.7% Absolute Immature Granulocyte (auto 0.02T/MM3 Absolute Neutrophils (auto) 4.2T/MM3 Absolute Lymphocytes (auto) 1.4T/MM3 Absolute Monocytes (auto) 0.5T/MM3 Absolute Eosinophils (auto) 0.8T/MM3 Absolute Basophils (auto) 0.1T/MM3 Turbidity < 20 Sodium Level 146MEQ/L Potassium Level 4.9MEQ/L Chloride Level 102MEQ/L Carbon Dioxide Level 32MEQ/L Anion Gap 12MEQ/L Blood Urea Nitrogen 31.0MG/DL Creatinine 0.9MG/DL Glomerular Filtration Rate Calc 60 BUN/Creatinine Ratio 34RATIO Glucose Level 98MG/DL Calculated Osmolality 288MOSM/KG Calcium Level 8.8MG/DL Phosphorus Level 5.5MG/DL Magnesium Level 2.5MG/DL Iron Level 11UG/DL Total Iron Binding Capacity 357UG/DL Percent Iron Saturation 3% Icterus Index < 2 KB-Tiq-I-Type Natriuretic Peptide 1470PG/ML Albumin 3.6G/DL Chemistry Specimen Hemolysis < 15 Assessment & Plan Problems: (1) Vascular dementia Status: Chronic Assessment & Plan: managed by medical. (2) Epidural hematoma Status: Acute Assessment & Plan: stable with no recurrance. (3) Bilateral leg weakness Status: Acute Assessment & Plan: Improving iwth PT and OT , but pt does have issues with pain. Cont with Care Plan. (4) CHF due to valvular disease Status: Chronic Code Status Full Code, unverified Interventions to Obtain Goals PT Treatment Plan: Therapeutic Exercise, Gait Training, Functional Activities , Patient/Family Education, Balance/Proprioception OT Treatment Plan: ADL's (basic care), Ther. Exercise for ADL's, UE Functional Training, Balance Training, Pt./Family Education, IADL's Hospital Course Summary Disclaimer The hospital course summary below is not to be considered part of the above Progress Note. Hospital Course Summary 12/02/16 Continue on postoperative prophylaxis- Heparin SQ TID. May not start full anticoagulation until 12/08/16 for mechanical valves. Continue with oxygen at baseline 3 liters. Currently on Percocet for pain control, and Robaxin for muscle relaxers. Continue with Colace for postoperative bowel motivation Continue to encourage work with PT and OT for ongoing postoperative strengthening and pain control Check CBC and BMP tomorrow morning to follow anemia, electrolyte abnormalities 12/03/[address] Chanel. Agrees with re-imaging of thoracic back to rule out further bleeding or changes. T-spine without IV contrast ordered. Continue on postoperative prophylaxis- Heparin SQ TID. May not start full anticoagulation until 12/08/16 for mechanical valves. Noted hyperkalemia- Oral potassium held. Will recheck tomorrow Currently on Percocet for pain control, and Robaxin for muscle relaxers. Continue with Colace for postoperative bowel motivation Continue to encourage work with PT and OT for ongoing postoperative strengthening and pain control 12/06/16 Continue on postoperative prophylaxis- Heparin SQ TID. May start full anticoagulation on 12/08/16 for mechanical valves. Will re-evaluate incision again Friday 12/08. Will likely be able to remove jonathan at that time if incision looks good. This is the 2 week post-op. Noted hyperkalemia- Oral potassium held. Will recheck tomorrow Currently on Percocet for pain control, and Robaxin for muscle relaxers. Lidoderm patch added to right lateral back Continue with Colace for postoperative bowel motivation Continue to encourage work with PT and OT for ongoing postoperative strengthening and pain control 12/08/16 Continue on postoperative prophylaxis- Heparin SQ TID bridge until INR is therapeutic. Will resume on full anticoagulation Coumadin today. Given her chronic mechanical valve. Have placed consultation to pharmacy for dosing management. Will monitor patient carefully doing every 2 hours neurologic checks to evaluate for any evidence of bleeding. Last time patient was initiated on Coumadin. She had a epidural hematoma that had to be extracted. Will remove jonathan from thoracic incision as it seems to be healing well. Currently on Percocet for pain control, and Robaxin for muscle relaxers. Lidoderm patch added to right lateral back Continue with Colace and senna for postoperative bowel motivation Continue to encourage work with PT and OT for ongoing postoperative strengthening and pain control 12/09/16 Continue on heparin bridge until INR is therapeutic. Coumadin was restarted yesterday. INR is subtherapeutic today. Agree with frequent neuro checks. Discussed neuro symptoms with the patient, and encouraged her to let us know if she develops any numbness, tingling or weakness. Ske[employer] Yarn Examiner is Dr. Rivas. Hyperkalemia: Recheck BMP tomorrow morning. Potassium is on hold. Regarding recent urinary retention, postvoid residuals shortly after admission to IRU were 120 and 150. Currently, she is incontinent. Continue to monitor. Continue with pain control. Having regular bowel movements. 12/10/16 Continue on heparin bridge until INR is therapeutic. Coumadin was restarted on . INR increased slightly to 1.39. Continue with frequent neuro checks. Monitor pain level, since this could be an indication of postoperative complication. Both hyperkalemia and hypernatremia have resolved on labs this morning. Continue to hold potassium today, and will restart tomorrow at once a day dosing rather than twice a day. Will recheck BMP on 12/13/16. 12/12: Mirakian. 1. Epidural hematoma with bilateral leg weakness * Continue therapy and pain control per Dr. Chanel for strengthening and improvement in functional ability. * Continue to monitor neurologic function and pain level for signs of post op complications. * Recheck CBC and BMP in AM to monitor blood counts, electrolytes and renal function in light of recent infection, anemia, electrolyte imbalance and current UTI. 2. CHF * Lasix daily and monitor closely for signs of fluid overload with daily weights. 3. COPD - Oxygen dependent * Continuous oxygen to maintain SAO2 between 90-96%; home baseline is 3L. 4. A-fib and Hypertension * Continue Coreg and Lisinopril and monitor closely. * INR therapeutic at 3.12. Can discontinue heparin bridge 5. Hypothyroid * Continue Synthroid 6. Lupus 7. Dyslipidemia 8. UTI, new diagnosis * Patient complained of dysuria on 12/11 and found to have a UTI with WBC TNTC, + nitirtes and 3+ bacteria. UA culture pending. Ceftin initiated for antimicrobial coverage of urinary pathogens. * Initiate Pyridium TID x 2 day for urinary burning. * * 12/14/16 Reviewed urine cultures, Positive for Klebsiella Oxytoca. Sensitive to Ceftin, Continue through 12/17/16 Will add nystatin oral suspension QID for treatment of thrush Pharmacy is managing Coumadin dosing. Will discontinue Heparin given 4 days over 2.0 INR. Hgb stable at 8.7. Continue fentanyl patch, Percocet, Neurontin for pain control Continue to encourage work with PT/OT. She does feeling that she is gaining strength. 12/17/16 Will obtain a two-view chest x-ray due to increased hypoxia this morning. Check BMP now to monitor electrolytes. Will increase diuretic, Lasix to 20 mg TID. Home dosing was 40mg BID. Increase Neurontin to 300 milligrams 3 times a day for neuropathic pain. Continue to monitor carefully for evidence of lower extremity numbness/weakness. Continue antibiotic following tonight's dose as she has received complete treatment for urinary tract infection. CBC and BMP tomorrow morning to follow blood counts, renal function and electrolytes 12/19/16- *CHF with fluid overload *Chronic lung disease (amiodarone toxicity), Chronic respiratory failure Change Lasix to 40mg PO BID. Metolazone 2.5mg PO x 1 now to diurese. Continue O2- up to 4L/NC. Add duoneb, pulmicort. CXR is reviewed- will try and optimize medical therapy. Suspect infiltrates are due to chronic lung disease, But may need to consider CT if no improvement. *Hyperkalemia- Hold KCL Decrease Lisinopril to daily. *HTN- diurese. Continue Lisinopril. Coreg is optimized. *Hx. Mechanical AVR- Coumadin per pharmacy. Goal INR 2.5-3.5 *Spinal hematoma s/p decompression and spinal stimulator removal- PT per rehab team. *Anemia- acute vs. chronic- Check CBC and Iron panel in AM. Continue supportive care. 12/20/16 Overall breath sounds have improved. Patient feels that her breathing effort has lessened. Tenuous scheduled breathing treatments. Monitor WILLIAMS, daily weight, weight has decreased 2 kilograms since yesterday. Continue with Lasix 40 milligrams twice a day Continue with lisinopril and Coreg for blood pressure control Intended chronic anticoagulation on Coumadin per pharmacy protocol. Goal INR 2.5 -3.5 for mechanical valve Continue to encourage work with PT and OT for ongoing strengthening. Continue with Fentanyl, Neurontin,Percocet and Robaxin for pain control Continues to have persistent hypernatremia, NA 146- Continued to motnior Hgb is stable at 8.4. MEG CHANEL MD December 20, 2016 23:43
--- NOTE | 2016-12-20 23:47 | PNPDOC ---
IRU Subjective Date DATE: 12/20/16 TIME: 23:44 Subjective Pt had chest pain today, seen by medical. She did work with PT earlier. IRU Objective Vital Signs Vital signs Vital Signs Date Time Temp Pulse Resp B/P Pulse Ox O2 Delivery O2 Flow Rate FiO2 12/20/16 21:10 98.8 75 18 134/78 93 Nasal Cannula 5.00 Telemetry Rhythm: Sinus Rhythm Height (Feet): 5 Height (Inches): 6.00 Weight (Kilograms): 86.000 General General Appearance: Alert Respiratory (Brief) Respiratory: FOUND: clear all neely, equal bilaterally Cardiovascular (Brief) Cardiac: FOUND: regular rate, regular rhythm Laboratory Laboratory Laboratory Tests Test 12/19/16 04:57 12/20/16 04:15 Prothromb Time International Ratio 2.46 2.24 White Blood Count 7.0T/MM3 Red Blood Count 3.08M/MM3 Hemoglobin 8.4GM/DL Hematocrit 30.4% Mean Corpuscular Volume 98.7UM3 Mean Corpuscular Hemoglobin 27.3UUG Mean Corpuscular Hemoglobin Concent 27.6GM/DL RDW Standard Deviation 55.6FL Platelet Count 307T/MM3 Mean Platelet Volume 8.8UM3 Immature Granulocyte % (Auto) 0.3% Neutrophils (%) (Auto) 59.6% Lymphocytes (%) (Auto) 19.9% Monocytes (%) (Auto) 7.6% Eosinophils (%) (Auto) 11.9% Basophils (%) (Auto) 0.7% Absolute Immature Granulocyte (auto 0.02T/MM3 Absolute Neutrophils (auto) 4.2T/MM3 Absolute Lymphocytes (auto) 1.4T/MM3 Absolute Monocytes (auto) 0.5T/MM3 Absolute Eosinophils (auto) 0.8T/MM3 Absolute Basophils (auto) 0.1T/MM3 Turbidity < 20 Sodium Level 146MEQ/L Potassium Level 4.9MEQ/L Chloride Level 102MEQ/L Carbon Dioxide Level 32MEQ/L Anion Gap 12MEQ/L Blood Urea Nitrogen 31.0MG/DL Creatinine 0.9MG/DL Glomerular Filtration Rate Calc 60 BUN/Creatinine Ratio 34RATIO Glucose Level 98MG/DL Calculated Osmolality 288MOSM/KG Calcium Level 8.8MG/DL Phosphorus Level 5.5MG/DL Magnesium Level 2.5MG/DL Iron Level 11UG/DL Total Iron Binding Capacity 357UG/DL Percent Iron Saturation 3% Icterus Index < 2 JN-Noa-Q-Type Natriuretic Peptide 1470PG/ML Albumin 3.6G/DL Chemistry Specimen Hemolysis < 15 Assessment & Plan Problems: (1) Vascular dementia Status: Chronic (2) Epidural hematoma Status: Acute Assessment & Plan: Pt stable. (3) Bilateral leg weakness Status: Acute Assessment & Plan: Cont to work with PT and OT per plan of care, re eval at team meeting. (4) CHF due to valvular disease Status: Chronic Code Status Full Code, unverified Interventions to Obtain Goals PT Treatment Plan: Therapeutic Exercise, Gait Training, Functional Activities , Patient/Family Education, Balance/Proprioception OT Treatment Plan: ADL's (basic care), Ther. Exercise for ADL's, UE Functional Training, Balance Training, Pt./Family Education, IADL's Hospital Course Summary Disclaimer The hospital course summary below is not to be considered part of the above Progress Note. Hospital Course Summary 12/02/16 Continue on postoperative prophylaxis- Heparin SQ TID. May not start full anticoagulation until 12/08/16 for mechanical valves. Continue with oxygen at baseline 3 liters. Currently on Percocet for pain control, and Robaxin for muscle relaxers. Continue with Colace for postoperative bowel motivation Continue to encourage work with PT and OT for ongoing postoperative strengthening and pain control Check CBC and BMP tomorrow morning to follow anemia, electrolyte abnormalities 12/03/[address] Chanel. Agrees with re-imaging of thoracic back to rule out further bleeding or changes. T-spine without IV contrast ordered. Continue on postoperative prophylaxis- Heparin SQ TID. May not start full anticoagulation until 12/08/16 for mechanical valves. Noted hyperkalemia- Oral potassium held. Will recheck tomorrow Currently on Percocet for pain control, and Robaxin for muscle relaxers. Continue with Colace for postoperative bowel motivation Continue to encourage work with PT and OT for ongoing postoperative strengthening and pain control 12/06/16 Continue on postoperative prophylaxis- Heparin SQ TID. May start full anticoagulation on 12/08/16 for mechanical valves. Will re-evaluate incision again Friday 12/08. Will likely be able to remove jonathan at that time if incision looks good. This is the 2 week post-op. Noted hyperkalemia- Oral potassium held. Will recheck tomorrow Currently on Percocet for pain control, and Robaxin for muscle relaxers. Lidoderm patch added to right lateral back Continue with Colace for postoperative bowel motivation Continue to encourage work with PT and OT for ongoing postoperative strengthening and pain control 12/08/16 Continue on postoperative prophylaxis- Heparin SQ TID bridge until INR is therapeutic. Will resume on full anticoagulation Coumadin today. Given her chronic mechanical valve. Have placed consultation to pharmacy for dosing management. Will monitor patient carefully doing every 2 hours neurologic checks to evaluate for any evidence of bleeding. Last time patient was initiated on Coumadin. She had a epidural hematoma that had to be extracted. Will remove jonathan from thoracic incision as it seems to be healing well. Currently on Percocet for pain control, and Robaxin for muscle relaxers. Lidoderm patch added to right lateral back Continue with Colace and senna for postoperative bowel motivation Continue to encourage work with PT and OT for ongoing postoperative strengthening and pain control 12/09/16 Continue on heparin bridge until INR is therapeutic. Coumadin was restarted yesterday. INR is subtherapeutic today. Agree with frequent neuro checks. Discussed neuro symptoms with the patient, and encouraged her to let us know if she develops any numbness, tingling or weakness. Contract Preparer is Dr. Rivas. Hyperkalemia: Recheck BMP tomorrow morning. Potassium is on hold. Regarding recent urinary retention, postvoid residuals shortly after admission to IRU were 120 and 150. Currently, she is incontinent. Continue to monitor. Continue with pain control. Having regular bowel movements. 12/10/16 Continue on heparin bridge until INR is therapeutic. Coumadin was restarted on . INR increased slightly to 1.39. Continue with frequent neuro checks. Monitor pain level, since this could be an indication of postoperative complication. Both hyperkalemia and hypernatremia have resolved on labs this morning. Continue to hold potassium today, and will restart tomorrow at once a day dosing rather than twice a day. Will recheck BMP on 12/13/16. 12/12: [place]. 1. Epidural hematoma with bilateral leg weakness * Continue therapy and pain control per Dr. Chanel for strengthening and improvement in functional ability. * Continue to monitor neurologic function and pain level for signs of post op complications. * Recheck CBC and BMP in AM to monitor blood counts, electrolytes and renal function in light of recent infection, anemia, electrolyte imbalance and current UTI. 2. CHF * Lasix daily and monitor closely for signs of fluid overload with daily weights. 3. COPD - Oxygen dependent * Continuous oxygen to maintain SAO2 between 90-96%; home baseline is 3L. 4. A-fib and Hypertension * Continue Coreg and Lisinopril and monitor closely. * INR therapeutic at 3.12. Can discontinue heparin bridge 5. Hypothyroid * Continue Synthroid 6. Lupus 7. Dyslipidemia 8. UTI, new diagnosis * Patient complained of dysuria on 12/11 and found to have a UTI with WBC TNTC, + nitirtes and 3+ bacteria. UA culture pending. Ceftin initiated for antimicrobial coverage of urinary pathogens. * Initiate Pyridium TID x 2 day for urinary burning. * * 12/14/16 Reviewed urine cultures, Positive for Klebsiella Oxytoca. Sensitive to Ceftin, Continue through 12/17/16 Will add nystatin oral suspension QID for treatment of thrush Pharmacy is managing Coumadin dosing. Will discontinue Heparin given 4 days over 2.0 INR. Hgb stable at 8.7. Continue fentanyl patch, Percocet, Neurontin for pain control Continue to encourage work with PT/OT. She does feeling that she is gaining strength. 12/17/16 Will obtain a two-view chest x-ray due to increased hypoxia this morning. Check BMP now to monitor electrolytes. Will increase diuretic, Lasix to 20 mg TID. Home dosing was 40mg BID. Increase Neurontin to 300 milligrams 3 times a day for neuropathic pain. Continue to monitor carefully for evidence of lower extremity numbness/weakness. Continue antibiotic following tonight's dose as she has received complete treatment for urinary tract infection. CBC and BMP tomorrow morning to follow blood counts, renal function and electrolytes 12/19/16- *CHF with fluid overload *Chronic lung disease (amiodarone toxicity), Chronic respiratory failure Change Lasix to 40mg PO BID. Metolazone 2.5mg PO x 1 now to diurese. Continue O2- up to 4L/NC. Add duoneb, pulmicort. CXR is reviewed- will try and optimize medical therapy. Suspect infiltrates are due to chronic lung disease, But may need to consider CT if no improvement. *Hyperkalemia- Hold KCL Decrease Lisinopril to daily. *HTN- diurese. Continue Lisinopril. Coreg is optimized. *Hx. Mechanical AVR- Coumadin per pharmacy. Goal INR 2.5-3.5 *Spinal hematoma s/p decompression and spinal stimulator removal- PT per rehab team. *Anemia- acute vs. chronic- Check CBC and Iron panel in AM. Continue supportive care. 12/20/16 Overall breath sounds have improved. Patient feels that her breathing effort has lessened. Tenuous scheduled breathing treatments. Monitor WILLIAMS, daily weight, weight has decreased 2 kilograms since yesterday. Continue with Lasix 40 milligrams twice a day Continue with lisinopril and Coreg for blood pressure control Intended chronic anticoagulation on Coumadin per pharmacy protocol. Goal INR 2.5 -3.5 for mechanical valve Continue to encourage work with PT and OT for ongoing strengthening. Continue with Fentanyl, Neurontin,Percocet and Robaxin for pain control Continues to have persistent hypernatremia, NA 146- Continued to motnior Hgb is stable at 8.4. MEG CHANEL MD December 20, 2016 23:47
[2016-12-21] VITALS (7 sets, daily range): BP systolic 95–121; BP diastolic 50–61; PULSE 62–67; RESP 12–18; TEMP 97.9–98.5; O2SAT 93–94
[2016-12-21 04:56] LABS: INR 2.18 (0.76-1.04); PROTHROMBIN TIME 23.8 SEC (9.31-12.49)
[2016-12-21] MEDS: LEVOTHYROXINE 88 MCG TABLET PO SCH (06:39)
[2016-12-21] MEDS: OXYCODONE/APAP 5mg/325mg TABLET PO PRN ×3 (06:39→22:10)
[2016-12-21] MEDS: ALBUTEROL/IPRATROPIUM INHAL. 2.5mg-0.5mg/3ml Neb. AEROSOL SCH ×4 (07:30→19:00)
[2016-12-21] MEDS: BUDESONIDE INH.SOLN. 0.5mg/2ml NEB AEROSOL SCH ×2 (07:31→19:22)
--- NOTE | 2016-12-21 07:49 | NUR ---
Summary At HS pt stated pain was worse today 03/24, managed with PRN Percocet and repositioning. Pt managed own clothing for bed and toileting. managed own incontinence products and hygiene. When asked if pt slept well Pt stated "No, i was up to the bathroom too much." Pt with staff preparing for dining room.
--- NOTE | 2016-12-21 08:26 | NUR ---
WARFARIN CONSULT S: 81 y/o F on warfarin for mechanical aortic valve replacement. Goal INR 2-3. Pt was on warfarin 2 mg PO daily prior to 11/22. On 11/22 pt had a nerve stimulator placed and was bridged with enoxaparin; unfortunately developed an epidural hematoma and underwent surgery on 11/24 for evacuation with decompressive laminectomy. Pt admitted on IRU at [facility] on 11/30 with orders not to re-start warfarin until 12/08. O: Date INR Warfarin Dose 12/08 1.12 4 mg 12/09 1.12 6 mg 12/10 1.39 5 mg 12/11 2.28 1 mg 12/12 3.12 HOLD 12/13 2.50 1 mg 12/14 2.06 2 mg 12/15 1.94 2.5 mg 12/16 1.99 2 mg 12/17 2.15 2 mg 12/18 2.52 1 mg 12/19 2.46 2 mg 12/20 2.24 2 mg 12/21 2.18 2 mg A/P: INR therapeutic. Will order warfarin 2 mg PO today. Will continue to monitor & make adjustments accordingly. Thank you for the consult. Giovana Hernandes, PharmD, BCPS
[2016-12-21] MEDS: GABAPENTIN 300 MG CAPSULE PO SCH ×3 (08:47→21:11)
[2016-12-21] MEDS: ACETAMINOPHEN 325 MG TABLET PO PRN ×2 (08:47→17:49)
[2016-12-21] MEDS: FUROSEMIDE 40 MG TABLET PO SCH ×2 (08:47→17:48)
[2016-12-21] MEDS: DULOXETINE 60 MG CAPSULE PO SCH (08:47)
[2016-12-21] MEDS: CARVEDILOL 25 MG TABLET PO SCH ×2 (08:48→17:48)
[2016-12-21] MEDS: NYSTATIN 500,000 units/5ml Susp UD PO SCH ×4 (08:48→21:11)
[2016-12-21] MEDS: METHOCARBAMOL 750 MG TABLET PO SCH ×4 (08:48→21:11)
[2016-12-21] MEDS: SENNA + DOCUSATE TAB PO SCH ×2 (08:48→21:12)
[2016-12-21] MEDS: LISINOPRIL 10 MG TABLET PO SCH (08:48)
--- NOTE | 2016-12-21 11:21 | NUR ---
CM ON 12-20-16, LIZETH WITH [facility] CALLED, SAID PT IS DECLINED DUE TO HER LEVEL OF CARE BEING TOO MUCH FOR ASSISTED LIVING. RELAYED THIS TO DAUGHTER YOLANDA. RECEIVED VOICEMAIL FROM YOLANDA, ASKING TO TRY [facility]. SHE GAVE PERMISSION TO DISCLOSE RECORDS IF NEEDED. ON 12-21-16, THIS WORKER SPOKE WITH PT, RECOMMENDATION WAS SNU NOW. LEFT MESSAGE WITH ROSITA AT [facility], FAXED RECORDS. Addendum: 12/21/16 at 1125 by CLARIBEL HERNANDEZ ALSO OPENED PORTAL TO [facility].
--- NOTE | 2016-12-21 11:27 | NUR ---
CM CARE ASSESSMENT COMPLETED. CALL FROM SABA WITH [facility]; SHE SAID THEY ARE FULL, AND SHE ANTICIPATES A 1-2 WEEK WAIT UNTIL THERE IS AN OPENING. CALLED [facility], LEFT MESSAGE WITH [facility] IN[facility], ASKING FOR SKILLED BED.
--- NOTE | 2016-12-21 11:41 | NUR ---
JONATHAN CALLED DAUGHTER YOLANDA; UPDATED HER. SHE ALSO REQUESTED [facility] AND [facility]. OPENED PORTAL TO [facility], AND LEFT MESSAGE WITH CHARMAINE. CALLED CHASTITY AT [facility]; SHE SAID THEY ARE FULL. SHE DID NOT KNOW WHAT THEIR AVAILABILITY WILL BE LIKE.
[2016-12-21] MEDS ORDERED: WARFARIN 2 MG TABLET PO ONE (12:00)
--- NOTE | 2016-12-21 14:37 | NUR ---
CM SPOKE WITH CHARMAINE AT [facility]; SHE SAID PT CAN BE ACCEPTED, AND PLANNED FOR TRANSFER TO THEIR SNU TOMORROW, 12-22-16. SPOKE WITH PT, UPDATED HER. SHE SAID SHE IS PLEASED WITH THIS. REVIEWED IM LETTER; PT SIGNED WITH NO QUESTIONS/CONCERNS. LEFT MESSAGE WITH PT'S DAUGHTER, YOLANDA, UPDATING HER.
--- NOTE | 2016-12-21 14:43 | NUR ---
CM CALL FROM DAUGHTER YOLANDA; SHE EXPRESSED AGREEMENT WITH PLAN TO TRANSFER TO SNU AT [facility] TOMORROW.
--- NOTE | 2016-12-21 14:43 | NUR ---
JONATHAN HAMM SCORE 11 AFTER CALCULATING LOS. Addendum: 12/21/16 at 1443 by CLARIBEL HERNANDEZ Amended: Links added.
--- NOTE | 2016-12-21 18:15 | NUR ---
Summary VS's stable. Pt. is on 4L O2 via nasal canula. She is SOA with activity at times. Encouraged coughing and deep breathing. I/O adequate. Pt. is incontinent of urine at times. Pt. transfers with supervision x1 assist, walker and gait belt. She has ambulated to meals. RAMBO hose in place. Dressing to upper-mid back changed per orders. No drainage, or s/s of infection noted. Pt. has rated back right shoulder pain a 6-7/10 this shift. PRN pain meds administered, polar pack and re-positioning implemented for comfort. Please see eMAR. Pt. is currently sitting up in the recliner. Alarm is on. Will pass on report to cage shift manager.
--- NOTE | 2016-12-21 19:45 | NUR ---
Chart Check 24 hour chart check completed
[2016-12-21] MEDS: TRAVOPROST 0.004% EYE DROPS 2.5ml RIGHT EYE SCH (21:12)
[2016-12-21] MEDS: MIRTAZAPINE 45 MG PO SCH (21:12)
--- NOTE | 2016-12-21 23:47 | PNPDOC ---
IRU Subjective Date DATE: 12/21/16 TIME: 23:45 Subjective Pt is working with PT today. She has continued with pain, but is cooperating with staff. IRU Objective Vital Signs Vital signs Vital Signs Date Time Temp Pulse Resp B/P Pulse Ox O2 Delivery O2 Flow Rate FiO2 12/21/16 22:37 63 16 12/21/16 21:28 103/55 12/21/16 19:22 Nasal Cannula 4.00 12/21/16 19:09 97.9 94 Telemetry Rhythm: Sinus Rhythm Height (Feet): 5 Height (Inches): 6.00 Weight (Kilograms): 82.700 General General Appearance: Alert, Orientated x 2 Respiratory (Brief) Respiratory: FOUND: clear all neely, equal bilaterally Cardiovascular (Brief) Cardiac: FOUND: regular rate, regular rhythm Musculoskeletal (Brief) Comments Spinal incision healing well. Laboratory Laboratory Laboratory Tests Test 12/20/16 04:15 12/21/16 04:21 White Blood Count 7.0T/MM3 Red Blood Count 3.08M/MM3 Hemoglobin 8.4GM/DL Hematocrit 30.4% Mean Corpuscular Volume 98.7UM3 Mean Corpuscular Hemoglobin 27.3UUG Mean Corpuscular Hemoglobin Concent 27.6GM/DL RDW Standard Deviation 55.6FL Platelet Count 307T/MM3 Mean Platelet Volume 8.8UM3 Immature Granulocyte % (Auto) 0.3% Neutrophils (%) (Auto) 59.6% Lymphocytes (%) (Auto) 19.9% Monocytes (%) (Auto) 7.6% Eosinophils (%) (Auto) 11.9% Basophils (%) (Auto) 0.7% Absolute Immature Granulocyte (auto 0.02T/MM3 Absolute Neutrophils (auto) 4.2T/MM3 Absolute Lymphocytes (auto) 1.4T/MM3 Absolute Monocytes (auto) 0.5T/MM3 Absolute Eosinophils (auto) 0.8T/MM3 Absolute Basophils (auto) 0.1T/MM3 Prothromb Time International Ratio 2.24 2.18 Turbidity < 20 Sodium Level 146MEQ/L Potassium Level 4.9MEQ/L Chloride Level 102MEQ/L Carbon Dioxide Level 32MEQ/L Anion Gap 12MEQ/L Blood Urea Nitrogen 31.0MG/DL Creatinine 0.9MG/DL Glomerular Filtration Rate Calc 60 BUN/Creatinine Ratio 34RATIO Glucose Level 98MG/DL Calculated Osmolality 288MOSM/KG Calcium Level 8.8MG/DL Phosphorus Level 5.5MG/DL Magnesium Level 2.5MG/DL Iron Level 11UG/DL Total Iron Binding Capacity 357UG/DL Percent Iron Saturation 3% Icterus Index < 2 [id number]-Type Natriuretic Peptide 1470PG/ML Albumin 3.6G/DL Chemistry Specimen Hemolysis < 15 Assessment & Plan Problems: (1) Vascular dementia Status: Chronic Assessment & Plan: medical managing. (2) Epidural hematoma Status: Acute Assessment & Plan: Stable. (3) Bilateral leg weakness Status: Acute Assessment & Plan: Pt working with PT and OT, cont per care plan. Reeval in team meeting tomorrow. (4) CHF due to valvular disease Status: Chronic Code Status Full Code, unverified Interventions to Obtain Goals PT Treatment Plan: Therapeutic Exercise, Gait Training, Functional Activities , Patient/Family Education, Balance/Proprioception OT Treatment Plan: ADL's (basic care), Ther. Exercise for ADL's, UE Functional Training, Balance Training, Pt./Family Education, IADL's Hospital Course Summary Disclaimer The hospital course summary below is not to be considered part of the above Progress Note. Hospital Course Summary 12/02/16 Continue on postoperative prophylaxis- Heparin SQ TID. May not start full anticoagulation until 12/08/16 for mechanical valves. Continue with oxygen at baseline 3 liters. Currently on Percocet for pain control, and Robaxin for muscle relaxers. Continue with Colace for postoperative bowel motivation Continue to encourage work with PT and OT for ongoing postoperative strengthening and pain control Check CBC and BMP tomorrow morning to follow anemia, electrolyte abnormalities 12/03/[address] Chanel. Agrees with re-imaging of thoracic back to rule out further bleeding or changes. T-spine without IV contrast ordered. Continue on postoperative prophylaxis- Heparin SQ TID. May not start full anticoagulation until 12/08/16 for mechanical valves. Noted hyperkalemia- Oral potassium held. Will recheck tomorrow Currently on Percocet for pain control, and Robaxin for muscle relaxers. Continue with Colace for postoperative bowel motivation Continue to encourage work with PT and OT for ongoing postoperative strengthening and pain control 12/06/16 Continue on postoperative prophylaxis- Heparin SQ TID. May start full anticoagulation on 12/08/16 for mechanical valves. Will re-evaluate incision again Friday 12/08. Will likely be able to remove jonathan at that time if incision looks good. This is the 2 week post-op. Noted hyperkalemia- Oral potassium held. Will recheck tomorrow Currently on Percocet for pain control, and Robaxin for muscle relaxers. Lidoderm patch added to right lateral back Continue with Colace for postoperative bowel motivation Continue to encourage work with PT and OT for ongoing postoperative strengthening and pain control 12/08/16 Continue on postoperative prophylaxis- Heparin SQ TID bridge until INR is therapeutic. Will resume on full anticoagulation Coumadin today. Given her chronic mechanical valve. Have placed consultation to pharmacy for dosing management. Will monitor patient carefully doing every 2 hours neurologic checks to evaluate for any evidence of bleeding. Last time patient was initiated on Coumadin. She had a epidural hematoma that had to be extracted. Will remove jonathan from thoracic incision as it seems to be healing well. Currently on Percocet for pain control, and Robaxin for muscle relaxers. Lidoderm patch added to right lateral back Continue with Colace and senna for postoperative bowel motivation Continue to encourage work with PT and OT for ongoing postoperative strengthening and pain control 12/09/16 Continue on heparin bridge until INR is therapeutic. Coumadin was restarted yesterday. INR is subtherapeutic today. Agree with frequent neuro checks. Discussed neuro symptoms with the patient, and encouraged her to let us know if she develops any numbness, tingling or weakness. Side Seam Machine Operator is Dr. Rivas. Hyperkalemia: Recheck BMP tomorrow morning. Potassium is on hold. Regarding recent urinary retention, postvoid residuals shortly after admission to IRU were 120 and 150. Currently, she is incontinent. Continue to monitor. Continue with pain control. Having regular bowel movements. 12/10/16 Continue on heparin bridge until INR is therapeutic. Coumadin was restarted on . INR increased slightly to 1.39. Continue with frequent neuro checks. Monitor pain level, since this could be an indication of postoperative complication. Both hyperkalemia and hypernatremia have resolved on labs this morning. Continue to hold potassium today, and will restart tomorrow at once a day dosing rather than twice a day. Will recheck BMP on 12/13/16. 12/12: [place]. 1. Epidural hematoma with bilateral leg weakness * Continue therapy and pain control per Dr. Chanel for strengthening and improvement in functional ability. * Continue to monitor neurologic function and pain level for signs of post op complications. * Recheck CBC and BMP in AM to monitor blood counts, electrolytes and renal function in light of recent infection, anemia, electrolyte imbalance and current UTI. 2. CHF * Lasix daily and monitor closely for signs of fluid overload with daily weights. 3. COPD - Oxygen dependent * Continuous oxygen to maintain SAO2 between 90-96%; home baseline is 3L. 4. A-fib and Hypertension * Continue Coreg and Lisinopril and monitor closely. * INR therapeutic at 3.12. Can discontinue heparin bridge 5. Hypothyroid * Continue Synthroid 6. Lupus 7. Dyslipidemia 8. UTI, new diagnosis * Patient complained of dysuria on 12/11 and found to have a UTI with WBC TNTC, + nitirtes and 3+ bacteria. UA culture pending. Ceftin initiated for antimicrobial coverage of urinary pathogens. * Initiate Pyridium TID x 2 day for urinary burning. * * 12/14/16 Reviewed urine cultures, Positive for Klebsiella Oxytoca. Sensitive to Ceftin, Continue through 12/17/16 Will add nystatin oral suspension QID for treatment of thrush Pharmacy is managing Coumadin dosing. Will discontinue Heparin given 4 days over 2.0 INR. Hgb stable at 8.7. Continue fentanyl patch, Percocet, Neurontin for pain control Continue to encourage work with PT/OT. She does feeling that she is gaining strength. 12/17/16 Will obtain a two-view chest x-ray due to increased hypoxia this morning. Check BMP now to monitor electrolytes. Will increase diuretic, Lasix to 20 mg TID. Home dosing was 40mg BID. Increase Neurontin to 300 milligrams 3 times a day for neuropathic pain. Continue to monitor carefully for evidence of lower extremity numbness/weakness. Continue antibiotic following tonight's dose as she has received complete treatment for urinary tract infection. CBC and BMP tomorrow morning to follow blood counts, renal function and electrolytes 12/19/16- *CHF with fluid overload *Chronic lung disease (amiodarone toxicity), Chronic respiratory failure Change Lasix to 40mg PO BID. Metolazone 2.5mg PO x 1 now to diurese. Continue O2- up to 4L/NC. Add duoneb, pulmicort. CXR is reviewed- will try and optimize medical therapy. Suspect infiltrates are due to chronic lung disease, But may need to consider CT if no improvement. *Hyperkalemia- Hold KCL Decrease Lisinopril to daily. *HTN- diurese. Continue Lisinopril. Coreg is optimized. *Hx. Mechanical AVR- Coumadin per pharmacy. Goal INR 2.5-3.5 *Spinal hematoma s/p decompression and spinal stimulator removal- PT per rehab team. *Anemia- acute vs. chronic- Check CBC and Iron panel in AM. Continue supportive care. 12/20/16 Overall breath sounds have improved. Patient feels that her breathing effort has lessened. Tenuous scheduled breathing treatments. Monitor WILLIAMS, daily weight, weight has decreased 2 kilograms since yesterday. Continue with Lasix 40 milligrams twice a day Continue with lisinopril and Coreg for blood pressure control Intended chronic anticoagulation on Coumadin per pharmacy protocol. Goal INR 2.5 -3.5 for mechanical valve Continue to encourage work with PT and OT for ongoing strengthening. Continue with Fentanyl, Neurontin,Percocet and Robaxin for pain control Continues to have persistent hypernatremia, NA 146- Continued to motnior Hgb is stable at 8.4. MEG CHANEL MD December 21, 2016 23:47
[2016-12-22 05:40] LABS: INR 1.7 (0.90-1.23)
[2016-12-22] MEDS: OXYCODONE/APAP 5mg/325mg TABLET PO PRN ×2 (06:02→12:44)
[2016-12-22] MEDS: LEVOTHYROXINE 88 MCG TABLET PO SCH (06:02)
--- NOTE | 2016-12-22 06:24 | NUR ---
Summary Lulú is a pleasant and cooperative patient.She was medicated x two for pain see MAR.She was incontinent of bladder x two with pt managing hygiene and clothing.She ambulates and transfers with fww gb and sba.Gait is steady. She wears o2 at 4l/Nc .She continues to report sores in her mouth that still hurt .Dressing to mid back C/D/I.Refused the need for the ice pack.When in bed the siderails up times 2 ,HOB elevated,
[2016-12-22 08:00] VITALS: O2SAT 93
[2016-12-22 08:08] VITALS: BP 142/67; PULSE 63; RESP 20; TEMP 98.1; O2SAT 94
[2016-12-22] MEDS: BUDESONIDE INH.SOLN. 0.5mg/2ml NEB AEROSOL SCH (08:09)
[2016-12-22] MEDS: ALBUTEROL/IPRATROPIUM INHAL. 2.5mg-0.5mg/3ml Neb. AEROSOL SCH ×2 (08:09→11:00)
[2016-12-22 08:30] VITALS: PULSE 63; RESP 20
[2016-12-22] MEDS: FUROSEMIDE 40 MG TABLET PO SCH (08:59)
[2016-12-22] MEDS: NYSTATIN 500,000 units/5ml Susp UD PO SCH ×2 (08:59→12:43)
[2016-12-22] MEDS: METHOCARBAMOL 750 MG TABLET PO SCH ×2 (08:59→12:43)
[2016-12-22] MEDS: DULOXETINE 60 MG CAPSULE PO SCH (09:00)
[2016-12-22] MEDS: GABAPENTIN 300 MG CAPSULE PO SCH (09:00)
[2016-12-22] MEDS: SENNA + DOCUSATE TAB PO SCH (09:00)
[2016-12-22] MEDS: LISINOPRIL 10 MG TABLET PO SCH (09:00)
[2016-12-22] MEDS: CARVEDILOL 25 MG TABLET PO SCH (09:00)
[2016-12-22] MEDS: ACETAMINOPHEN 325 MG TABLET PO PRN (09:01)
[2016-12-22] MEDS ORDERED: ENOXAPARIN 40 MG/0.4 ML INJECTION SQ ONE (09:45)
[2016-12-22] MEDS ORDERED: WARFARIN 2.5 MG TABLET PO SCH (12:00)
--- NOTE | 2016-12-22 12:39 | PDIRUTEAM ---
Multidisciplinary Team Meeting Nursing Hx Incontinence: Yes Bladder Goal: 7+ Complete [place] Jaramillo Y/N: No Bladder Continent or Incontine: Incontinent Incontinent Product Used: Pull-up, Pads Number of Times Incontinent of: 2 Cleaning Ability-Bladder: 5 Supervision/Setup Bladder Incontinence Managemen: 5 Supervision/Setup Bowel Goal: 7+ Complete [place] Colostomy Y/N: No Bowel Incontinent/Continent: Continent Bowel Number of Accidents: 0 Number of times Incontinent of: 0 Cleaning Ability-Bowel: 5 Supervision/Setup Bowel Incontinence Management: 4 Minimal Assistance Toileting Ability: 5 Supervision/Setup Vital Signs Vital Signs Date Time Temp Pulse Resp B/P Pulse Ox O2 Delivery O2 Flow Rate FiO2 12/22/16 08:30 63 20 12/22/16 08:08 98.1 142/67 94 Nasal Cannula 4.00 Current Medications Current Medications Medications (Trade) Dose Ordered Sig/Stephanie Route PRN Reason Start Time Stop Time Status Last Admin Dose Admin Docusate Sodium (Colace) 100 mg BID PO 11/30/16 21:00 12/06/16 19:58 DC 12/06/16 08:39 Acetaminophen (Tylenol Regular Strength) 650 mg Q4HR PRN PO PAIN/FEVER 11/30/16 13:15 12/22/16 09:01 Bisacodyl (Dulcolax) 5 mg DAILY PRN PO PRN ORDERS 11/30/16 13:15 12/15/16 08:58 Carvedilol (Coreg) 25 mg BIDWM PO 11/30/16 17:30 12/22/16 09:00 Duloxetine HCl (Cymbalta) 60 mg DAILY PO 12/01/16 09:00 12/22/16 09:00 Furosemide (Lasix) 20 mg DAILY PO 12/01/16 09:00 12/17/16 11:49 DC 12/17/16 08:44 Levothyroxine Sodium (Synthroid) 88 mcg ACB PO 12/01/16 06:30 12/22/16 06:02 Lisinopril (Prinivil) 20 mg BID PO 11/30/16 21:00 12/02/16 08:01 DC 12/01/16 09:02 Lorazepam (Ativan) 0.5 mg BID PRN PO ANXIETY 11/30/16 13:15 12/04/16 22:06 Methocarbamol (Robaxin) 750 mg QID PO 11/30/16 17:00 12/22/16 08:59 Mirtazapine (Remeron Solu-Tab) 45 mg HS PO 11/30/16 22:00 12/21/16 21:12 Oxycodone/ Acetaminophen (Percocet 7.5/ 325) 1-2 Q4H PRN PO PAIN 11/30/16 13:15 12/03/16 12:53 DC 12/03/16 12:31 Potassium Chloride (Kdur) 20 meq BIDWM PO 11/30/16 17:30 Future Hold 12/02/16 18:18 Heparin Sodium (Porcine) (Heparin Sub-Q) 5,000 unit Q8H SQ 11/30/16 13:15 12/02/16 06:43 DC 12/01/16 13:28 Travoprost (Travatan) 1 drop HS RIGHT EYE 12/01/16 22:00 12/21/16 21:12 Heparin Sodium (Porcine) (Heparin Sub-Q) 5,000 unit Q8H SQ 12/02/16 09:00 12/02/16 17:47 DC 12/02/16 11:27 Lisinopril (Prinivil) 10 mg BID PO 12/02/16 09:00 12/19/16 14:44 DC 12/19/16 10:26 Heparin Sodium (Porcine) (Heparin Sub-Q) 5,000 unit Q8H SQ 12/02/16 17:00 12/14/16 15:51 DC 12/14/16 09:19 Oxycodone/ Acetaminophen (Percocet 7.5/ 325) 1 tab Q4H PRN PO 12/03/16 13:00 12/08/16 16:47 DC 12/08/16 14:11 Oxycodone/ Acetaminophen (Percocet 7.5/ 325) 1 tab Q4H PO 12/03/16 16:00 12/08/16 16:47 DC 12/08/16 16:10 Gabapentin (Neurontin) 100 mg TID PO 12/04/16 15:00 12/06/16 12:53 DC 12/06/16 08:41 Lidocaine (Lidoderm) 1 patch DAILY TOP 12/05/16 21:00 12/08/16 16:48 DC 12/08/16 08:51 Benzocaine (Anbesol) 1 applic QID PRN MM MOUTH PAIN 12/05/16 20:30 12/10/16 11:11 Lidocaine (Lidoderm Patch Removal) 1 removal 2100 TOP 12/06/16 21:00 12/08/16 16:52 DC 12/07/16 21:00 Gabapentin (Neurontin) 200 mg TID PO 12/06/16 15:00 12/17/16 11:59 DC 12/17/16 08:44 Senna/Docusate Sodium (Senna Plus) 2 tab BID PO 12/06/16 21:00 12/21/16 21:12 Fentanyl (Duragesic 12 Mcg) 1 patch Q3D TD 12/08/16 16:45 12/20/16 17:18 Oxycodone/ Acetaminophen (Percocet 5/325) 1 tab Q6H PRN PO 12/08/16 16:45 12/22/16 06:02 Fentanyl (Duragesic Patch Removal) 1 removal Q3D TD 12/11/16 16:45 12/20/16 16:45 Warfarin Sodium (COUMADIN 6 mg) 6 mg NOON PO 12/09/16 12:00 12/09/16 12:15 DC 12/09/16 12:31 Warfarin Sodium (COUMADIN 5 mg) 5 mg NOON PO 12/10/16 12:00 12/10/16 13:00 DC 12/10/16 12:33 Cefuroxime Axetil (Ceftin) 500 mg BID PO 12/12/16 09:00 12/15/16 09:10 DC 12/15/16 08:55 Phenazopyridine HCl (Pyridium Eq.) 95 mg PC PO 12/12/16 18:30 12/14/16 18:30 DC 12/14/16 18:34 Warfarin Sodium (COUMADIN 1 mg) 1 mg NOON PO 12/13/16 12:00 12/13/16 12:15 DC 12/13/16 12:18 Warfarin Sodium (COUMADIN 2 mg) 2 mg NOON PO 12/14/16 12:00 12/14/16 12:15 DC 12/14/16 12:31 Nystatin (Nystatin Susp.) 5 ml QID PO 12/14/16 17:00 12/22/16 08:59 Cefuroxime Axetil (Ceftin) 500 mg BID PO 12/15/16 21:00 12/18/16 09:00 DC 12/18/16 09:04 Warfarin Sodium (COUMADIN 2.5 mg) 2.5 mg NOON PO 12/15/16 12:00 12/15/16 12:15 DC 12/15/16 12:28 Warfarin Sodium (COUMADIN 2 mg) 2 mg NOON PO 12/17/16 12:00 12/17/16 12:30 DC 12/17/16 12:30 Furosemide (Lasix) 20 mg TID PO 12/17/16 15:00 12/19/16 14:44 DC 12/19/16 10:25 Gabapentin (Neurontin) 300 mg TID PO 12/17/16 15:00 12/22/16 09:00 Warfarin Sodium (COUMADIN 1 mg) 1 mg NOON PO 12/18/16 12:00 12/18/16 12:30 DC 12/18/16 12:40 Warfarin Sodium (COUMADIN 2 mg) 2 mg NOON PO 12/19/16 12:00 12/19/16 12:30 DC 12/19/16 12:41 Furosemide (Lasix) 40 mg BID. PO 12/19/16 17:00 12/22/16 08:59 Lisinopril (Prinivil) 10 mg DAILY PO 12/20/16 09:00 12/22/16 09:00 Albuterol/ Ipratropium (Duoneb) 3 ml RTQID AEROSOL 12/19/16 15:00 12/22/16 08:09 Budesonide (PULMICORT 0.5mg/ 2ml) 0.5 mg BID AEROSOL 12/19/16 21:00 12/24/16 20:59 12/22/16 08:09 Comments Still requiring 4L o2 nc. Self corrected today when she stumbled. Sub therapeutic inr today. Physical Therapy Bed Transfer Ability: 6 Modified [place] Bed Transfer Assistance Needed: 1 Person Bed FIM Score Reason: pivot Chair Transfer Ability: 6 Modified [place] Chair Transfer Assistance Need: 1 Person Overall Wheelchair Transfer Ab: 0 Activity Does Not Occur Wheelchair Transfer Assistance: 1 Person Wheelchair Transfer FIM Score: pivot Overall Toilet / Commode Trans: 6 Modified [place] Ambulation Ability: 5 Supervision/Setup Ambulation Assistance Needed: 1 Person Walk FIM Score Reason: O2 management Ambulation Distance: 172 Comments improved distance and stability , but still requires standby assist. Occupational Therapy Grooming Ability: 5 Supervision/Setup Bathing Ability: 5 Supervision/Setup Upper Body Dressing Ability: 5 Supervision/Setup Lower Body Dressing Ability: 5 Supervision/Setup Lower Body Dressing Assistance: 1 Person Dressing-Lower FIM Score Reaso: AE training and adjusting of socks Toileting Assistance Needed: 1 Person Comments Current med regimen seems to control pain better. Care Plan Condition at time of discharge: Fair IRU Discharge Disposition: Home Health Service Interventions/Goals D/C to [facility] today. Requires front wheeled walker, will get it at skilled. MEG SETH MD December 22, 2016 12:34
[2016-12-22] MEDS ORDERED: LISI10TA7 PO (13:44)
[2016-12-22] MEDS ORDERED: LORA0.5T86 PO (13:44)
[2016-12-22] MEDS ORDERED: OXYC-532 PO (13:44)
[2016-12-22] MEDS ORDERED: FURO40TA5 PO (13:44)
[2016-12-22] MEDS ORDERED: FENT1PAT65 TD (13:44)
[2016-12-22] MEDS ORDERED: IPRA3AMP AEROSOL (13:44)
[2016-12-22] MEDS ORDERED: SENN-152 PO (13:44)
[2016-12-22] MEDS ORDERED: METH750T3 PO (13:44)
--- NOTE | 2016-12-22 13:56 | PDOCECFAO ---
Admission Orders Admission Orders Admit to: Group Home Allergies: Coded Allergies: Thiazides (Verified Allergy, Unknown, RASH, 11/24/16) amiodarone (Verified Allergy, Unknown, DYSPNEA, LUNG DAMAGE, 11/24/16) hydroxychloroquine (Verified Allergy, Unknown, 11/24/16) nifedipine (Verified Allergy, Unknown, DROPPED BLOOD PRESSURE TOO FAST, 07/31) tramadol (Verified Allergy, Unknown, 11/24/16) codeine (Verified Adverse Reaction, Unknown, NAUSEA, 11/24/16) Admitting Diagnosis Neurological Condition Admitting Physician Renard Seth MD Code Status Full Code, unverified Anticipated LOS: 30 days or less Rehab Potential: Good Rehab Prognosis: Good Wound/Incision Care: follow up with surgeon and call if draininge or swelling develops. Evaluations/Treat: PT, OT Group Home Certification I certify that SNF services are required to be given on an Inpatient basis because of the patients need for penitentiary care on a continuing basis for the condition(s) for which he/she received inpatient hospital services prior to his/her transfer to the SNF. SNF inpatient care is necessary for the following reasons Med Admininistration RENARD SETH MD December 22, 2016 13:56
--- NOTE | 2016-12-22 14:30 | NUR ---
Discharge Summary VS's stable. Pt. is on 4L O2 via nasal canula. She is SOA with activity at times. Encouraged coughing and deep breathing. I/O adequate. Pt. is incontinent of urine at times. Pt. transfers with supervision x1 assist, walker and gait belt. She has ambulated to meals. RAMBO hose in place. Dressing to upper-mid back changed per orders. No drainage, or s/s of infection noted. Pt. has rated back right shoulder pain a 6-7/10 this shift. PRN pain meds administered, and re-positioning implemented for comfort. Please see eMAR. Instructions reviewed with pt. and pt. is discharged to [facility] at this time. Pt. wheeled out via wheelchair by this RN and [facility] bicycle taxi driver to the ER entrance. Report called to Kathleen at [facility].
--- NOTE | 2016-12-22 17:16 | NUR ---
CM PRIOR TO DC: THIS WORKER UPDATED PT AND DAUGHTER YOLANDA ABOUT JOB PRESS FEEDER TIME. BOTH AGREEABLE AND HAD NO QUESTIONS/CONCERNS FOR THIS WORKER. TIME OUT WAS COMPLETED WITH RN. ORDERS FAXED TO CHARMAINE AT [facility]. THIS WORKER CALLED CHARMAINE, WHO SAID SHE RECEIVED THEM AND HAD NO FURTHER NEEDS.
[2016-12-23] MEDS ORDERED: FERROUS SULFATE 324 MG TABLET PO SCH (08:00)
--- NOTE | 2016-12-24 10:50 | DSPDOC ---
General Date Date DATE: 12/24/16 TIME: 10:44 Attending Physician Renard Seth MD Admitting Physician Renard Seth [facility] Diagnosis post op spinal hematoma repair Discharge Diagnosis (1) COPD (chronic obstructive pulmonary disease) (2) Oxygen dependent (3) Amiodarone pulmonary toxicity (4) CHF due to valvular disease Permanent Comment: possibly rheumatic heart disease Last Edited By: Viv Hilton on Oct 19, 2016 08:07 (5) Atrial fibrillation (6) Arthritis (7) HTN (hypertension) (8) Lupus (9) Dyslipidemia (10) Vascular dementia (11) Hypothyroidism (12) Epidural hematoma (13) Constipation due to opioid therapy (14) Overweight (BMI 25.0-29.9) History of Present Illness 81 yo female s/p spinal decompression for epidural hematoma following placement of spinal cord stimulator.She has hadlos of strength and sensation to both right and left legs. She had the clot decompressed adn has had some improvement , albeit slowly. Due to pain and weakness,she is unable to manage her adl's and cannot live by herself at this time. Hospital Course 12/02/16 Continue on postoperative prophylaxis- Heparin SQ TID. May not start full anticoagulation until 12/08/16 for mechanical valves. Continue with oxygen at baseline 3 liters. Currently on Percocet for pain control, and Robaxin for muscle relaxers. Continue with Colace for postoperative bowel motivation Continue to encourage work with PT and OT for ongoing postoperative strengthening and pain control Check CBC and BMP tomorrow morning to follow anemia, electrolyte abnormalities 12/03/[address] Seth. Agrees with re-imaging of thoracic back to rule out further bleeding or changes. T-spine without IV contrast ordered. Continue on postoperative prophylaxis- Heparin SQ TID. May not start full anticoagulation until 12/08/16 for mechanical valves. Noted hyperkalemia- Oral potassium held. Will recheck tomorrow Currently on Percocet for pain control, and Robaxin for muscle relaxers. Continue with Colace for postoperative bowel motivation Continue to encourage work with PT and OT for ongoing postoperative strengthening and pain control 12/06/16 Continue on postoperative prophylaxis- Heparin SQ TID. May start full anticoagulation on 12/08/16 for mechanical valves. Will re-evaluate incision again Friday 12/08. Will likely be able to remove jonathan at that time if incision looks good. This is the 2 week post-op. Noted hyperkalemia- Oral potassium held. Will recheck tomorrow Currently on Percocet for pain control, and Robaxin for muscle relaxers. Lidoderm patch added to right lateral back Continue with Colace for postoperative bowel motivation Continue to encourage work with PT and OT for ongoing postoperative strengthening and pain control 12/08/16 Continue on postoperative prophylaxis- Heparin SQ TID bridge until INR is therapeutic. Will resume on full anticoagulation Coumadin today. Given her chronic mechanical valve. Have placed consultation to pharmacy for dosing management. Will monitor patient carefully doing every 2 hours neurologic checks to evaluate for any evidence of bleeding. Last time patient was initiated on Coumadin. She had a epidural hematoma that had to be extracted. Will remove jonathan from thoracic incision as it seems to be healing well. Currently on Percocet for pain control, and Robaxin for muscle relaxers. Lidoderm patch added to right lateral back Continue with Colace and senna for postoperative bowel motivation Continue to encourage work with PT and OT for ongoing postoperative strengthening and pain control 12/09/16 Continue on heparin bridge until INR is therapeutic. Coumadin was restarted yesterday. INR is subtherapeutic today. Agree with frequent neuro checks. Discussed neuro symptoms with the patient, and encouraged her to let us know if she develops any numbness, tingling or weakness. Wellness Assistant is Dr. Rivas. Hyperkalemia: Recheck BMP tomorrow morning. Potassium is on hold. Regarding recent urinary retention, postvoid residuals shortly after admission to IRU were 120 and 150. Currently, she is incontinent. Continue to monitor. Continue with pain control. Having regular bowel movements. 12/10/16 Continue on heparin bridge until INR is therapeutic. Coumadin was restarted on . INR increased slightly to 1.39. Continue with frequent neuro checks. Monitor pain level, since this could be an indication of postoperative complication. Both hyperkalemia and hypernatremia have resolved on labs this morning. Continue to hold potassium today, and will restart tomorrow at once a day dosing rather than twice a day. Will recheck BMP on 12/13/16. 12/12: Mirakian. 1. Epidural hematoma with bilateral leg weakness * Continue therapy and pain control per Dr. Seth for strengthening and improvement in functional ability. * Continue to monitor neurologic function and pain level for signs of post op complications. * Recheck CBC and BMP in AM to monitor blood counts, electrolytes and renal function in light of recent infection, anemia, electrolyte imbalance and current UTI. 2. CHF * Lasix daily and monitor closely for signs of fluid overload with daily weights. 3. COPD - Oxygen dependent * Continuous oxygen to maintain SAO2 between 90-96%; home baseline is 3L. 4. A-fib and Hypertension * Continue Coreg and Lisinopril and monitor closely. * INR therapeutic at 3.12. Can discontinue heparin bridge 5. Hypothyroid * Continue Synthroid 6. Lupus 7. Dyslipidemia 8. UTI, new diagnosis * Patient complained of dysuria on 12/11 and found to have a UTI with WBC TNTC, + nitirtes and 3+ bacteria. UA culture pending. Ceftin initiated for antimicrobial coverage of urinary pathogens. * Initiate Pyridium TID x 2 day for urinary burning. * * 12/14/16 Reviewed urine cultures, Positive for Klebsiella Oxytoca. Sensitive to Ceftin, Continue through 12/17/16 Will add nystatin oral suspension QID for treatment of thrush Pharmacy is managing Coumadin dosing. Will discontinue Heparin given 4 days over 2.0 INR. Hgb stable at 8.7. Continue fentanyl patch, Percocet, Neurontin for pain control Continue to encourage work with PT/OT. She does feeling that she is gaining strength. 12/17/16 Will obtain a two-view chest x-ray due to increased hypoxia this morning. Check BMP now to monitor electrolytes. Will increase diuretic, Lasix to 20 mg TID. Home dosing was 40mg BID. Increase Neurontin to 300 milligrams 3 times a day for neuropathic pain. Continue to monitor carefully for evidence of lower extremity numbness/weakness. Continue antibiotic following tonight's dose as she has received complete treatment for urinary tract infection. CBC and BMP tomorrow morning to follow blood counts, renal function and electrolytes 12/19/16- *CHF with fluid overload *Chronic lung disease (amiodarone toxicity), Chronic respiratory failure Change Lasix to 40mg PO BID. Metolazone 2.5mg PO x 1 now to diurese. Continue O2- up to 4L/NC. Add duoneb, pulmicort. CXR is reviewed- will try and optimize medical therapy. Suspect infiltrates are due to chronic lung disease, But may need to consider CT if no improvement. *Hyperkalemia- Hold KCL Decrease Lisinopril to daily. *HTN- diurese. Continue Lisinopril. Coreg is optimized. *Hx. Mechanical AVR- Coumadin per pharmacy. Goal INR 2.5-3.5 *Spinal hematoma s/p decompression and spinal stimulator removal- PT per rehab team. *Anemia- acute vs. chronic- Check CBC and Iron panel in AM. Continue supportive care. 12/20/16 Overall breath sounds have improved. Patient feels that her breathing effort has lessened. Tenuous scheduled breathing treatments. Monitor WILLIAMS, daily weight, weight has decreased 2 kilograms since yesterday. Continue with Lasix 40 milligrams twice a day Continue with lisinopril and Coreg for blood pressure control Intended chronic anticoagulation on Coumadin per pharmacy protocol. Goal INR 2.5 -3.5 for mechanical valve Continue to encourage work with PT and OT for ongoing strengthening. Continue with Fentanyl, Neurontin,Percocet and Robaxin for pain control Continues to have persistent hypernatremia, NA 146- Continued to motnior Hgb is stable at 8.4. 12/22/16 Pt was admitted post evacuation of epidural hematoma of spine and 5 level thoracic and lumbar fusion. She has hx of chronic pain, which caused difficulty in managing her acute on chronic pain. Ultimately we achieved reasonable pain control and activity with Percocet 7.5mg 1-2 tabs q 4 hours and Fentanyl patch 25mcg. Pt agreed to begin taper on d/c and will work with PCP. Blood thinner restarted without incident or recourrance of hematoma. D/c to [facility] with walker and chair. Problems: (1) Epidural hematoma Status: Acute Assessment & Plan: Following placement of spinal cord stimulator on 11/22/16. Underwent emergent T4-T8 thoracic decompressive laminectomy for evacuation of the epidural hematoma and removal of the spinal cord stimulator on 11/24/[address] Butler (2) Bilateral leg weakness Status: Acute (3) CHF due to valvular disease Status: Chronic (4) COPD (chronic obstructive pulmonary disease) Status: Chronic (5) Oxygen dependent Status: Chronic (6) Amiodarone pulmonary toxicity Status: Chronic (7) Atrial fibrillation Status: Chronic (8) Hypothyroidism Status: Chronic (9) HTN (hypertension) Status: Chronic (10) Lupus Status: Chronic (11) Dyslipidemia Status: Chronic (12) Overweight (BMI 25.0-29.9) Status: Chronic Code Status Full Code, unverified Home Meds Active Scripts Sennosides/Docusate Sodium (Senna Plus Tablet) 1 Tab Tablet, 2 TAB PO BID for 30 Days, #120 TAB Prov:SABA STEVEN APRN 12/22/16 Furosemide (Furosemide) 40 Mg Tablet, 40 MG PO BID. for 30 Days, #60 TAB Prov:SABA STEVEN APRN 12/22/16 Fentanyl (Fentanyl 25 mcg/hr) 1 Each Patch.td72, 1 REMOVAL TD Q3D for 30 Days Prov:SABA STEVEN APRN 12/22/16 Lorazepam (Ativan) 0.5 Mg Tablet, 0.5 MG PO BID Y for ANXIETY for 30 Days, #60 TAB Prov:SABA STEVEN APRN 12/22/16 Lisinopril (Lisinopril) 10 Mg Tablet, 10 MG PO DAILY for 30 Days, #30 TAB Prov:SABA STEVEN APRN 12/22/16 Ipratropium/Albuterol Sulfate (Iprat-Albut 0.5-3(2.5) mg/3 ml) 3 Ml Ampul.neb, 3 ML AEROSOL RTQID for 30 Days Prov:SABA STEVEN APRN 12/22/16 Methocarbamol (Methocarbamol) 750 Mg Tablet, 750 MG PO QID for 30 Days, #120 TAB Prov:SABA STEVEN APRN 12/22/16 Oxycodone HCl/Acetaminophen (Oxycodon-Acetaminophen 7.5-325) 7.5-325 Tablet, 1- 2 TAB PO Q4H Y for PAIN/AIR HUNGER, #60 TAB Take 1-2 tablets, by mouth, every 4 hours for Pain Prov:SABA STEVEN APRN 12/22/16 Reported Medications Mirtazapine (Mirtazapine) 45 Mg Tab.rapdis, 45 MG PO HS, TAB Take 1 tablet, by mouth, one time a day (at bedtime). 11/30/16 Carvedilol (Carvedilol) 25 Mg Tablet, 1 TAB PO BIDWM, TAB BEST WITH FOOD. 11/30/16 Bisacodyl (Dulcolax) 5 Mg Tablet.dr, 1 TAB PO DAILY Y for PRN ORDERS, TAB DO NOT CHEW, BITE, OR CRUSH TABLET 11/30/16 Acetaminophen (Tylenol) 325 Mg Tablet, 2 TAB PO Q4HR Y for PAIN/FEVER, TAB 11/30/16 Potassium Chloride (Potassium Chloride) 20 Meq Tablet.er, 20 MEQ PO BIDWM, TAB Take 1 tablet, by mouth, two times a day with meals. 11/24/16 Levothyroxine Sodium (Levothyroxine Sodium) 88 Mcg Tablet, 88 MCG PO ACB, TAB Once daily before breakfast. 10/18/16 Duloxetine Hcl (Cymbalta) 60 Mg Capsule.dr, 1 TAB PO DAILY 06/01/13 Discontinued Reported Medications Lisinopril (Lisinopril) 20 Mg Tablet, 20 MG PO BID, TAB 11/30/16 Heparin Sodium,Porcine (Heparin 5000 UNIT/1 ML) 5,000 Unit/1 Ml Vial, 1 ML SQ Q8H 11/30/16 Furosemide (Furosemide) 20 Mg Tablet, 1 TAB PO DAILY, TAB 11/30/16 Methocarbamol (Robaxin) 500 Mg Tablet, 1.5 TAB PO 4XDPRN 11/30/16 Lorazepam (Lorazepam) 0.5 Mg Tablet, 1 TAB PO BID Y for ANXIETY 06/01/13 Face to Face Encounter I met with patient on the day of dismissal and discussed follow up appointments , medications, and safety plan. Discharge Disposition [facility]. RENARD SETH MD December 24, 2016 10:45
== END 2016-12-22 14:30 | DRG 945 ==
PROVIDERS: ADMIT Family Medicine; ATTEND Family Medicine
PROC: F07Z9FZ Gait Training/Functional Ambulation Treatment using Assistive, Adaptive, Supportive or Protective Equipment (ICD-10-PCS; principal; 2016-11-30)
PROC: F07M6ZZ Therapeutic Exercise Treatment of Musculoskeletal System - Whole Body (ICD-10-PCS; 2016-11-30)
PROC: F08Z4ZZ Home Management Treatment (ICD-10-PCS; 2016-11-30)
DX: R53.1 Weakness (principal); G95.19 Other vascular myelopathies; F01.50 Vascular dementia, unspecified severity, without behavioral disturbance, psychotic disturbance, mood disturbance, and anxiety; I11.0 Hypertensive heart disease with heart failure; I50.9 Heart failure, unspecified; J44.9 Chronic obstructive pulmonary disease, unspecified; I48.91 Unspecified atrial fibrillation; Z79.52 Long term (current) use of systemic steroids; Z99.81 Dependence on supplemental oxygen; Z95.0 Presence of cardiac pacemaker; M32.9 Systemic lupus erythematosus, unspecified; E78.5 Hyperlipidemia, unspecified; E03.9 Hypothyroidism, unspecified; K59.03 Drug induced constipation; T40.2X5D Adverse effect of other opioids, subsequent encounter; E66.3 Overweight; Z68.29 Body mass index [BMI] 29.0-29.9, adult
CPT/HCPCS: 36415; 36416; 80048; 80069; 81001; 83540; 83550; 83735; 83880; 85025; 85610; 87077; 87086; 87186; 94640

== ENCOUNTER 2017-09-20 16:51 | Inpatient (IN) ==
--- OUTSIDE RECORDS SUMMARY | 2017-09-20 18:03 | External Medical Summary ---
:1935 Author Organization eClinicalWorks Care Team Providers Name Role Phone Alba Osmany Provider Role Unavailable Allergies, Adverse Reactions, Alerts Substance Reaction [...] 244.9 Active Problem Personal history of malignant V10.83 Active neoplasm of skin Problem Hypertension, essential 401.9 Active Problem Dyslipidemia 272.4 Active Problem Lumbar spondylosis 721.3 Active Problem Intertrigo 695.89 Active Problem Basal cell carcinoma of skin of 173.31 Active nose Problem Actinic keratosis 702.0 Active Problem Degenerative disc disease, 722.52 Active lumbar Problem Spondylolisthesis 756.12 Active Assessment Spondylolisthesis 756.12 Active Assessment Degenerative disc disease, 722.52 Active lumbar 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 Problem Long-term use of anticoagulants V58.61 Active Problem Osteoporosis 733.00 Active Assessment Lumbar spondylosis 721.3 Active Problem Osteoarthritis of right hip 715.95 Active Problem Heart valve replacement status V43.3 Active Problem Hip joint replacement status V43.64 Active Medications Medication Code Code Instructions Start End Status Dosage System Date Date Lisinopril [facility] [address]-93 20 MG Orally 1 tablet twice a day Albuterol [facility] [address]-61 (2.5 MG/3ML) 3 ml Sulfate 0.083% Inhalation as needed Coumadin [facility] [address]-99 2 MG Orally 1 tablet Once a day Cymbalta [facility] 67142513173 60 MG Orally 1 capsule Once a day Coreg [facility] [address]-79 12.5 MG Orally 1 tablet Twice a day Lorazepam [facility] [address]-31 0.5 MG Orally not Twice a day defined Oxygen [facility] 0 3 LPM 07/03 Fosamax [facility] [address]-01 70 MG Orally 1 tablet Once a week Potassium [facility] [address]-37 10 MEQ Orally 1 tablet Chloride ER Twice a day Levothyroxine [facility] 48913381495 88 MCG Orally 1 tablet Sodium Once a day Brovana [facility] [address]-73 15 MCG/2ML 2 ml Inhalation Twice a day Lasix [facility] [address]-26 40 MG Orally 1 tablet Twice a day Amlodipine [facility] [address]-90 5 MG Orally 1 tablet Besylate Once a day Mirtazapine [facility] [address]-21 45 MG Orally 1 tablet Once a day Procedures Procedure Coding System Code Date Est PT OVOP Service CPT-4 83049 January 31, 2015 Vital Signs Date/Time: January 31, 2015 Weight 188 lbs Height 65 in Cardiac Monitoring Heart Rate 82 /min BMI 31.28 Index Results No Known Results Summary Purpose eClinicalWorks Submission
--- OUTSIDE RECORDS SUMMARY | 2017-09-20 18:03 | External Medical Summary ---
:1935 Author Organization eClinicalWorks Care Team Providers Name Role Phone Remigio Gautam Provider Role Unavailable Allergies No Known Allergies Problems Problem [...] 722.52 Active lumbar Problem Spondylolisthesis 756.12 Active Problem Long-term use of anticoagulants V58.61 Active Problem Osteoporosis 733.00 Active Assessment Chronic anticoagulation V58.61 Active Problem Osteoarthritis of right hip 715.95 Active Problem Heart valve replacement status V43.3 Active Problem Hip joint replacement status V43.64 Active Medications Medication Code Code Instructions Start End Status Dosage System Date Date Amlodipine [facility] [address]-74 5 MG Orally 1 tablet Besylate Once a day Lorazepam [facility] [address]-81 0.5 MG Orally not Twice a day defined Mirtazapine [facility] [address]-94 45 MG Orally 1 tablet Once a day Brovana [facility] [address]-95 15 MCG/2ML 2 ml Inhalation Twice a day Lasix [facility] [address]-29 40 MG Orally 1 tablet Twice a day Albuterol [facility] [address]-50 (2.5 MG/3ML) 3 ml Sulfate 0.083% Inhalation as needed Oxygen [place] 0 3 LPM 07/03 Fosamax [facility] [address]-61 70 MG Orally 1 tablet Once a week Coumadin [facility] [address]-31 2 MG Orally 1 tablet Once a day Potassium [facility] [address]-99 10 MEQ Orally 1 tablet Chloride ER Twice a day Cymbalta [facility] 15482235840 60 MG Orally 1 capsule Once a day Coreg [facility] [address]-51 12.5 MG Orally 1 tablet Twice a day Lisinopril [facility] [address]-61 20 MG Orally 1 tablet twice a day Levothyroxine [facility] 72214755556 88 MCG Orally 1 tablet Sodium Once a day Procedures Procedure Coding System Code Date Prothrombin Time CPT-4 46632 February 03, 2015 Venipuncture CPT-4 43189 February 03, 2015 Results No Known Results Summary Purpose eClinicalWorks Submission
--- OUTSIDE RECORDS SUMMARY | 2017-09-20 18:03 | External Medical Summary ---
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 Problem Intertrigo 695.89 Active Assessment Dependence on supplemental V46.2 Active oxygen Problem Basal cell carcinoma of skin of 173.31 Active nose Problem Actinic keratosis 702.0 Active Problem Degenerative disc disease, 722.52 Active lumbar Problem Spondylolisthesis 756.12 Active Assessment Congestive heart failure 428.0 Active Assessment Hypertension 401.9 Active Assessment History of aortic valve V43.3 Active replacement Assessment Sinoatrial node dysfunction 427.81 Active Problem Long-term use of anticoagulants V58.61 Active Problem Osteoporosis 733.00 Active Assessment Pedal edema 782.3 Active Problem Heart valve replacement status V43.3 Active Medications Medication Code Code Instructions Start End Status Dosage System Date Date Coreg [facility] [address]-92 25 MG Orally 1 tablet Twice a day Fosamax [facility] [address]-28 70 MG Orally 1 tablet Once a week Levothyroxine [facility] 60635007673 88 MCG Orally 1 tablet Sodium Once a day Lorazepam [facility] [address]-97 0.5 MG Orally not Twice a day defined Lisinopril [facility] [address]-98 20 MG Orally 1 tablet twice a day Oxygen NDC 0 3 LPM 24/7 Coumadin [facility] [address]-10 2 MG Orally 1 tablet Once a day Mirtazapine [facility] [address]-17 45 MG Orally 1 tablet Once a day Cymbalta [facility] 93835192711 60 MG Orally 1 capsule Once a day Potassium [facility] [address]-27 10 MEQ Orally 1 tablet Chloride ER Twice a day Multivitamin [facility] [address] not defined Amlodipine [facility] [address]-70 5 MG Orally 1 tablet Besylate Once a day Lasix [facility] [address]-19 40 MG Orally 1 tablet Twice a day Procedures Procedure Coding System Code Date Est PT OVOP Service CPT-4 54523 February 13, 2015 Vital Signs Date/Time: February 13, 2015 Blood Pressure Diastolic 62 mm Hg Blood Pressure Systolic 125 mm Hg Cardiac Monitoring Heart Rate 81 /min Oximetry 89 % BMI 32.45 Index Weight 195 lbs Height 65 in Results No Known Results Summary Purpose eClinicalWorks Submission
--- OUTSIDE RECORDS SUMMARY | 2017-09-20 18:03 | External Medical Summary ---
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 Problem Epistaxis 784.7 Active Assessment Pedal edema 782.3 Active Problem Spondylolisthesis 756.12 Active Problem Basal cell carcinoma of skin of 173.31 Active nose Problem Lumbar spondylosis 721.3 Active Problem Degenerative disc disease, lumbar 722.52 Active Assessment Hypertension 401.9 Active Assessment Toe pain, right M79.674 Active Assessment Sinoatrial node dysfunction 427.81 Active Assessment Congestive heart failure 428.0 Active Problem Osteoporosis 733.00 Active Problem Osteoarthritis of right hip 715.95 Active Problem Heart valve replacement status V43.3 Active Problem Long-term use of anticoagulants V58.61 Active Medications Medication Code Code Instructions Start End Status Dosage System Date Date Lasix [facility] [address]-41 40 MG Orally 1 tablet twice a day Lisinopril [facility] [address]-43 20 MG Orally 1 tablet twice a day Lorazepam [facility] [address]-52 0.5 MG Orally not defined Twice a day Indomethacin [facility] [address]-33 25 MG Orally Jun 17Jun 1 capsule Three times a 2015 05, with 2014 Potassium [facility] [address]-13 10 MEQ Orally 2 tablets Chloride ER once a day Multivitamin [facility] [address] not defined Coreg [facility] [address]-74 25 MG Orally 1 tablet Twice a day Mirtazapine [facility] [address]-15 45 MG Orally 1 tablet Once a day before bedtime in the evening Coumadin [facility] [address]-92 2 MG Orally and 5 MG alternating Fosamax [facility] [address]-61 70 MG Orally 1 tablet Once a week Oxygen [facility] 0 3 LPM 24/7 Levothyroxine [facility] 58481455638 88 MCG Orally 1 tablet Sodium Once a day Cymbalta [facility] [address]-64 60 MG Orally 1 capsule Once a day Hydrocodone-Acet [facility] [address]-60 5-325 MG 1 tablet aminophen Orally Three times a day as needed Procedures Procedure Coding System Code Date Est PT OVOP Service CPT-4 99244 Jun 17, 2015 Xray Foot Complete CPT-4 69016 Jun 17, 2015 Vital Signs Date/Time: Jun 17, 2015 Blood Pressure Diastolic 79 mm Hg Blood Pressure Systolic 150 mm Hg Cardiac Monitoring Heart Rate 72 /min BMI 31.88 Index Weight 191.6 lbs Height 65 in Results Name Result Date Reference Range Unit Abnormality Flag X-Ray FOOT RIGHT 3 VIEW (97088) Summary Purpose eClinicalWorks Submission
--- OUTSIDE RECORDS SUMMARY | 2017-09-20 18:03 | External Medical Summary ---
:1935 Author Organization eClinicalWorks Care Team Providers Name Role Phone Mya Srinivasan Provider Role Unavailable Allergies No Known Allergies [...] Medications Results No Known Results Summary Purpose eClinicalSara Campbell Submission
--- OUTSIDE RECORDS SUMMARY | 2017-09-20 18:03 | External Medical Summary ---
[...] Medications Results No Known Results Summary Purpose [employer] Submission
--- OUTSIDE RECORDS SUMMARY | 2017-09-20 18:03 | External Medical Summary ---
:1935 Author Organization eClinicalWorks Care Team Providers Name Role Phone Remigio Gautam Provider Role Unavailable Allergies No Known Allergies Problems Problem Type Condition ICD-9 Code Onset Dates Condition Status Problem Osteoarthritis of right hip 715.95 Active Problem Hypothyroid 244.9 Active Problem Hip joint replacement status V43.64 Active Problem Degenerative disc disease, 722.52 Active lumbar Problem Spondylolisthesis 756.12 Active Problem Lumbar spondylosis 721.3 Active Problem Personal history of malignant V10.83 Active neoplasm of skin Problem Hypertension, essential 401.9 Active Problem Basal cell carcinoma of skin of 173.31 Active nose Problem Actinic keratosis 702.0 Active Problem Heart valve replacement status V43.3 Active Problem Long-term use of anticoagulants V58.61 Active Problem Osteoporosis 733.00 Active Medications No Known Medications Results No Known Results Summary Purpose eClinicalWorks Submission
--- OUTSIDE RECORDS SUMMARY | 2017-09-20 18:03 | External Medical Summary ---
:1935 Author Organization [employer] Care Team Providers Name Role Phone Laboratory, Services Provider Role Unavailable Allergies No Known Allergies [...] Coding System Code Date Prothrombin Time CPT-4 88288 December 24, 2014 Results No Known Results Summary Purpose [facility] Submission
--- OUTSIDE RECORDS SUMMARY | 2017-09-20 18:04 | External Medical Summary ---
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 Active Problem Long-term use of anticoagulants V58.61 Active Problem Hypothyroid 244.9 Active Medications Medication Code Code Instructions Start End Status Dosage System Date Date Levothyroxine [facility] 31657163415 88 MCG Orally 1 tablet Sodium Once a day Lisinopril [facility] [address]-37 20 MG Orally 1 tablet twice a day Coumadin [facility] [address]-50 2 MG Orally 1 tablet Once a day Lorazepam [facility] [address]-11 0.5 MG Orally not Twice a day defined Oxygen ND ____ 3 LPM 07/03 Potassium [facility] [address]-89 10 MEQ Orally 1 tablet Chloride ER Twice a day Lasix [facility] [address]-70 40 MG Orally 2 tablets AM, 1 tablet PM Fosamax [facility] [address]-57 70 MG Orally 1 tablet Once a week Multivitamin NDC ____ not defined Cymbalta [facility] 41981401511 60 MG Orally 1 capsule Once a day Mirtazapine [facility] 19220837185 45 MG TAKE ONE TABLET BY MOUTH EVERY NIGHT AT BEDTIME Coreg [facility] [address]-21 25 MG Orally 1 tablet Twice a day Procedures Procedure Coding System Code Date Kenalog-40 per 10 mg (J3301) CPT-4 J330A Mar 26, 2015 CT Guidance Needle Placement CPT-4 57004 Mar 26, 2015 Facet joint lumbar CPT-4 81686 Mar 26, 2015 Results No Known Results Summary Purpose [employer]Works Submission
--- OUTSIDE RECORDS SUMMARY | 2017-09-20 18:04 | External Medical Summary ---
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
[2017-09-20] MEDS ORDERED: ALBUTEROL/IPRATROPIUM 2.5mg-0.5mg/3ml NEB AEROSOL ONE (18:31)
[2017-09-20] MEDS: ACETAMINOPHEN 500 MG TABLET PO PRN (18:37)
[2017-09-20] MEDS: SALINE FLUSH 10ml SYRINGE IVF PRN ×2 (18:38→22:15)
--- NOTE | 2017-09-20 18:48 | Emergency Department Report ---
Fever HPI - General Chief Complaint: Fever Stated Complaint: fever Source: patient Mode of arrival: EMS Limitations: no limitations - History of Present Illness HPI Narrative: Pt presents from [place] with a complaint of fever and increased O2 use. PT reports she has had fever and a general feeling of malaise for about 2 days. Pt normally wears home o2 at about 8 liters but it is now up to 10 to maintain SpO2 in the low 90s upper 80s. Pt reports she had a nasal swab done a few days ago and tested positive for coronavirus. PT denies chest pain, N/V/D complaint: fever, malaise Onset (ago): day(s) Temperature Source: oral - Related Data Home Medications Medication Instructions Recorded Confirmed Duloxetine HCl [Cymbalta] 60 mg PO DAILY #0 06/01/13 09/20/17 Levothyroxine Sodium 88 mcg PO ACB #0 tab 10/18/16 09/20/17 Acetaminophen [Acetaminophen Extra 500 - 1,000 mg PO Q8H PRN 07/15/17 09/20/17 Strength] Bumetanide Tab [Bumex 1 mg Tab] 2 mg PO DAILY 07/15/17 09/20/17 FentaNYL PATCH [Duragesic Patch] 1 patch TD Q3D 07/15/17 09/20/17 Polyethylene Glycol 3350 17 gm PO DAILY 07/15/17 09/20/17 Potassium Chloride [K-DUR 10 mEq 20 meq PO BID 07/15/17 09/20/17 Tablet] PredniSONE [Deltasone 10 mg] 10 mg PO DAILY 07/15/17 09/20/17 Sennosides [Senna] 8.6 mg PO DAILY 07/15/17 09/20/17 Tadalafil [Adcirca] 20 mg PO BID 07/15/17 09/20/17 Travoprost 0.004% Eye Drops 1 drop RIGHT EYE DAILY 07/15/17 09/20/17 [Travatan Z] Warfarin Sodium 2.5 mg PO 1700 07/15/17 09/20/17 Calmoseptine [Risamine Oint] 1 applicatio TOP QID PRN 09/20/17 09/20/17 DiltiaZEM CD [Cardizem CD 120 MG] 120 mg PO BID 09/20/17 09/20/17 Guaifenesin/Dextromethorphan 10 ml PO Q4H PRN 09/20/17 09/20/17 [Guaifenesin Dm Syrup] LORazepam [Ativan] 0.5 mg PO BID 09/20/17 09/20/17 LORazepam [Ativan] 0.5 mg PO Q8H PRN 09/20/17 09/20/17 Lanolin [Kzx-X-Gdjxkh] 1 applicatio TP BID 09/20/17 09/20/17 Lisinopril [Prinivil] 20 mg PO BID 09/20/17 09/20/17 Mirtazapine [Remeron] 45 mg PO HS 09/20/17 09/20/17 Umeclidinium Brm/Vilanterol Tr 1 each IH DAILY 09/20/17 09/20/17 [Anoro Ellipta 62.5-25 Mcg INH] Previous Rx's Medication Instructions Recorded Methocarbamol 750 mg PO QID 30 Days #120 tab 12/22/16 Allergies Allergy/AdvReac Type Severity Reaction Status Date / Time amiodarone Allergy Unknown DYSPNEA, Verified 09/20/17 17:07 LUNG DAMAGE hydroxychloroquine Allergy Unknown Verified 09/20/17 17:07 nifedipine Allergy Unknown DROPPED Verified 09/20/17 17:07 BLOOD PRESSURE TOO FAST Thiazides Allergy Unknown RASH Verified 09/20/17 17:07 tramadol Allergy Unknown Verified 09/20/17 17:07 codeine AdvReac Unknown NAUSEA Verified 09/20/17 17:07 oxycodone [From Percocet] AdvReac Confusion Verified 09/20/17 17:07 Dyazide Allergy Unknown Uncoded 09/20/17 17:07 Review of Systems All systems: reviewed and negative except as stated Constitutional: Reports: as per HPI Cardiovascular: Reports: as per HPI Respiratory: Reports: as per HPI Gastrointestinal: Reports: as per HPI PFS Patient Stated Medical History Cardiac Arrhythmia Yes: afib Congestive Heart Failure Yes Hypertension Yes Valvular Heart Disease Yes 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 Emergent T4-T8 thoracic decompressive laminectomy for evacuation of an. epidural hematoma and removal of the spinal cord stimulator on 11/24/[address] Butler. Appendectomy. Cholecystectomy. Colonoscopy. pacemaker. initially underwent porcine aortic valve replacement followed by. subsequent mechanical valve replacement (2010). Mitral valve and tricuspid valve have been repaired (2009). cardiac cath. hysterectomy. kypphoplasty. multiple back surgeries. RCR. hip (rt). knee replacements bilaterally. shoulder sx - Social History Smoking status: Never smoker Physical Exam - Limitations Limitations: no limitations - General General appearance: alert, in no apparent distress - Normal Exams: Head:: Normocephalic without trauma Eyes:: Pupils are PERRLA w/ EOMI Neck:: Full range of motion, without adenopathy Cardiovascular:: Regular rate and rhythm, without murmur or gallop, Pulses 2+ all extremities (trace pedal edema bilaterally), capillary refill Abdomen:: Bowel sounds positive, soft, non-tender, non-distended Musculoskeletal:: No tenderness, or deformity noted, good range of motion, all extremities Integumentary:: No rashes Neurological:: Patient is alert, and oriented, cranial nerves, motor/sensory/ cerebellar, exams w/o gross deficits, to observation Psychiatric:: Patient exhibits, appropriate attention, emotion and affect - Expanded Respiratory Exam Location: Left: decreased breath sounds, Right: decreased breath sounds, Lower: decreased breath sounds Course Vital Signs Pulse Rate 70 09/20/17 17:00 Respiratory Rate 24 09/20/17 17:00 Blood Pressure 130/59 09/20/17 17:00 Pulse Oximetry 88 L 09/20/17 17:00 Temperature 102.3 F H 09/20/17 17:21 Pulse Rate 62 09/20/17 20:15 Respiratory Rate 18 09/20/17 18:48 Blood Pressure 98/51 09/20/17 20:00 Pulse Oximetry 92 09/20/17 20:15 Fever - MDM Narrative Medical decision making narrative: Labs and xray reviewed, findings consistent with CHF exacerbation with a pneumonia. Dr Hernandez notified for need for admission. Findings and plan discussed with pt and family who are in agreement. Pt states she has noted improvement in her breathing after receiving Duoneb. Pt to be admitted inpatient - Differential Diagnosis Likely: fever of unknown origin, community acquired pneumonia, influenza - Lab Data Attestation: I reviewed the patient's lab results. Result diagrams: 09/20/17 17:46 09/20/17 17:46 Lab Results 09/20/17 09/20/17 Range/Units 17:46 17:46 WBC 11.5 H (4.5-11.0) T/MM3 RBC 3.71 L (4.00-5.20) M/MM3 Hgb 10.4 L (12-16) GM/DL Hct 35.3 L (36-46) % MCV 95.1 (80-100) UM3 MCH 28.0 (26-34) UUG MCHC 29.5 L (31-37) GM/DL RDW Std Deviation 50.9 H (36.9-50.2) FL Plt Count 255 (130-400) T/MM3 MPV 9.0 L (9.4-12.4) UM3 Immature Gran % (Auto) 0.3 (0.0-0.5) % Neut % (Auto) 83.4 H (33-66) % Lymph % (Auto) 6.4 L (23-45) % Antelope % (Auto) 7.4 (0-9.0) % Eos % (Auto) 2.2 (0-4) % Baso % (Auto) 0.3 (0-2) % Neut # (Auto) 9.5 H (1.8-7.7) T/MM3 Lymph # (Auto) 0.7 L (1-4.8) T/MM3 Antelope # (Auto) 0.9 H (0-0.8) T/MM3 Eos # (Auto) 0.3 (0-0.5) T/MM3 Baso # (Auto) 0.0 (0-0.2) T/MM3 Abs Immat Gran (auto) 0.04 H (0.00-0.03) T/MM3 Turbidity < 20 (0-20) Sodium 141 (134-144) MEQ/L Potassium 5.1 H (3.6-5) MEQ/L Chloride 103 (98-107) MEQ/L Carbon Dioxide 28 (22-30) MEQ/L Anion Gap 10 (5-15) MEQ/L BUN 21.0 H (7-17) MG/DL Creatinine 1.2 (0.7-1.2) MG/DL GFR Calculation 43 BUN/Creatinine Ratio 18 (6-26) RATIO Glucose 139 H (65-110) MG/DL Calculated Osmolality 276 (261-280) MOSM/KG Calcium 8.8 (8.4-10.2) MG/DL Total Bilirubin 0.30 (0.20-1.30) MG/DL Icterus Index < 2 (0-7) AST 26 (14-36) U/L ALT 31 (9-52) U/L Alkaline Phosphatase 55 (38-126) U/L B-Natriuretic Peptide 1090 H (0-175) pg/mL Total Protein 6.9 (6.3-8.2) G/DL Albumin 3.9 (3.5-5.0) G/DL Globulin 3.0 (2.4-3.6) G/DL Albumin/Globulin Ratio 1.3 (1.1-2.2) RATIO Specimen Hemolysis < 15 (0-25) - Radiology Data Attestation: I reviewed the patient's radiology results. read per Dr Martinez concludes pulmonary congestion with pneumonia Disposition Clinical Impression: CHF (congestive heart failure) Qualifiers: Congestive heart failure type: unspecified Congestive heart failure chronicity : acute on chronic Qualified Code(s): I50.9 - Heart failure, unspecified Pneumonia Qualifiers: Lung location: unspecified part of lung Disposition: 02 To [facility] – [place] Acute Care Condition: Improved Prescriptions: No Action Levothyroxine Sodium 88 mcg PO ACB #0 tab Methocarbamol 750 mg PO QID 30 Days #120 tab Bumetanide Tab [Bumex 1 mg Tab] 2 mg PO DAILY PredniSONE [Deltasone 10 mg] 10 mg PO DAILY FentaNYL PATCH [Duragesic Patch] 1 patch TD Q3D Warfarin Sodium 2.5 mg PO 1700 Travoprost 0.004% Eye Drops [Travatan Z] 1 drop RIGHT EYE DAILY Polyethylene Glycol 3350 17 gm PO DAILY Potassium Chloride [K-DUR 10 mEq Tablet] 20 meq PO BID Mirtazapine [Remeron] 45 mg PO HS LORazepam [Ativan] 0.5 mg PO BID Lisinopril [Prinivil] 20 mg PO BID DiltiaZEM CD [Cardizem CD 120 MG] 120 mg PO BID Guaifenesin/Dextromethorphan [Guaifenesin Dm Syrup] 10 ml PO Q4H PRN PRN Reason: Cough Calmoseptine [Risamine Oint] 1 applicatio TOP QID PRN PRN Reason: Rash Duloxetine HCl [Cymbalta] 60 mg PO DAILY #0 Tadalafil [Adcirca] 20 mg PO BID Sennosides [Senna] 8.6 mg PO DAILY Acetaminophen [Acetaminophen Extra Strength] 500 - 1,000 mg PO Q8H PRN PRN Reason: Pain Umeclidinium Brm/Vilanterol Tr [Anoro Ellipta 62.5-25 Mcg INH] 1 each IH DAILY Lanolin [Uwe-J-Xtmkkt] 1 applicatio TP BID LORazepam [Ativan] 0.5 mg PO Q8H PRN PRN Reason: Anxiety Referrals: Lidya Vásquez MD [Family Provider] - Time of Disposition: 20:34 - Seen By: sheila
[2017-09-20] MEDS ORDERED: ONDANSETRON 4 MG/2 ML INJECTION IVP PRN (20:50)
[2017-09-20 20:56] VITALS: BMI 30.2
--- NOTE | 2017-09-20 21:31 | History & Physical Report ---
History of Present Illness Date: 09/20/17 Chief complaint: difficulty breathing HPI: 82 yo F presented [facility] ED from [facility] with reports of fever and increased O2 use. PT reports she has had fever and a general feeling of malaise since yesterday, but daughter at bedside reports it has been a couple of days. Pt normally wears home o2 at about 6 liters but it is now up to 10 to maintain SpO2 in the low 90s upper 80s. Pt reports she had a nasal swab done a few days ago and tested positive for coronavirus. PT denies chest pain, N/V/D. She was found to have some pneumonia and congestion of x-ray. She was admitted for further treatment. 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 Emergent T4-T8 thoracic decompressive laminectomy for evacuation of an. epidural hematoma and removal of the spinal cord stimulator on 11/24/[address] Butler. Appendectomy. Cholecystectomy. Colonoscopy. pacemaker. initially underwent porcine aortic valve replacement followed by. subsequent mechanical valve replacement (2010). Mitral valve and tricuspid valve have been repaired (2009). cardiac cath. hysterectomy. kypphoplasty. multiple back surgeries. RCR. hip (rt). knee replacements bilaterally. shoulder sx Family History Updates: reviewed - Social History Smoking status: Former smoker Medications Home Medications Medication Instructions Recorded Confirmed Type Duloxetine HCl [Cymbalta] 60 mg PO DAILY #0 06/01/13 09/20/17 History Levothyroxine Sodium 88 mcg PO ACB #0 tab 10/18/16 09/20/17 History Acetaminophen [Acetaminophen Extra 500 - 1,000 mg PO Q8H PRN 07/15/17 09/20/17 History Strength] Bumetanide Tab [Bumex 1 mg Tab] 2 mg PO DAILY 07/15/17 09/20/17 History FentaNYL PATCH [Duragesic Patch] 1 patch TD Q3D 07/15/17 09/20/17 History Polyethylene Glycol 3350 17 gm PO DAILY 07/15/17 09/20/17 History Potassium Chloride [K-DUR 10 mEq 20 meq PO BID 07/15/17 09/20/17 History Tablet] PredniSONE [Deltasone 10 mg] 10 mg PO DAILY 07/15/17 09/20/17 History Sennosides [Senna] 8.6 mg PO DAILY 07/15/17 09/20/17 History Tadalafil [Adcirca] 20 mg PO BID 07/15/17 09/20/17 History Travoprost 0.004% Eye Drops 1 drop RIGHT EYE DAILY 07/15/17 09/20/17 History [Travatan Z] Warfarin Sodium 2.5 mg PO 1700 07/15/17 09/20/17 History Calmoseptine [Risamine Oint] 1 applicatio TOP QID PRN 09/20/17 09/20/17 History DiltiaZEM CD [Cardizem CD 120 MG] 120 mg PO BID 09/20/17 09/20/17 History Guaifenesin/Dextromethorphan 10 ml PO Q4H PRN 09/20/17 09/20/17 History [Guaifenesin Dm Syrup] LORazepam [Ativan] 0.5 mg PO BID 09/20/17 09/20/17 History LORazepam [Ativan] 0.5 mg PO Q8H PRN 09/20/17 09/20/17 History Lanolin [Hbp-S-Pskodg] 1 applicatio TP BID 09/20/17 09/20/17 History Lisinopril [Prinivil] 20 mg PO BID 09/20/17 09/20/17 History Mirtazapine [Remeron] 45 mg PO HS 09/20/17 09/20/17 History Umeclidinium Brm/Vilanterol Tr 1 each IH DAILY 09/20/17 09/20/17 History [Anoro Ellipta 62.5-25 Mcg INH] Allergies Allergy/AdvReac Type Severity Reaction Status Date / Time amiodarone Allergy Unknown DYSPNEA, Verified 09/20/17 17:07 LUNG DAMAGE hydroxychloroquine Allergy Unknown Verified 09/20/17 17:07 nifedipine Allergy Unknown DROPPED Verified 09/20/17 17:07 BLOOD PRESSURE TOO FAST Thiazides Allergy Unknown RASH Verified 09/20/17 17:07 tramadol Allergy Unknown Verified 09/20/17 17:07 codeine AdvReac Unknown NAUSEA Verified 09/20/17 17:07 oxycodone [From Percocet] AdvReac Confusion Verified 09/20/17 17:07 Dyazide Allergy Unknown Uncoded 09/20/17 17:07 Exam Vital Signs: Temperature 99.6 F 09/20/17 20:50 Pulse Rate 66 09/20/17 20:50 Respiratory Rate 24 09/20/17 20:50 Blood Pressure 119/56 09/20/17 20:50 Pulse Oximetry 95 09/20/17 21:09 Height/Weight/BMI: Height 1.7 m Weight 87.5 kg Body Mass Index 30.2 - Constitutional Present: no acute distress, morbidly obese - Routine Respiratory Exam Present: decreased breath sounds, prolonged expiratory phase - Routine Cardiovascular Exam Present: RRR. Absent: murmur - Routine Abdominal Exam Present: soft, normoactive bowel sounds, non distended. Absent: tenderness - Routine Extremities Exam Present: normal capillary refill - Routine Skin Exam Present: dry, warm - Routine Psychiatric Exam Present: normal affect Results - Labs CBC & Chem 7: 09/20/17 17:46 09/20/17 17:46 Assessment and Plan (1) CHF (congestive heart failure) Current visit: Yes Status: Acute (2) Pneumonia Current visit: Yes Status: Acute Assessment and Plan: Patient admitted, started on aggressive pulm toilet, duonebs Q4H, Will start IV steroids 125mg Q6H overnight. Start IV levaquin. Patient is having increased oxygen requirements, will attempt to titrate down to her baseline level of 6L NC. DVT Prophylaxis: SCD's GI Prophylaxis: Protonix - Physician Narrative Narrative: Date: 09/20/17 Time: 2125 Hospital Course Summary Disclaimer: The visit summary below is not to be considered part of the above Progress Note.
[2017-09-20] MEDS ORDERED: LEVOFLOXACIN PREMIX 250 MG/50 ML BAG IV SCH (21:45)
[2017-09-20] MEDS: METHYLPREDNISOLONE SOD SUCC 125mg/2ml INJECTION IVP SCH (22:15)
[2017-09-20] MEDS ORDERED: NS FLUSH BAG 500ml IV PRN (22:16)
[2017-09-20] MEDS: LORazepam 0.5 MG TABLET PO PRN (23:43)
[2017-09-20] MEDS: MIRTAZAPINE 45 MG TABLET PO SCH (23:43)
[2017-09-21] MEDS: ALBUTEROL/IPRATROPIUM 2.5mg-0.5mg/3ml NEB AEROSOL SCH ×7 (01:15→22:14)
[2017-09-21] MEDS: SALINE FLUSH 10ml SYRINGE IVF PRN ×2 (03:27→20:49)
[2017-09-21] MEDS: METHYLPREDNISOLONE SOD SUCC 125mg/2ml INJECTION IVP SCH ×4 (03:27→20:48)
[2017-09-21] MEDS: PANTOPRAZOLE 20 MG TABLET PO SCH (07:10)
--- NOTE | 2017-09-21 08:50 | XRay Report ---
Indication: SOA, hypoxia PROCEDURE: XR chest 1V: Encounter: Initial Comparison: Chest CT dated January 28, 2017 and chest x-ray dated December 17, 2016 Findings: Bilateral persistent areas of groundglass opacity and consolidation are again noted with a similar distribution to the comparison. No pleural effusion or pneumothorax. Heart size and mediastinal contours are stable. Prior sternotomy changes with cardiac valve replacement and left pacemaker. Right shoulder prosthesis. Impression: Relatively stable but chronically abnormal appearance of the chest with bilateral areas of airspace disease. Findings could represent chronic hypersensitivity pneumonitis or interstitial lung disease. Superimposed edema or atypical/viral infection cannot be excluded. .
[2017-09-21] MEDS: ACETAMINOPHEN 500 MG TABLET PO PRN ×2 (11:57→20:49)
--- NOTE | 2017-09-21 12:11 | History & Physical Report ---
History of Present Illness Date: 09/21/17 Chief complaint: dyspnea HPI: Mrs. May is a 82 yo F presented to the ED from [facility] who developed low-grade fevers 2 days prior to admission increasing to 100 yesterday afternoon prior to presenting to the emergency room. She describes feeling "yucky" with increasing oxygen demand the night prior to hospitalization. She's had increasing dyspnea with minimal cough. She's had generalized myalgias and back pain. She denied pleuritic pain. She's been weaker than usual. She is typically on 6 L of supplemental oxygen for chronic pulmonary fibrosis but has increased oxygen to 10 L for hypoxia prior to evaluation in the emergency room for progressive dyspnea and shortness of breath with any activity. A nasal swab done at [facility] was positive for coronavirus prior to transfer to the ER. Temperature on arrival in the emergency room was 102.3 and respiratory rate 24; oxygen saturation was 88% on 10 L but improved following initial breathing treatment. Chest x-ray in the emergency room revealed patchy bilateral infiltrates which could represent viral pneumonitis or an atypical infection. Patient was hospitalized due to worsening hypoxia. Review of Systems All systems PM: 10-point ROS was reviewed, no additional remarkable complaints except (patient is nonambulatory except short distances due to prior spinal hemorrhage-she is able to transfer and can ambulate from bed to chair. She describes chronic back pain, occasional nosebleeds, and recent constipation. Remainder of review is negative or as per history of present illness.) Past Medical History Patient Stated Medical History Atrial fibrillation Valvular CHF Hypertension Valvular heart disease/aortic valve replacement-managed by Dr. 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 Sharon URBAN History shingles Lupus Hyperlipidemia History vascular dementia Epidural hematoma November 2016 Depression Surgical History: spinal cord stimulator was inserted into her thoracic spine on 11/22/16. Emergent T4-T8 thoracic decompressive laminectomy for evacuation of an. epidural hematoma and removal of the spinal cord stimulator on 11/24/[address] Butler. Appendectomy. Cholecystectomy. Colonoscopy. pacemaker. initially underwent porcine aortic valve replacement followed by. subsequent mechanical valve replacement (2010). Mitral valve and tricuspid valve have been repaired (2009). cardiac cath. hysterectomy. kypphoplasty. multiple back surgeries. RCR. hip (rt). knee replacements bilaterally. shoulder sx Family History Updates: Mother and father of myocardial infarctions, extensive coronary disease and the family. One son of competitions diabetes mellitus and a second son has hypertension - Social History Smoking status: Former smoker Substance use type: does not use Alcohol intake frequency: does not drink Current residence: [facility] ([facility]) Social history: PCP-Dr. Vásquez, director of transportation-Dr. Dykes, Cardiology-Dr. Rivas CODE STATUS-DO NOT RESUSCITATE DPOA-patient's daughter Medications Home Medications Medication Instructions Recorded Confirmed Type Duloxetine HCl [Cymbalta] 60 mg PO DAILY #0 06/01/13 09/20/17 History Levothyroxine Sodium 88 mcg PO ACB #0 tab 10/18/16 09/20/17 History Acetaminophen [Acetaminophen Extra 500 - 1,000 mg PO Q8H PRN 07/15/17 09/20/17 History Strength] Bumetanide Tab [Bumex 1 mg Tab] 2 mg PO DAILY 07/15/17 09/20/17 History FentaNYL PATCH [Duragesic Patch] 1 patch TD Q3D 07/15/17 09/20/17 History Polyethylene Glycol 3350 17 gm PO DAILY 07/15/17 09/20/17 History Potassium Chloride [K-DUR 10 mEq 20 meq PO BID 07/15/17 09/20/17 History Tablet] PredniSONE [Deltasone 10 mg] 10 mg PO DAILY 07/15/17 09/20/17 History Sennosides [Senna] 8.6 mg PO DAILY 07/15/17 09/20/17 History Tadalafil [Adcirca] 20 mg PO BID 07/15/17 09/20/17 History Travoprost 0.004% Eye Drops 1 drop RIGHT EYE DAILY 07/15/17 09/20/17 History [Travatan Z] Warfarin Sodium 2.5 mg PO 1700 07/15/17 09/20/17 History Calmoseptine [Risamine Oint] 1 applicatio TOP QID PRN 09/20/17 09/20/17 History DiltiaZEM CD [Cardizem CD 120 MG] 120 mg PO BID 09/20/17 09/20/17 History Guaifenesin/Dextromethorphan 10 ml PO Q4H PRN 09/20/17 09/20/17 History [Guaifenesin Dm Syrup] LORazepam [Ativan] 0.5 mg PO BID 09/20/17 09/20/17 History LORazepam [Ativan] 0.5 mg PO Q8H PRN 09/20/17 09/20/17 History Lanolin [Mzv-E-Rfprgr] 1 applicatio TP BID 09/20/17 09/20/17 History Lisinopril [Prinivil] 20 mg PO BID 09/20/17 09/20/17 History Mirtazapine [Remeron] 45 mg PO HS 09/20/17 09/20/17 History Umeclidinium Brm/Vilanterol Tr 1 each IH DAILY 09/20/17 09/20/17 History [Anoro Ellipta 62.5-25 Mcg INH] Allergies Allergy/AdvReac Type Severity Reaction Status Date / Time amiodarone Allergy Unknown DYSPNEA, Verified 09/20/17 17:07 LUNG DAMAGE hydroxychloroquine Allergy Unknown Verified 09/20/17 17:07 nifedipine Allergy Unknown DROPPED Verified 09/20/17 17:07 BLOOD PRESSURE TOO FAST Thiazides Allergy Unknown RASH Verified 09/20/17 17:07 tramadol Allergy Unknown Verified 09/20/17 17:07 codeine AdvReac Unknown NAUSEA Verified 09/20/17 17:07 oxycodone [From Percocet] AdvReac Confusion Verified 09/20/17 17:07 Dyazide Allergy Unknown Uncoded 09/20/17 17:07 Exam Vital Signs: Temperature 97.7 F 09/21/17 07:42 Pulse Rate 62 09/21/17 07:42 Respiratory Rate 20 09/21/17 09:00 Blood Pressure 138/62 09/21/17 07:42 Pulse Oximetry 97 -7 L 09/21/17 09:00 EXAM: General-NAD, alert, slightly winded when she speaks HEENT-PERRL, EOMI without nystagmus, conjugate gaze, conjunctiva clear, sclera anicteric, facial structures symmetric, oropharynx clear, neck supple and without adenopathy Lungs-respirations nonlabored at rest, good airflow, faint crackles at the bases bilaterally, no wheezing Cardiac-regular rhythm, S1-S2, soft systolic murmur, metallic S2 click Abd-soft, nontender, bowel sounds present Ext-trace edema Skin-minor bruising/hyperpigmentation on dorsal surface of the hands bilaterally , no wounds evident MS-minor degenerative changes in the small joints of the hands Neuro-cranial nerves 3-12 intact, motor tone/power grossly intact, sensation intact to light touch 4 extremities Psych-calm, cooperative Height/Weight/BMI: Height 1.7 m Weight 86.2 kg Body Mass Index 30.2 Results - Labs CBC & Chem 7: 09/21/17 04:16 09/21/17 04:16 Labs: WBC 11.5-->7.4 S97 B1 L2 LFTs nl BNP 1090 - Imaging and Cardiology Chest x-ray Status: image reviewed by me (past right shoulder replacement, pacemaker, patchy bilateral infiltrates-slightly increased from prior film December 2016.) Assessment and Plan (1) Acute and chronic respiratory failure with hypoxia Current visit: Yes Status: Acute (2) Coronavirus infection Current visit: Yes Status: Acute Assessment and Plan: Impression: Acute on chronic hypoxic respiratory failure Coronavirus URI 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 May had significant deterioration and chronic hypoxia requiring increased oxygen flow to 10 L in conjunction with fever and generalized malaise/ myalgias following identification of coronavirus. Chest x-rays without focal changes compatible with viral pneumonitis and underlying pulmonary fibrosis. Clinically improved with high-dose steroids-continue. Continue breathing treatments for supportive care and supplemental oxygen titrated as needed. Sputum culture to be obtained before continuation of antibiotics. Check INR-continue warfarin. Continue home medications for multiple chronic problems. Anticipate PT/OT consults and eventual return to [facility] and care of Dr. Vásquez. DO NOT RESUSCITATE order written in conjunction with patient's expressed wishes. - Physician Narrative Narrative: Date: 09/21/17 Time: 1207 Hospital Course Summary Disclaimer: The visit summary below is not to be considered part of the above Progress Note. Hospital Course: 09/20/17 Admitted with acute hypoxic respiratory failure due to coronavirus. IV steroids and Levaquin initiated. 09/21/17 Mrs. May had significant deterioration and chronic hypoxia requiring increased oxygen flow to 10 L in conjunction with fever and generalized malaise/ myalgias following identification of coronavirus. Chest x-rays without focal changes compatible with viral pneumonitis and underlying pulmonary fibrosis. Clinically improved with high-dose steroids-continue. Continue breathing treatments for supportive care and supplemental oxygen titrated as needed. Sputum culture to be obtained before continuation of antibiotics. Check INR-continue warfarin. Continue home medications for multiple chronic problems. Anticipate PT/OT consults and eventual return to [facility] and care of Dr. Vásquez.
[2017-09-21] MEDS ORDERED: WARFARIN - PHARMACY CONSULT MC ONE (12:19)
[2017-09-21] MEDS ORDERED: ONDANSETRON 4 MG/2 ML INJECTION IVP PRN (12:38)
[2017-09-21] MEDS ORDERED: WARFARIN 2.5 MG TABLET PO ONE (13:19)
[2017-09-21] MEDS: DULOXETINE 60 MG CAPSULE PO SCH (13:25)
[2017-09-21] MEDS: BUMETANIDE 1 MG TABLET PO SCH (13:25)
[2017-09-21] MEDS: POLYETHYL GLYCOL 3350 17gm PACKET PO SCH (13:26)
[2017-09-21] MEDS: TRAVOPROST 0.004% EYE DROPS 2.5ml RIGHT EYE SCH ×3 (13:27→20:51)
[2017-09-21] MEDS: METHOCARBAMOL 750 MG TABLET PO SCH ×3 (13:28→20:50)
--- NOTE | 2017-09-21 13:39 | Pharmacy Consult ---
Pharmacy Consult-Warfarin - Laboratory Information 09/21/17 12:28 INR 2.08 H - Consult Information Warfarin Dosing Protocol: PC is an 82 yo female who as admitted with low grade fever, increasing dyspnea with minimal cough. She is on anticoagulation therapy with warfarin for atrial fibrillation and a mechanical aortic valve. Need to maintain an INR of 2-3. Date INR Dose 09/21 2.08 Plan 2.5 mg I will continue the home of Warfarin 2.5 mg p.o. today. The Pharmacy will continue to monitor the INR's and adjust the dosage of the Coumadin accordingly. Thank you for the Warfarin Dosing Protocol, Ambrose Best, Pharmacist
[2017-09-21] MEDS: LORazepam 0.5 MG TABLET PO PRN (14:29)
[2017-09-21] MEDS: SILDENAFIL 20 MG PO SCH ×2 (16:20→20:50)
[2017-09-21] MEDS: SENNA + DOCUSATE TABLET PO SCH (20:50)
[2017-09-21] MEDS: LORazepam 0.5 MG TABLET PO SCH (20:50)
[2017-09-21] MEDS: MIRTAZAPINE 45 MG TABLET PO SCH (20:50)
[2017-09-21] MEDS: LISINOPRIL 20 MG TABLET PO SCH (20:50)
[2017-09-21] MEDS ORDERED: FALL RISK - PHARMACY CONSULT XX ONE (21:04)
[2017-09-22] MEDS: ALBUTEROL/IPRATROPIUM 2.5mg-0.5mg/3ml NEB AEROSOL SCH ×9 (01:04→20:22)
[2017-09-22] MEDS: METHYLPREDNISOLONE SOD SUCC 125mg/2ml INJECTION IVP SCH ×2 (03:08→08:56)
[2017-09-22] MEDS: SALINE FLUSH 10ml SYRINGE IVF PRN (03:08)
[2017-09-22] MEDS: PANTOPRAZOLE 20 MG TABLET PO SCH (06:40)
[2017-09-22] MEDS: LEVOTHYROXINE 88 MCG TABLET PO SCH (06:40)
--- NOTE | 2017-09-22 07:24 | Pharmacy Consult ---
Pharmacy Consult-Warfarin - Laboratory Information 09/21/17 09/22/17 12:28 03:54 INR 2.08 H 2.01 H - Consult Information Warfarin Dosing Protocol: PC is an 82 yo female who as admitted with low grade fever, increasing dyspnea with minimal cough. She is on anticoagulation therapy with warfarin for atrial fibrillation and a mechanical aortic valve. Need to maintain an INR of 2-3. Date INR Dose 09/21 2.08 2.5 mg 2 2.01 Plan 2.5 mg I will continue the home of Warfarin 2.5 mg p.o. today. The Pharmacy will continue to monitor the INR's and adjust the dosage of the Coumadin accordingly. Thank you for the Warfarin Dosing Protocol, Ambrose Best, Pharmacist
[2017-09-22] MEDS: POLYETHYL GLYCOL 3350 17gm PACKET PO SCH (08:53)
[2017-09-22] MEDS: BUMETANIDE 1 MG TABLET PO SCH (08:54)
[2017-09-22] MEDS: SENNA + DOCUSATE TABLET PO SCH ×2 (08:54→21:41)
[2017-09-22] MEDS: SILDENAFIL 20 MG PO SCH ×3 (08:55→21:42)
[2017-09-22] MEDS: LISINOPRIL 20 MG TABLET PO SCH ×2 (08:55→21:42)
[2017-09-22] MEDS: DULOXETINE 60 MG CAPSULE PO SCH (08:55)
[2017-09-22] MEDS: LORazepam 0.5 MG TABLET PO SCH ×2 (08:55→21:40)
[2017-09-22] MEDS: METHOCARBAMOL 750 MG TABLET PO SCH ×4 (08:55→21:41)
[2017-09-22] MEDS ORDERED: WARFARIN 2.5 MG TABLET PO SCH (12:00)
[2017-09-22] MEDS ORDERED: PredniSONE 20 MG TABLET PO ONE (12:07)
[2017-09-22] MEDS: ACETAMINOPHEN 500 MG TABLET PO PRN ×2 (14:32→21:41)
--- NOTE | 2017-09-22 16:03 | Progress Note ---
- Date 09/22/17 Subjective: Mrs. May reports dyspnea is improving and that she was able to walk to the bathroom this am--usual baseline. She has residual cough with minimal purulen sputum production but no palpitations or nausea. Oxygen has been titrated down to 6 L which she is on chronically-she notes that using 6 L she desaturated to 84% when she got up to the bathroom. Typically she would increase her flow rate to 8 L when she is up and moving even minimally. She has not felt feverish. Her usual weight at the nursing facility is about 190 pounds. Objective Vital signs: Temperature 96.1 F L 09/22/17 08:09 Pulse Rate 67 09/22/17 08:09 Respiratory Rate 16 09/22/17 15:40 Blood Pressure 147/72 H 09/22/17 08:09 Pulse Oximetry 95 -6 L 09/22/17 15:40 I/O 1340/800 EXAM General-NAD, alert HEENT-conjunctiva clear, oropharynx clear Lungs-respirations nonlabored, good airflow, breath sounds clear-no crackles at the bases Cardiac-regular rhythm, S1-S2, mechanical S2 click Abd-soft, obese, nontender, bowel sounds present Ext-without edema; degenerative changes in the small joints of the hands Neuro-MAEW Psych-calm, cooperative - Height/Weight/BMI: Height 1.7 m Weight 87.7 kg Body Mass Index 30.2 Results - Labs CBC & Chem 7: 09/22/17 03:54 09/22/17 03:54 Microbiology Results: 09/22/17 14:39 Sputum, Expectorated Gram Stain -many WBC, no organisms 09/22/17 14:39 Sputum, Expectorated Sputum Culture - Preliminary Culture Initiated - Results Pending Assessment and Plan (1) Acute and chronic respiratory failure with hypoxia Current visit: Yes Status: Acute (2) Coronavirus infection Current visit: Yes Status: Acute Assessment and Plan: Impression: Acute on chronic hypoxic respiratory failure Coronavirus URI 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 Convert from Solu-Medrol to oral prednisone, if stable overnight anticipate discharge tomorrow. INR 2.01, remains on 2.5 mg warfarin daily for MVR. PT/OT eval earlier today recommend return to jail and report patient was able to ambulate 20 feet with walker. Minor hyperglycemia noted with steroids-anticipate resolution with conversion to oral prednisone and taper. Blood pressure control good. - Physician Narrative Narrative: Date: 09/22/17 Time: 1558 Hospital Course Summary Disclaimer: The visit summary below is not to be considered part of the above Progress Note. Hospital Course: 09/20/17 Admitted with acute hypoxic respiratory failure due to coronavirus. IV steroids and Levaquin initiated. 09/21/17 Mrs. May had significant deterioration and chronic hypoxia requiring increased oxygen flow to 10 L in conjunction with fever and generalized malaise/ myalgias following identification of coronavirus. Chest x-rays without focal changes compatible with viral pneumonitis and underlying pulmonary fibrosis. Clinically improved with high-dose steroids-continue. Continue breathing treatments for supportive care and supplemental oxygen titrated as needed. Sputum culture to be obtained before continuation of antibiotics. Check INR-continue warfarin. Continue home medications for multiple chronic problems. Anticipate PT/OT consults and [facility] and [facility] of Dr. Vásquez. 09/22/17 Hypoxia improving-essentially at baseline on steroids. Convert from Solu-Medrol to oral prednisone, if stable overnight anticipate discharge tomorrow. INR 2.01, remains on 2.5 mg warfarin daily for MVR. PT/OT eval earlier today recommend return to jail and report patient was able to ambulate 20 feet with walker.
[2017-09-22] MEDS ORDERED: ALBUTEROL/IPRATROPIUM 2.5mg-0.5mg/3ml NEB AEROSOL PRN (17:12)
[2017-09-22] MEDS: TRAVOPROST 0.004% EYE DROPS 2.5ml RIGHT EYE SCH (21:40)
[2017-09-22] MEDS: MIRTAZAPINE 45 MG TABLET PO SCH (21:41)
[2017-09-23] MEDS: LEVOTHYROXINE 88 MCG TABLET PO SCH (06:26)
[2017-09-23] MEDS: PANTOPRAZOLE 20 MG TABLET PO SCH (06:26)
[2017-09-23] MEDS: ALBUTEROL/IPRATROPIUM 2.5mg-0.5mg/3ml NEB AEROSOL SCH ×3 (07:04→15:06)
[2017-09-23] MEDS ORDERED: PredniSONE 20 MG TABLET PO SCH (08:00)
[2017-09-23 08:18] VITALS: BP 164/81; PULSE 76; TEMP 95.9
[2017-09-23] MEDS: POLYETHYL GLYCOL 3350 17gm PACKET PO SCH (08:20)
[2017-09-23] MEDS: SENNA + DOCUSATE TABLET PO SCH (08:20)
[2017-09-23] MEDS: LORazepam 0.5 MG TABLET PO SCH (08:21)
[2017-09-23] MEDS: DULOXETINE 60 MG CAPSULE PO SCH (08:21)
[2017-09-23] MEDS: BUMETANIDE 1 MG TABLET PO SCH (08:21)
[2017-09-23] MEDS: LISINOPRIL 20 MG TABLET PO SCH (08:22)
[2017-09-23] MEDS: METHOCARBAMOL 750 MG TABLET PO SCH ×2 (08:22→13:16)
[2017-09-23] MEDS: SILDENAFIL 20 MG PO SCH ×2 (08:22→14:48)
--- NOTE | 2017-09-23 10:57 | Pharmacy Consult ---
Pharmacy Consult-Warfarin - Laboratory Information 09/21/17 09/22/17 09/23/17 12:28 03:54 09:33 INR 2.08 H 2.01 H 2.98 H - Consult Information INR increased significantly so we will lower dose to 1mg of warfarin p.o. today. Thanks
[2017-09-23 11:49] VITALS: RESP 18; O2SAT 96
[2017-09-23] MEDS ORDERED: WARFARIN 1 MG TABLET PO SCH (12:00)
--- NOTE | 2017-09-23 12:48 | Discharge Summary ---
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 Findings could represent chronic hypersensitivity pneumonitis or interstitial lung disease. Superimposed edema or atypical/viral infection cannot be excluded. History of Present Illness HPI: Mrs. May is a 82 year old female who presented to the ED from [facility] who developed low-grade fevers 2 days prior to admission increasing to 100 yesterday afternoon prior to presenting to the emergency room. She describes feeling "yucky" with increasing oxygen demand the night prior to hospitalization. She's had increasing dyspnea with minimal cough. She' s had generalized myalgias and back pain. She denied pleuritic pain. She's been weaker than usual. She is typically on 6 L of supplemental oxygen for chronic pulmonary fibrosis but has increased oxygen to 10 L for hypoxia prior to evaluation in the emergency room for progressive dyspnea and shortness of breath with any activity. A nasal swab done at [facility] was positive for coronavirus prior to transfer to the ER. Temperature on arrival in the emergency room was 102.3 and respiratory rate 24; oxygen saturation was 88% on 10 L but improved following initial breathing treatment. Chest x-ray in the emergency room revealed patchy bilateral infiltrates which could represent viral pneumonitis or an atypical infection. Patient was hospitalized due to worsening hypoxia. Objective Vital signs: Temperature 95.9 F L 09/23/17 08:00 Pulse Rate 76 09/23/17 08:00 Respiratory Rate 18 09/23/17 11:48 Blood Pressure 164/81 H 09/23/17 08:00 Pulse Oximetry 96 09/23/17 11:49 Height/Weight/BMI: Height 1.7 m Weight 87.6 kg Body Mass Index 30.2 - Constitutional Present: no acute distress, well nourished, well developed - Routine HEENT Exam Head: Present: normocephalic ENT: Present: mucous membranes moist, oropharynx clear (no thrush) - Routine Respiratory Exam Present: crackles - Routine Cardiovascular Exam Present: RRR, S1, S2, click - Routine Abdominal Exam Present: soft, normoactive bowel sounds, non distended, non tender - Routine Extremities Exam Present: no edema - Routine Musculoskeletal Exam Musculoskeletal: Present: moving extremities well - Routine Skin Exam Present: intact, dry, warm - Routine Neurological Exam Present: alert, oriented X3 - Routine Psychiatric Exam Present: normal affect, normal thought process, cooperative Hospital Course This is a general summary of the patient's hospital course. For more details refer to the complete medical record. Hospital course: 09/20/17 Admitted with acute hypoxic respiratory failure due to coronavirus. IV steroids and Levaquin initiated. 09/21/17 Mrs. May had significant deterioration and chronic hypoxia requiring increased oxygen flow to 10 L. Chest x-rays without focal changes compatible with viral pneumonitis and underlying pulmonary fibrosis. Clinically improved with high-dose steroids. Warfarin dosing managed per pharmacy. Continued home medications for multiple chronic problems. 09/22/17 Hypoxia improving-essentially at baseline on steroids. Convert from Solu-Medrol to oral prednisone. INR 2.01, remains on 2.5 mg warfarin daily for MVR. PT/OT eval earlier today recommend return to custodial and report patient was able to ambulate 20 feet with walker. 09/23/17 Respiratory status at baseline - 6L oxygen at rest and 8L with activity. Will DC back to SNF at [place] with Rx for Prednisone taper. Recommend f/u with Dr. Vásquez in 1 week. Pt verbalized an understanding. Time spent with patient: discharge greater than 30 minutes Resuscitation Status: Do Not Resuscitate Discharge Plan - Discharge Disposition Discharge Date: 09/23/17 Disposition: 04 To [facility] Home/Facility *Condition: Improved Reason For Visit (Visit label in EMR): pneumonia - Discharge Medications *Discharge Medications: New Albuterol/Ipratropium [Duoneb] 3 ml AEROSOL Q4HR PRN each PRN Reason: Wheezing PredniSONE [Deltasone 10 mg] 0 mg PO TAPERQD #50 tab Continue Levothyroxine Sodium 88 mcg PO ACB #0 tab Methocarbamol 750 mg PO QID 30 Days #120 tab Bumetanide Tab [Bumex 1 mg Tab] 2 mg PO DAILY Warfarin Sodium 2.5 mg PO 1700 Travoprost 0.004% Eye Drops [Travatan Z] 1 drop RIGHT EYE DAILY Polyethylene Glycol 3350 17 gm PO DAILY Potassium Chloride [K-DUR 10 mEq Tablet] 20 meq PO BID Mirtazapine [Remeron] 45 mg PO HS Lisinopril [Prinivil] 20 mg PO BID DiltiaZEM CD [Cardizem CD 120 MG] 120 mg PO BID Guaifenesin/Dextromethorphan [Guaifenesin Dm Syrup] 10 ml PO Q4H PRN PRN Reason: Cough Calmoseptine [Risamine Oint] 1 applicatio TOP QID PRN PRN Reason: Rash FentaNYL PATCH [Duragesic Patch] 1 patch TD Q3D #6 patch LORazepam [Ativan] 0.5 mg PO BID #28 tab LORazepam [Ativan] 0.5 mg PO Q8H PRN #20 tab PRN Reason: Anxiety Duloxetine HCl [Cymbalta] 60 mg PO DAILY #0 Tadalafil [Adcirca] 20 mg PO BID Sennosides [Senna] 8.6 mg PO DAILY Acetaminophen [Acetaminophen Extra Strength] 500 - 1,000 mg PO Q8H PRN PRN Reason: Pain Umeclidinium Brm/Vilanterol Tr [Anoro Ellipta 62.5-25 Mcg INH] 1 each IH DAILY Lanolin [Ozz-[id number]-Ivjfap] 1 applicatio TP BID Discontinued PredniSONE [Deltasone 10 mg] 10 mg PO DAILY - Discharge Packet/Instructions *Diet: Regular *Activity: PT/OT *Pain Management/Treatment: Fentanyl patch and muscle relaxer Rx *Wound Care: N/A Additional Instructions: Prednisone taper. 40 mg daily for 3 days. 20 mg daily for 3 days. Then resume daily dose of 10 mg *Expected Signs/Symptoms: You may have cough/sinus problems for several days. You may feel intermittently more short of breath. You may feel fatigued and tired from the illness and hospital stay. You may feel jittery/anxious with higher prednisone dose. *Notify Physician if: Increased difficulty breathing, confusion, passing out, vomiting or diarrhea or dehydration, chest pain, or any new concerns. *During Business Hours Contact: Dr. Vásquez's office. *After Business Hours Contact: The on-call provider for Dr. Vásquez. *Pending Lab/Results: No Pending Lab - Referrals/Follow Up *Referrals/Follow Up: Lidya Vásquez MD [Family Provider] - 1 Week (APPOINTMENT ON 09/30 AT 2PM.) - Patient Handouts Patient Handouts: Viral Pneumonia (IP) - Dismissal Complete Discharge Instructions are:: Complete Physician Narrative - Narrative Physician: Nyla Clifford MD Attestation Narrative: Date: 09/23/17 Time: 1849 Mrs. May reported baseline exertional dyspnea and oxygenation. She continues to cough more than his usual and has occasional sputum production. She had a restless night but otherwise has no concerns at this time. Her appetite is good and oxygenation has stabilized with saturations of 92-96% on 6 L per high flow nasal cannula. Respirations are nonlabored with decreased breath sounds throughout, breath sounds are clear anteriorly area no wheezing present. Regular cardiac rhythm with mechanical S2 click Abdomen is soft and there is no peripheral edema INR today 2.98 Stable for discharge. Short prednisone taper for inflammation associated with coronavirus infection. Follow-up with Dr. Vásquez as noted above.
--- NOTE | 2017-09-23 12:56 | Extended Care Facility Orders ---
Admission Orders Admit to:: Jail Allergies/Adverse Reactions: Allergies amiodarone Allergy (Unknown, Verified 09/20/17 17:07) DYSPNEA, LUNG DAMAGE hydroxychloroquine Allergy (Unknown, Verified 09/20/17 17:07) nifedipine Allergy (Unknown, Verified 09/20/17 17:07) DROPPED BLOOD PRESSURE TOO FAST Thiazides Allergy (Unknown, Verified 09/20/17 17:07) RASH tramadol Allergy (Unknown, Verified 09/20/17 17:07) codeine Adverse Reaction (Unknown, Verified 09/20/17 17:07) NAUSEA oxycodone [From Percocet] Adverse Reaction (Verified 09/20/17 17:07) Confusion Dyazide Allergy (Unknown, Uncoded 09/20/17 17:07) Admitting Diagnosis: pneumonia Admitting Physician: Nyla Clifford MD Attending Physician: Nyla Clifford MD Code Status: Do Not Resuscitate Anticiapted Length of Stay: 30 days or less Rehab Potential: good Rehab Prognosis: good Diet: Regular May use Facility Protocol or Standing Orders: Yes May have flu vaccine: Yes Evaluations/Treatment: PT, OT Jail Certification: I certify that SNF services are required to be given on an Inpatient basis because of the patients need for correction care on a continuing basis for the condition(s) for which he/she received inpatient hospital services prior to his/her transfer to the SNF. SNF inpatient care is necessary for the following reasons Indication for Jail: Teach COPD Management - Additional Information In Event of Arrest: Do Not Start CPR Resident is Aware of Diagnosis: Yes Referrals: Lidya Vásquez MD [Family Provider] - 1 Week Additional Orders: Follow up with Dr. Vásquez in 1 week.
[2017-09-23] MEDS: ACETAMINOPHEN 500 MG TABLET PO PRN (13:50)
== END 2017-09-23 15:00 | DRG 193 ==
LOC: ED 16:51 → MED 20:34
PROVIDERS: ADMIT Internal Medicine; ATTEND Internal Medicine